=== PATIENT | male | born 1970 | race Caucasian/White ===

== ENCOUNTER 2025-07-03 07:46 | Outpatient (NON) | payer OTHER, SELFPAY ==
--- OUTSIDE RECORDS SUMMARY | 2025-06-20 19:29 | XMS_ITS | Encounter Summary ---
Author Organization [facility] Address [address] [place] [address] Care Team Providers Care Cell Coverer Name Role Phone Unavailable Primary Care Provider Unavailabl e Reason for Referral * Evaluate & Treat (Urgent) - Open Specialty Diagnoses / Procedures Referred By Yoel huitron Referred To Contact Psychiatry Diagnoses Weakness Anxiety Suicidal behavior with attempted self-injury (HCC) Alcohol use disorder Other depression Idiopathic gout, unspecified chronicity, unspecified site Hypomagnesemia Hypokalemia Hypophosphatemia Primary hypertension Vitamin D deficiency Philip Delacruz MD [address] [place] [address] Phone: tel: fax: [facility] - Psychiatry [address] [place] [address] Phone: tel: fax: Referral ID Status Reason Start Date Expiration Date V isits Requested Visits Authorized [id number] Open Specialty Services Required 07/01/2025 07/01/2026 1 1 ICIAN ASSISTANT * Consultation (Routine) - Canceled Specialty Diagnoses / Procedures Referred By Yoel huitron Referred To Contact Transitional Care Unit / Transitional Care Diagnoses Weakness Anxiety Suicidal behavior with attempted self-injury (HCC) Alcohol use disorder Other depression Idiopathic gout, unspecified chronicity, unspecified site Hypomagnesemia Hypokalemia Hypophosphatemia Primary hypertension Vitamin D deficiency Philip Delacruz MD [address] [place] [address] Phone: tel: fax: Transitional Care at [address] [address] Phone: tel: fax: Referral ID Status Reason Start Date Expiration Date Visits Requested Visits Authorized [id number] Canceled Specialty Services Required 07/01/2025 07/01/2026 1 1 ICIAN ASSISTANT Reason for Visit * Auth/Cert (Routine) Specialty Diagnoses / Procedures Referred By Contac t Referred To Contact Diagnoses Weakness Referral ID Status Reason Start Date Expiration Date Visits Re quested Visits Authorized [id number] 1 1 Encounter Details Date Type Department Care Team (Latest Contact Info) Description 06/20/2025 8:29 PM CDT - 07/01/2025 8:00 PM PHYSICIAN ASSISTANT Hospital Encounter [facility] [address] [place] [address] Kofi Ivey DO [address] [facility] [place] [address] Fransico Rhodes MD [address] [address] Gricelda Blancas MD [address] [place] [address] Internal Medicine Discharge Disposition: Nursing Facility:Medicaid Social History Tobacco Use Types Packs/Day Years Used Date Smoking Tobacco: Unknown Tobacco Cessation:Counseling Given: Not Answered Alcohol Use Standard Drinks/Week Comments Yes 12 (1 standard drink = 0.6 oz pu re alcohol) AUDIT-C Answer Date Recorded Q1: How often do you have a drink containing alcohol? 4 or more times a week 06/26/2025 Q2: How many drinks containi ng alcohol do you have on a typical day when you are drinking? 3 or 4 Q3: How often do you have si x or more drinks on one occasion? Less than monthly 06/26/2025 Overall Financial Resource Strain (CARDIA) Answe r Date Recorded How hard is it for you to pa y for the very basics like food, housing, medical care, and heating? Patient unable to answer 06/26/2025 [facility] Occupat ional [facility] - Occupational Stress Questionnaire Answer Date Recorded Do you feel stress - tense, restless, nervous, or anxious, or unable to sleep at night because your mind is troubled all the time - these days? Patient unable to answer 06/26/2025 Hunger Vital Sign Answer Date Recorded Within the past 12 months, y ou worried that your food would run out before you got the money to buy more. Patient unable to answer 06/26/2025 Within the past 12 months, t he food you bought just didn't last and you didn't have money to get more. Patient unable to answer 06/26/2025 PRAPARE - Transportation Answer Date Re corded In the past 12 months, has l ack of transportation kept you from medical appointments or from getting medications? Patient unable to answer 06/26/2025 In the past 12 months, has l ack of transportation kept you from meetings, work, or from getting things needed for daily living? Patient unable to answer 06/26/2025 Housing Stability Vital Sign Answer Diego e Recorded In the last 12 months, was t here a time when you were not able to pay the mortgage or rent on time? Patient unable to answer 06/26/2025 In the past 12 months, how m any times have you moved where you were living? 0 06/26/2025 At any time in the past 12 m [facility], were you homeless or living in a penitentiary (including now)? Patient unable to answer 06/26/2025 Sex and Gender Information Value Date Recorded Sex Assigned at Not on file Legal Sex Male 11:09 AM CDT Gender Identity Not on file Sexual Orientation Not on file documented as of this encounter Last Filed Vital Signs Vital Sign Reading Time Taken Comments Blood Pressure 129/93 07/01/2025 7:49 PM PHYSICIAN ASSISTANT Pulse 119 07/01/2025 7:49 PM PHYSICIAN ASSISTANT Temperature 36.8 C (98.2 F) 07/01/2025 7:49 PM PHYSICIAN ASSISTANT Respiratory Rate 16 07/01/2025 7:49 PM PHYSICIAN ASSISTANT Oxygen Saturation 100% 06/30/2025 8:09 PM PHYSICIAN ASSISTANT Inhaled Oxygen Concentration - - Weight 76.9 kg (169 lb 8 oz) 06/20/2025 9:03 PM CDT Height 180.3 cm (5' 11) 06/20/2025 9:03 PM CDT Body Mass Index 23.64 06/20/2025 9:03 PM CDT documented in this encounter Functional Status * Functional and Cognitive Status Question Answer Date of Assessment Author Is person deaf or have blanca us hearing difficulty? No 06/22/2025 10:18 AM Ivon Vera RN Is person blind or have seri ous difficulty seeing? No 06/22/2025 10:18 AM Ivon Vera RN Does person have serious dif ficulty walking/climbing stairs? No 06/22/2025 10:18 AM Richardson Vera RN Does person have difficulty dressing/bathing? No 06/22/2025 10:18 AM Ivon Vera RN Does person have difficulty doing errands alone? No 06/22/2025 10:18 AM Ivon Vera RN Does person have difficulty concentrating/remembering/making decisions? Yes 06/22/2025 10:18 AM Ivon Vera RN * Question Answer Date of Assessment Author Q1: How often do you have a drink containing alcohol? 4 or more times a week 06/26/2025 8:37 AM Teresa Crump RN Q2: How many drinks containing alcohol do you have on a typical day when you are drinking? 3 or 4 06/26/2025 8:37 AM Teresa Crump R N Q3: How often do you have six or more drinks on one occasion? Less than monthly 06/26/2025 8:37 AM Teresa Crump R N * AUDIT-C Score Answer Date of Assessment Author 6 06/26/2025 8:37 AM Blue RN * Is person deaf or have serious hearing difficulty? Answer Date of Assessment Author No 06/22/2025 10:18 AM Ivon Vera RN * Is person blind or have serious difficulty seeing? Answer Date of Assessment Author No 06/22/2025 10:18 AM Ivon Vera RN * Does person have serious difficulty walking/climbing stairs? Answer Date of Assessment Author No 06/22/2025 10:18 AM Ivon Vera RN * Does person have difficulty dressing/bathing? Answer Date of Assessment Author No 06/22/2025 10:18 AM Ivon Vera RN * Does person have difficulty doing errands alone? Answer Date of Assessment Author No 06/22/2025 10:18 AM Ivon Vera RN documented as of this encounter Mental Status * Does person have difficulty concentrating/remembering/making decisions? Answer Entry Date Author Yes 06/22/2025 10:18 AM Ivon Vera RN documented in this encounter Discharge Summaries * Philip Delacruz MD - 07/01/2025 8:29 PM CST Images from the original note were not included. [facility] Internal Medicine Discharge Summary Name: Chilo Boateng Room/Bed: 6613/1 : 1970 55 year old PCP: No primary care provider on file. Admit Date/Time: 06/20/2025 8:29 PM LOS: 11 Date of discharge: Code status at time of discharge: Full Code Patient condition at time of discharge: Stable Discharge Diagnosis Weakness (POA: Yes) Primary hypertension (POA: Yes) Alcohol use disorder (POA: Yes) Anxiety (POA: Yes) Depression (POA: Yes) Suicidal behavior with attempted self-injury (HCC) (POA: Yes) Hypokalemia (POA: Yes) Hypophosphatemia (POA: Yes) Hypomagnesemia (POA: Yes) Vitamin D deficiency (POA: Yes) Swelling of joint of right knee (POA: Unknown) Gout (POA: Unknown) Elevated LFTs (POA: Unknown) Hospital Course Chilo Boateng is a 55-year-old male with a history of hypertension, alcohol use disorder, depression with multiple suicide attempts, and bilateral peripheral neuropathy who was admitted for evaluation of generalized weakness following a period of alcohol detox and suicidal ideation. His hospitalization was notable for progressive cognitive changes, agitation, and functional decline, with the principal diagnosis of alcohol-induced major neurocognitive disorder, amnestic-confabulatory type, persistent, in the context of suspected Wernicke encephalopathy and multifactorial delirium. The diagnostic workup included laboratory evaluation for nutritional deficiencies (B1, B12, folate,MMA, vitamin D), metabolic derangements, and imaging to rule out acute injury after an unwitnessed fall (CT head, c-spine, right hip x-ray, all negative). Neurology and psychiatry were consulted for a ssessment of cognitive and behavioral changes, with psychiatry following throughout the admission for ongoing risk assessment and management of agitation, mood symptoms, and safety precautions. Speech-language pathology and physical/occupational therapy evaluated and recommended intensive multidisci plinary rehabilitation due to significant deficits in functional mobility, cognition, and self-care. Therapeutic interventions included high-dose IV thiamine (500 mg TID), folic acid, multivitamins, and vitamin D repletion for nutritional support, as well as electrolyte repletion for hypokalemia, hypomagnesemia, and hypophosphatemia. CIWA protocol and lorazepam PRN were discontinued as withdrawal symptoms resolved. For agitation and sleep disturbance, trazodone was titrated to 100 mg QHS and haloperidol was initiated at 3 mg QHS, with PRN haloperidol available for moderate/severe agitation. Physical and occupational therapy focused on bed mobility, transfers, and ambulation, with gradual improvement in functional status but persistent need for assistance and safety monitoring. During the admission, he developed right knee swelling with effusion, for which orthopedic surgery was consulted. Imaging showed a large joint effusion without acute fracture, and arthrocentesis yielded unremarkable results; colchicine and allopurinol were started for gout management. His hypertension was managed with amlodipine after holding metoprolol and losartan due to prior KOBI, which resolve d before transfer. He also had elevated LFTs, with abdominal ultrasound showing hepatic steatosis. Psychiatric evaluation throughout the stay documented persistent cognitive impairment, intermittentagitation, and mood symptoms, but no ongoing suicidal ideation or self-harm behaviors in the days prior to discharge. Sitter was discontinued as behaviors improved, and discharge planning focused on placement in a nursing home facility due to ongoing safety and functional needs. At discharge, he was alert and cooperative, with persistent cognitive deficits and functional limitations requiring continued rehabilitation and assistance with ADLs. Discharge medications included acetaminophen, amlodipine, colchicine, folic acid, haloperidol, multivitamins, trazodone, vitamin D, and allopurinol. He was transferred to [facility] for post-acute care and long- term placement. Problem List/Plan of Care at Time of Discharge Alcohol use disorder Present on Admission: Yes Weakness Present on Admission: Yes - 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 vs nutritional deficiency vs wernicke encephalopathy vs muscular dystrophy vs infection - acute exacerbation likely due to increase in alcohol consumption - IV thiamine 500 mg TID given at OSH - workup includes UA, TSH, B1, B12, folate, MMA, vit D, CK blood - started on IV thiamine here with Neurology consult in AM PLAN: - Folic acid 1 mg daily - Thiamine daily - s/p [facility] protocol - F/u on Labs - PT/OT rec acute rehab Primary hypertension Present on Admission: Yes - elevated on admission 170s SBP - on metoprolol 25 and losartan 50 which was held due to kobi Plan: - continue amlodipine 5 mg as he is very well controlled for the time being Suicidal behavior with attempted self-injury (HCC) Present on Admission: Yes Depression Present on Admission: Yes Anxiety Present on Admission: Yes - admitted to [facility] behavioral health unit due to suicide attempt - does not endorse SI here - continuous sitter for agitation (not needed for SI anymore) - psych consulted, recs: - no psychiatric contraindication to discharge, Recommend discharge to the rehab facility like SNF,recommend giving trazodone 100 mg QHS at discharge and follow up outpatient, Increase Trazodone to 100 mg tablet PO, consider initiating Naltrexone at follow up psychiatric examinations, - haldol 3mg PO qhs - PRNs for agitation: Haldol 5mg PO or 2.5mg IM q6h PRN - Precautions: Elopement, Fall Hypophosphatemia Present on Admission: Yes Hypokalemia Present on Admission: Yes Hypomagnesemia Present on Admission: Yes Today potassium 3.4 06/30/25 Plan: Replete electrolytes as needed Today repleted 40 mEq of KCl Vitamin D deficiency Present on Admission: Yes Plan: Vitamin D (ergocalciferol) 1.25 MG capsule containing 50,000 units Swelling of joint of right knee Present on Admission: Not yet determined Gout Present on Admission: Not yet determined Right knee is joint swelling improved. No localized tenderness, induration, erythema, pain, and skin changes noted. Xray shows effusion of the right knee. Orthopedic surgery consulted and arthrocentesis obtained, results unremarkable thus far. Plan: continue to follow arthrocentesis results Orthopedic surgery recommendations: No acute orthopedic surgical intervention indicated Weight bearing Status: [facility] Orthopedic surgery has signed off. Elevated LFTs Present on Admission: Not yet determined - Abd US 06/29 showing hepatic steatosis Follow-up Summary Future Appointments As directed Outpatient Referral: Ref to Psychiatry - Nancy Silver As directed Outpatient Referral: REF TO [facility] Alonzo Medication Updates: See medications below Post discharge follow up tasks/Incidental Findings: Follow up with the Psychiatry, and PCP, [facility] referral Discharge Destination: Facility. Diet: Current Diet Order Start 06/29/25 1045 DIET REGULAR Question Answer Comment Tray Type: SELF SELECT Paper Service Tray required (Indicate reason) Safety Tray Activity Orders/Mobility Devices at time of discharge: PT Discharge Recommendations: Patient would benefit from multidisciplinary therapy This recommendation is made due to ongoing PT functional needs: address care for self in the home;address functional deficits Recommended Transportation Method: Wheelchair Van Patient is being recommended for post acute care, therefore DME recommendations will be made at thenext level of care. SUBJECTIVE: Subjective: Pt agreeable to therapy session. What matters most to this patient? Did not state Pain Assessment: Pain Assessment Pain Scale/Observation: No/denies pain PRECAUTIONS: Weight Bearing Status: (No WB restrictions noted) Activity Level: Activity as Tolerated OBJECTIVE: At start of therapy session, patient found in bed and with no alarm General Appearance: adult male in NAD Vitals/Observations: Pt denied dizziness, chest pain, SOB, and nausea during activity or position changes. In NAD throughout session. Mental Status/Cognition: Orientation Level: Disoriented to Situation (Knew year, but required coices for month (correctly chose Nov).) Cognition: Confused;Impulsive Attention Span: Attends with cues to redirect Memory: Decreased recall of recent events Following Commands: Follows one step commands consistently Safety Judgement: Decreased awareness of need for safety Awareness of Errors: Decreased awareness of deficits Mobility: A gait belt and non-slip socks were used for all out of bed activity this date. Bed Mobility: Supine to Sit: Stand By Assist with HOB in semi-fowlers position Sit to Supine: Stand By Assist Transfers: Sit to Stand: Stand By Assist Stand to Sit: Stand By Assist Type of Transfer: Other (Comment) (from ambulation w/o AD and SBA-Min A for safety and intermittentsteadying) Transfer Device: Gait belt Gait: Weight Bearing Status: (No WB restrictions noted) Distance Ambulated (ft): 250 FEET Ambulation: Assistive Device: Gait Belt Ambulation: Level of Assistance: Moderate Assistance;Requires Verbal Cues for Safety;Requires Verbal Cues for Technique;Requires Physical Cues for Technique (Min-Mod A for maintaining COG over TICO; 2instances of LOB requiring physical assist to correct) Ambulation: Gait Deviations: Trunk sway;Push Off - Decreased;Heel Strike - Decreased Balance: Sitting - Static: Good - Sitting - Dynamic: Good - Standing - Static: Fair;Without Upper Extremity Support Standing - Dynamic: Fair -;Without Upper Extremity Support ACTIVITY TOLERANCE: Activity Tolerance: Requires standing rest breaks;Requires rest breaks TREATMENT/INTERVENTIONS: transfer training and gait training [facility] 6 Clicks Mobility Raw Score:: 20 EDUCATION: While performing PT, Patient was instructed in:functional mobility training, safety awareness/fall precautions , use of adaptive equipment, discharge planning, use of call light Presented to patient who demonstrates Fair understanding of instructions given. ASSESSMENT: Patient would benefit from additional Physical Therapy sessions to achieve the following functionalgoals to enhance independence. Short Term Goals: Goal Formation With patient Patient will perform bed mobility with complete independence Patient will transfer sit to/from stand with modified independence Patient will transfer bed to/from chair with modified independence Patient will ambulate 100 feet with standby assistive with least restrictive device Emergency Contacts: Extended Emergency Contact Information Primary Emergency Contact: Kasia Boateng Mobile Relation: Mother Discharge Medications Allergies[1] Medication List START taking these medications acetaminophen 500 MG tablet Commonly known as: Tylenol Take 1 (one) tablet by mouth every 6 hours as needed Maximum allowable Acetaminophen amount = 4 Grams (4000 mg) / 24 hours. allopurinol 100 MG tablet Commonly known as: Zyloprim Take 1 (one) tablet by mouth once daily after breakfast Start taking on: July 02, 2025 amLODIPine 5 MG tablet Commonly known as: Norvasc Take 1 (one) tablet by mouth once daily Start taking on: July 02, 2025 colchicine 0.6 MG tablet Take 1 (one) tablet by mouth once daily Start taking on: July 02, 2025 folic acid 1 MG tablet Commonly known as: Folvite Take 1 (one) tablet by mouth once daily Start taking on: July 02, 2025 haloperidol 1 MG tablet Commonly known as: Haldol Take 3 (three) tablets by mouth at bedtime multiple vitamins with minerals tablet Take 1 (one) tablet by mouth once daily Start taking on: July 02, 2025 traZODone 100 MG tablet Commonly known as: Desyrel Take 1 (one) tablet by mouth once daily vitamin D (ergocalciferol) 1.25 MG (17912 UT) capsule Commonly known as: Drisdol Take 1 (one) capsule by mouth every 7 days (once a week) Start taking on: July 06, 2025 Where to Get Your Medications You can get these medications from any pharmacy Bring a paper prescription for each of these medications acetaminophen 500 MG tablet allopurinol 100 MG tablet amLODIPine 5 MG tablet colchicine 0.6 MG tablet folic acid 1 MG tablet haloperidol 1 MG tablet multiple vitamins with minerals tablet traZODone 100 MG tablet vitamin D (ergocalciferol) 1.25 MG (05897 UT) capsule Physical Exam Recent Vitals: Temp: [98.2 ??F (36.8 ??C)] 98.2 ??F (36.8 ??C) Pulse: [84-119] 119 Resp: [16-18] 16 BP: (128-142)/(84-93) 129/93 Weight change: No intake or output data in the 24 hours ending 07/01/252028 Physical Exam: Gen: Alert, cooperative, in no acute distress HEENT: NC/AT, EOMI, no nasal drainage Neck: Supple CV: Regular rate and rhythm. No murmurs appreciated Lungs: Clear to auscultation bilaterally Abdomen: BS+, soft, non-tender, non-distended Extremities: Nontender, No edema noted Skin: Warm, dry Neuro: Alert and oriented to person, place, time and situation Psych: Mood appropriate Radiology XR Elbow Right 2Vw Result Date: 06/21/2025 PROCEDURE: XR ELBOW RIGHT 2VW, DATE/TIME OF EXAM: 06/21/2025 4:33 PM, LOCATION [facility] INDICATION: R53.1: Weakness ADDITIONAL CLINICAL INFORMATION: Ordering Provider Reason For Exam: purulent fluid accumulation? dislocation of elbow joint? Localized cellulitis? Technologist Note: Additional: COMPARISON: None. Impression: Alignment is normal. Joint spaces are normal. No acute fracture. No joint effusion. > Interpreting Provider: Gray Bo MD on 06/21/2025 8:19 PM XR Chest 1Vw Portable Result Date: 06/21/2025 PROCEDURE: XR CHEST 1VW PORTABLE, DATE/TIME OF EXAM: 06/21/2025 1:46 AM, LOCATION [facility] INDICATION: T17.908D: Aspiration into airway, subsequent encounter ADDITIONAL CLINICAL INFORMATION: Ordering Provider Reason For Exam: aspiration Technologist Note: Additional: COMPARISON: None. Impression: There is subsegmental atelectasis in the lower lungs.There is no pleural effusion.Thereis no pneumothorax. The cardiomediastinal silhouette is normal. > Interpreting Provider: Gray Bo MD on 06/21/2025 12:47 PM Notable Labs Laboratory Data Recent Labs Component Name 06/28/25194206/24/2548 06/21/25402 WBC 7.7 7.8 7.5 HGB 12.4* 12.5* 11.5* HCT 37.9* 35.3* 32.4* PLTCOUNT 418 473* 353 MCV 99.2* 91.7 91.3 No results for input(s): PT, INR, PTT in the last 45268 hours. Recent Labs Component Name 06/30/25193006/30/254406/28/251942 NA 140 139 138 POTASSIUM 4.3 3.4* 3.9 CL 109* 107 106 CO2 19* 24 19* BUN 15 14 17 CREATININE 0.89 0.93 0.81 Recent Labs Component Name 06/30/25193006/30/255 06/28/251942 CALCIUM 8.9 9.1 9.1 PHOS 3.7 4.0 3.6 Recent Labs Component Name 06/30/25193006/30/254406/28/251942 PROT 7.1 7.0 7.0 ALB 3.4 3.3* 3.2* ALKPHOS 64 73 54 AST 64* 73* 83* ALT 78* 81* 77* TBILI 0.3 0.3 0.3 Recent Labs Component Name 06/21/25 0403 CKTOTAL 103 No results for input(s): CAITLYN ANDINO in the last 62687 hours. Microbiology Results (Displays last 21 days for this encounter ONLY) Procedure Component Value - Date/Time CULTURE FLUID+GRAM STAIN [[id number]] (Normal) Collected: 06/24/25 1308 Lab Status: Final result Specimen: Synovial Fluid Updated: 06/30/25 1515 Culture No growth Gram Stain Light Polymorphonuclear cells No organisms seen Narrative: Body fluid received in blood culture bottles will be evaluated for aerobic and anaerobic growth. Separate anaerobic culture order has been cancelled as a duplicate order. CULTURE AFB+SMEAR [[id number]] (Normal) Collected: 06/24/25 1300 Lab Status: Preliminary result Specimen: Microbiology from Synovial Fluid Updated: 06/29/25 0804 Culture No acid-fast bacillus isolated AFB Smear No acid-fast bacilli seen CULTURE FUNGUS OTHER+FUNGUS SMEAR [[id number]] (Normal) Collected: 06/24/25 1300 Lab Status: Preliminary result Specimen: Microbiology from Synovial Fluid Updated: 06/29/25 1148 Culture No fungus isolated Fungus Stain No yeast or hyphae seen Patient Discharge Instructions Discharge Instructions Chilo Tasneem If you need to call [facility] for any reason, you may reach us at [phone] and dial [phone] for the staple processing machine operator. DISCHARGE MEDICATIONS: Below were changes made to your home medications: Current Discharge Medication List START taking these medications Instructions Authorizing Provider acetaminophen 500 MG tablet Commonly known as: Tylenol Quantity Dispensed: 60 tablet Take 1 (one) tablet by mouth every 6 hours as needed Maximum allowable Acetaminophen amount = 4 Grams (4000 mg) / 24 hours. Philip Delacruz MD allopurinol 100 MG tablet Commonly known as: Zyloprim Quantity Dispensed: 60 tablet Start taking on: July 02, 2025 Take 1 (one) tablet by mouth once daily after breakfast Philip Delacruz MD amLODIPine 5 MG tablet Commonly known as: Norvasc Quantity Dispensed: 90 tablet Start taking on: July 02, 2025 Take 1 (one) tablet by mouth once daily Philip Delacruz MD colchicine 0.6 MG tablet Quantity Dispensed: 60 tablet Start taking on: July 02, 2025 Take 1 (one) tablet by mouth once daily Philip Delacruz MD folic acid 1 MG tablet Commonly known as: Folvite Quantity Dispensed: 90 tablet Start taking on: July 02, 2025 Take 1 (one) tablet by mouth once daily Philip Delacruz MD haloperidol 1 MG tablet Commonly known as: Haldol Quantity Dispensed: 90 tablet Take 3 (three) tablets by mouth at bedtime Philip Delacruz MD multiple vitamins with minerals tablet Quantity Dispensed: 60 Each Start taking on: July 02, 2025 Take 1 (one) tablet by mouth once daily Philip Delacruz MD traZODone 100 MG tablet Commonly known as: Desyrel Quantity Dispensed: 30 tablet Take 1 (one) tablet by mouth once daily Philip Delacruz MD vitamin D (ergocalciferol) 1.25 MG (99755 UT) capsule Commonly known as: Drisdol Quantity Dispensed: 8 capsule Start taking on: July 06, 2025 Take 1 (one) capsule by mouth every 7 days (once a week) Philip Delacruz MD If you have any questions about your medications, please be sure to ask the pharmacy when you continuous pickling line pickler helper your prescription. You may also call your primary provider if you are uncertain if you should be taking your medication. INSTRUCTIONS: Follow your new meds as described in the table above CONCERNING SYMPTOMS: When to call your healthcare provider: Call your healthcare provider immediately if you have any of the following: - Fever of 101??F or higher - Shaking chills - Intractable nausea and vomiting - Severe headache - Confusion/altered mental status - Seizures (convulsions) - Weakness in arms/legs - Dizziness If you are unable to reach your primary provider, please go to the nearest emergency room or call EMS ([phone]). It is essential that you keep all of your follow-up appointments and go to your doctors appointments as scheduled. If a follow-up with your primary care provider has not been scheduled, you need to schedule an appointment tofollow-up on your hospitalization within 1-2 weeks. If there is a conflict,please call the clinic ahead of time and reschedule the appointment. Thank you, Internal Medicine Department [address] [address] I spent 60 minutes in addition to direct patient care summarizing this patient's hospital stay, reviewing and updating the inpatient problem list, reviewing discharge medications, instructions, discussing discharge care planand discharge follow up labs/studies/doctor visits with the patient and or POA/family. Philip Delacruz MD [facility] 07/01/2025 8:29 PM [1] No Known Allergies ICIAN ASSISTANT documented in this encounter Discharge Instructions * Discharge Instructions* Philip Delacruz MD - 07/01/2025 4:08 PM PHYSICIAN ASSISTANT Chilo Boateng If you need to call [facility] for any reason, you may reach us at [phone] and dial [phone] for the staple processing machine operator. DISCHARGE MEDICATIONS: Below were changes made to your home medications: Current Discharge Medication List START taking these medications Instructions Authorizing Provider acetaminophen 500 MG tablet Commonly known as: Tylenol Quantity Dispensed: 60 tablet Take 1 (one) tablet by mouth every 6 hours as needed Maximum allowable Acetaminophen amount = 4 Grams (4000 mg) / 24 hours. Philip Delacruz MD allopurinol 100 MG tablet Commonly known as: Zyloprim Quantity Dispensed: 60 tablet Start taking on: July 02, 2025 Take 1 (one) tablet by mouth once daily after breakfast Philip Delacruz MD amLODIPine 5 MG tablet Commonly known as: Norvasc Quantity Dispensed: 90 tablet Start taking on: July 02, 2025 Take 1 (one) tablet by mouth once daily Philip Delacruz MD colchicine 0.6 MG tablet Quantity Dispensed: 60 tablet Start taking on: July 02, 2025 Take 1 (one) tablet by mouth once daily Philip Delacruz MD folic acid 1 MG tablet Commonly known as: Folvite Quantity Dispensed: 90 tablet Start taking on: July 02, 2025 Take 1 (one) tablet by mouth once daily Philip Delacruz MD haloperidol 1 MG tablet Commonly known as: Haldol Quantity Dispensed: 90 tablet Take 3 (three) tablets by mouth at bedtime Philip Delacruz MD multiple vitamins with minerals tablet Quantity Dispensed: 60 Each Start taking on: July 02, 2025 Take 1 (one) tablet by mouth once daily Philip Delacruz MD traZODone 100 MG tablet Commonly known as: Desyrel Quantity Dispensed: 30 tablet Take 1 (one) tablet by mouth once daily Philip Delacruz MD vitamin D (ergocalciferol) 1.25 MG (28876 UT) capsule Commonly known as: Drisdol Quantity Dispensed: 8 capsule Start taking on: July 06, 2025 Take 1 (one) capsule by mouth every 7 days (once a week) Philip Delacruz MD If you have any questions about your medications, please be sure to ask the pharmacy when you continuous pickling line pickler helper your prescription. You may also call your primary provider if you are uncertain if you should be taking your medication. INSTRUCTIONS: Follow your new meds as described in the table above CONCERNING SYMPTOMS: When to call your healthcare provider: Call your healthcare provider immediately if you have any of the following: - Fever of 101??F or higher - Shaking chills - Intractable nausea and vomiting - Severe headache - Confusion/altered mental status - Seizures (convulsions) - Weakness in arms/legs - Dizziness If you are unable to reach your primary provider, please go to the nearest emergency room or call EMS ([phone]). It is essential that you keep all of your follow-up appointments and go to your doctors appointments as scheduled. If a follow-up with your primary care provider has not been scheduled, you need to schedule an appointment tofollow-up on your hospitalization within 1-2 weeks. If there is a conflict,please call the clinic ahead of time and reschedule the appointment. Thank you, Internal Medicine Department [address] [address] ICIAN ASSISTANT documented in this encounter Medications at Time of Discharge acetaminophen (Tylenol) 500 MG tablet Take 1 (one) tablet by mouth every 6 hours as needed Maximum allowable Acetaminophen amount = 4 Grams (4000 mg) / 24 hours. 60 tablet 07/01/2025 allopurinol (Zyloprim) 100 MG tablet Take 1 (one) tablet by mouth once daily after breakfast 60 tablet 07/02/2025 amLODIPine (Norvasc) 5 MG tablet Take 1 (one) tablet by mouth once daily 90 tablet 07/02/2025 colchicine 0.6 MG tablet Take 1 (one) tablet by mouth once daily 60 tablet 07/02/2025 folic acid (Folvite) 1 MG tablet Take 1 (one) tablet by mouth once daily 90 tablet 07/02/2025 haloperidol (Haldol) 1 MG tablet Take 3 (three) tablets by mouth at bedtime 90 tablet 07/01/2025 multiple vitamins with minerals tablet Take 1 (one) tablet by mouth once daily 60 Each 07/02/2025 traZODone (Desyrel) 100 MG tablet Take 1 (one) tablet by mouth once daily 30 tablet 1 07/01/2025 vitamin D, ergocalciferol, (Drisdol) 1.25 MG (47640 UT) capsule Take 1 (one) capsule by mouth every 7 days (once a week) 8 capsule 07/06/2025 documented as of this encounter Progress Notes * Ute Hong RN - 07/01/2025 4:25 PM CST Facility Transfer Note Actual Level of Care/Dispostion Details Actual Level of Care at Discharge: Correction - Medicaid Patient / Family provided post-acute services choices?: Yes Payor Source: Medicaid Facility Name: (include name of person confirming admission): [facility] Made Aware of Special Needs (if applicable): No RN Call Report to: [phone] RN Fax D/C Orders to: [phone] Transportation: YAN Certificate of Medical Necessity rationale: Fall risk, balance Date/time of transfer: 07/01 at Accepting MD: Unknown Completed and Signed [id number] (if applicable): N/A Physician signed: No Family/Other Notified of Transfer (name/phone): Extended Emergency Contact Information Primary Emergency Contact: Kasia Boateng Mobile Relation: Mother Authorization Skilled Care: Authorization for Transportation: Verified Qualifying Stay(Skilled Only, 3 consecutive days): NO Present hospitalization: No Past 30 days: No Patient discharged to SNF under Medicare SNF 3-day waiver? No Comments: SW faxed D/C orders, MAR, and AVS to facility. ICIAN ASSISTANT * Demario Rosado MSW - 07/01/2025 4:13 PM CST Facility Transfer Note Actual Level of Care/Dispostion Details Actual Level of Care at Discharge: Correction - Medicaid Patient / Family provided post-acute services choices?: Yes Payor Source: Medicaid Facility Name: (include name of person confirming admission): [facility] Made Aware of Special Needs (if applicable): No RN Call Report to: [phone] RN Fax D/C Orders to: [phone] Transportation: [facility]AN Certificate of Medical Necessity rationale: Fall risk, balance Date/time of transfer: 07/01 at Accepting MD: Unknown Completed and Signed [id number] (if applicable): N/A Physician signed: No Family/Other Notified of Transfer (name/phone): Extended Emergency Contact Information Primary Emergency Contact: Kasia Boateng Mobile Relation: Mother Authorization Skilled Care: Authorization for Transportation: Verified Qualifying Stay(Skilled Only, 3 consecutive days): NO Present hospitalization: No Past 30 days: No Patient discharged to SNF under Medicare SNF 3-day waiver? No Comments: SW faxed D/C orders, MAR, and AVS to facility. AILEEN Matson ICIAN ASSISTANT * Caity Geller OT - 07/01/2025 11:13 AM CST [facility] Physical Medicine and Rehabilitation Occupational Therapy Progress Note Patient: Chilo Boateng Med Record Number: [id number] Date of : 1970 Age: [age] year old PPE worn by staff: gloves;mask - procedural Recommendations: OT Discharge Recommendations: Patient would benefit from multidisciplinary therapy This recommendation is made due to ongoing OT functional needs: address functional deficits;addresscare for self in the home Activity Level: as tolerated SUBJECTIVE: Subjective: I can try to move. PATIENT GOALS / WHAT MATTERS MOST TO THE PATIENT: Patient's Primary Concern: Walk better Pain Assessment: Pain Assessment Pain Scale/Observation: No/denies pain OBJECTIVE: At start of therapy session, patient found in bed and with bed alarm on General Appearance: supine in NAD Mental Status/Cognition: Orientation Level: Disoriented to Time;Disoriented to Situation (cues for date, states Jul 17) Memory: Decreased short term memory Following Commands: Follows one step commands with repetition/cues Safety Judgement: Decreased awareness of need for safety Awareness of Errors: Decreased awareness of deficits Problem Solving: Assistance required to generate solutions Mobility: a gait belt and non-slip socks were used for all out of bed activity this date. Bed Mobility: Supine to Sit: Stand By Assist with HOB in semi-fowlers position Sit to Supine: Stand By Assist Transfers: Sit to Stand: Stand By Assist Stand to Sit: Stand By Assist Transfer Device: Gait belt Functional Ambulation: Patient ambulated functional household distance with moderate assist using no device and progressing to minimal assist with use of w/w. Balance: Sitting - Static: Good Sitting - Dynamic: Good - Standing - Static: Fair;Without Upper Extremity Support Standing - Dynamic: Poor +;Without Upper Extremity Support Activities of Daily Living: Oral Facial Hygiene: Stand By Assist (facial and hand hygiene standing at the sink) Lower Body Dressing: Minimal Assistance ACTIVITY TOLERANCE: Activity Tolerance: Requires standing rest breaks AM-PAC 6 Clicks Daily Activity Raw Score:: 19 TREATMENT/INTERVENTIONS: ADL training Cognitive retraining Functional transfer training Endurance training Safety awareness EDUCATION: While performing OT, Patient was instructed in:functional mobility training, self-care training, cognitive retraining, safety awareness/fall precautions , discharge planning, use of call light Presented to patient who demonstrates Fair understanding of instructions given. INFORMED CONSENT TO TREATMENT: Plan of care including recommended therapy, goals and frequency, discussed with patient who understands and agrees to proceed. ASSESSMENT: Patient continues to benefit from skilled Occupational Therapy to achieve the following functional goals. Short Term Goals: Goal Formation With patient Patient will perform grooming in chair and independently Patient will perform lower extremity dressing in chair and with minimal assist Patient will transfer to bedside commode with minimal assist and with least restrictive assistive device Patient will tolerate treatment 25 minutes and with fair+ endurance Picker Packer Goal(s): Patient to discharge to appropriate next level of inpatient care Plan: Patient continues to benefit from skilled therapy services., Continue with goals as established. If patient is discharged from the facility, this note serves as a discharge summary if further occupational therapy visits did not occur. Refer to filed flowsheet for further details. Following therapy session, patient left in bed, with bed alarm on , with call light within reach. ICIAN ASSISTANT * Philip Delacruz MD - 06/30/2025 7:35 PM CST Images from the original note were not included. [facility] Internal Medicine Progress Note Name: Chilo Boateng Room/Bed: 6613/1 : 1970 55 year old PCP: No primary care provider on file. Admit Date/Time: 06/20/2025 8:29 PM LOS: 10 Subjective Interval Update: Seen in his room, today he feels sad/worried about his mother being hospitalized We encouraged him to keep working on recovery patient is agreeable, he is not suicidal does not want to hurt anyone or himself Hypokalemia mild 3.4, we will replete Continued to work with physical therapy and occupational therapy today Hospital course: Chilo Boateng is a 54 year old male with a past medical history significant for HTN, alcohol use disorder, depression with multiple suicide attempts and bilateral peripheral neuropathy for 2 years who presents to the hospital with generalized weakness. Admitted to behavioral health unit initially for alcohol detox and SI on 06/10. Developed profound weakness, started to experience severe tremors, was slow to respond, had minimal intake, worsening pain/tingling in his feet, was unable to ambulate so he was ultimately sent to medicine floor. They had concern for Wernicke encephalopathy due to intention tremors and worsening neuropathy so was started on IV thiamine 500 mg tid. KOBI which resolved before transfer. On metoprolol and losartan which was held due to KOBI. Had an unwitnessed fall and CT head, c-spine and R hip xray which was negative but now has worsening R side pain and weakness. Was Aox4 at OSH but very slow to respond. On a 1:1 sitter since he was endorsing SI at OSH. The morning of transfer, had episode of aspiration so was started on Unasyn. CXR clear here and afebrile. On admission, afebrile, HDS. Not endorsing SI tonight. Aox2-3 unsure of why he was transferred and not sure which hospital he was at. Does endorse ongoing neuropathy for the past 2 years that has significantly worsened in the past week. Reports last suicide attempt as using alcohol. Does not remember some of the events of the past 2 weeks. Denies sob, recent illnesses, chest pain or diarrhea. Sitter discontinued 06/27 as patient behaviors improved. Objective Temp: [98.1 ??F (36.7 ??C)] 98.1 ??F (36.7 ??C) Pulse: [82-103] 82 Resp: [18] 18 BP: (133-139)/(83-89) 133/89 Weight change: No intake or output data in the 24 hours ending 06/30/251934 Physical Exam: Gen: Alert, cooperative, in no acute distress HEENT: NC/AT, EOMI, no nasal drainage Neck: Supple CV: Regular rate and rhythm. No murmurs appreciated Lungs: Clear to auscultation bilaterally Abdomen: BS+, soft, non-tender, non-distended Extremities: Nontender, No edema noted Skin: Warm, dry Neuro: Alert and oriented to person, place, time and situation Psych: Mood appropriate Assessment and Plan Alcohol use disorder Present on Admission: Yes Weakness Present on Admission: Yes - 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 vs nutritional deficiency vs wernicke encephalopathy vs muscular dystrophy vs infection - acute exacerbation likely due to increase in alcohol consumption - IV thiamine 500 mg TID given at OSH - workup includes UA, TSH, B1, B12, folate, MMA, vit D, CK blood - started on IV thiamine here with Neurology consult in AM PLAN: - Folic acid 1 mg daily - Thiamine daily - s/p CINJ protocol - F/u on Labs - PT/OT rec acute rehab Primary hypertension Present on Admission: Yes - elevated on admission 170s SBP - on metoprolol 25 and losartan 50 which was held due to kobi Plan: - continue amlodipine 5 mg as he is very well controlled for the time being Suicidal behavior with attempted self-injury (HCC) Present on Admission: Yes Depression Present on Admission: Yes Anxiety Present on Admission: Yes - admitted to OSH behavioral health unit due to suicide attempt - does not endorse SI here - continuous sitter for agitation (not needed for SI anymore) - psych consulted, recs: - no psychiatric contraindication to discharge, Recommend discharge to the rehab facility like SNF,recommend giving trazodone 100 mg QHS at discharge and follow up outpatient, Increase Trazodone to 100 mg tablet PO, consider initiating Naltrexone at follow up psychiatric examinations, - haldol 3mg PO qhs - PRNs for agitation: Haldol 5mg PO or 2.5mg IM q6h PRN - Precautions: Elopement, Fall Hypophosphatemia Present on Admission: Yes Hypokalemia Present on Admission: Yes Hypomagnesemia Present on Admission: Yes Today potassium 3.4 06/30/25 Plan: Replete electrolytes as needed Today repleted 40 mEq of KCl Vitamin D deficiency Present on Admission: Yes Plan: Vitamin D (ergocalciferol) 1.25 MG capsule containing 50,000 units Swelling of joint of right knee Present on Admission: Not yet determined Gout Present on Admission: Not yet determined Right knee is joint swelling improved. No localized tenderness, induration, erythema, pain, and skin changes noted. Xray shows effusion of the right knee. Orthopedic surgery consulted and arthrocentesis obtained, results unremarkable thus far. Plan: continue to follow arthrocentesis results Orthopedic surgery recommendations: No acute orthopedic surgical intervention indicated Weight bearing Status: RUE WBAT Orthopedic surgery has signed off. Elevated LFTs Present on Admission: Not yet determined - Abd US 06/29 showing hepatic steatosis Hospital Acquired Infection Risk Review: This patient does not have active central lines at this time. Incidental findings requiring follow up: N/A Diet: DIET REGULAR DVT Prophylaxis: Lovenox (DVT Prophylaxis Dose) Code Status: Full Code Electronically Signed By: Philip Delacruz MD 06/30/2025 7:35 PM ICIAN ASSISTANT * Demario Rosado MSW - 06/30/2025 4:43 PM CST Social Work Progress Note Discharge Plan Disposition: LTC Transportation: Transportation at discharge: Ambulance Anticipated Discharge Date: 07/02/2025 Contacts: Extended Emergency Contact Information Primary Emergency Contact: Kasia Boateng Mobile Relation: Mother Comments: Per discussion, pt is ready for the next level of care, referrals have been sent out for LTC facilities. No accepting at this time. SW sent additional referrals SW will continue to follow for transfer to facility. Name/Phone number: AILEEN Matson [phone] ICIAN ASSISTANT * Ute Hong RN - 06/30/2025 2:18 PM CST Care Coordination Progress Note Expected Discharge Date: 07/02/2025 Discharge Plan: CM attended MDR this day. Discussed D/C plan, barriers, and DME needs. Per discussion, pt will be going to log term came, referrals sent, awaiting acceptance however pt has a significant mental health history and may be difficult to place. Meanwhile the pts medical insurance is [employer] but it is not clear if it I active or needs a review or a new application. CM sent an email to [employer] to assist with a new application or review. Awaiting response. Family Support (Name and Phone): Extended Emergency Contact Information Primary Emergency Contact: Kasia Boateng Mobile Relation: Mother Transportation at Discharge: Family: READMISSION RISK SCORE is 8.3 at 2:18 PM 06/30/2025.: Name: Ute Hong RN ICIAN ASSISTANT * Liz Pulido, PT - 06/30/2025 1:11 PM CST [facility] Physical Medicine and Rehabilitation Physical Therapy Progress Note Patient: Chilo Boateng Med Record Number: [id number] Date of : 1970 Age: [age] year old PPE worn by staff: gloves;mask - procedural PPE worn by patient: (Pt wearing green scrub top, own shorts, and shoes) Tech: None Recommendations: Discharge PT Discharge Recommendations: Patient would benefit from multidisciplinary therapy This recommendation is made due to ongoing PT functional needs: address care for self in the home;address functional deficits Recommended Transportation Method: Wheelchair Van Patient is being recommended for post acute care, therefore DME recommendations will be made at thenext level of care. SUBJECTIVE: Subjective: Pt agreeable to therapy session. What matters most to this patient? Did not state Pain Assessment: Pain Assessment Pain Scale/Observation: No/denies pain PRECAUTIONS: Weight Bearing Status: (No WB restrictions noted) Activity Level: Activity as Tolerated OBJECTIVE: At start of therapy session, patient found in bed and with no alarm General Appearance: adult male in NAD Vitals/Observations: Pt denied dizziness, chest pain, SOB, and nausea during activity or position changes. In NAD throughout session. Mental Status/Cognition: Orientation Level: Disoriented to Situation (Knew year, but required coices for month (correctly chose Nov).) Cognition: Confused;Impulsive Attention Span: Attends with cues to redirect Memory: Decreased recall of recent events Following Commands: Follows one step commands consistently Safety Judgement: Decreased awareness of need for safety Awareness of Errors: Decreased awareness of deficits Mobility: A gait belt and non-slip socks were used for all out of bed activity this date. Bed Mobility: Supine to Sit: Stand By Assist with HOB in semi-fowlers position Sit to Supine: Stand By Assist Transfers: Sit to Stand: Stand By Assist Stand to Sit: Stand By Assist Type of Transfer: Other (Comment) (from ambulation w/o AD and SBA-Min A for safety and intermittentsteadying) Transfer Device: Gait belt Gait: Weight Bearing Status: (No WB restrictions noted) Distance Ambulated (ft): 250 FEET Ambulation: Assistive Device: Gait Belt Ambulation: Level of Assistance: Moderate Assistance;Requires Verbal Cues for Safety;Requires Verbal Cues for Technique;Requires Physical Cues for Technique (Min-Mod A for maintaining COG over TICO; 2instances of LOB requiring physical assist to correct) Ambulation: Gait Deviations: Trunk sway;Push Off - Decreased;Heel Strike - Decreased Balance: Sitting - Static: Good - Sitting - Dynamic: Good - Standing - Static: Fair;Without Upper Extremity Support Standing - Dynamic: Fair -;Without Upper Extremity Support ACTIVITY TOLERANCE: Activity Tolerance: Requires standing rest breaks;Requires rest breaks TREATMENT/INTERVENTIONS: transfer training and gait training AM-[facility] 6 Clicks Mobility Raw Score:: 20 EDUCATION: While performing PT, Patient was instructed in:functional mobility training, safety awareness/fall precautions , use of adaptive equipment, discharge planning, use of call light Presented to patient who demonstrates Fair understanding of instructions given. ASSESSMENT: Patient would benefit from additional Physical Therapy sessions to achieve the following functionalgoals to enhance independence. Short Term Goals: Goal Formation With patient Patient will perform bed mobility with complete independence Patient will transfer sit to/from stand with modified independence Patient will transfer bed to/from chair with modified independence Patient will ambulate 100 feet with standby assistive with least restrictive device Assisted Goal(s): Patient to discharge to appropriate next level of inpatient care. INFORMED CONSENT TO TREATMENT: Plan of care including recommended therapy, goals and frequency, discussed with patient who understands and agrees to proceed. Equipment Issued: gait belt Plan: Patient continues to benefit from skilled therapy services., Continue with goals as established. If patient is discharged from the facility, this note serves as a discharge summary if further physical therapy visits did not occur. Refer to filed flowsheet for further details. Following therapy session, patient left in bed, with bed alarm on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 06/24. Brief Mental Status Examination: Appearance: white male, appears older than stated age, groomed, average build, no acute distress and disheveled hair , still demonstrates inappropriate laughter, has bilateral hand tremors, mostly inthe left hand. Psychomotor: no agitation and no retardation Attitude: calm, comfortable, shows inappropriate laughter throughout the interview Mood: not feeling too bad, decent Affect: incongruent at times due to the inappropriate laughter Thought Content: denies suicidal ideation, denies homicidal ideation and denies active delusions however thought content is notable for some persecutory beliefs (abductions, attempts on life) Thought Process: tangential, no disorganized speech Speech: however he is better for his responsive speech (improved delay of speech) Perception: denies auditory hallucinations, denies visual hallucinations, was not reacting to internal stimuli Insight: limited Judgment: poor Cognition: repeats months backwards from July even with difficulty according to first impaired concentration (unable to recite months backward). Able to spell World backwards, even with difficulty except the letter of 'L'. Assessment: Lethality: Short term risk of suicide- moderate Risk factors: being male and history of mental illness (depression, anxiety, and co-morbid alcohol abuse), reported previous suicide attempts Protective factors: help seeking, relationship with a daughter Short term risk of harm to others- low Risk factors: substance use issues Protective factors: denies homicidal ideation, intent, or plan or target and no history of impulsive/ self harming behaviors Overall RISK: low Clinical reasoning: Chilo Boateng is a white, unemployed 54 year old male with PMHx of HTN and a past psychiatric history of depression with suicidal attempt, alcohol use disorder who was admitted from OSH on 06/20/2025 for generalized weakness. The Psychiatry service was consulted for suicidal ideation. On evaluation, patient reports worsening depression, anhedonia, low energy, and intermittent SI without a current plan or intent. He is alert and oriented to person, place, and month but not date; attention is fluctuating, with delayed responses and confusion regarding hospitalization. Still demonstrates inappropriate laughter; however he has improved in his responsive speech (delay of speech is better), and spells 'world' backwards, as well as repeating some of the months backwards, which is anotable improvement from his initial impaired concentration (he was unable to recite months backward). Displays bilateral hand tremors (L>R) and physical discomfort from a recent fall. Reports improving appetite, adequate sleep, and no alcohol craving (last use in May,, as per him). Thiamine dose was increased to 500 mg TID IV from 100 mg TID IV on 06/22/2025, CIWA Protocol Discontinued on 06/22 @19:26, and Multivitamins (B12, K, magnesium bolus) were given. He did not sleep throughout the night on 06/24. According the sitter, in the morning on 06/24 he started to talk to the doors and barrientos by himself and about came and tried to kill him. These self- talks continued until he fell asleep. However, in the morning on 06/25, he slept 3 hours without having hallucinations afterstarting Trazodone 50 mg at bedtime and in the morning on 06/26, he slept 5 hours with the [id number] mg at bed time. Denies active delusions however thought content is notable for some persecutorybeliefs (abductions, attempts on life). No disorganized speech or disorganized/catatonic behavior. Affect is incongruent at times due to the inappropriate laughter. Psychiatric Diagnoses: Alcohol-induced major neurocognitive disorder, amnestic-confabulatory type, persistent Alcohol Use Disorder Unspecified Depression Plan: Disposition: There is no psychiatric contraindication to discharge. Legal status is voluntary. # Recommend discharge to the rehab facility like SNF as per the 06/22 note of physical therapy. We recommend giving trazodone 100 mg QHS at discharge and follow up outpatient. We agree with PT's recommendation with going to SNF. Psychiatric Medications: Scheduled Psych Meds: Continue Trazodone to 100 mg tablet PO at bedtime, Follow up outpatient, Consider initiating Naltrexone at follow up psychiatric examinations. Psych PRNs we recommend while at [facility]: Start Haloperidol 5 mg tablet PO or 2.5 mg IM Q6H PRN for moderate/severe agitation Precautions: 1:1 Sitter, Elopement, Fall (sitter for redirection) Psychosocial needs: We greatly appreciate social work's support with discharge planning. The consultation-liaison psychiatry service will continue to follow. I have discussed this case with my attending physician, Dr. Groves, who agrees with the assessment and plan. Signed: Brian Murphy MD 06/26/2025 7:53 AM Cosigned by Gonsalo Groves MD at 06/26/2025 2:58 PM PHYSICIAN ASSISTANT ICIAN ASSISTANT ICIAN ASSISTANT ICIAN ASSISTANT Associated attestation - Gonsalo Groves MD - 06/26/2025 2:58 PM PHYSICIAN ASSISTANT We considered recommending geriatric psychiatry, but the underlying condition appears to be slowly progressive and not fluctuating, consistent with major neurocognitive disorder (dementia), and given that after a thorough assessment and discussion our team is not recommending medication changes today, we do not think inpatient psychiatry is indicated at this time because there are not sufficient modifiable risk factors to warrant admission. We think this patient is best served by SNF placement at this time, and will continue to follow andmake adjustments to the treatment plan as indicated. I have discussed the following case with the resident and agree with their documented assessment and plan. Date of Service: 06/26/2025 Gonsalo Groves MD Psychiatry * Kenzie Schrader - 06/25/2025 4:20 PM CST [facility] Department of Physical Medicine & Rehabilitation Progress Note Patient: Chilo Boateng Med Record Number: [id number] Date of : 1970 Age: [age] year old 06/25/25 1445 Missed Visit Missed Visit Other (Comment) (Per PT report pt is not appropropriate for therapy secondary to agitation. Will continue to follow.) Cosigned by Yani Ruth, OT at 06/25/2025 4:22 PM PHYSICIAN ASSISTANT ICIAN ASSISTANT ICIAN ASSISTANT * Temitope Nicholson, RN - 06/25/2025 3:49 PM CST Called for report however Nurse working to another pt waiting for call back, ICIAN ASSISTANT * Damari Malin, PT - 06/25/2025 2:30 PM CST [facility] Department of Physical Medicine & Rehabilitation Progress Note Patient: Chilo Boateng Med Record Number: [id number] Date of : 1970 Age: [age] year old 06/25/25 1430 Missed Visit Missed Visit Other (Comment) (Pt agitated at this time and not redirectable. Multiple staff in room to change catheter. Will continue to follow) ICIAN ASSISTANT * Oziel Dwyer LCSW - 06/25/2025 11:55 AM CST During MDR's discussion of patient no longer going to IP psych and needing an alternative dc plan. SW outreached Elvia with [facility] rehab for consideration of placement. SW discussed assisting with LTC placement for patient in [place] as a potential IPR post acute discharge plan to assist with consideration for acceptance. SW attempted to meet with patient at bedside to complete SW psycho social assessment however patient was increasingly agitated during engagement. Patient currently with a 1:1 sitter who reported thatpatients agitation has been becoming increasingly agitated. Patient multiple times did not engage SW in discussions of care and dc planning reporting multiple times that he wanted his catheter changed and reporting SW should get someone who could assist. SW next steps including psychsocial assessment, confirming patients home address or area of preference for referrals, [facility] rehab review, and potential hospital to housing referrals if patients agreeable. Update: SW spoke with Elvia with [facility] rehab who reports that even with LTC placement, MD at [facility] has declined referral. SW to continue to outreach other rehabs and follow up with bedside visit for patient. Social Work Armaan Reymundo, MPH, POLITICAL SCIENCE RESEARCH ASSISTANT P: [phone] ICIAN ASSISTANT * Elvia Sandy LMSW - 06/25/2025 10:46 AM CST [facility] Rehab following. Will continue to follow for medical stability as well as ability to tolerate/participate in therapies for possible admission acute rehab upon DC. Placement pending: rehab MD review, accepting LTC placement and auth Thank you for the referral! Elvia Sandy LMSW Clinical Liaison [facility] ICIAN ASSISTANT * Liliya Tse MD - 06/25/2025 10:34 AM CST Images from the original note were not included. [facility] Internal Medicine Progress Note Name: Chilo Boateng Room/Bed: [facility] : 1970 55 year old PCP: No primary care provider on file. Admit Date/Time: 06/20/2025 8:29 PM LOS: 5 Subjective Interval Update: 06/25/2025: Pt HD stable. R knee shows no tenderness, induration, erythema, pain, and skin changes.Overnight, pt reportedly was agitated and only got 2-3 hours of sleep. Psych recommended to increase nighttime trazodone dose, keep sitter for agitation. Arthrocentesis results unremarkable. Professional bedside sitter has been monitoring the patient. Pt ok to d/c to SNF from psych's perspective. Pending placement to SNF. Hospital course: Chilo Boateng is a 54 year old male with a past medical history significant for HTN, alcohol use disorder, depression with multiple suicide attempts and bilateral peripheral neuropathy for 2 years who presents to the hospital with generalized weakness. Admitted to behavioral health unit initially for alcohol detox and SI on 06/10. Developed profound weakness, started to experience severe tremors, was slow to respond, had minimal intake, worsening pain/tingling in his feet, was unable to ambulate so he was ultimately sent to medicine floor. They had concern for Wernicke encephalopathy due to intention tremors and worsening neuropathy so was started on IV thiamine 500 mg tid. KOBI which resolved before transfer. On metoprolol and losartan which was held due to KOBI. Had an unwitnessed fall and CT head, c-spine and R hip xray which was negative but now has worsening R side pain and weakness. Was Aox4 at OSH but very slow to respond. On a 1:1 sitter since he was endorsing SI at OSH. The morning of transfer, had episode of aspiration so was started on Unasyn. CXR clear here and afebrile. On admission, afebrile, HDS. Not endorsing SI tonight. Aox2-3 unsure of why he was transferred and not sure which hospital he was at. Does endorse ongoing neuropathy for the past 2 years that has significantly worsened in the past week. Reports last suicide attempt as using alcohol. Does not remember some of the events of the past 2 weeks. Denies sob, recent illnesses, chest pain or diarrhea. Objective Temp: [97.5 ??F (36.4 ??C)-98.1 ??F (36.7 ??C)] 97.8 ??F (36.6 ??C) Pulse: [87-96] 87 Resp: [18] 18 BP: (122-145)/(83-96) 131/93 Weight change: Intake/Output Summary (Last 24 hours) at 06/25/2025 1100 Last data filed at 2025 1741 Gross per 24 hour Intake 360 ml Output 600 ml Net -240 ml Physical Exam: Gen: Alert, cooperative, in no acute distress HEENT: NC/AT, EOMI, no nasal drainage Neck: Supple CV: Regular rate and rhythm. No murmurs appreciated Lungs: Clear to auscultation bilaterally Abdomen: BS+, soft, non-tender, non-distended Extremities: Nontender, No edema noted, unable to assess gait due to weakness. Right knee is joint swollen. No localized tenderness, induration, erythema, pain, and skin changes noted. Skin: Warm, dry Neuro: Aox2, CN intact, decreased sensation bilateral feet, intact proprioception Assessment and Plan Alcohol use disorder Present on Admission: Yes Weakness Present on Admission: Yes - 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 vs nutritional deficiency vs wernicke encephalopathy vs muscular dystrophy vs infection - acute exacerbation likely due to increase in alcohol consumption - IV thiamine 500 mg TID given at OSH - workup includes UA, TSH, B1, B12, folate, MMA, vit D, CK blood - started on IV thiamine here with Neurology consult in AM PLAN: - Folic acid 1 mg daily - Thiamine daily - CIWA protocol discontinued, Lorazepam 2 mg PRN discontinued - F/u on Labs Primary hypertension Present on Admission: Yes - elevated on admission 170s SBP - on metoprolol 25 and losartan 50 which was held due to kobi Plan: - continue amlodipine 5 mg Suicidal behavior with attempted self-injury (HCC) Present on Admission: Yes Depression Present on Admission: Yes Anxiety Present on Admission: Yes - admitted to OSH behavioral health unit due to suicide attempt - does not endorse SI here - continuous sitter for agitation (not needed for SI anymore) - psych consulted, recs: - no psychiatric contraindication to discharge, Recommend discharge to the rehab facility like SNF,recommend giving trazodone 100 mg QHS at discharge and follow up outpatient, Increase Trazodone to 100 mg tablet PO, consider initiating Naltrexone at follow up psychiatric examinations,Precautions: 1:1 Sitter, Elopement, Fall Hypophosphatemia Present on Admission: Yes Hypokalemia Present on Admission: Yes Hypomagnesemia Present on Admission: Yes Plan: Replete electrolytes as needed Vitamin D deficiency Present on Admission: Yes Plan: Vitamin D (ergocalciferol) 1.25 MG capsule containing 50,000 units Swelling of joint of right knee Present on Admission: Not yet determined Right knee is joint swelling improved. No localized tenderness, induration, erythema, pain, and skin changes noted. Xray shows effusion of the right knee. Orthopedic surgery consulted and arthrocentesis obtained, results unremarkable thus far. Plan: continue to follow arthrocentesis results Orthopedic surgery recommendations: No acute orthopedic surgical intervention indicated Weight bearing Status: RUE WBAT Diet: OK from ortho perspective Antibiotics: none indicated Pain Control Recommend PT/OT when able to work towards improved range of motion specifically terminal end pointsof flexion Patient was counseled to the nature of their diagnosis and demonstrated understanding. Questions solicited and answered. Orthopedic surgery has signed off. Gout Present on Admission: Not yet determined Plan: - Colchicine 0.6 BID for 4-5 days, followed by Colchicine 0.6 QDAY for 1 month - start allopurinol 100 mg Diet: DIET REGULAR DVT Prophylaxis: SCDs only Code Status: Full Code [facility] Candidate?: Yes [facility] Transfer Checklist: Reasons for Transfer to [facility]: Pending Placement to Facility. Anticipating D/C on SNF placement Brief Hospital Course: Pt admitted to behavioral health unit initially for alcohol detox and SI on 06/10. Transferred to medicine for weakness, tremors, neuropathy. Pt started on IV thiamine. He had an unwitnessed fall andCT head, c-spine, and R hip x-ray which was negative but now has worsening right side pain and weakness. Xray of the elbow has been unremarkable however the xray of right knee joint shows effusion. Arthrocentesis of the right knee joint was performed and prelim results have shown no growth. Pt is no longer endorsing SI but remains with sitter d/t agitation. Per psychiatry, patient is ready to getdischarged to SNF. wheel worker consulted to locate SNF. Recommend giving trazodone 100 mg QHS at discharge and follow up outpatient. Wound care instructions (if applicable) N/A Home Meds Being Held/Why (if any): Holding metoprolol and losartan d/t recent KOBI Follow-up Tasks (to be completed prior to/for discharge, e.g. labs, imaging, follow-ups): F/u on final arthrocentesis results Your team's Preferred Contact Information for any potential follow up questions: Liliya Tse, available thru [facility] chat Consultants that need to be Informed Prior to Discharge (especially for follow up appointment scheduling, please include any contact info): none Checklist Items: [x] Patient and/or family notified of potential transfer to [facility] [x] Patient added to [facility] Transfer List [x] Routine labs updated to 0 [x] Any specialty specific discharge instructions (wound care, weight bearing status, follow up, etc...) have been typed into the After Visit Summary (AVS) Section of the discharge tab Electronically Signed By: Liliya Tse MD 06/25/2025 11:00 AM The above assessment and plan will be discussed with attending physician. This note is not final until attested by the attending physician. Cosigned by Fransico Rhodes MD at 06/25/2025 7:26 PM PHYSICIAN ASSISTANT ICIAN ASSISTANT ICIAN ASSISTANT ICIAN ASSISTANT Associated attestation - Fransico Rhodes MD - 06/25/2025 7:26 PM PHYSICIAN ASSISTANT I have seen and examined the patient with the resident, and I agree with the findings and plan of care as documented by the resident. Care plan was discussed with RN, clinical pharmacist and the multidisciplinary team. Date of Service: 06/25/2025 Fransico Cortes. MD Meagan * Awa Longo - 06/25/2025 10:06 AM CST [facility] STUDENT Consult-Liaison Psychiatry Progress Note FOR EDUCATIONAL PURPOSES ONLY. NOT FOR CLINICAL PURPOSES. Name: Chilo Boateng Age: [age] year old Date of : 1970 Date of Note: 06/25/2025 Hospital day: Hospital Day: 6 Reason for Admission: Generalized weakness Reason for Consult: suicidal ideation ID: Chilo Boateng is a white, unemployed 54M with PMHx of HTN and a PPHx of depression with suicidal attempt, alcohol use disorder who was admitted from OSH on 06/20/2025 for generalized weakness. The Psychiatry service was consulted for suicidal ideation. EKG not collected. Subjective Patient has increased latency in responses and was hesitant to share name. Tad incorrect name, but after a few minutes eventually oriented to self, year, location, but not situation. Denies AVH, SI/HI. Per sitter: Patient was confused throughout previous shift. Kept trying to get out of bed, requiring repeated redirection. Did not sleep last night despite receiving trazodone 50 mg; went to bed at around 5 am, but slept for ~2-3 hours. Psych PRNs last 24h: None Objective: Vitals: Vitals: 06/24/25 1342 06/24/25 1646 06/24/25 2154 06/25/25 0355 BP: 122/86 132/83 145/96 131/93 Pulse: 96 95 94 87 Resp: 18 18 18 18 Temp: 98.1 ??F (36.7 ??C) 97.5 ??F (36.4 ??C) 97.8 ??F (36.6 ??C) SpO2: 95% 96% 96% Weight: Height: Additional Diagnostic Imaging: No pertinent ESOL INSTRUCTOR imaging was obtained. Labs: I have reviewed the patient's lab results from the last 24h. Most recent QTc: 452 ms on 06/23/2025 Brief Mental Status Examination: Appearance: white male, appears older than stated age, groomed, average build, no acute distress , disheveled hair , lying in bed, and fungal infection on right temporal region Speech: latency (worsened), delayed rate, normal volume Psychomotor: no agitation and no retardation Attitude: guarded and suspicious Mood: fine Affect: Constricted and Mood-incongruent Thought Process: linear and logical Thought Content: denies suicidal ideation, denies homicidal ideation and no apparent delusions Perception: denies auditory hallucinations, endorses visual hallucinations, was not reacting to internal stimuli Insight: limited Judgment: poor Cognition: impaired; unable to spell world backwards. Unable to repeat MOTY backwards. Alert and oriented to person, place, year. MSK: no hand tremors observed Assessment: Lethality: Short term risk of suicide- moderate/high Risk factors: being male, being , and history of mental illness (depression, anxiety, and co-morbid alcohol abuse), reported previous suicide attempts Protective factors: help seeking and relationship with daughter Short term risk of harm to others- low Risk factors: substance use issues Protective factors: denies homicidal ideation, intent, or plan or target and no history of impulsive/ self harming behaviors Overall RISK: low Clinical reasoning: Chilo Boateng is a white, unemployed 54 year old male whom is with PMHx of HTN and a past psychiatric history of depression with suicidal attempt, alcohol use disorder who was admitted from OSH on 06/20/2025 for generalized weakness. The Psychiatry service was consulted for suicidal ideation. UDS,BAL, and EKG not collected upon transfer. Patient???s current presentation is concerning for Wernicke-Korsakoff syndrome. Confusion related to Wernicke encephalopathy may take several weeks to resolve. If fluctuating mentation persists beyond two weeks, a diagnosis of Korsakoff syndrome should be considered. Given ongoing altered mental status, the patient is not a reliable historian. He continues to demonstrate impairment in attention testing, speech is more latent, continues to have a guarded affect. Per sitter, still not sleeping despite initiating trazodone. Will increase trazodone dosage. Psychiatric Diagnoses: Alcohol-induced major neurocognitive disorder Alcohol Use Disorder Unspecified mood disorder Plan: Disposition: There is no psychiatric contraindication to discharge. Legal status is voluntary. Psychiatric Medications: Scheduled Psych Meds: For sleep: Increase Trazodone from 50 -->100 mg PO QHS Consider discharging with Naltrexone for AUD Psych PRNs we recommend while at [facility]: None Precautions: Delirium, 1:1 Sitter, Fall - Discharge suicide precautions, keep sitter for redirection Psychosocial needs: We greatly appreciate social work's support with discharge planning. The consultation-liaison psychiatry service will continue to follow. This note is for educational purposes only and should not be used for clinical care purposes. Please see resident, EL, or staff note for clinical purposes. Signed: Awa Longo 06/25/2025 10:06 AM Cosigned by Gonsalo Groves MD at 06/26/2025 1:30 PM PHYSICIAN ASSISTANT ICIAN ASSISTANT ICIAN ASSISTANT Associated attestation - Gonsalo Groves MD - 06/26/2025 1:30 PM PHYSICIAN ASSISTANT I am cosigning my student's note. This note is for educational purposes only. Please see midlevel provider, resident, or staff note for clinical purposes. Gonsalo Groves MD Psychiatry * [facility] MD - 06/25/2025 8:38 AM CST [facility] Healthcare Consult-Liaison [employer] Progress Note Name: Chilo Boateng Age: [age] year old Date of : 1970 Date of Note: 06/25/2025 Hospital day: Hospital Day: 6 Reason for Admission: generalized weakness Reason for Consult: suicidal ideation ID: Chilo Boateng is a white, unemployed 54 year old male with PMHx of HTN and a past psychiatrichistory of depression with suicidal attempt, alcohol use disorder who was admitted from [facility] on 06/20/2025 for generalized weakness. The Psychiatry service was consulted on 06/21 for suicidal ideation. Subjective Today, he just woke up after probably 2-3 hours of sleep. He states that he feels confused; he doesnot know how he got here. According to the sitter, he could not sleep all night. He was trying to climb up the bed. He probably slept 2-3 hours. He still demonstrates inappropriate laughter and has bilateral hand tremors, mostly in the left hand. He is alert, awake, and oriented to person, place, and date. Able to spell World backwards, even if it is a little difficult. Denies SI&HI. Denies AH&VH. Denies craving. # Acute Events Overnight (AEO) He could not sleep all night. He was trying to climb up the bed. He was redirectable. He probably slept 2-3 hours even though he took his Trazodone 50 mg at 22:00. He was awake until 5:00 AM and he just slept 3 hours and woke up at 8:00 am. # on 06/23/2025 Orthopedic consult: No acute orthopedic surgical intervention indicated. Arthrocentesis of right knee is pending. # on 06/22/2025 - Thiamine dose was increased to 500 mg TID IV from 100 mg TID IV. - CIWA Protocol Discontinued on 06/22 @19:26 - Multivitamins (B12, K, magnesium bolus) Psych PRNs last 24h: None As per previous visit notes: Even though he replies late when I ask he would like to take treatment due to his fluctuating attention or low motivation, he wants to take treatment for alcohol use. He lives by himself. He has beenin rehab before, and he states that he did not get any benefit from it. He has bilateral hand tremors, mostly in left hand. He had an unwitnessed ground level fall [address] head, c-spine, and R hip x-ray which wasnegative but now has worsening right side pain and weakness. Since that, he has had right elbow pain diffusely about the elbow joint. He has physical discomfort, especially elbow pain due to his recent fall. As per collateral(from mother) information note on 06/24 by Awa Longo, Attempted to contact patient's mother to update about overall care plan and to gather collateral. Patient lives in [place], mother lives in [place], [place]. Patient is domiciled alone in home he owns. Mother has been taking care of his cat during his admission. [facility] house is unlivable; trash everywhere, cat feces, has mice infestation. House is extremely dirty. States patient has neuropathy and does not have feeling in his feet. Often falls. Lost custody of daughter in 2011 due to his drinking, and patient's mother adopted her. He has restarted drinking 4 months ago. Restarted heavily drinking 4 months ago up until admission to [facility], for which he went to detox on his own accord. She suspects motivation was to get better for his daughter. She reports he has PPHx of MDD and suicide attempts. Denies he has PPHx of psychotic disorders. States patient is unable to discharge to her home because there is no room. Objective: Vitals: Patient Vitals for the past 24 hrs: Temp Pulse Resp BP 06/25/25 0355 -- 87 18 131/93 06/24/25 2154 97.8 ??F (36.6 ??C) 94 18 145/96 06/24/25 1646 97.5 ??F (36.4 ??C) 95 18 132/83 06/24/25 1342 98.1 ??F (36.7 ??C) 96 18 122/86 Additional Diagnostic Imaging: No pertinent ESOL INSTRUCTOR imaging was obtained. Labs: I have reviewed the patient's lab results from the last 24h. Most recent QTc: 452 ms on 06/24. Brief Mental Status Examination: Appearance: white male, appears older than stated age, groomed, average build, no acute distress and disheveled hair , still demonstrates inappropriate laughter, has bilateral hand tremors, mostly inthe left hand. Psychomotor: no agitation and no retardation Attitude: calm, comfortable, shows inappropriate laughter throughout the interview Mood: confused, I do not know how I got here Affect: has inappropriate laughter, incongruent Thought Content: denies suicidal ideation, denies homicidal ideation and no apparent delusions Thought Process: tangential Speech: however he is better for his responsive speech (improved delay of speech) Perception: denies auditory hallucinations, denies visual hallucinations, was not reacting to internal stimuli Insight: limited Judgment: poor Cognition: repeats some of the months backwards according to first impaired concentration (unable to recite months backward). Able to spell World backwards, even if it is a little difficult. Assessment: Lethality: Short term risk of suicide- moderate Risk factors: being male and history of mental illness (depression, anxiety, and co-morbid alcohol abuse), reported previous suicide attempts Protective factors: help seeking, relationship with a daughter Short term risk of harm to others- low Risk factors: substance use issues Protective factors: denies homicidal ideation, intent, or plan or target and no history of impulsive/ self harming behaviors Overall RISK: low Clinical reasoning: Chilo Boateng is a white, unemployed 54 year old male with PMHx of HTN and a past psychiatric history of depression with suicidal attempt, alcohol use disorder who was admitted from [facility] on 06/20/2025 for generalized weakness. The Psychiatry service was consulted for suicidal ideation. On evaluation, patient reports worsening depression, anhedonia, low energy, and intermittent SI without a current plan or intent. He is alert and oriented to person, place, and month but not date; attention is fluctuating, with delayed responses and confusion regarding hospitalization. Still demonstrates inappropriate laughter, however he is better for his responsive speech (improved delay of speech), and repeats some of the months backwards according to first impaired concentration (unable to recite months backward). Displays bilateral hand tremors (L>R) and physical discomfort from a recent fall. Reports improving appetite, adequate sleep, and less alcohol craving (last use 19 days ago). Thiamine dose was increased to 500 mg TID IV from 100 mg TID IV on 06/22/2025, CIWA Protocol Discontinued on 06/22 @19:26, and Multivitamins (B12, K, magnesium bolus) were given. He did not sleep throughout the night on 06/24. According the sitter, in the morning on 06/24 he started to talk to the doors and barrientos by himself and about came and tried to kill him. These self-talks continued until he fell asleep. However, in the morning on 06/25, he slept 3 hours without having hallucinationsafter starting Trazodone 50 mg at bedtime. Psychiatric Diagnoses: Alcohol-induced major neurocognitive disorder, amnestic-confabulatory type, persistent Alcohol Use Disorder Unspecified Depression Plan: Disposition: There is no psychiatric contraindication to discharge. Legal status is voluntary. # Recommend discharge to the rehab facility like SNF as per the 06/22 note of physical therapy. We recommend giving trazodone 100 mg QHS at discharge and follow up outpatient. We agree with PT's recommendation with going to SNF. Psychiatric Medications: Scheduled Psych Meds: Increase Trazodone to 100 mg tablet PO from 50 mg tablet PO at bedtime, follow up outpatient, and consider initiating Naltrexone at follow up psychiatric examinations. Psych PRNs we recommend while at [facility]: None. Precautions: 1:1 Sitter, Elopement, Fall Psychosocial needs: We greatly appreciate social work's support with discharge planning. The consultation-liaison psychiatry service will continue to follow. I have discussed this case with my attending physician, Dr. Groves, who agrees with the assessment and plan. Signed: Brian Murphy MD 06/25/2025 8:38 AM Cosigned by Gonsalo Groves MD at 06/25/2025 11:53 AM PHYSICIAN ASSISTANT ICIAN ASSISTANT ICIAN ASSISTANT Associated attestation - Gonsalo Groves MD - 06/25/2025 11:53 AM PHYSICIAN ASSISTANT I have discussed the following case with the resident and agree with their documented assessment and plan. Date of Service: 06/25/2025 Gonsalo Groves MD Psychiatry * Temitope Nicholson, AGUILAR - 06/25/2025 5:30 AM CST Pt transfered to [facility]. ICIAN ASSISTANT * Nat Dixon RN - 2025 11:09 PM CST 06/24/252216 Patient Belongings at Bedside Belongings at Bedside Clothing;Electronic devices;Medical equipment;Other valuables Clothing Pants;Shirt;Footwear;Socks;Underpants Patient Electronics Cell phone Medical Equipment Other (Comment) (heel boots) Other Valuables Wallet;Other (Comment);Money (Comment) (paperwork - 3 sheets of paper. $8, ID, cards) Patient Belongings Sent Home Belongings Sent Home None Patient Medications Medications brought by patient? No Belongings placed in white bags x2, placed in plastic bin, zip tied closed. Plastic bin placed outside pt's room. ICIAN ASSISTANT * Nat Dixon RN - 2025 10:14 PM CST Pt placed in paper scrubs ICIAN ASSISTANT * Nat Dixon RN - 2025 8:05 PM CST Disposable scrubs ordered for pt, awaiting delivery ICIAN ASSISTANT * Kenzie Schrader - 2025 4:33 PM CST [facility] Department of Physical Medicine & Rehabilitation Progress Note Patient: Chilo Boateng Med Record Number: [id number] Date of : 1970 Age: [age] year old 06/24/25 0952 Missed Visit Missed Visit RN Cancel (Per RN and restorative care technician report the pt had a restless night and recommended to hold off on therapy 2/2 pt sleeping. Will continue to follow.) Cosigned by Yani Ruth OT at 2025 4:35 PM PHYSICIAN ASSISTANT ICIAN ASSISTANT ICIAN ASSISTANT * Awa Longo - 2025 2:40 PM CST Telephone Notification Documentation Contact made: 2025 at 2:42 PM Person(s) contacted: mother Pedroza, Method of communication: Phone Duration of discussion: 24 minutes Summary of discussion Attempted to contact patient's mother to update about overall care plan and to gather collateral. Patient lives in [place], mother lives in [place], [place]. Patient is domiciled alone in home he owns. Mother has been taking care of his cat during his admission. States house is unlivable; trash everywhere, cat feces, has mice infestation. House is extremely dirty. States patient has neuropathy and does not have feeling in his feet. Often falls. Lost custody of daughter in 2011 due to his drinking, and patient's mother adopted her. He has restarted drinking 4 months ago. Restarted heavily drinking 4 months ago up until admission to [facility], for which he went to detox on his own accord. She suspects motivation was to get better for his daughter. She reports he has PPHx of MDD and suicide attempts. Denies he has PPHx of psychotic disorders. States patient is unable to discharge to her home because there is no room. Cosigned by Carlos Lux MD at 06/30/2025 9:03 AM PHYSICIAN ASSISTANT ICIAN ASSISTANT ICIAN ASSISTANT ICIAN ASSISTANT * Stefan Roland - 2025 1:57 PM CST [employer] Workflow Consultant introduced pastoral care to patient. Pt was with sitter. Sitter informed school counselor that pt was confused. Pt was worried because he thought people had come to his house while he was away. Pt did not want to disclose why he was in the hospital, because he says It's been a rough couple of weeks. Pt requested prayer, school counselor prayed for healing, comfort, and peace, and, at pt's request, that no further bad things will happen to pt. Ricoter informed school counselor that today is pt's birthday, so school counselor wished him well. [employer] Workflow Consultant assured patient that pastoral care is available 12/03. 511/01 Stefan Roland CPE Instant Print Operator Ascom # [id number] On-call Ascom # [id number] ICIAN ASSISTANT * Geraldine Iqbal RN - 2025 9:59 AM CST Problem: Skin/Tissue Integrity - Adult Goal: Skin integrity remains intact Description: INTERVENTIONS: Outcome: Progressing Goal: Incisions, wounds, or drain sites healing without S/S of infection Description: INFECTIONS: Outcome: Progressing Goal: Oral mucous membranes remain intact Description: INTERVENTIONS: Outcome: Progressing Problem: Suicide Risk Goal: Patient will be free of self-inflicted injury and suicide risk during hospitalization Outcome: Progressing Problem: ELOPEMENT/ABDUCTION Goal: Risk for elopement &/or abduction during hospitalization is minimized Outcome: Progressing Problem: Pain/Discomfort Goal: Patient exhibits reduced pain/discomfort as evidenced by pain scores Outcome: Progressing Goal: Patient uses pharmacological and non-pharmacological pain management strategies. Outcome: Progressing Goal: Patient verbalizes acceptable level of pain relief and ability to engage in desired activity. Outcome: Progressing Problem: Fall Risk Goal: Fall risk and fall related injury risk are minimized (interventions related to the fall risk can be found in the flowsheet documentation) Outcome: Progressing Problem: Neurosensory - Adult Goal: Achieves stable or improved neurological status Description: INTERVENTIONS Outcome: Progressing Goal: Remains free of injury related to seizures activity Description: INTERVENTIONS: Outcome: Progressing Goal: Achieves maximal functionality and self care Description: INTERVENTIONS: Outcome: Progressing Problem: Respiratory - Adult Goal: Achieves optimal ventilation and oxygenation Description: INTERVENTIONS: Outcome: Progressing Problem: Cardiovascular - Adult Goal: Maintains optimal cardiac output and hemodynamic stability Description: INTERVENTIONS: Outcome: Progressing Goal: Absence of cardiac dysrhythmias or at baseline Description: INTERVENTIONS: Outcome: Progressing Problem: Neurovascular Musculoskeletal - Adult Goal: Return mobility to safest level of function Description: INTERVENTIONS: Outcome: Progressing Goal: Maintain proper alignment of affected body part Description: INTERVENTIONS: Outcome: Progressing Goal: Return ADL status to a safe level of function Description: INTERVENTIONS: Outcome: Progressing Goal: Absence or reduction of edema Description: INTERVENTIONS Outcome: Progressing Goal: Maintains or improves tissue perfusion Description: INTERVENTIONS Outcome: Progressing Problem: Gastrointestinal - Adult Goal: Minimal or absence of nausea and vomiting Description: INTERVENTIONS: Outcome: Progressing Goal: Maintains or returns to baseline bowel function Description: INTERVENTIONS: Outcome: Progressing Goal: Maintains adequate nutritional intake Description: INTERVENTIONS: Outcome: Progressing Problem: Genitourinary - Adult Goal: Maintains or returns to baseline genitourinary function Description: INTERVENTIONS: Outcome: Progressing Goal: Urinary catheter remains patent Description: INTERVENTIONS: Outcome: Progressing Problem: Infection - Adult Goal: Infections are decreased or avoided Description: INTERVENTIONS: Outcome: Progressing Problem: Metabolic/Fluid and Electrolytes - Adult Goal: Electrolytes maintained within normal limits Description: INTERVENTIONS: Outcome: Progressing Goal: Hemodynamic stability and optimal renal function maintained Description: INTERVENTIONS: Outcome: Progressing Goal: Glucose maintained within prescribed range Description: INTERVENTIONS: Outcome: Progressing Problem: Hematologic - Adult Goal: Maintains hematologic stability Description: INTERVENTIONS: Outcome: Progressing Problem: Swallowing Goal: LTG - Patient will demonstrate safe swallowing Intervention/techniques Outcome: Progressing Goal: LTG - Patient will tolerate the least restrictive diet consistency to allow for safe consumption of daily meals Outcome: Progressing Problem: Balance Goal: LTG - Patient will demonstrate Intervention to enhance balance for safe completion of daily activities Outcome: Progressing Goal: LTG - Patient will maintain balance to allow for safe mobility Outcome: Progressing Problem: Anxiety Goal: Will report anxiety at manageable levels Description: INTERVENTIONS Outcome: Progressing Problem: Coping Goal: Patient/Healthcare Agent able to verbalize concerns and demonstrate effective coping strategies Description: INTERVENTIONS Outcome: Progressing Problem: Decision Making Goal: Patient/Healthcare Agent able to effectively weigh alternatives and participate in decision making related to treatment and care. Description: INTERVENTIONS Outcome: Progressing Problem: Behavior Goal: Pt/Family maintain appropriate behavior and adhere to behavioral management agreement, if implemented Description: INTERVENTIONS Outcome: Progressing Problem: Depression/Self Harm Goal: Effect of psychiatric condition will be minimized and patient will be protected from self harm Description: INTERVENTIONS Outcome: Progressing Problem: Substance Abuse/Detox Goal: Will have no detox symptoms and will verbalize plan for changing drug- related behavior Description: INTERVENTIONS Outcome: Progressing ICIAN ASSISTANT * Damari Malin, PT - 2025 9:50 AM CST [facility] Department of Physical Medicine & Rehabilitation Progress Note Patient: Chilo Boateng Med Record Number: [id number] Date of : 1970 Age: [age] year old 06/24/25 0950 Missed Visit Missed Visit Other (Comment) (Per d/w RN and CP, pt restless overnight and recently fell asleep, politely requests therapy to return at a later time. Will continue to follow) ICIAN ASSISTANT * Awa Longo - 2025 8:06 AM CST [facility] STUDENT Consult-Liaison Psychiatry Progress Note FOR EDUCATIONAL PURPOSES ONLY. NOT FOR CLINICAL PURPOSES. Name: Chilo Boateng Age: [age] year old Date of : 1970 Date of Note: 2025 Hospital day: Hospital Day: 5 Reason for Admission: Generalized weakness Reason for Consult: suicidal ideation ID: Chilo Boateng is a white, unemployed 54M with PMHx of HTN and a PPHx of depression with suicidal attempt, alcohol use disorder who was admitted from [facility] on 06/20/2025 for generalized weakness. The Psychiatry service was consulted for suicidal ideation. EKG not collected. Subjective Pt laying in bed watching TV when approached. Hesitant to share his name, but eventually gave name upon reassurance from his sitter. Alert and oriented to self, location, president; not oriented to date. Also unable to spell world backwards nor repeat the months of the year backward. States mood isnot bad, appetite is good, and able to sleep last night without issue. Endorses seeing shadow figure last night. Denies AH, SI/HI. States he has not had cravings in 4 days, though he has endorsed intermittent cravings 2 days ago. Per sitter: Patient did not sleep at all last night. He did not like his previous sitter and expressed fear that previous sitter was going to kill him. Has has been observed RTIS, looking at door andwall as if someone were standing there, and also has been conversing with himself. Sometimes talkedwith sitter; reports that he would randomly start conversing in a manner that appeared as if he were actively reliving previous experiences, seemingly during his times in his . Psych PRNs last 24h: None Objective: Vitals: Patient Vitals for the past 6 hrs: Temp Pulse Resp BP BP Method 06/24/25 0815 98.3 ??F (36.8 ??C) 85 16 138/99 Automatic Additional Diagnostic Imaging: No pertinent ESOL INSTRUCTOR imaging was obtained. Labs: I have reviewed the patient's lab results from the last 24h. Most recent QTc: 452 on 06/23/2025 Brief Mental Status Examination: Appearance: white male, appears older than stated age, groomed, average build, no acute distress , disheveled hair , lying in bed, and fungal infection on right temporal region Speech: latency (worsened), normal rate, normal volume Psychomotor: no agitation and no retardation Attitude: guarded and suspicious Mood: not bad Affect: Constricted and Mood-incongruent Thought Process: linear and logical Thought Content: denies suicidal ideation, denies homicidal ideation and no apparent delusions Perception: denies auditory hallucinations, endorses visual hallucinations, was not reacting to internal stimuli Insight: limited Judgment: poor Cognition: impaired; unable to spell world backwards. Unable to repeat MOTY backwards. Alert and oriented to self, location. MSK: mild L hand tremor (R hand tremor resolved) Assessment: Lethality: Short term risk of suicide- moderate/high Risk factors: being male, being , and history of mental illness (depression, anxiety, and co-morbid alcohol abuse), reported previous suicide attempts Protective factors: help seeking and relationship with daughter Short term risk of harm to others- low Risk factors: substance use issues Protective factors: denies homicidal ideation, intent, or plan or target and no history of impulsive/ self harming behaviors Overall RISK: low Clinical reasoning: Chilo Boateng is a white, unemployed 54 year old male whom is with PMHx of HTN and a past psychiatric history of depression with suicidal attempt, alcohol use disorder who was admitted from [facility] on 06/20/2025 for generalized weakness. The Psychiatry service was consulted for suicidal ideation. UDS,BAL, and EKG not collected upon transfer. Patient???s current presentation is concerning for Wernicke-Korsakoff syndrome. Compared to previous days, his mentation has declined: he is now unable to spell ???world backwards, his speech is more latent, and he displays a guarded affect, hesitating to state his full name to both this underwriter and the Neurology resident, despite ongoing follow-up. He reports having slept, which is inconsistent with the sitter???s account. According to the sitter, his mentation fluctuates, he has been observedresponding to internal stimuli, and he appears to be reliving past experiences during their conversations. Confusion related to Wernicke encephalopathy may take several weeks to resolve. If fluctuating mentation persists beyond two weeks, a diagnosis of Korsakoff syndrome should be considered. Given the worsening altered mental status, the patient is not a reliable historian for assessing any psychiatric symptoms. He continues to demonstrate significant functional limitations per the PT evaluation from 06/22/2025. Therefore, discharge to a rehabilitation facility is recommended at this time. Will continue to follow until discharge plans are established by primary team and SW. Psychiatric Diagnoses: Alcohol (major NCD) Amnestic-Confabulatory Type vs. Delirium Alcohol Use Disorder Unspecified mood disorder Plan: Disposition: There is no psychiatric contraindication to discharge. Legal status is voluntary. Psychiatric Medications: Scheduled Psych Meds: For sleep: Trazodone 50 mg PO QHS Will consider discharging with Naltrexone for AUD Psych PRNs we recommend while at [facility]: None Precautions: Delirium, Suicide, 1:1 Sitter, Fall Psychosocial needs: We greatly appreciate social work's support with discharge planning. The consultation-liaison psychiatry service will continue to follow. This note is for educational purposes only and should not be used for clinical care purposes. Please see resident, EL, or staff note for clinical purposes. Signed: Awa Longo 2025 8:06 AM Cosigned by Carlos Lux MD at 06/30/2025 9:03 AM PHYSICIAN ASSISTANT ICIAN ASSISTANT ICIAN ASSISTANT * Kieran Feldman MD - 2025 7:55 AM CST Images from the original note were not included. [facility] Internal Medicine Progress Note Name: Chilo Boateng Room/Bed: 511/01 : 1970 55 year old PCP: No primary care provider on file. Admit Date/Time: 06/20/2025 8:29 PM LOS: 4 Subjective Interval Update: 2025: Patient appears well at the time of my encounter today. He has been hemodynamically stable and reports no acute over night complaint. Xray of the elbow has been unremarkable however the xray of right knee joint shows effusion. No localized tenderness, induration, erythema, pain, and skin changes noted. Arthrocentesis of the right knee joint was performed and 60 ml fluid collected was sent for laboratory examination. Professional bedside sitter has been monitoring the patient and fall as well as suicide precautions have been in place. Per Orthopedic surgery, no acute interventions needed this time. Per psychiatry, patient is ready to get discharged to SNF. wheel worker consultedto locate SNF. Hospital course: Chilo Boateng is a 54 year old male with a past medical history significant for HTN, alcohol use disorder, depression with multiple suicide attempts and bilateral peripheral neuropathy for 2 years who presents to the hospital with generalized weakness. Admitted to behavioral health unit initially for alcohol detox and SI on 06/10. Developed profound weakness, started to experience severe tremors, was slow to respond, had minimal intake, worsening pain/tingling in his feet, was unable to ambulate so he was ultimately sent to medicine floor. They had concern for Wernicke encephalopathy due to intention tremors and worsening neuropathy so was started on IV thiamine 500 mg tid. KOBI which resolved before transfer. On metoprolol and losartan which was held due to KOBI. Had an unwitnessed fall and CT head, c-spine and R hip xray which was negative but now has worsening R side pain and weakness. Was Aox4 at OSH but very slow to respond. On a 1:1 sitter since he was endorsing SI at OSH. The morning of transfer, had episode of aspiration so was started on Unasyn. CXR clear here and afebrile. On admission, afebrile, HDS. Not endorsing SI tonight. Aox2-3 unsure of why he was transferred and not sure which hospital he was at. Does endorse ongoing neuropathy for the past 2 years that has significantly worsened in the past week. Reports last suicide attempt as using alcohol. Does not remember some of the events of the past 2 weeks. Denies sob, recent illnesses, chest pain or diarrhea. Consult Neurology and Psychiatry in the AM. Objective Temp: [98.3 ??F (36.8 ??C)-99 ??F (37.2 ??C)] 98.3 ??F (36.8 ??C) Pulse: [90-114] 96 Resp: [16-18] 16 BP: (118-151)/(75-99) 151/99 Weight change: Intake/Output Summary (Last 24 hours) at 2025 0755 Last data filed at 2025 0700 Gross per 24 hour Intake 489.57 ml Output 600 ml Net -110.43 ml Physical Exam: Gen: Alert, cooperative, in no acute distress HEENT: NC/AT, EOMI, no nasal drainage Neck: Supple CV: Regular rate and rhythm. No murmurs appreciated Lungs: Clear to auscultation bilaterally Abdomen: BS+, soft, non-tender, non-distended Extremities: Nontender, No edema noted, unable to assess gait due to weakness. Right knee is joint swollen. No localized tenderness, induration, erythema, pain, and skin changes noted. Skin: Warm, dry Neuro: Aox2, CN intact, decreased sensation bilateral feet, intact proprioception Assessment and Plan Alcohol use disorder Present on Admission: Yes Weakness Present on Admission: Yes - 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 vs nutritional deficiency vs wernicke encephalopathy vs muscular dystrophy vs infection - acute exacerbation likely due to increase in alcohol consumption - IV thiamine 500 mg TID given at OSH - workup includes UA, TSH, B1, B12, folate, MMA, vit D, CK blood - started on IV thiamine here with Neurology consult in AM PLAN: - Lorazepam 2 mg PRN discontinued - Folic acid 1 mg - Thiamine - WA protocol discontinued - F/u on Labs Primary hypertension Present on Admission: Yes - elevated on admission 170s SBP - on metoprolol 25 and losartan 50 which was held due to kobi Plan: - started on amlodipine 5 mg Suicidal behavior with attempted self-injury (HCC) Present on Admission: Yes Depression Present on Admission: Yes Anxiety Present on Admission: Yes - admitted to OSH behavioral health unit due to suicide attempt - does not endorse SI here - continuous sitter - psych consult Psychiatry recommendations (06/23/2025): Disposition: At the time of assessment, the patient is not medically stable. Psychiatry will reassess disposition when the patient is medically stable. Legal status is voluntary. Should the patient choose to leave the hospital, please page psychiatry for consideration of an involuntary hold. # We plan to discuss primary team recommendations according to disposition plan. Psychiatric Medications: Scheduled Psych Meds: None. Psych PRNs we recommend while at [facility]: None. Precautions: Delirium, Suicide, 1:1 Sitter, Elopement, Fall, Withdrawal Psychosocial needs: We greatly appreciate social work's support with discharge planning. - Delirium, Suicide, 1:1 Sitter, Elopement, Fall, Withdrawal 2025: Per psychiatry, schedule trazodone 50 mg QHS at discharge and follow up outpatient. Psychiatry team agrees with PT's recommendation of patient being discharged to SNF. Hypophosphatemia Present on Admission: Yes Hypokalemia Present on Admission: Yes Hypomagnesemia Present on Admission: Yes Plan: Replete electrolytes as needed Vitamin D deficiency Present on Admission: Yes Plan: Vitamin D (ergocalciferol) 1.25 MG capsule containing 50,000 units Swelling of joint of right knee Present on Admission: Not yet determined Right knee is joint swollen. No localized tenderness, induration, erythema, pain, and skin changes noted. Xray shows effusion of the right knee. Plan: Orthopedic surgery consulted. CTM Orthopedic surgery recommendations: No acute orthopedic surgical intervention indicated Weight bearing Status: RUE WBAT Diet: OK from ortho perspective Antibiotics: none indicated Pain Control Recommend PT/OT when able to work towards improved range of motion specifically terminal end pointsof flexion Patient was counseled to the nature of their diagnosis and demonstrated understanding. Questions solicited and answered. 2025: Arthrocentesis of the right knee joint was performed and 60 ml fluid collected was sentfor laboratory examination. Per Orthopedic surgery, no acute interventions needed this time. Orthopedic surgery has signed off. Gout Present on Admission: Not yet determined Plan: Colchicine started. Diet: DIET REGULAR DVT Prophylaxis: SCDs only Code Status: Full Code Bordley Candidate?: No Electronically Signed By: Kieran Feldman MD 2025 7:55 AM The above assessment and plan will be discussed with attending physician. This note is not final until attested by the attending physician. Cosigned by Fransico Rhodes MD at 2025 6:02 PM PHYSICIAN ASSISTANT ICIAN ASSISTANT ICIAN ASSISTANT Associated attestation - Fransico Rhodes MD - 2025 6:02 PM PHYSICIAN ASSISTANT I have seen and examined the patient with the resident, and I agree with the findings and plan of care as documented by the resident. Care plan was discussed with RN and the multidisciplinary team Date of Service: 2025 Fransico Cortes. MD Meagan * Brian Murphy MD - 2025 7:13 AM CST [facility] Consult-Liaison Octave [employer] Racker Progress Note Name: Chilo Boateng Age: [age] year old Date of : 1970 Date of Note: 2025 Hospital day: Hospital Day: 5 Reason for Admission: generalized weakness Reason for Consult: suicidal ideation ID: Chilo Boateng is a white, unemployed 54 year old male with PMHx of HTN and a past psychiatrichistory of depression with suicidal attempt, alcohol use disorder who was admitted from OSH on 06/20/2025 for generalized weakness. The Psychiatry service was consulted for suicidal ideation. Subjective Today, he is sleeping after a sleepless night. Per sitter, he did not sleep all night. He just could not sleep. He tried to get out of the bed. But he is easily directable. He did not get angry. Thismorning he started to talk to the doors and barrientos by himself and about came and tried to kill him. These self talks continued until he fell asleep. Before sleeping, he ate his breakfast 100% and drank milk. As per collateral(from mother) information note on 06/24 by Awa Longo, Attempted to contact patient's mother to update about overall care plan and to gather collateral. Patient lives in [place], mother lives in [place], [place]. Patient is domiciled alone in home he owns. Mother has been taking care of his cat during his admission. [facility] house is unlivable; trash everywhere, cat feces, has mice infestation. House is extremely dirty. [facility] patient has neuropathy and does not have feeling in his feet. Often falls. Lost custody of daughter in 2011 due to his drinking, and patient's mother adopted her. He has restarted drinking 4 months ago. Restarted heavily drinking 4 months ago up until admission to [facility], for which he went to detox on his own accord. She suspects motivation was to get better for his daughter. She reports he has PPHx of MDD and suicide attempts. Denies he has PPHx of psychotic disorders. States patient is unable to discharge to her home because there is no room. As per previous visit notes: Even though he replies late when I ask he would like to take treatment due to his fluctuating attention or low motivation, he wants to take treatment for alcohol use. He lives by himself. He has beenin rehab before, and he states that he did not get any benefit from it. He has bilateral hand tremors, mostly in left hand. He had an unwitnessed ground level fall [address] head, c-spine, and R hip x-ray which wasnegative but now has worsening right side pain and weakness. Since that, he has had right elbow pain diffusely about the elbow joint. He has physical discomfort, especially elbow pain due to his recent fall. # Acute Events Overnight (AEO) He could not sleep all night. This morning he started to talk to the doors and barrientos by himself andWowsai came and tried to kill him # on 06/23/2025 Orthopedic consult: No acute orthopedic surgical intervention indicated. Arthrocentesis of right knee is pending. # on 06/22/2025 - Thiamine dose was increased to 500 mg TID IV from 100 mg TID IV. - CIWA Protocol Discontinued on 06/22 @19:26 - Multivitamins (B12, K, magnesium bolus) Psych PRNs last 24h: None Objective: Vitals: Patient Vitals for the past 24 hrs: Temp Pulse Resp BP 06/24/25 0815 98.3 ??F (36.8 ??C) 85 16 138/99 06/24/25 0016 98.3 ??F (36.8 ??C) 96 -- 151/99 06/23/25 2142 99 ??F (37.2 ??C) (!) 114 16 131/98 06/23/25 1605 98.5 ??F (36.9 ??C) 90 18 138/75 06/23/25 1138 98.3 ??F (36.8 ??C) 94 18 122/82 Additional Diagnostic Imaging: No pertinent ESOL INSTRUCTOR imaging was obtained. Labs: I have reviewed the patient's lab results from the last 24h. Most recent QTc: 452 ms on 06/24. Brief Mental Status Examination: Appearance: white male, appears older than stated age, groomed, average build, no acute distress and disheveled hair , is sleeping after a sleepless night Psychomotor: no agitation and no retardation Attitude: sleeping Mood: ALMA due to sleeping Affect: ALMA due to sleeping Thought Content: ALMA due to sleeping Speech: ALMA due to sleeping Perception: ALMA due to sleeping Insight: ALMA due to sleeping Judgment: ALMA due to sleeping As previous mental status examination notes on 11/28: Appearance: still demonstrates inappropriate laughter, has bilateral hand tremors, mostly in left hand. Mood: up and down, same, depressed Affect: has inappropriate laughter, incongruent Thought Content: endorses suicidal ideation without plan, denies homicidal ideation and no apparentdelusions Thought Process: tangential Speech: however he is better for his responsive speech (improved delay of speech) Perception: denies auditory hallucinations, denies visual hallucinations, was not reacting to internal stimuli Insight: limited Judgment: poor Cognition: repeats some of the months backwards according to first impaired concentration (unable to recite months backward). Assessment: Lethality: Short term risk of suicide- moderate/high Risk factors: being male and history of mental illness (depression, anxiety, and co-morbid alcohol abuse), reported previous suicide attempts Protective factors: help seeking, relationship with a daughter Short term risk of harm to others- low Risk factors: substance use issues Protective factors: denies homicidal ideation, intent, or plan or target and no history of impulsive/ self harming behaviors Overall RISK: low Clinical reasoning: Chilo Boateng is a white, unemployed 54 year old male with PMHx of HTN and a past psychiatric history of depression with suicidal attempt, alcohol use disorder who was admitted from OSH on 06/20/2025 for generalized weakness. The Psychiatry service was consulted for suicidal ideation. On evaluation, patient reports worsening depression, anhedonia, low energy, and intermittent SI without a current plan or intent. He is alert and oriented to person, place, and month but not date; attention is fluctuating, with delayed responses and confusion regarding hospitalization. Still demonstrates inappropriate laughter, however he is better for his responsive speech (improved delay of speech), and repeats some of the months backwards according to first impaired concentration (unable to recite months backward). Displays bilateral hand tremors (L>R) and physical discomfort from a recent fall. Reports improving appetite, adequate sleep, and less alcohol craving (last use 19 days ago). Thiamine dose was increased to 500 mg TID IV from 100 mg TID IV on 06/22/2025, CIWA Protocol Discontinued on 06/22 @19:26, and Multivitamins (B12, K, magnesium bolus) were given. He did not sleep throughout the night on 06/24. As per sitter, this morning on 06/24 he started to talk to the doors and barrientos by himself and about came and tried to kill him. These self talks continued until he fell asleep. Psychiatric Diagnoses: Delirium vs Wernicke encephalopathy Alcohol Use Disorder Unspecified Depression Plan: Disposition: There is no psychiatric contraindication to discharge. Legal status is voluntary. # Recommend discharge to the rehab facility like SNF as per the 06/22 note of physical therapy. We recommend giving trazodone 50 mg QHS at discharge and follow up outpatient. We agree with PT's recommendation with going to SNF. Psychiatric Medications: Scheduled Psych Meds: Start Trazodone 50 mg tablet PO at bedtime, follow up outpatient, and consider initiating Naltrexone at follow up psychiatric examinations. Psych PRNs we recommend while at [facility]: None. Precautions: Suicide, 1:1 Sitter, Elopement, Fall Psychosocial needs: We greatly appreciate social work's support with discharge planning. The consultation-liaison psychiatry service will continue to follow. I have discussed this case with my attending physician, Dr. Lux, who agrees with the assessment and plan. Signed: Brian Murphy MD 2025 7:13 AM Cosigned by Carlos Lux MD at 06/30/2025 9:03 AM PHYSICIAN ASSISTANT ICIAN ASSISTANT ICIAN ASSISTANT * Jael Riggs RN - 2025 3:06 AM CST Problem: Suicide Risk Goal: Patient will be free of self-inflicted injury and suicide risk during hospitalization Outcome: Progressing Problem: Suicide Risk Goal: Patient will be free of self-inflicted injury and suicide risk during hospitalization Outcome: Progressing Problem: ELOPEMENT/ABDUCTION Goal: Risk for elopement &/or abduction during hospitalization is minimized Outcome: Progressing Problem: Pain/Discomfort Goal: Patient exhibits reduced pain/discomfort as evidenced by pain scores Outcome: Progressing Goal: Patient uses pharmacological and non-pharmacological pain management strategies. Outcome: Progressing Goal: Patient verbalizes acceptable level of pain relief and ability to engage in desired activity. Outcome: Progressing Problem: Fall Risk Goal: Fall risk and fall related injury risk are minimized (interventions related to the fall risk can be found in the flowsheet documentation) Outcome: Progressing Problem: Skin/Tissue Integrity - Adult Goal: Skin integrity remains intact Description: INTERVENTIONS: Outcome: Progressing Goal: Incisions, wounds, or drain sites healing without S/S of infection Description: INFECTIONS: Outcome: Progressing Goal: Oral mucous membranes remain intact Description: INTERVENTIONS: Outcome: Progressing Problem: Neurosensory - Adult Goal: Achieves stable or improved neurological status Description: INTERVENTIONS Outcome: Progressing Goal: Remains free of injury related to seizures activity Description: INTERVENTIONS: Outcome: Progressing Goal: Achieves maximal functionality and self care Description: INTERVENTIONS: Outcome: Progressing Problem: Respiratory - Adult Goal: Achieves optimal ventilation and oxygenation Description: INTERVENTIONS: Outcome: Progressing Problem: Cardiovascular - Adult Goal: Maintains optimal cardiac output and hemodynamic stability Description: INTERVENTIONS: Outcome: Progressing Goal: Absence of cardiac dysrhythmias or at baseline Description: INTERVENTIONS: Outcome: Progressing Problem: Neurovascular Musculoskeletal - Adult Goal: Return mobility to safest level of function Description: INTERVENTIONS: Outcome: Progressing Goal: Maintain proper alignment of affected body part Description: INTERVENTIONS: Outcome: Progressing Goal: Return ADL status to a safe level of function Description: INTERVENTIONS: Outcome: Progressing Goal: Absence or reduction of edema Description: INTERVENTIONS Outcome: Progressing Goal: Maintains or improves tissue perfusion Description: INTERVENTIONS Outcome: Progressing Problem: Gastrointestinal - Adult Goal: Minimal or absence of nausea and vomiting Description: INTERVENTIONS: Outcome: Progressing Goal: Maintains or returns to baseline bowel function Description: INTERVENTIONS: Outcome: Progressing Goal: Maintains adequate nutritional intake Description: INTERVENTIONS: Outcome: Progressing Problem: Genitourinary - Adult Goal: Maintains or returns to baseline genitourinary function Description: INTERVENTIONS: Outcome: Progressing Goal: Urinary catheter remains patent Description: INTERVENTIONS: Outcome: Progressing Problem: Infection - Adult Goal: Infections are decreased or avoided Description: INTERVENTIONS: Outcome: Progressing Problem: Metabolic/Fluid and Electrolytes - Adult Goal: Electrolytes maintained within normal limits Description: INTERVENTIONS: Outcome: Progressing Goal: Hemodynamic stability and optimal renal function maintained Description: INTERVENTIONS: Outcome: Progressing Goal: Glucose maintained within prescribed range Description: INTERVENTIONS: Outcome: Progressing Problem: Hematologic - Adult Goal: Maintains hematologic stability Description: INTERVENTIONS: Outcome: Progressing Problem: Swallowing Goal: LTG - Patient will demonstrate safe swallowing Intervention/techniques Outcome: Progressing Goal: LTG - Patient will tolerate the least restrictive diet consistency to allow for safe consumption of daily meals Outcome: Progressing Problem: Balance Goal: LTG - Patient will demonstrate Intervention to enhance balance for safe completion of daily activities Outcome: Progressing Goal: LTG - Patient will maintain balance to allow for safe mobility Outcome: Progressing ICIAN ASSISTANT * Kieran Feldman MD - 06/23/2025 1:52 PM CST Images from the original note were not included. [facility] Internal Medicine Progress Note Name: Chilo Boateng Room/Bed: [facility]/ : 1970 54 year old PCP: No primary care provider on file. Admit Date/Time: 06/20/2025 8:29 PM LOS: 3 Subjective Interval Update: 06/23/2025: Patient appears well at the time of my encounter today. He has been hemodynamically stable and reports no acute over night complaint. CIWA protocol has been discontinued. Xray of the elbow has been unremarkable however the xray of right knee joint shows effusion. No localized tenderness, induration, erythema, pain, and skin changes noted. Colchicine started for Gout. Professional bedside sitter has been monitoring the patient and fall as well as suicide precautions have been in place. Hospital course: Chilo Boateng is a 54 year old male with a past medical history significant for HTN, alcohol use disorder, depression with multiple suicide attempts and bilateral peripheral neuropathy for 2 years who presents to the hospital with generalized weakness. Admitted to behavioral health unit initially for alcohol detox and SI on 06/10. Developed profound weakness, started to experience severe tremors, was slow to respond, had minimal intake, worsening pain/tingling in his feet, was unable to ambulate so he was ultimately sent to medicine floor. They had concern for Wernicke encephalopathy due to intention tremors and worsening neuropathy so was started on IV thiamine 500 mg tid. KOBI which resolved before transfer. On metoprolol and losartan which was held due to KOBI. Had an unwitnessed fall and CT head, c-spine and R hip xray which was negative but now has worsening R side pain and weakness. Was Aox4 at OSH but very slow to respond. On a 1:1 sitter since he was endorsing SI at OSH. The morning of transfer, had episode of aspiration so was started on Unasyn. CXR clear here and afebrile. On admission, afebrile, HDS. Not endorsing SI tonight. Aox2-3 unsure of why he was transferred and not sure which hospital he was at. Does endorse ongoing neuropathy for the past 2 years that has significantly worsened in the past week. Reports last suicide attempt as using alcohol. Does not remember some of the events of the past 2 weeks. Denies sob, recent illnesses, chest pain or diarrhea. Consult Neurology and Psychiatry in the AM. Objective Temp: [98.2 ??F (36.8 ??C)-98.7 ??F (37.1 ??C)] 98.3 ??F (36.8 ??C) Pulse: [91-101] 94 Resp: [18] 18 BP: (107-141)/(72-89) 122/82 Weight change: Intake/Output Summary (Last 24 hours) at 06/23/2025 1352 Last data filed at 06/23/2025 1035 Gross per 24 hour Intake 345.67 ml Output 850 ml Net -504.33 ml Physical Exam: Gen: Alert, cooperative, in no acute distress HEENT: NC/AT, EOMI, no nasal drainage Neck: Supple CV: Regular rate and rhythm. No murmurs appreciated Lungs: Clear to auscultation bilaterally Abdomen: BS+, soft, non-tender, non-distended Extremities: Nontender, No edema noted, unable to assess gait due to weakness. Right knee is joint swollen. No localized tenderness, induration, erythema, pain, and skin changes noted. Skin: Warm, dry Neuro: Aox2, CN intact, decreased sensation bilateral feet, intact proprioception Assessment and Plan Alcohol use disorder Present on Admission: Yes Weakness Present on Admission: Yes - 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 vs nutritional deficiency vs wernicke encephalopathy vs muscular dystrophy vs infection - acute exacerbation likely due to increase in alcohol consumption - IV thiamine 500 mg TID given at OSH - workup includes UA, TSH, B1, B12, folate, MMA, vit D, CK blood - started on IV thiamine here with Neurology consult in AM PLAN: - Lorazepam 2 mg PRN discontinued - Folic acid 1 mg - Thiamine - CIWA protocol discontinued - F/u on Labs Primary hypertension Present on Admission: Yes - elevated on admission 170s SBP - on metoprolol 25 and losartan 50 which was held due to kobi Plan: - started on amlodipine 5 mg Suicidal behavior with attempted self-injury (HCC) Present on Admission: Yes Depression Present on Admission: Yes Anxiety Present on Admission: Yes - admitted to [facility] behavioral health unit due to suicide attempt - does not endorse SI here - continuous sitter - psych consult Psychiatry recommendations (06/23/2025): Disposition: At the time of assessment, the patient is not medically stable. Psychiatry will reassess disposition when the patient is medically stable. Legal status is voluntary. Should the patient choose to leave the hospital, please page psychiatry for consideration of an involuntary hold. # We plan to discuss primary team recommendations according to disposition plan. # Waiting ECG results Psychiatric Medications: Scheduled Psych Meds: None. Psych PRNs we recommend while at [facility]: None. Precautions: Delirium, Suicide, 1:1 Sitter, Elopement, Fall, Withdrawal Psychosocial needs: We greatly appreciate social work's support with discharge planning. - Delirium, Suicide, 1:1 Sitter, Elopement, Fall, Withdrawal Hypophosphatemia Present on Admission: Yes Hypokalemia Present on Admission: Yes Hypomagnesemia Present on Admission: Yes Plan: Replete electrolytes as needed Vitamin D deficiency Present on Admission: Yes Plan: Vitamin D (ergocalciferol) 1.25 MG capsule containing 50,000 units Swelling of joint of right knee Present on Admission: Not yet determined Right knee is joint swollen. No localized tenderness, induration, erythema, pain, and skin changes noted. Xray shows effusion of the right knee. Plan: Orthopedic surgery consulted. CTM Gout Present on Admission: Not yet determined Plan: Colchicine started. Diet: DIET REGULAR DVT Prophylaxis: SCDs only Code Status: Full Code Bordley Candidate?: No Electronically Signed By: Kieran Feldman MD 06/23/2025 1:52 PM The above assessment and plan will be discussed with attending physician. This note is not final until attested by the attending physician. Cosigned by Fransico Rhodes MD at 06/23/2025 7:09 PM PHYSICIAN ASSISTANT ICIAN ASSISTANT ICIAN ASSISTANT ICIAN ASSISTANT Associated attestation - Fransico Rhodes MD - 06/23/2025 7:09 PM PHYSICIAN ASSISTANT I have seen and examined the patient with the resident, and I agree with the findings and plan of care as documented by the resident. Care plan discussed with RN, clinical pharmacist and the multidisciplinary team. Weakness (POA: Yes) Primary hypertension (POA: Yes) Alcohol use disorder (POA: Yes) Anxiety (POA: Yes) Depression (POA: Yes) Suicidal behavior with attempted self-injury (HCC) (POA: Yes) Hypokalemia (POA: Yes) Hypophosphatemia (POA: Yes) Hypomagnesemia (POA: Yes) Vitamin D deficiency (POA: Yes) Date of Service: 06/23/2025 Fransico Rhodes MD * Awa Longo - 06/23/2025 9:44 AM CST [facility] STUDENT Consult-Liaison Psychiatry Progress Note FOR EDUCATIONAL PURPOSES ONLY. NOT FOR CLINICAL PURPOSES. Name: Chilo Boateng Age: [age] year old Date of : 1970 Date of Note: 06/23/2025 Hospital day: Hospital Day: 4 Reason for Admission: Generalized weakness Reason for Consult: suicidal ideation ID: Chilo Boateng is a white, unemployed 54 year old male whom is with PMHx of HTN and a past psychiatric history of depression with suicidal attempt, alcohol use disorder who was admitted from [facility] 06/20/2025 for generalized weakness. The Psychiatry service was consulted for suicidal ideation. EKG not collected. Subjective Patient laying in bed, finishing breakfast when approached for interview. Alert and oriented to self, location, and reason for admission. Not oriented to time even after being informed of today's date. Reports no change to overall mood; continues to feel up and down, stating it has been a erika road. Appetite is okay. Sleep pretty good last night, reports 8 hours of sleep that was restful. Energy level is fine. Continues to have alcohol cravings though states they are intermittent and has improved since yesterday. Right knee and right arm remains painful but is improving. Reports visual hallucination consisting of a shadow that was present for a split second last night. Endorses discomfort with remaining in room because of the shadow and wants to be transferred to another unit. Denies auditory hallucinations. Continues to endorse on and off passive SI and states he would NOT inform nursing staff if he were to act upon SI. Of note, patient states he is domiciled alone. He reports he is unable to ambulate unassisted and needs help with ADLs given physical limitations. Psych PRNs last 24h: None Objective: Vitals: Patient Vitals for the past 6 hrs: Temp Pulse Resp BP BP Method 06/23/25 0433 98.2 ??F (36.8 ??C) 91 18 107/72 Automatic Additional Diagnostic Imaging: Pertinent imaging includes the following: PROCEDURE: XR KNEE RIGHT 3VW DATE/TIME OF EXAM: 06/22/2025 2:16 PM ORDERING PROVIDER REASON FOR EXAM: Right knee effusion IMPRESSION: 1.No acute fracture or dislocation. 2.Large knee joint effusion with soft tissue swelling around the knee. Labs: I have reviewed the patient's lab results from the last 24h. Most recent QTc: n/a Brief Mental Status Examination: Appearance: white male, appears older than stated age, groomed, average build, no acute distress , disheveled hair , lying in bed, and fungal infection on right temporal region Speech: latency (improving), normal rate, normal volume Psychomotor: no agitation and no retardation Attitude: cooperative and calm Mood: up and down Affect: Constricted (improving) and Mood-congruent Thought Process: linear and logical Thought Content: endorses suicidal ideation, denies homicidal ideation and no apparent delusions Perception: denies auditory hallucinations, endorses visual hallucinations, was not reacting to internal stimuli Insight: limited Judgment: poor MSK: bilateral hand tremors L>R (improving) Assessment: Lethality: Short term risk of suicide- moderate/high Risk factors: being male, being , and history of mental illness (depression, anxiety, and co-morbid alcohol abuse), reported previous suicide attempts Protective factors: help seeking and relationship with daughter Short term risk of harm to others- low Risk factors: substance use issues Protective factors: denies homicidal ideation, intent, or plan or target and no history of impulsive/ self harming behaviors Overall RISK: low Clinical reasoning: Chilo Boateng is a white, unemployed 54 year old male whom is with PMHx of HTN and a past psychiatric history of depression with suicidal attempt, alcohol use disorder who was admitted from [facility] on 06/20/2025 for generalized weakness. The Psychiatry service was consulted for suicidal ideation. UDS,BAL, and EKG not collected upon transfer. Patient demonstrates improving delirium, with persistent disorientation to time but otherwise intact orientation and improved sleep and appetite. Mood remains labile but is gradually stabilizing, anddepressive symptoms are improving, though the patient continues to endorse intermittent passive suicidal ideation without intent to disclose plans to staff, raising ongoing safety concerns. Alcohol cravings persist but have lessened since yesterday, consistent with gradual improvement in alcohol use disorder symptoms. The patient reported a brief visual hallucination last night, contributing to discomfort with his current room and a request for transfer, but denies ongoing psychotic symptoms. Physical limitations continue to impact his ability to ambulate and perform ADLs independently. Givenongoing safety concerns, functional impairments, inpatient hospitalization remains under consideration pending disposition recs from and pending disposition recs from primary team. Psychiatric Diagnoses: Delirium Alcohol Use Disorder Unspecified depression Plan: Disposition: At the time of my assessment, the patient is not medically stable. We will reassess disposition when the patient is medically stable. Legal status is voluntary. Should the patient chooseto leave the hospital, please page psychiatry for consideration of an involuntary hold. Psychiatric Medications: Scheduled Psych Meds: Recommend naltrexone for AUD upon discharge Psych PRNs we recommend while at [facility]: None Precautions: Delirium, Suicide, 1:1 Sitter, Fall Psychosocial needs: We greatly appreciate social work's support with discharge planning. The consultation-liaison psychiatry service will continue to follow. This note is for educational purposes only and should not be used for clinical care purposes. Please see resident, EL, or staff note for clinical purposes. Signed: Awa Longo 06/23/2025 10:00 AM Cosigned by Gonsalo Groves MD at 06/23/2025 4:25 PM PHYSICIAN ASSISTANT ICIAN ASSISTANT ICIAN ASSISTANT Associated attestation - Gonsalo Groves MD - 06/23/2025 4:25 PM PHYSICIAN ASSISTANT I am cosigning my student's note. This note is for educational purposes only. Please see midlevel provider, resident, or staff note for clinical purposes. Gonsalo Groves MD Psychiatry * Brian Murphy MD - 06/23/2025 7:26 AM CST [facility] Consult-Liaison Octave Board Racker Progress Note Name: Chilo Boateng Age: [age] year old Date of : 1970 Date of Note: 06/23/2025 Hospital day: Hospital Day: 4 Reason for Admission: generalized weakness Reason for Consult: suicidal ideation ID: Chilo Boateng is a white, unemployed 54 year old male with PMHx of HTN and a past psychiatrichistory of depression with suicidal attempt, alcohol use disorder who was admitted from [facility] on 06/20/2025 for generalized weakness. The Psychiatry service was consulted for suicidal ideation. Subjective Today, he is comfortably lying in his bed. He states that he feels depressed, his mood is up and down, same. His appetite and sleep are pretty good. He slept 8 hours last night. He feels rested. He spoke with his mom and daughter yesterday. He is still feeling suicidal without plan. During the interview, he still demonstrates inappropriate laughter; however, he is better in his responsive speech (improved delay of speech), and repeats some of the months backwards according to first impaired concentration (unable to recite months backward previously). He defines he has gotten less craving today and probably less than yesterday. As per previous visit notes: Even though he replies late when I ask he would like to take treatment due to his fluctuating attention or low motivation, he wants to take treatment for alcohol use. He lives by himself. He has beenin rehab before, and he states that he did not get any benefit from it. He has bilateral hand tremors, mostly in left hand. He had an unwitnessed fall and CT head, c-spine, and R hip x-ray which was negative but now has worsening right side pain and weakness. He has physical discomfort, especially elbow pain due to his recent fall. # No Acute Events Overnight (NAEO) # on 06/22/2025 - Thiamine dose was increased to 500 mg TID IV from 100 mg TID IV. - CIWA Protocol Discontinued on 06/22 @19:26 - Multivitamins (B12, K, magnesium bolus) Psych PRNs last 24h: None Objective: Vitals: Patient Vitals for the past 6 hrs: Temp Pulse Resp BP BP Method 06/23/25 0433 98.2 ??F (36.8 ??C) 91 18 107/72 Automatic Additional Diagnostic Imaging: No pertinent ESOL INSTRUCTOR imaging was obtained. Labs: I have reviewed the patient's lab results from the last 24h. Most recent QTc: pending (requested on 06/22) Brief Mental Status Examination: Appearance: white male, appears older than stated age, groomed, average build, no acute distress , disheveled hair , and lying in bed, still demonstrates inappropriate laughter, has bilateral hand tremors, mostly in left hand. Psychomotor: no agitation and no retardation Attitude: calm Mood: up and down, same, depressed Affect: Constricted and Mood-congruent Thought Content: endorses suicidal ideation without plan, denies homicidal ideation and no apparentdelusions Thought Process: tangential Speech: however he is better for his responsive speech (improved delay of speech) Perception: denies auditory hallucinations, denies visual hallucinations, was not reacting to internal stimuli Insight: limited Judgment: poor Cognition: repeats some of the months backwards according to first impaired concentration (unable to recite months backward). Assessment: Lethality: Short term risk of suicide- moderate/high Risk factors: being male and history of mental illness (depression, anxiety, and co-morbid alcohol abuse), reported previous suicide attempts Protective factors: help seeking, relationship with a daughter Short term risk of harm to others- low Risk factors: substance use issues Protective factors: denies homicidal ideation, intent, or plan or target and no history of impulsive/ self harming behaviors Overall RISK: low Clinical reasoning: Chilo Boateng is a white, unemployed 54 year old male with PMHx of HTN and a past psychiatric history of depression with suicidal attempt, alcohol use disorder who was admitted from [facility] on 06/20/2025 for generalized weakness. The Psychiatry service was consulted for suicidal ideation. On evaluation, patient reports worsening depression, anhedonia, low energy, and intermittent SI without a current plan or intent. He is alert and oriented to person, place, and month but not date; attention is fluctuating, with delayed responses and confusion regarding hospitalization. Still demonstrates inappropriate laughter, however he is better for his responsive speech (improved delay of speech), and repeats some of the months backwards according to first impaired concentration (unable to recite months backward). Displays bilateral hand tremors (L>R) and physical discomfort from a recent fall. Reports improving appetite, adequate sleep, and less alcohol craving (last use 19 days ago). Thiamine dose was increased to 500 mg TID IV from 100 mg TID IV on 06/22/2025, CIWA Protocol Discontinued on 06/22 @19:26, and Multivitamins (B12, K, magnesium bolus) were given. Psychiatric Diagnoses: Delirium Alcohol Use Disorder Unspecified Depression Plan: Disposition: At the time of my assessment, the patient is not medically stable. We will reassess disposition when the patient is medically stable. Legal status is voluntary. Should the patient chooseto leave the hospital, please page psychiatry for consideration of an involuntary hold. # We plan to discuss primary team recommendations according to disposition plan. # Waiting ECG results Psychiatric Medications: Scheduled Psych Meds: None. Psych PRNs we recommend while at [facility]: None. Precautions: Delirium, Suicide, 1:1 Sitter, Elopement, Fall, Withdrawal Psychosocial needs: We greatly appreciate social work's support with discharge planning. The consultation-liaison psychiatry service will continue to follow. I have discussed this case with my attending physician, Dr. Groves, who agrees with the assessment and plan. Signed: Brian Murphy MD 06/23/2025 7:26 AM Cosigned by Gonsalo Groves MD at 06/23/2025 12:48 PM PHYSICIAN ASSISTANT ICIAN ASSISTANT ICIAN ASSISTANT Associated attestation - Gonsalo Groves MD - 06/23/2025 12:48 PM PHYSICIAN ASSISTANT I have discussed the following case with the resident and agree with their documented assessment and plan. Date of Service: 06/23/2025 Gonsalo Groves MD Psychiatry * Kieran Feldman MD - 06/22/2025 6:23 PM CST Images from the original note were not included. [facility] Internal Medicine Progress Note Name: Chilo Boateng Room/Bed: [facility]/ : 1970 54 year old PCP: No primary care provider on file. Admit Date/Time: 06/20/2025 8:29 PM LOS: 2 Subjective Interval Update: 06/22/2025: Patient appears well at the time of my encounter today. He has been hemodynamically stable and reports no acute over night complaint. CIWA protocol has been discontinued. Xray of the elbow has been unremarkable. Electrolytes repleted. Professional bedside sitter has been monitoring the patient and fall as well as suicide precautions have been in place. Hospital course: Chilo Boateng is a 54 year old male with a past medical history significant for HTN, alcohol use disorder, depression with multiple suicide attempts and bilateral peripheral neuropathy for 2 years who presents to the hospital with generalized weakness. Admitted to behavioral health unit initially for alcohol detox and SI on 06/10. Developed profound weakness, started to experience severe tremors, was slow to respond, had minimal intake, worsening pain/tingling in his feet, was unable to ambulate so he was ultimately sent to medicine floor. They had concern for Wernicke encephalopathy due to intention tremors and worsening neuropathy so was started on IV thiamine 500 mg tid. KOBI which resolved before transfer. On metoprolol and losartan which was held due to KOBI. Had an unwitnessed fall and CT head, c-spine and R hip xray which was negative but now has worsening R side pain and weakness. Was Aox4 at OSH but very slow to respond. On a 1:1 sitter since he was endorsing SI at OSH. The morning of transfer, had episode of aspiration so was started on Unasyn. CXR clear here and afebrile. On admission, afebrile, HDS. Not endorsing SI tonight. Aox2-3 unsure of why he was transferred and not sure which hospital he was at. Does endorse ongoing neuropathy for the past 2 years that has significantly worsened in the past week. Reports last suicide attempt as using alcohol. Does not remember some of the events of the past 2 weeks. Denies sob, recent illnesses, chest pain or diarrhea. Consult Neurology and Psychiatry in the AM. Objective Temp: [98.7 ??F (37.1 ??C)-99.4 ??F (37.4 ??C)] 99.4 ??F (37.4 ??C) Pulse: [76-108] 101 Resp: [19-22] 22 BP: (119-160)/(81-104) 119/81 Weight change: Intake/Output Summary (Last 24 hours) at 06/22/2025 1823 Last data filed at 06/22/2025 0622 Gross per 24 hour Intake 120 ml Output 400 ml Net -280 ml Physical Exam: Gen: Alert, cooperative, in no acute distress HEENT: NC/AT, EOMI, no nasal drainage Neck: Supple CV: Regular rate and rhythm. No murmurs appreciated Lungs: Clear to auscultation bilaterally Abdomen: BS+, soft, non-tender, non-distended Extremities: Nontender, No edema noted, unable to assess gait due to weakness Skin: Warm, dry Neuro: Aox2, CN intact, decreased sensation bilateral feet, intact proprioception Assessment and Plan Alcohol use disorder Present on Admission: Yes Weakness Present on Admission: Not yet determined - 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 vs nutritional deficiency vs wernicke encephalopathy vs muscular dystrophy vs infection - acute exacerbation likely due to increase in alcohol consumption - IV thiamine 500 mg TID given at OSH - workup includes UA, TSH, B1, B12, folate, MMA, vit D, CK blood - started on IV thiamine here with Neurology consult in AM PLAN: - Lorazepam 2 mg PRN discontinued - Folic acid 1 mg - Thiamine - CIWA protocol discontinued - F/u on Labs Primary hypertension Present on Admission: Yes - elevated on admission 170s SBP - on metoprolol 25 and losartan 50 which was held due to kobi Plan: - started on amlodipine 5 mg Suicidal behavior with attempted self-injury (HCC) Present on Admission: Not yet determined Depression Present on Admission: Yes Anxiety Present on Admission: Yes - admitted to [facility] behavioral health unit due to suicide attempt - does not endorse SI here - continuous sitter - psych consult - Delirium, Suicide, 1:1 Sitter, Elopement, Fall, Withdrawal Diet: DIET REGULAR DVT Prophylaxis: SCDs only Code Status: Full Code Bordley Candidate?: No Electronically Signed By: Kieran Feldman MD 06/22/2025 6:23 PM The above assessment and plan will be discussed with attending physician. This note is not final until attested by the attending physician. Cosigned by Fransico Rhodes MD at 06/22/2025 7:26 PM PHYSICIAN ASSISTANT ICIAN ASSISTANT ICIAN ASSISTANT Associated attestation - Fransico Rhodes MD - 06/22/2025 7:26 PM PHYSICIAN ASSISTANT I have seen and examined the patient with the resident, and I agree with the findings and plan of care as documented by the resident. Care plan discussed with RN, clinical pharmacist and the multidisciplinary team. Weakness (POA: Yes) Primary hypertension (POA: Yes) Alcohol use disorder (POA: Yes) Anxiety (POA: Yes) Depression (POA: Yes) Suicidal behavior with attempted self-injury (HCC) (POA: Yes) Hypokalemia (POA: Yes) Hypophosphatemia (POA: Yes) Hypomagnesemia (POA: Yes) Vitamin D deficiency (POA: Yes) Replace potassium, magnesium, phosphate and vitamin D. Date of Service: 06/22/2025 Fransico Rhodes MD * Ivon Cruz RN - 06/22/2025 10:19 AM CST Care Coordination Initial Assessment Expected Discharge Date: Expected Discharge Disposition: Home or Self Care Transportation at Discharge: Family Prior Level of Care: Home Prior to Admit Provider: Comments: 54 year old male whom is with PMHx of HTN and a past psychiatric history of depression with suicidal attempt, alcohol use disorder who was admitted from OSH on 06/20/2025 for generalized weakness. The Psychiatry service was consulted for suicidal ideation. CM met with patient at bedside to complete initial assessment. He states he lives alone, does not work but can drive. He is independent with his ADLs. No DME, HHC, provider services or dialysis. States he has a PCP in [place], [place] but cannot recall the name. Lives with: Alone Physical Limitations: None Requires Assistance With: None Preferred Pharmacy: No Pharmacies Listed READMISSION RISK SCORE is 7.4 at 10:19 AM 06/22/2025. Met with patient Family Support (name and phone): Extended Emergency Contact Information Primary Emergency Contact: Kasia Boateng Mobile Relation: Mother Patient or safety representative requests care coordination reach out to family or caregiver listed above regarding discharge planning and at time of discharge? Yes Durable Medical Equipment Planning List DME pt. requires but does not have.: None Metalizing Supervisor Referral: Yes Will continue to follow. For any questions or needs please contact: Box Car Checker/Social Work Name/Phone number: Ivon Cruz RN ICIAN ASSISTANT * Kenzie Schrader - 06/22/2025 9:25 AM CST [facility] Physical Medicine and Rehabilitation Occupational Therapy Initial Evaluation Note Patient: Chilo Boateng Med Record Number: [id number] Date of : 1970 Age: [age] year old PPE worn by staff: gloves PPE worn by patient: gown - patient, clean Co- evaluation with PT Recommendations: Discharge OT Discharge Recommendations: Patient would benefit from intensive 3-hour multidisciplinary therapy This recommendation is made due to ongoing intensive OT functional needs: ability to actively participate in intensive therapy 3 hours/day, 5 days a week;patient has the need for more than one skilled therapy service In addition to the 1:1 evaluation of the patient, additional eval time was spent completing the chart review prior to the assessment, completing the multidisciplinary plan of care and education plan post evaluation and communicating results of the eval to other treatment team members. Nurse and Physical Therapist contacted regarding patient status and/or discharge plan. Physician Orders: Evaluation and Treat Activity Level: as tolerated PRECAUTIONS: Medical/Surgical Precaution: (fall risk) DIAGNOSIS: Problem List[1] Past Medical History[2] SUBJECTIVE: Subjective: pt agreeable PATIENT GOALS / WHAT MATTERS MOST TO THE PATIENT: Patient's Primary Concern: none stated Home Situation: Type of Residence: Private Residence Living arrangement: Alone Steps to Enter: 2 Ramp: No Home Structure: One Story Primary Bedroom: First Floor Primary Bathroom: First Floor Bathroom : Walk in Shower Equipment at Home: None Additional Information (OT): per pt report he as been in the hospital + the behavioral unit for a total of 16 days, but was independent prior Prior Level of Functioning: Mobility: Ambulate-In Community;Ambulate-In Home ;Driving;Independent Fallen Within 6 Mos: No Have Help at Home?: No help at home now Oxygen at Home: No Activity at Home: Active;Driving Vision: Other (Comment) (readers) Hearing Exceptions: Hearing concerns;Significant impairment on the right Who manages medications?: (self) Pain Assessment: Pain Assessment Pain Scale/Observation: 0-10 Pain Rating Score #1: 9 Sedation Level: 1-Awake and alert Pain Location : Right;Elbow OBJECTIVE: At start of therapy session, patient found in bed and with no alarm General Appearance: Pt in bed in NAD with sitter at bedside agreeable to therapy LDA: Floor: IVs: Peripheral line and Catheter: Indwelling Edema: Minimal edema noted in right upper extremity Vitals: (*Assess the 3 levels of oxygen saturations both for room air and 02 unless rest on room air is 88% or less). Rest BP: 144/106 (118) HR: 117 Sp02 Sp02 97% Room Air Post Activity BP: 141/101 (116) HR: 104 Sp02 Sp02 95% Room Air Observations: no noted signs of SOB or dizziness. Mental Status/Cognition: Orientation Level: (ao x 4) Cognition: Poor attention or concentration Attention Span: Attends with cues to redirect Memory: Appears intact Following Commands: Follows one step commands with increased time Safety Judgement: Decreased awareness of need for safety Awareness of Errors: Decreased awareness of deficits;Assistance required to identify errors made;Assistance required to correct errors made Problem Solving: Assistance required to identify errors made;Assistance required to implement solutions UE ROM: RUE: AAROM proximally, AROM WFL distallly LUE: AROM WFL Strength: RUE: 3-/5 proximally, resistive testing deferred 2/2 pain at elbow and 4+/5 at wrist LUE: WFL UE Sensation RUE: intact, no complaints of numbness or tingling LUE: intact, no complaints of numbness or tingling Perception: Inattention/Neglect: Appears intact Visual Motor Tracking: (WNL) Mobility: A gait belt and non-slip socks were used for all out of bed activity this date. Bed Mobility: Supine to Sit: Moderate Assistance with HOB in high fowlers position Sit to Supine: Minimal Assistance Transfers: Sit to Stand: Moderate Assistance;X 2 (pt cleared buttocks but could not fully bear weight 2/2 painin right knee) Stand to Sit: Moderate Assistance;X 2 Balance: Balance Scales/Tests Used: Sitting: Static/Dynamic;Standing: Static/Dynamic Sitting - Static: Fair Sitting - Dynamic: Fair - Standing - Static: Poor + Standing - Dynamic: Not tested Activities of Daily Living Oral Facial Hygiene: (completes face washing at bed level with MIN vcs to incorporate RUE) Upper Body Dressing: (requires MIN physical assist and MOD vcs to maintain sitting balance. Anticpating MOD assist with ADLs from unsuppported sitting secondary to decreased balance and decreased AROM of BUE) Lower Body Dressing: Maximal Assistance (donned socks seated EOB) ACTIVITY TOLERANCE: Activity Tolerance: Requires rest breaks;Tolerates less than 1 minute in standing AM-PAC 6 Clicks Daily Activity Raw Score:: 14 TREATMENT / EDUCATION / INTERVENTIONS: While performing OT, Patient was instructed in:functional mobility training, self-care training, safety awareness/fall precautions , discharge planning, use of call light Presented to patient who demonstrates Good understanding of instructions given. INFORMED CONSENT TO TREATMENT: Plan of care including recommended therapy, goals and frequency, discussed with patient who understands and agrees to proceed. ASSESSMENT: Functional performance limited due to: limited activities of daily living, pain, decreased functional mobility, decreased functional balance, decreased safety awareness, upper extremity functional impairments, and decreased endurance and activity tolerance. Patient continues to benefit from skilledOccupational Therapy to achieve the following functional goals. Short Term Goals: Goal Formation With patient Patient will perform grooming in chair and independently Patient will perform lower extremity dressing in chair and with minimal assist Patient will transfer to bedside commode with minimal assist and with least restrictive assistive device Patient will tolerate treatment 25 minutes and with fair+ endurance Assisted Goal(s): Patient to discharge to appropriate next level of inpatient care. Plan: Patient continues to benefit from skilled therapy services. If patient is discharged from the facility, this note serves as a discharge summary if further occupational therapy visits did not occur. Refer to filed flowsheet for further details. Following therapy session, patient left in bed, with call light within reach, with sitter in room. [1] Patient Active Problem List: Weakness Primary hypertension Alcohol use disorder Anxiety Depression Suicidal behavior with attempted self-injury (HCC) [2] No past medical history on file. Cosigned by Yani Ruth OT at 06/22/2025 11:48 AM PHYSICIAN ASSISTANT ICIAN ASSISTANT ICIAN ASSISTANT * Damari Malin, PT - 06/22/2025 8:49 AM CST [facility] Physical Medicine and Rehabilitation Physical Therapy Initial Evaluation Note Patient: Chilo Boateng Med Record Number: [id number] Date of : 1970 Age: [age] year old PPE worn by staff: gloves PPE worn by patient: gown - patient, clean Co-eval w/OT 2/2 medical acuity and level of skilled assist required for functional mobility Recommendations: Discharge PT Discharge Recommendations: Patient would benefit from intensive 3-hour multidisciplinary therapy This recommendation is made due to ongoing intensive PT functional needs: patient has the need for more than one skilled therapy service;functional mobility is significantly below baseline Recommended Transportation Method: Stretcher/Ambulance In addition to the 1:1 evaluation of the patient, additional eval time was spent completing the chart review prior to the assessment, completing the multidisciplinary plan of care and education plan post evaluation and communicating results of the eval to other treatment team members. Patient is being recommended for post acute care, therefore DME recommendations will be made at thenext level of care. Nurse and Occupational Therapist contacted regarding patient status and/or discharge plan. Physician Orders: Evaluation and Treat PRECAUTIONS: Weight Bearing Status: (no restrictions) Activity Level: Activity as Tolerated DIAGNOSIS: Problem List[1] Past Medical History[2] SUBJECTIVE: Subjective: Can you smell this? It smells sweet PATIENT GOALS / WHAT MATTERS MOST TO THE PATIENT: Patient's Primary Concern: get better Home Situation: Type of Residence: Private Residence Living arrangement: Alone Steps to Enter: 2 Ramp: No Home Structure: One Story Primary Bedroom: First Floor Primary Bathroom: First Floor Bathroom : Walk in Shower Equipment at Home: None Additional Information (PT): pt indep prior to recent hospitalization Prior Level of Functioning: Prior Level of Function Mobility: Ambulate-In Community;Ambulate-In Home ;Driving;Independent Fallen Within 6 Mos: No Have Help at Home?: No help at home now Oxygen at Home: No Activity at Home: Active;Driving Vision: Other (Comment) (readers) Hearing Exceptions: Hearing concerns;Significant impairment on the right Who manages medications?: (self) Pain Assessment: Pain Assessment Pain Scale/Observation: 0-10 Pain Rating Score #1: 9 Sedation Level: 1-Awake and alert Pain Location : Right;Elbow OBJECTIVE: At start of therapy session, patient found in bed. General Appearance: 54 y.o. male in NAD, sitter at bedside LDAs: Floor: IVs: Peripheral line and Catheter: External Edema: minimal edema noted in right lower extremity Vitals: (*Assess the 3 levels of oxygen saturations both for room air and 02 unless rest on room air is 88% or less). Rest BP: 144/106 (118) HR: 117 Sp02 Sp02 97% Room Air Post Activity BP: 141/101 (116) HR: 104 Sp02 Sp02 95% Room Air Observations: No s/s of distress noted throughout session. Pt with R lateral lean in sitting, able to self-correct with verbal cues. In standing, pt with L knee hyperextension and unable to fully extend R knee 2/2 to pain. Tolerates standing ~30 seconds before requesting to sit. Primary team informed of R knee pain post session. Mental Status/Cognition: Orientation Level: (ao x 4) Cognition: Poor attention or concentration (pt with intermittent confusion during session) Attention Span: Attends with cues to redirect Memory: Appears intact Following Commands: Follows one step commands with increased time Safety Judgement: Decreased awareness of need for safety Awareness of Errors: Decreased awareness of deficits Problem Solving: Assistance required to generate solutions ROM: RLE: PROM WFL LLE: AROM WFL Strength: RLE:quadriceps 0/5 (possibly d/t pain in R knee, pt with questionable effort), ankle DF/PF grossly 3+/5 LLE: WFL Tone: RLE: no abnormal tone noted LLE: no abnormal tone noted Sensation: RLE: pt reports numbness in R foot LLE: intact Mobility: A gait belt and non-slip socks were used for all out of bed activity this date. Bed Mobility: Supine to Sit: Moderate Assistance with HOB in semi-fowlers position Sit to Supine: Minimal Assistance Transfers: Sit to Stand: Moderate Assistance;X 2 (pt cleared buttocks but could not fully bear weight 2/2 painin right knee) Stand to Sit: Moderate Assistance;X 2 Bed to Chair: Activity Does Not Occur (deferred 2/2 level of assist to stand) Transfer Device: Gait belt (close physical assist, L knee block) Gait: Weight Bearing Status: (no restrictions) Distance Ambulated (ft): 0 FEET Balance: Balance Scales/Tests Used: Sitting: Static/Dynamic;Standing: Static/Dynamic Sitting - Static: Fair Sitting - Dynamic: Fair - Standing - Static: Poor +;With Both Upper Extremity's Support Standing - Dynamic: Not tested ACTIVITY TOLERANCE: Activity Tolerance: Requires rest breaks TREATMENT/INTERVENTIONS: evaluation, ROM BLE, strengthening exercises, coordination exercises, bed mobility training, transfer training, balance activities, and monitoring of vitals AM-PAC 6 Clicks Mobility Raw Score:: 8 EDUCATION: While performing PT, Patient was instructed in:functional mobility training, energy conservation, safety awareness/fall precautions , use of adaptive equipment, discharge planning, use of call light Presented to patient who demonstrates Fair understanding of instructions given. INFORMED CONSENT TO TREATMENT: Plan of care including recommended therapy, goals and frequency, discussed with patient who understands and agrees to proceed. ASSESSMENT: Patient would benefit from additional Physical Therapy sessions to achieve the following functionalgoals to enhance independence. Short Term Goals: Goal Formation With patient Patient will perform bed mobility with minimal assist Patient will transfer sit to/from stand with minimal assist and X 2 Patient will transfer bed to/from chair with moderate assist and X 2 Picker Packer Goal(s): Patient to discharge to appropriate next level of inpatient care. Equipment Issued: gait belt Plan: Transfer training Assistive device training Endurance training Bed mobility training Balance training Energy conservation techniques Safety awareness If patient is discharged from the facility, this note serves as a discharge summary if further physical therapy visits did not occur. Refer to filed flowsheet for further details. Following therapy session, patient left in bed, with bed alarm on , with call light within reach, with CP in room, with therapy cues visible on white board, with fall mats in place, all lines/tubes intact. [1] Patient Active Problem List: Weakness Primary hypertension Alcohol use disorder Anxiety Depression Suicidal behavior with attempted self-injury (HCC) [2] No past medical history on file. ICIAN ASSISTANT * Awa Longo M - 06/22/2025 8:25 AM CST [facility] STUDENT Consult-Liaison Psychiatry Progress Note FOR EDUCATIONAL PURPOSES ONLY. NOT FOR CLINICAL PURPOSES. Name: Chilo Boateng Age: [age] year old Date of : 1970 Date of Note: 06/22/2025 Hospital day: Hospital Day: 3 Reason for Admission: Generalized weakness Reason for Consult: suicidal ideation ID: Chilo Boateng is a white, unemployed 54 year old male whom is with PMHx of HTN and a past psychiatric history of depression with suicidal attempt, alcohol use disorder who was admitted from [facility] 06/20/2025 for generalized weakness. The Psychiatry service was consulted for suicidal ideation. EKG not collected. Subjective Patient laying in bed, clicking on buttons on side of the bed, when approached. Initially did not respond, but eventually said he is bored with nothing to do. Mood-[place], he feels bad due to pain. He reports his elbow is sore and he is in pain. He did not sleep much last night. His energy is not much better. States he doesn't like people because they keep asking him the same questions.. States he is in hospital for suicidal thoughts and for worsening weakness. He states he was at [facility] before arrive to [facility]. When asked about SI, he states he is kind of suicidal becausehe does not see things getting better. Cites his confusion that he was in a hospital as why he thinks things are not going to get better. However, cites his drinking as something that can be improvedand says his last drink was 18 days ago. He also reports alcohol cravings. When asked about reasonsfor living, talks about finishing 3-day trip with daughter; elabor[place] got [place] on [place] due to a snowstorm. Reports he has a 16 y/o daughter named Lenora who lives with his mother Kasia. He states him and his daughter is close, but hasn't been able to see her since his admission to the [facility] due to the rules. He is okay with his mother being contacted and provided updates regarding his care. Psych PRNs last 24h: Ativan 1 mg PO at 1811 for CIWA score of 9 -CIWA of 1 both at 0814 and 0007 Telephone Notification Documentation Contact made: 06/22/2025 at 11:57 am Person(s) contacted: mother Pedroza, Method of communication: Phone Duration of discussion: N/A; went to voicemail. Summary of discussion Attempted to contact patient's mother to update about overall care plan and to gather collateral. Call went to voicemail. --- Contact made: 06/22/2025 at 12:11 pm Person(s) contacted: [facility] Acute Unit Staff Member, [phone] Method of communication: Phone Duration of discussion: 5 minutes Summary of discussion Contacted [facility] for collateral. Transferred from patient intake line ([phone]) to acute unit. Staff member who picked up denies knowledge of patient and unable to find patient's chart. She states the other behavioral health unit is a geriatric unit, but patient is not oldenough to be placed on that unit. Objective: Vitals: Patient Vitals for the past 6 hrs: Temp Pulse BP BP Method 06/22/25 0407 99.4 ??F (37.4 ??C) 102 150/97 Automatic Additional Diagnostic Imaging: No pertinent ESOL INSTRUCTOR imaging was obtained. Labs: I have reviewed the patient's lab results from the last 24h. Most recent QTc: n/a Brief Mental Status Examination: Appearance: white male, appears older than stated age, groomed, average build, no acute distress , disheveled hair , and lying in bed Speech: delayed, slow rate, quiet volume Psychomotor: no agitation and no retardation, Attitude: guarded and calm Mood: bad Affect: Subdued, constricted and Mood-congruent Thought Process: tangential Thought Content: endorses suicidal ideation, denies homicidal ideation and no apparent delusions Perception: denies auditory hallucinations, denies visual hallucinations, was not reacting to internal stimuli Insight: limited Judgment: poor MSK: bilateral hand tremors L>R Assessment: Lethality: Short term risk of suicide- moderate/high Risk factors: being male, being , and history of mental illness (depression, anxiety, and co-morbid alcohol abuse), reported previous suicide attempts Protective factors: help seeking and relationship with daughter Short term risk of harm to others- low Risk factors: substance use issues Protective factors: denies homicidal ideation, intent, or plan or target and no history of impulsive/ self harming behaviors Overall RISK: low Clinical reasoning: Chilo Boateng is a white, unemployed 54 year old male whom is with PMHx of HTN and a past psychiatric history of depression with suicidal attempt, alcohol use disorder who was admitted from [facility] on 06/20/2025 for generalized weakness. The Psychiatry service was consulted for suicidal ideation. UDS,BAL, and EKG not collected upon transfer. The patient presents with evidence of delirium, as demonstrated by fluctuating attention, confusionabout his hospital admission, and difficulty engaging with his environment (e.g., clicking buttons,delayed response to questions). In addition, attempted to perform attention testing by asking patient to repeat the months of the year backwards, and he was unable to say the first month. He has a constricted and subdued affect, and he reports ongoing low mood, poor sleep, low energy, and anhedonia, suggestive of a depressive episode. He endorses ongoing passive suicidal ideation, expressing hopelessness about his situation, though he is able to identify protective factors, such as his relationship with his daughter. The patient also has a history of alcohol use disorder, with reported abstinence for the past 18 days, which may be contributing to his current mood and cognitive symptoms as he endorses alcohol cravings. His physical discomfort, particularly elbow pain in the setting of his recent fall, may be exacerbating his mood and sleep disturbances. Socially, he is isolated from his support systems, his daughter and mother, due to hospitalization. Overall, his presentation is multifactorial, with delirium, depression, and recent alcohol cessation all contributing to his current mental status. Psychiatric Diagnoses: Delirium Alcohol Use Disorder Unspecified depression Plan: Disposition: At the time of my assessment, the patient is not medically stable. We will reassess disposition when the patient is medically stable. Legal status is voluntary. Should the patient chooseto leave the hospital, please page psychiatry for consideration of an involuntary hold. Order EKG study Psychiatric Medications: Scheduled Psych Meds: Continue CIWA protocol Psych PRNs we recommend while at [facility]: None Precautions: Delirium, Suicide, 1:1 Sitter, Elopement, Fall, Withdrawal Psychosocial needs: We greatly appreciate social work's support with discharge planning. The consultation-liaison psychiatry service will continue to follow. This note is for educational purposes only and should not be used for clinical care purposes. Please see resident, EL, or staff note for clinical purposes. Signed: Awa Longo 06/22/2025 8:25 AM Cosigned by Gonsalo Groves MD at 06/26/2025 1:30 PM PHYSICIAN ASSISTANT ICIAN ASSISTANT ICIAN ASSISTANT Associated attestation - Gonsalo Groves MD - 06/26/2025 1:30 PM PHYSICIAN ASSISTANT I am cosigning my student's note. This note is for educational purposes only. Please see midlevel provider, resident, or staff note for clinical purposes. Gonsalo Groves MD Psychiatry * Peggy Calhoun RN - 06/21/2025 6:40 PM CST Problem: Skin/Tissue Integrity - Adult Goal: Skin integrity remains intact Description: INTERVENTIONS: Outcome: Progressing Goal: Incisions, wounds, or drain sites healing without S/S of infection Description: INFECTIONS: Outcome: Progressing Goal: Oral mucous membranes remain intact Description: INTERVENTIONS: Outcome: Progressing Problem: Suicide Risk Goal: Patient will be free of self-inflicted injury and suicide risk during hospitalization Outcome: Progressing Problem: ELOPEMENT/ABDUCTION Goal: Risk for elopement &/or abduction during hospitalization is minimized Outcome: Progressing Problem: Pain/Discomfort Goal: Patient exhibits reduced pain/discomfort as evidenced by pain scores Outcome: Progressing Goal: Patient uses pharmacological and non-pharmacological pain management strategies. Outcome: Progressing Goal: Patient verbalizes acceptable level of pain relief and ability to engage in desired activity. Outcome: Progressing Problem: Fall Risk Goal: Fall risk and fall related injury risk are minimized (interventions related to the fall risk can be found in the flowsheet documentation) Outcome: Progressing Problem: Neurosensory - Adult Goal: Achieves stable or improved neurological status Description: INTERVENTIONS Outcome: Progressing Goal: Remains free of injury related to seizures activity Description: INTERVENTIONS: Outcome: Progressing Goal: Achieves maximal functionality and self care Description: INTERVENTIONS: Outcome: Progressing Problem: Respiratory - Adult Goal: Achieves optimal ventilation and oxygenation Description: INTERVENTIONS: Outcome: Progressing Problem: Cardiovascular - Adult Goal: Maintains optimal cardiac output and hemodynamic stability Description: INTERVENTIONS: Outcome: Progressing Goal: Absence of cardiac dysrhythmias or at baseline Description: INTERVENTIONS: Outcome: Progressing Problem: Neurovascular Musculoskeletal - Adult Goal: Return mobility to safest level of function Description: INTERVENTIONS: Outcome: Progressing Goal: Maintain proper alignment of affected body part Description: INTERVENTIONS: Outcome: Progressing Goal: Return ADL status to a safe level of function Description: INTERVENTIONS: Outcome: Progressing Goal: Absence or reduction of edema Description: INTERVENTIONS Outcome: Progressing Goal: Maintains or improves tissue perfusion Description: INTERVENTIONS Outcome: Progressing Problem: Gastrointestinal - Adult Goal: Minimal or absence of nausea and vomiting Description: INTERVENTIONS: Outcome: Progressing Goal: Maintains or returns to baseline bowel function Description: INTERVENTIONS: Outcome: Progressing Goal: Maintains adequate nutritional intake Description: INTERVENTIONS: Outcome: Progressing Problem: Genitourinary - Adult Goal: Maintains or returns to baseline genitourinary function Description: INTERVENTIONS: Outcome: Progressing Goal: Urinary catheter remains patent Description: INTERVENTIONS: Outcome: Progressing Problem: Infection - Adult Goal: Infections are decreased or avoided Description: INTERVENTIONS: Outcome: Progressing Problem: Metabolic/Fluid and Electrolytes - Adult Goal: Electrolytes maintained within normal limits Description: INTERVENTIONS: Outcome: Progressing Goal: Hemodynamic stability and optimal renal function maintained Description: INTERVENTIONS: Outcome: Progressing Goal: Glucose maintained within prescribed range Description: INTERVENTIONS: Outcome: Progressing Problem: Hematologic - Adult Goal: Maintains hematologic stability Description: INTERVENTIONS: Outcome: Progressing Problem: Swallowing Goal: LTG - Patient will demonstrate safe swallowing Intervention/techniques Outcome: Progressing Goal: LTG - Patient will tolerate the least restrictive diet consistency to allow for safe consumption of daily meals Outcome: Progressing 184: VSS. Pt A&O x 1. Sitter is present in room with pt. Bed in low position. Fall mat in place. Call light available via sitter. ICIAN ASSISTANT * Justo Barroso MD - 06/21/2025 1:49 PM CST Psychiatry marketing and communications officer paged for evaluation of suicidal ideation. Visited patient at bedside @1330. Patient lying in raised bed sleeping. He is extremely somnolent when woken up. Despite multiple attempts to talk to the patient, he is not able to stay awake to engage in conversation, even unable to provide his name. Interview is currently prohibited by patient's mental status. We will re-evaluate the patient later in the day or pass on to C/L team on Sunday. Justo Barroso MD PGY-1 Department of Psychiatry and Behavioral Neuroscience [facility] 06/21/2025 1:53 PM ICIAN ASSISTANT * Joselin Her SLP - 06/21/2025 11:06 AM CST [facility] Physical Medicine and Rehabilitation Bedside Swallow Assessment Patient: Chilo Boateng Med Record Number: [id number] Date of : 1970 Age: [age] year old Problem List[1] Past Medical History[2] In addition to the 1:1 evaluation of the patient, additional eval time was spent completing the chart review prior to the assessment, completing the multidisciplinary plan of care and education plan post evaluation and communicating results of the eval to other treatment team members. PPE: PPE worn by staff: gloves PPE worn by patient: gown - patient, clean Impressions: Pt seen at bedside for swallowing evaluation. Pt presents with functional swallow in presence of general weakness. Administered trials of thin liquids, puree, and general solids. Pt demonstrated 0 overt s/sx aspiration. Recommend patient initiate a general diet and thin liquids. Recommendations: Diet Liquids Recommendation: Thin/ Thin (0) Diet Solids Recommendation: Regular/Regular (7) Recommended Form of Meds: As Tolerated Compensatory Swallowing Strategies: 90 Degrees elevation for all oral intake;Small bites/sips;Eat/Feed slowly Recommended Tests/Consults: N/A Discharge Recommendations: Ongoing SUBJECTIVE: Patient Goals:this is griddy Pain Assessment: 0/10 OBJECTIVE: Level of Consciousness: alert Orientation Level: oriented to person, oriented to place, oriented to situation Positioning: Upright in bed Respiratory Status: room air Oral/Motor: Dentition: Normal Oral Hygiene : Within Functional Limits Labial/Facial: Within Functional Limits Tongue: Within Functional Limits Vocal Quality: Within Functional Limits Velopharyngeal Status: Within Functional Limits Oral Motor Coordination: Within Functional Limits Swallow Trials: Thin Liquid: Presentation: Straw-Assisted Oral: Within Functional Limits Pharyngeal: Within Functional LImits Puree: Presentation: Spoon-Assisted Oral: Within Functional Limits Pharyngeal: Within Functional LImits Solid: Presentation: Assisted Oral: Within Normal Limits Pharyngeal: Within Functional Limits Assessment: Risk For Aspiration: None Primary Diagnostic Impression - Oral: No dysphagia Primary Diagnostic Impression - Pharyngeal: No dysphagia suspected Education/Interventions: While performing JUKEBOX OPERATOR, Patient was instructed in: goals of treatment and diet/liquid recommendations. Patient demonstrated Fair understanding of instructions given. Physician contacted regarding results of swallow evaluation and recommendations. INFORMED CONSENT TO TREATMENT: Plan of care including recommended therapy, goals and frequency, discussed with patient who understands and agrees to proceed. Short Term Goals Patient will tolerate recommended food and liquid consistencies without clinical signs of aspiration. Assisted Goal (s): Patient to be independent/baseline with functional mobility and self care and be able to safely discharge to prior level of care. Plan: JUKEBOX OPERATOR to follow for diet tolerance [1] Patient Active Problem List: Weakness Primary hypertension Alcohol use disorder Anxiety Depression Suicidal behavior with attempted self-injury (HCC) [2] No past medical history on file. ICIAN ASSISTANT * Bijal Mchugh OT - 06/21/2025 9:01 AM CST [facility] Physical Medicine and Rehabilitation Occupational Therapy Progress Note Patient: Chilo Boateng [facility] Record Number: [id number] Date of : 1970 Age: [age] year old 06/21/25 0901 Missed Visit Missed Visit No Activity Order; Patient Off Floor Patient currently does not have an activity order needed to participate in therapy (e.g., Activity as Tolerated, Up Ad Bibiana, Up as Tolerated). ICIAN ASSISTANT * Liz Pulido, PT - 06/21/2025 8:26 AM CST [facility] Department of Physical Medicine & Rehabilitation Progress Note Patient: Chilo Boateng Med Record Number: [id number] Date of : 1970 Age: [age] year old 06/21/25 0826 Missed Visit Missed Visit No Activity Order Please add appropriate activity order (e.g. Activity As Tolerated, Up As Tolerated, Up Ad Bibiana) to initiate physical therapy eval and treat. ICIAN ASSISTANT * Kieran Feldman MD - 06/21/2025 8:20 AM CST Images from the original note were not included. [facility] Internal Medicine Progress Note Name: Chilo Boateng Room/Bed: [facility] : 1970 54 year old PCP: No primary care provider on file. Admit Date/Time: 06/20/2025 8:29 PM LOS: 1 Subjective Interval Update: 06/21/2025: Patient appears well at the time of my encounter today. He has been hemodynamically stable and reports no acute over night complaint. CIWA protocol has been continued and psychiatry has been consulted for the evaluation of suicidal ideations the patient had previously. Xray of the elbowhas been ordered for the evaluation edema, tenderness and indurated swelling on the right elbow. Professional bedside sitter has been monitoring the patient and fall as well as suicide precautions have been in place. Hospital course: Chilo Boateng is a 54 year old male with a past medical history significant for HTN, alcohol use disorder, depression with multiple suicide attempts and bilateral peripheral neuropathy for 2 years who presents to the hospital with generalized weakness. Admitted to behavioral health unit initially for alcohol detox and SI on 06/10. Developed profound weakness, started to experience severe tremors, was slow to respond, had minimal intake, worsening pain/tingling in his feet, was unable to ambulate so he was ultimately sent to medicine floor. They had concern for Wernicke encephalopathy due to intention tremors and worsening neuropathy so was started on IV thiamine 500 mg tid. KOBI which resolved before transfer. On metoprolol and losartan which was held due to KOBI. Had an unwitnessed fall and CT head, c-spine and R hip xray which was negative but now has worsening R side pain and weakness. Was Aox4 at OSH but very slow to respond. On a 1:1 sitter since he was endorsing SI at OSH. The morning of transfer, had episode of aspiration so was started on Unasyn. CXR clear here and afebrile. On admission, afebrile, HDS. Not endorsing SI tonight. Aox2-3 unsure of why he was transferred and not sure which hospital he was at. Does endorse ongoing neuropathy for the past 2 years that has significantly worsened in the past week. Reports last suicide attempt as using alcohol. Does not remember some of the events of the past 2 weeks. Denies sob, recent illnesses, chest pain or diarrhea. Consult Neurology and Psychiatry in the AM. Objective Temp: [98.9 ??F (37.2 ??C)-99.5 ??F (37.5 ??C)] 99.5 ??F (37.5 ??C) Pulse: [77-97] 91 Resp: [18-20] 18 BP: (156-189)/(95-106) 156/95 Weight change: Intake/Output Summary (Last 24 hours) at 06/21/2025 0820 Last data filed at 06/20/2025 2324 Gross per 24 hour Intake -- Output 500 ml Net -500 ml Physical Exam: Gen: Alert, cooperative, in no acute distress HEENT: NC/AT, EOMI, no nasal drainage Neck: Supple CV: Regular rate and rhythm. No murmurs appreciated Lungs: Clear to auscultation bilaterally Abdomen: BS+, soft, non-tender, non-distended Extremities: Nontender, No edema noted, unable to assess gait due to weakness Skin: Warm, dry Neuro: Aox2, CN intact, decreased sensation bilateral feet, intact proprioception Assessment and Plan Alcohol use disorder Present on Admission: Yes Weakness Present on Admission: Not yet determined - 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 vs nutritional deficiency vs wernicke encephalopathy vs muscular dystrophy vs infection - acute exacerbation likely due to increase in alcohol consumption - IV thiamine 500 mg TID given at OSH - workup includes UA, TSH, B1, B12, folate, MMA, vit D, CK blood - started on IV thiamine here with Neurology consult in AM PLAN: - Lorazepam 2 mg PRN - Folic acid 1 mg - Thiamine 100 mg - CINJ protocol - F/u on Labs Primary hypertension Present on Admission: Yes - elevated on admission 170s SBP - on metoprolol 25 and losartan 50 which was held due to kobi Plan: - started on amlodipine 5 mg here Suicidal behavior with attempted self-injury (HCC) Present on Admission: Not yet determined Depression Present on Admission: Yes Anxiety Present on Admission: Yes - admitted to [facility] behavioral health unit due to suicide attempt - does not endorse SI here - continuous sitter - psych consult in AM Diet: DIET NPO Except: SIPS WITH MEDS, ICE CHIPS DVT Prophylaxis: SCDs only Code Status: Full Code Bordley Candidate?: No Electronically Signed By: Kieran Feldman MD 06/21/2025 8:20 AM The above assessment and plan will be discussed with attending physician. This note is not final until attested by the attending physician. Cosigned by Cornell Khan MD at 06/21/2025 2:40 PM PHYSICIAN ASSISTANT ICIAN ASSISTANT ICIAN ASSISTANT Associated attestation - Cornell Khan MD - 06/21/2025 2:40 PM PHYSICIAN ASSISTANT I have personally seen and examined the patient today, 06.21.2025. I have reviewed imaging studies and laboratory tests and have discussed the patient in detail with the resident(s). I concur with their documented assessment and plan except I would clarify the following diagnoses and/or plan elements: Alcohol Withdrawal syndrome Generalized weakness Peripheral Neuropathy Suicidal ideation at OSH Conor Khan MD * Jael Riggs RN - 06/21/2025 1:11 AM CDT Problem: Suicide Risk Goal: Patient will be free of self-inflicted injury and suicide risk during hospitalization Outcome: Progressing Problem: Suicide Risk Goal: Patient will be free of self-inflicted injury and suicide risk during hospitalization Outcome: Progressing Problem: ELOPEMENT/ABDUCTION Goal: Risk for elopement &/or abduction during hospitalization is minimized Outcome: Progressing Problem: Pain/Discomfort Goal: Patient exhibits reduced pain/discomfort as evidenced by pain scores Outcome: Progressing Goal: Patient uses pharmacological and non-pharmacological pain management strategies. Outcome: Progressing Goal: Patient verbalizes acceptable level of pain relief and ability to engage in desired activity. Outcome: Progressing Problem: Fall Risk Goal: Fall risk and fall related injury risk are minimized (interventions related to the fall risk can be found in the flowsheet documentation) Outcome: Progressing Problem: Skin/Tissue Integrity - Adult Goal: Skin integrity remains intact Description: INTERVENTIONS: Outcome: Progressing Goal: Incisions, wounds, or drain sites healing without S/S of infection Description: INFECTIONS: Outcome: Progressing Goal: Oral mucous membranes remain intact Description: INTERVENTIONS: Outcome: Progressing Problem: Neurosensory - Adult Goal: Achieves stable or improved neurological status Description: INTERVENTIONS Outcome: Progressing Goal: Remains free of injury related to seizures activity Description: INTERVENTIONS: Outcome: Progressing Goal: Achieves maximal functionality and self care Description: INTERVENTIONS: Outcome: Progressing Problem: Neurosensory - Adult Goal: Achieves stable or improved neurological status Description: INTERVENTIONS Outcome: Progressing Goal: Remains free of injury related to seizures activity Description: INTERVENTIONS: Outcome: Progressing Goal: Achieves maximal functionality and self care Description: INTERVENTIONS: Outcome: Progressing Problem: Respiratory - Adult Goal: Achieves optimal ventilation and oxygenation Description: INTERVENTIONS: Outcome: Progressing Problem: Cardiovascular - Adult Goal: Maintains optimal cardiac output and hemodynamic stability Description: INTERVENTIONS: Outcome: Progressing Goal: Absence of cardiac dysrhythmias or at baseline Description: INTERVENTIONS: Outcome: Progressing Problem: Cardiovascular - Adult Goal: Maintains optimal cardiac output and hemodynamic stability Description: INTERVENTIONS: Outcome: Progressing Goal: Absence of cardiac dysrhythmias or at baseline Description: INTERVENTIONS: Outcome: Progressing Problem: Neurovascular Musculoskeletal - Adult Goal: Return mobility to safest level of function Description: INTERVENTIONS: Outcome: Progressing Goal: Maintain proper alignment of affected body part Description: INTERVENTIONS: Outcome: Progressing Goal: Return ADL status to a safe level of function Description: INTERVENTIONS: Outcome: Progressing Goal: Absence or reduction of edema Description: INTERVENTIONS Outcome: Progressing Goal: Maintains or improves tissue perfusion Description: INTERVENTIONS Outcome: Progressing Problem: Gastrointestinal - Adult Goal: Minimal or absence of nausea and vomiting Description: INTERVENTIONS: Outcome: Progressing Goal: Maintains or returns to baseline bowel function Description: INTERVENTIONS: Outcome: Progressing Goal: Maintains adequate nutritional intake Description: INTERVENTIONS: Outcome: Progressing Problem: Genitourinary - Adult Goal: Maintains or returns to baseline genitourinary function Description: INTERVENTIONS: Outcome: Progressing Goal: Urinary catheter remains patent Description: INTERVENTIONS: Outcome: Progressing Problem: Infection - Adult Goal: Infections are decreased or avoided Description: INTERVENTIONS: Outcome: Progressing Problem: Infection - Adult Goal: Infections are decreased or avoided Description: INTERVENTIONS: Outcome: Progressing Problem: Metabolic/Fluid and Electrolytes - Adult Goal: Electrolytes maintained within normal limits Description: INTERVENTIONS: Outcome: Progressing Goal: Hemodynamic stability and optimal renal function maintained Description: INTERVENTIONS: Outcome: Progressing Goal: Glucose maintained within prescribed range Description: INTERVENTIONS: Outcome: Progressing Problem: Hematologic - Adult Goal: Maintains hematologic stability Description: INTERVENTIONS: Outcome: Progressing Problem: Hematologic - Adult Goal: Maintains hematologic stability Description: INTERVENTIONS: Outcome: Progressing documented in this encounter H&P Notes * Radha Johnson MD - 06/20/2025 10:45 PM CDT Images from the original note were not included. [facility] Internal Medicine History and Physical Name: Chilo Boateng Room/Bed: : 1970 54 year old PCP: No primary care provider on file. Chief Complaint Chief Complaint: weakness History of Present Illness Chilo Boateng is a 54 year old male with a past medical history significant for HTN, alcohol use disorder, depression with multiple suicide attempts and bilateral peripheral neuropathy for 2 years who presents to the hospital with generalized weakness. Admitted to behavioral health unit initially for alcohol detox and SI on 06/10. Developed profound weakness, started to experience severe tremors, was slow to respond, had minimal intake, worsening pain/tingling in his feet, was unable to ambulate so he was ultimately sent to medicine floor. They had concern for Wernicke encephalopathy due to intention tremors and worsening neuropathy so was started on IV thiamine 500 mg tid. KOBI which resolved before transfer. On metoprolol and losartan which was held due to KOBI. Had an unwitnessed fall and CT head, c-spine and R hip xray which was negative but now has worsening R side pain and weakness. Was Aox4 at OSH but very slow to respond. On a 1:1 sitter since he was endorsing SI at OSH. The morning of transfer, had episode of aspiration so was started on Unasyn. CXR clear here and afebrile. On admission, afebrile, HDS. Not endorsing SI tonight. Aox2-3 unsure of why he was transferred and not sure which hospital he was at. Does endorse ongoing neuropathy for the past 2 years that has significantly worsened in the past week. Reports last suicide attempt as using alcohol. Does not remember some of the events of the past 2 weeks. Denies sob, recent illnesses, chest pain or diarrhea. Consult Neurology and Psychiatry in the AM. Review of Symptoms ROS Negative unless otherwise specified. Medical and Surgical History Allergies[1] Past Medical History[2] Past Surgical History[3] No current outpatient medications Social and Family History Social History Socioeconomic History Marital status: Not on file Spouse name: Not on file Number of children: Not on file Years of education: Not on file Highest education level: Not on file Occupational History Not on file Tobacco Use Smoking status: Not on file Smokeless tobacco: Not on file Substance and Sexual Activity Alcohol use: Not on file Drug use: Not on file Sexual activity: Not on file Other Topics Concern Not on file Social History Narrative Not on file Social Drivers of Health Financial Resource Strain: Not on file Food Insecurity: Not on file Transportation Needs: Not on file Stress: Not on file Housing Stability: Not on file Family History[4] Objective Recent Vitals: Temp: [99.5 ??F (37.5 ??C)] 99.5 ??F (37.5 ??C) Pulse: [88-91] 91 Resp: [18] 18 BP: (173-176)/(100-101) 176/100 Weight change: No intake or output data in the 24 hours ending 06/20/25 2448 Physical Exam: Gen: Alert, cooperative, in no acute distress HEENT: NC/AT, EOMI, no nasal drainage Neck: Supple CV: Regular rate and rhythm. No murmurs appreciated Lungs: Clear to auscultation bilaterally Abdomen: BS+, soft, non-tender, non-distended Extremities: Nontender, No edema noted, unable to assess gait due to weakness Skin: Warm, dry Neuro: Aox2, CN intact, decreased sensation bilateral feet, intact proprioception Assessment and Plan Alcohol use disorder Present on Admission: Yes Weakness Present on Admission: Not yet determined - 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 vs nutritional deficiency vs wernicke encephalopathy vs muscular dystrophy vs infection - acute exacerbation likely due to increase in alcohol consumption - IV thiamine 500 mg TID at OSH - workup includes UA, TSH, B1, B12, folate, MMA, vit D, CK blood - started on IV thiamine here with Neurology consult in AM PLAN: - fu labs - neurology consult in AM Primary hypertension Present on Admission: Yes - elevated on admission 170s SBP - on metoprolol 25 and losartan 50 which was held due to kobi - started on amlodipine 5 here Suicidal behavior with attempted self-injury (HCC) Present on Admission: Not yet determined Depression Present on Admission: Yes Anxiety Present on Admission: Yes - admitted to [facility] behavioral health unit due to suicide attempt - does not endorse SI here - continuous sitter - psych consult in AM Diet: DIET REGULAR DVT Prophylaxis: SCDs only Goals of Care: Advance Care Planning Goals of Care Current active code status Full Code Electronically Signed By: Radha Johnson MD Date of Service: 06/20/2025 The above assessment and plan will be discussed with attending physician. This note is not final until attested by the attending physician. [1] No Known Allergies [2] No past medical history on file. [3] No past surgical history on file. [4] No family history on file. Cosigned by Royer Barboza MD at 06/21/2025 6:15 AM PHYSICIAN ASSISTANT ICIAN ASSISTANT ICIAN ASSISTANT ICIAN ASSISTANT ICIAN ASSISTANT Associated attestation - Royer Barboza MD - 06/21/2025 6:15 AM PHYSICIAN ASSISTANT I have seen and examined the patient with the resident and I agree with the findings and plan of care as documented by the resident. Date of Service: Royer Barboza MD Patient is a chronic alcohol abuser who was transferred to our hospital because of weakness. Check TSH, B12, and folate. Continue vitamin B1 supplement. Consult neurology. Possible need for MRI this admission. documented in this encounter Procedure Notes * David Hargrove MD - 2025 12:54 PM CST Images from the original note were not included. [facility] Internal Medicine Paracentesis Procedure Note Name: Chilo Boateng Room/Bed: [facility] : 1970 55 year old Attending Physician: Fransico Rhodes MD Admit Date/Time: 06/20/2025 8:29 PM LOS: 4 Indication: R knee effusion Informed Consent: Obtained after discussing risks, benefits and alternatives to the procedure, filed in the chart Ultrasound Guidance: Yes. Used to gonsalo the procedure site at the right lateral suprapatellar regionand to confirm the absence of underlying subcutaneous blood vessels Procedure Operators: David Hargrove MD, time-out documented by: Corey Mello DO, supervised by: Corey Mello DO Time-Out: Surgeon/Proceduralist calls for time out: Yes (06/24/25 123) Procedure to be Performed: Arhrocentesis (06/24/25 1235). Chilo Boateng 1970 [id number] verified. Location of the procedure marked and verified Procedure: Surgical mask and sterile gloves were used throughout the procedure. Using sterile technique, procedure site was prepped with chlorhexidine included in the paracentesis kit. A fenestrated drape was placed over the site. A total of 4mL of 1% lidocaine was used to anesthetize the skin, subcutaneous tissue and knee joint. An 18 Ga, 6.35 cm catheter-needle syringe was inserted at the marked site and advanced slowly while applying negative pressure until knee fluid was aspirated. The catheter was then advanced into the suprapatellar region and the needle was withdrawn. A 50 ml syringe was used to withdraw fluid. After completion, catheter was removed and bandage was applied. Patient tolerated the procedure well. Findings: Fluid color and appearance: Cloudy Volume of fluid removed: 60 mL Number of attempts: 1 Studies ordered: As ordered by the primary service. Immediate Complications: No Estimated Blood Loss: None David Hargrove MD Medicine POCUS Service ICIAN ASSISTANT documented in this encounter Consult Notes * Demario Rosado MSW - 06/30/2025 11:06 AM CSTAssociated Order(s): IP CONSULT TO CASE MANAGEMENT SW acknowledges consult. Pt is not appropriate for assessment. AILEEN Matson 06/30/2025 11:10 AM ICIAN ASSISTANT * David Hargrove MD - 2025 12:54 PM CSTAssociated Order(s): IP CONSULT TO INTERNAL MEDICINE Brief Note Chilo Boateng has been evaluated, and the requested procedure has been completed. Please see separate procedure note for full details. David Hargrove MD Medicine POCUS Service ICIAN ASSISTANT * Clayton Jaramillo MD - 06/23/2025 3:46 PM CSTAssociated Order(s): IP CONSULT TO ORTHOPEDIC SURGERY U Orthopedic Trauma Surgery Consultation Note Chilo Boateng, 54 year old, male : 1970 CSN: [id number] Primary Care Physician: No primary care provider on file. Chief Complaint No chief complaint on file. Admission Date/Time: 06/20/2025 8:29 PM Today's Date/Time: 06/23/2025 3:46 PM Time at Bedside: 6:20 HPI Consulting Service: Internal medicine HPI: Chilo Boateng is a 54 year old male who presented to [facility] on 06/20/25 for diffuse weakness. Patient has history significant for HTN, alcohol use disorder, depression with multiple suicide attempts. During admission, patient has been complaining of right elbow pain. Orthopaedic Surgery consulted for evaluation/management of right elbow pain. Patient reports that he had a ground level fall about 2 weeks ago and since that time he has had right elbow pain diffusely about the elbow joint. He is right hand dominant and has been able to use the right upper extremity for activities of daily living and weight bearing. He reports that his pain is a 1/10 at rest but increases to a 4-5/10 with mo vement, specifically at the terminal end point of flexion. Denies numbness/paresthesias in affectedextremity. Internal medicine ordered right elbow x-rays prior to consult which did not demonstrate any fracture or effusion. ROS otherwise negative. . - Other injuries include: none - PMH: see above Vitals Blood pressure 122/82, pulse 94, temperature 98.3 ??F (36.8 ??C), temperature source Oral, resp. rate 18, height 1.803 m (5' 11), weight 76.9 kg (169 lb 8 oz), SpO2 95%. PMHx Past Medical History[1] PSHx Past Surgical History[2] Social Hx Social History Tobacco Use Smoking status: Not on file Smokeless tobacco: Not on file Substance Use Topics Alcohol use: Not on file Family Hx family history is not on file. Allergies Allergies[3] Medications Medications[4] Review of Systems A 12 point review of systems was performed and was negative except for: what was mentioned in the HPI Vitals Blood pressure 122/82, pulse 94, temperature 98.3 ??F (36.8 ??C), temperature source Oral, resp. rate 18, height 1.803 m (5' 11), weight 76.9 kg (169 lb 8 oz), SpO2 95%. Physical Exam General: Awake, cooperative, in no acute distress. Right upper extremity: -Appearance: skin intact, compartments soft/compressible. No ecchymosis or edema or calor appreciated to right elbow -Tenderness: nontender to palpation of shoulder, arm, and hand and elbow. -ROM: nontender to passive range of motion of shoulder, wrist, and fingers. Mild tenderness to passive range of motion at terminal end point of flexion of elbow. Full flexion and extension appreciated about the elbow joint with active and passive range of motion. No crepitation. Right elbow stable and equivalent to contralateral side with varus and valgus force without ligamentous laxity -Motor: Able to ABduct index and small fingers, able to Flex thumb at IP joint, able to hold thumb extended, able to flex/extend the elbow, able to ABduct shoulder -Sensation: intact to light touch Axillary/Median/Ulnar/Radial distributions -Vascular: WWP, Good capillary refill. Palpable radial pulse with fingers warm and well perfused Labs Recent Labs Component Name 06/21/25 0403 WBC 7.5 HGB 11.5* HCT 32.4* MCV 91.3 PLTCOUNT 353 Recent Labs Component Name 06/23/25 0440 06/22/25 0600 NA 136 135* POTASSIUM 4.1 3.4* CL 104 103 CO2 22 22 BUN 16 12 CREATININE 0.87 0.80 GLUCOSE 92 98 No results for input(s): INR, PT in the last 84523 hours. Imaging - XRs of right elbow reviewed. Demonstrates normal alignment, no acute fracture and no joint effusion Assessment/Plan: 54 year old male with right elbow pain following a ground level fall about 2 weeks ago. No acute fracture or ligamentous instability appreciated on exam. No acute orthopedic surgical intervention indicated Weight bearing Status: RUE WBAT Diet: OK from ortho perspective Antibiotics: none indicated Pain Control Recommend PT/OT when able to work towards improved range of motion specifically terminal end pointsof flexion Patient was counseled to the nature of their diagnosis and demonstrated understanding. Questions solicited and answered. Dispo: per primary team. Will update plan with any new changes. Please page Ortho Trauma with any questions or concerns. Please do not use [employer] Secure Chat for communications regarding direct patient care. Follow up Contact Information: Orthopaedic Surgery [facility], Level I-Orthopaedic Surgery [address], [place] [id number] Clayton Jaramillo MD 06/23/25 3:46 PM [1] No past medical history on file. [2] No past surgical history on file. [3] No Known Allergies [4] Current Facility-Administered Medications Medication 0.9% NaCl injection 3 mL And 0.9% NaCl injection 1-10 mL acetaminophen (Tylenol) tablet 500 mg amLODIPine (Norvasc) tablet 5 mg colchicine tablet 0.6 mg folic acid (Folvite) tablet 1 mg multiple vitamins with minerals tablet 1 tablet thiamine (Vitamin B-1) 500 mg in NaCl IV 0.9 % 50 mL IVPB vitamin D (ergocalciferol) (Drisdol) 1.25 MG (36580 UT) capsule 50,000 Units Cosigned by Tony Brewer MD at 06/27/2025 1:46 PM PHYSICIAN ASSISTANT ICIAN ASSISTANT ICIAN ASSISTANT * Yumiko Byrne MSW - 06/23/2025 3:32 PM CSTAssociated Order(s): IP CONSULT TO ANALYST PROGRAMMER Substance Abuse-Brief Interview We acknowledge the referral. Patient not appropriate for assessment. AILEEN Bardales Phone: [phone] 06/23/2025 ICIAN ASSISTANT * Brian Murphy MD - 06/22/2025 7:34 AM CST [facility] Consult-Liaison Octave Board Racker Progress Note Name: Chilo Boateng Age: [age] year old Date of : 1970 Date of Note: 06/22/2025 Hospital day: Hospital Day: 3 Reason for Admission: generalized weakness Reason for Consult: suicidal ideation ID: Chilo Boateng is a white, unemployed 54 year old male with PMHx of HTN and a past psychiatrichistory of depression with suicidal attempt, alcohol use disorder who was admitted from OSH on 06/20/2025 for generalized weakness. The Psychiatry service was consulted for suicidal ideation. Subjective Today, he states that he feels worse than yesterday. He feels depressed, does not get enjoyment from his daily life, has no energy, and legs weaker. He has occasionally had suicidal ideation but no plans. He states that he sleeps pretty good and his appetite is not so good. He is alert, awake, oriented to person, place, and month as June but not day and which day of the month today. He demonstrates fluctuating attention, confusion about his hospital admission, and difficulty engaging with his environment as evidenced by his late reply to the questions. He was unable to say the first months when tried to answer attention questions, such as repeating the months of the year backwards. During the interview, he had inappropriate laughter. He has physical discomfort, especially elbow pain due to his recent fall. He is currently taking Thiamine 100 mg TID IV. Endorses craving. He states that he had a dream last night that he was drinking alcohol. He drank alcohol last time 18 days ago. Even though he replies late when I ask he would like to take treatmentdue to his fluctuating attention or low motivation, he wants to take treatment for alcohol use. He lives by himself. He has been in rehab before, and he states that he did not get any benefit from it. He has bilateral hand tremors, mostly in left hand. Psych PRNs last 24h: Lorazepam 1 mg every 2 hours PRN PO @18:12 pm Objective: Vitals: Patient Vitals for the past 6 hrs: Temp Pulse BP BP Method 06/22/25 0407 99.4 ??F (37.4 ??C) 102 150/97 Automatic Additional Diagnostic Imaging: No pertinent ESOL INSTRUCTOR imaging was obtained. Labs: I have reviewed the patient's lab results from the last 24h. Most recent QTc: N/A Brief Mental Status Examination: Appearance: white male, appears older than stated age, groomed, average build, no acute distress , disheveled hair , and lying in bed Psychomotor: no agitation and no retardation Attitude: calm Mood: worse than yesterday Affect: Constricted and Mood-congruent Thought Content: endorses suicidal ideation without plan, denies homicidal ideation and no apparentdelusions Thought Process: tangential Perception: denies auditory hallucinations, denies visual hallucinations, was not reacting to internal stimuli Insight: limited Judgment: poor Assessment: Lethality: Short term risk of suicide- moderate/high Risk factors: being male and history of mental illness (depression, anxiety, and co-morbid alcohol abuse), reported previous suicide attempts Protective factors: help seeking, relationship with a daughter Short term risk of harm to others- low Risk factors: substance use issues Protective factors: denies homicidal ideation, intent, or plan or target and no history of impulsive/ self harming behaviors Overall RISK: low Clinical reasoning: Chilo Boateng is a white, unemployed 54 year old male with PMHx of HTN and a past psychiatric history of depression with suicidal attempt, alcohol use disorder who was admitted from [facility] on 06/20/2025 for generalized weakness. The Psychiatry service was consulted for suicidal ideation. On evaluation, patient reports worsening depression, anhedonia, low energy, and intermittent SI without a current plan or intent. He is alert and oriented to person, place, and month but not date; attention is fluctuating, with delayed responses and confusion regarding hospitalization. Demonstratesinappropriate laughter and impaired concentration (unable to recite months backward). Displays bilateral hand tremors (L>R) and physical discomfort from a recent fall. Reports poor appetite, adequate sleep, and alcohol craving (last use 18 days ago). Currently on Thiamine 100 mg IV TID; CIWA protocol in place. Psychiatric Diagnoses: Delirium Alcohol Use Disorder Unspecified Depression Plan: Disposition: At the time of my assessment, the patient is not medically stable. We will reassess disposition when the patient is medically stable. Legal status is voluntary. Should the patient chooseto leave the hospital, please page psychiatry for consideration of an involuntary hold. # Order ECG study Psychiatric Medications: Scheduled Psych Meds: Continue CIWA protocol Psych PRNs we recommend while at [facility]: Discontinue Haldol PRNs Precautions: Delirium, Suicide, 1:1 Sitter, Elopement, Fall, Withdrawal Psychosocial needs: We greatly appreciate social work's support with discharge planning. The consultation-liaison psychiatry service will continue to follow. I have seen and discussed this case with my attending physician, Dr. Groves, who agrees with the assessment and plan. Signed: Brian Murphy MD 06/22/2025 7:35 AM Cosigned by Gonsalo Groves MD at 06/23/2025 12:48 PM PHYSICIAN ASSISTANT ICIAN ASSISTANT ICIAN ASSISTANT ICIAN ASSISTANT Associated attestation - Gonsalo Groves MD - 06/23/2025 12:48 PM PHYSICIAN ASSISTANT I personally examined patient, and discussed case in detail with resident physician. I agree with findings, assessment, and plan as documented by Dr. Murphy below. Date of service: 06/23/2025 Gonsalo Groves MD Grader Patrolrepairer welding equipment * Justo Barroso MD - 06/21/2025 8:12 PM CSTAssociated Order(s): IP CONSULT TO PSYCHIATRY [facility] Consult-Liaison Octave Board Racker Initial Consultation Name: Chilo Boateng Age: [age] year old Date of : 1970 Requesting physician: No current attending provider for patient encounter. Subjective Reason for Admission: Generalized weakness Reason for Consult: Suicidal Ideation History of Present Illness: Chilo Boateng is a white, unemployed 54 year old male whom is with PMHx of HTN and a past psychiatric history of depression with suicidal attempt, alcohol use disorder who was admitted from OSH on 06/20/2025 for generalized weakness. The Psychiatry service was consulted for suicidal ideation. Per H&P by Radha Johnson MD (06/20/2025 22:45), Admitted to behavioral health unit initially for alcohol detox and SI on 06/10. Developed profound weakness, started to experience severe tremors, was slow to respond, had minimal intake, worsening pain/tingling in his feet, was unable to ambulate so he was ultimately sent to medicine floor. They had concern for Wernicke encephalopathy due to intention tremors and worsening neuropathy so was started on IV thiamine 500 mg tid. KOBI which resolved before transfer. On metoprolol and losartan which was held due to KOBI. Had an unwitnessed fall and CT head, c-spine and R hip xray which was negative but now has worsening R side pain and weakness. Was Aox4 at OSH but very slow to respond. On a 1:1 sitter since he was endorsing SI at OSH. Themorning of transfer, had episode of aspiration so was started on Unasyn. CXR clear here and afebrile. On admission, afebrile, HDS. Not endorsing SI tonight. Aox2-3 unsure of why he was transferred and not sure which hospital he was at. Does endorse ongoing neuropathy for the past 2 years that has significantly worsened in the past week. Reports last suicide attempt as using alcohol. Per primary team, the patient's weakness has improved significantly. Upon our first visit, patient was too somnolent to carry conversation. He opens his eyes to verbal cues, but can only mumble indistinct words, being unable to report his name. Six hours after the first visit, patient is seen awake lying in an elevated bed. He is alert and oriented to person and place, while he states that today's date is Apr 17, 2025. His speech is delayed, slow, soft, mumbled, and often tangential, which limits the interview largely. He reports that he feels tired but he still needs to eat that cheeseburger. He reports that his sleeps are very good, and that he almost slept non-stop. He reports that he came to this hospital because he was weak, he can't walk, arms were weak. He also reports that he initially went to OSH because he was trying to kill himself and drinking. He reports that he has done it 6 times, and al hollis reports 6 previous hospitalizations. When asked about his diagnoses during those encounters, he states alcoholism. When asked what has been keeping him going, he states that he doesn't know, andthat there are good days, but most days are creepy. I feel like waste. I can't pull myself. He endorses not feeling afraid of . When asked if he feels suicidal currently, he goes tangential and does not answer directly. When asked if he has heard voices that others don't, he reports hearing baby's voice once when he was going through detox, while he is not able to specify time. When asked to elaborate on the voices, he goes tangential describing how he sneaks through a security to pass a door. When asked if he has medical problems, he states that I know my problems. I don't like people. 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 When recalling the nameof medications, he turns to the sitter and asks do you know? then starts laughing with all of us. He reports that his first drink was at 5 years old, and he drank more and more. When he was 8, whenhe moved from [place], and he kept on increase in drinking. He reports that for the past 3 months, he has been drinking half bottle of 1.5L unspecified alcohol with some beer everyday. He denies using tobacco products or using other illicit drugs. When asked where he lives now and whether he is living with someone else, he goes tangential and reports staying at many locations. He reports that he is currently not working. When asked if there are any friends, family, or acquaintances that know him well, he states that there is not really anyone we can contact. Psychiatric Review of Systems: All psychiatric ROS negative unless noted above. Past Psychiatric History: Prior Diagnoses: Alcohol Use Disorder Psych Inpatient Hospitalizations: Reports 6 due to SA and alcohol use Prior suicide attempts: Reports 6, alcohol related Outpatient Psychiatrist/ Therapist: denies Prior Medication Trials: Reports Ativan, Diazepam Current home psychiatric mediation regimen:Unknown Substance Use History: EtOH: Reports drinking since 5 years old, recently drinks 0.75L of unspecified alcohol plus some beer Marijuana: Denies Non-prescription/illicit drugs: Denies Nicotine: Denies Tx programs: Reports going to several detox but does not specify time and location Past Medical History: Past Medical History[1] Allergies: Allergies[2] Hospital Medications: Scheduled: 0.9% NaCl injection 3 mL, Intracatheter, q8h amLODIPine (Norvasc) tablet 5 mg, Oral, QDAY folic acid (Folvite) tablet 1 mg, Oral, QDAY multiple vitamins with minerals tablet 1 tablet, Oral, QDAY thiamine (Vitamin B-1) injection 100 mg, Intravenous, TID [COMPLETED] labetalol (Normodyne; Trandate) injection 10 mg, Intravenous, Once Continuous: PRN: Or 0.9% NaCl injection 1-10 mL, Intracatheter, PRN LORazepam (Ativan) tablet 1 mg, Oral, q2h PRN LORazepam (Ativan) tablet 2 mg, Oral, q1h PRN - CIWA ONLY Family Psychiatric History: ALMA, interview limited by patient's tangentiality and time Social History: Patient is not employed at this moment. Otherwise ALMA, interview limited by patient's tangentialityand time Presence of firearm: ALMA, interview limited by patient's tangentiality and time Legal History: ALMA, interview limited by patient's tangentiality and time Objective: Vitals: Patient Vitals for the past 6 hrs: Temp Pulse Resp BP BP Method 06/21/25 1947 98.7 ??F (37.1 ??C) 76 19 (!) 168/101 Automatic 06/21/25 1524 98.4 ??F (36.9 ??C) 100 -- 155/99 Automatic Diagnostic Imaging: CT head and c-spine X-ray at previous hospital showed negative results. EKG: No results found for this or any previous visit. Diagnostic Labs: No results for input(s): AMPHETUR, LABAMPH, LABBARB, BARBITURATUR, LABBENZ, BENZODIAZUR, THCUR, COCAINEUR, COCAINESCRN, METHADONEUR, OPIATESUR, PCPUR in the last 22421 hours. No results for input(s): ETHANOL, ETHANOLCALC in the last 69332 hours. Labs for the past 24 hours have been reviewed and they are notable for: Hb 11.5 g/dL Na 135 mmol/L Mg 1.5 mg/dL Phos 2.7 mg/dL Alb 2.8 g/dL Vitamin D 10.3 Ng/mL Mental Status Examination Appearance: white male, appears stated age, unkempt, disheveled, disheveled hair , graying hair , and lying in bed Psychomotor: psychomotor retardation Attitude toward examiner: cooperative and calm Mood: I feel like waste Affect: Constricted and Mood-congruent; reactive Speech: Quality is Mumbled. Rate is Slow. Volume is Quiet; increased latency Thought Process: tangential, circumstantial, logical Thought Content: endorses suicidal ideation, denies homicidal ideation and no apparent delusions Perception: denies current auditory hallucinations, denies visual hallucinations, was not reacting to internal stimuli Cognition: Oriented to person, place, and situation. Attention is impaired.. Insight: limited Judgment: poor Gait: unable to assess, patient lying in bed MSK: Other: Marked tremor in hands, moving slowly Assessment: Lethality: Short term risk of suicide- moderate Risk factors: being male, being , recent suicide attempt, prior suicide attempts, unemployment, decline in physical health/acute change in health, acute delirium, and substance use issues Protective factors: help seeking and connection to mental health resources Short term risk of harm to others- low Risk factors: substance use issues and acute delirium Protective factors: denies homicidal ideation, intent, or plan or target and no access to firearms Overall RISK: moderate Clinical reasoning: Cihlo Boateng is a white, unemployed 54 year old male whom is with PMHx of HTN and a past psychiatric history of depression with suicidal attempt, alcohol use disorder who was admitted on 06/20/2025for generalized weakness. The Psychiatry service was consulted for suicidal ideation. Patient is likely to be delirious due to the rapid change in alertness and consciousness between evaluation by primary team, RN, and our team (was AO*2 at 10-11am, was conversational around 12p, was somnolent at 1:30p, was A&O*1 at 3p, was AO*3 at 7p). However, from the information obtained during our limited interview, patient endorses poor energy, guilt, increased sleep, psychomotor slowing, passive wish, and suicidal ideation. From patient's presentation, it is also likely that thepatient has lost interests and pleasure in things. Although patient denies anxiety, increased irritability, or restlessness at this moment, his presentation does meet the criteria for a major depressive episode. However, patient's presentation is also confounded by his use of alcohol. Although criteria of drinking more than intended, failed efforts, craving and tolerance are difficult to clarify due to limited interview, he does have history of withdrawal (likely seizure and hallucination), occupational function impairment, and putting himself in danger (suicidal drinking) when intoxicated. It is likely that the patient meets the criteria of Alcohol Use Disorder, with severity to be determined, and the most suitable diagnosis for his mood symptoms is Unspecified Depressive Disorder. Detailed plans are as followed. Psychiatric Diagnoses: Delirium Unspecified Depressive Disorder Alcohol Use Disorder Plan: Disposition/legal: At the time of my assessment, the patient is not medically stable. We will reassess disposition when the patient is medically stable. Legal status is voluntary. Should the patient choose to leave the hospital, please page psychiatry for consideration of an involuntary hold. Psychiatric Medications: Scheduled Psych Meds: Hold psychotropic medications until medically stable. Psych PRNs we recommend while admitted at [facility]: Haloperidol 5 mg PO Q6HPRN for agitation Haloperidol 5 mg IM Q6HPRN for severe agitation or oral inappropriate Please obtain EKG before administrating Haloperidol. Labs: none Precautions: Delirium, Suicide, 1:1 Sitter, Fall, Seizure, Withdrawal Delirium Precautions: -- Provide private room; decrease noise and distraction -- Frequent visits from family members are helpful. -- Consider providing sitter to maintain orientation -- Provide orienting stimuli (via daytime caregiver, clock, calendar, minimal staff changes, light in day,dark at night, etc.) -- Minimize use of opioids; avoid benzodiazapines and medications with anticholinergic activity -- Address any sensory deficits (vision, hearing) -- Ensure adequate pain control -- Ensure adequate nutrition -- Ensure no bladder or bowel retention, address bowel regimen -- Minimize tubes and lines -- Minimize use of physical restraints -- Minimize use of chemical restraints -- Maintain regular sleep-wake cycle 5. Psychosocial needs: We greatly appreciate social work's support with discharge planning and alcohol use resources. The consultation-liaison psychiatry service will continue to follow. I have contacted the primary team and provided them with the above recommendations. I have discussed this case with my attending physician, Dr. Lux, who agrees with the assessment and plan. Signed: Justo Barroso MD 06/21/2025 8:12 PM [1] No past medical history on file. [2] No Known Allergies Cosigned by Carlos Lux MD at 06/22/2025 8:15 AM PHYSICIAN ASSISTANT ICIAN ASSISTANT ICIAN ASSISTANT ICIAN ASSISTANT * Kim Candelaria LCSW - 06/21/2025 10:23 AM CSTAssociated Order(s): IP CONSULT TO ANALYST PROGRAMMER; IP CONSULT TO CASE MANAGEMENT Substance Abuse-Brief Interview We acknowledge the referral for Chemical Dependency/ ETOH /Substance Abuse. Social Work spoke with Bed-RN. Patient is A&O x 2. Patient not appropriate for assessment. Please re-consult Social Work when Patient is appropriate for assessment. Kim Candelaria LCSW Phone: ext [phone] 06/21/2025 ICIAN ASSISTANT documented in this encounter Plan of Treatment Pending Results Name Type Priority Associated Diagnoses Date /Time CULTURE AFB+SMEAR Microbiology Routine 06/24 1:00 PM PHYSICIAN ASSISTANT CULTURE FUNGUS OTHER+FUNGUS SMEAR Microbiology Routine 2025 1: 00 PM PHYSICIAN ASSISTANT Scheduled Orders Name Type Priority Associated Diagnoses Orde r Schedule EKG 12-Lead ECG Routine Suicidal behavior with attempted self-injury (HCC) ONCE for 1 Occurrences starting 06/22/2025 until 06/22/2025 GLUCOSE FLUID Lab Routine ONCE for 1 Occurrences starting 2025 until 2025 PROTEIN FLUID Lab Routine ONCE for 1 Occurrences starting 2025 until 2025 Scheduled Referrals Name Type Priority Associated Diagnoses Order Schedule REF TO [facility] Outpatient Referral Routine Weakness Anxiety Suicidal behavior with attempted self-injury (HCC) Alcohol use disorder Other depression Idiopathic gout, unspecified chronicity, unspecified site Hypomagnesemia Hypokalemia Hypophosphatemia Primary hypertension Vitamin D deficiency 1 Occurrences starting 07/01/2025 until 07/01/2026 Ref to [facility] Outpatient Referral Routine Weakness Anxiety Suicidal behavior with attempted self-injury (HCC) Alcohol use disorder Other depression Idiopathic gout, unspecified chronicity, unspecified site Hypomagnesemia Hypokalemia Hypophosphatemia Primary hypertension Vitamin D deficiency 1 Occurrences starting 07/01/2025 until 07/01/2026 documented as of this encounter Procedures Procedure Name Priority Date/Time Associated Diagnosis Comments GLUCOSE - POINT OF CARE Routine 07/01/20 6:20 PM PHYSICIAN ASSISTANT COMPREHENSIVE METABOLIC PANEL Routine 06/30/2025 7:31 PM PHYSICIAN ASSISTANT PHOSPHORUS BLOOD Routine 06/30/2025 7:31 PM PHYSICIAN ASSISTANT MAGNESIUM BLOOD Routine 06/30/2025 7:31 PM PHYSICIAN ASSISTANT GLUCOSE - POINT OF CARE Routine 06/30/20 25 7:53 AM PHYSICIAN ASSISTANT COMPREHENSIVE METABOLIC PANEL Routine 06/30/2025 12:45 AM PHYSICIAN ASSISTANT PHOSPHORUS BLOOD Routine 06/30/2025 12:4 5 AM PHYSICIAN ASSISTANT MAGNESIUM BLOOD Routine 06/30/2025 12:45 AM PHYSICIAN ASSISTANT GLUCOSE - POINT OF CARE Routine 06/29/20 8:27 PM PHYSICIAN ASSISTANT US ABDOMEN LIMITED Routine 06/29/2025 8: 41 AM PHYSICIAN ASSISTANT Elevated LFTs GLUCOSE - POINT OF CARE Routine 06/29/20 1:09 AM PHYSICIAN ASSISTANT CBC W/O DIFFERENTIAL Routine 06/28/2025 7:43 PM PHYSICIAN ASSISTANT COMPREHENSIVE METABOLIC PANEL Routine 06/28/2025 7:43 PM PHYSICIAN ASSISTANT PHOSPHORUS BLOOD Routine 06/28/2025 7:43 PM PHYSICIAN ASSISTANT MAGNESIUM BLOOD Routine 06/28/2025 7:43 PM PHYSICIAN ASSISTANT GLUCOSE - POINT OF CARE Routine 06/28/20 4:43 PM PHYSICIAN ASSISTANT GLUCOSE - POINT OF CARE Routine 06/28/20 11:53 AM PHYSICIAN ASSISTANT GLUCOSE - POINT OF CARE Routine 06/28/20 7:00 AM PHYSICIAN ASSISTANT GLUCOSE - POINT OF CARE Routine 06/27/20 8:55 PM PHYSICIAN ASSISTANT COMPREHENSIVE METABOLIC PANEL Routine 06/27/2025 8:03 PM PHYSICIAN ASSISTANT PHOSPHORUS BLOOD Routine 06/27/2025 8:03 PM PHYSICIAN ASSISTANT MAGNESIUM BLOOD Routine 06/27/2025 8:03 PM PHYSICIAN ASSISTANT GLUCOSE - POINT OF CARE Routine 06/27/20 5:43 PM PHYSICIAN ASSISTANT GLUCOSE - POINT OF CARE Routine 06/27/20 10:37 AM PHYSICIAN ASSISTANT COMPREHENSIVE METABOLIC PANEL Routine 06/27/2025 12:14 AM PHYSICIAN ASSISTANT PHOSPHORUS BLOOD Routine 06/27/2025 12:1 4 AM PHYSICIAN ASSISTANT MAGNESIUM BLOOD Routine 06/27/2025 12:14 AM PHYSICIAN ASSISTANT GLUCOSE - POINT OF CARE Routine 06/26/20 6:03 PM PHYSICIAN ASSISTANT GLUCOSE - POINT OF CARE Routine 06/26/20 11:42 AM PHYSICIAN ASSISTANT GLUCOSE - POINT OF CARE Routine 06/26/20 7:37 AM PHYSICIAN ASSISTANT GLUCOSE - POINT OF CARE Routine 06/25/20 8:45 PM PHYSICIAN ASSISTANT URIC ACID BLOOD Routine 06/25/2025 3:08 AM PHYSICIAN ASSISTANT COMPREHENSIVE METABOLIC PANEL Routine 06/25/2025 3:08 AM PHYSICIAN ASSISTANT PHOSPHORUS BLOOD Routine 06/25/2025 3:08 AM PHYSICIAN ASSISTANT MAGNESIUM BLOOD Routine 06/25/2025 3:08 AM PHYSICIAN ASSISTANT GLUCOSE - POINT OF CARE Routine 06/24/20 9:26 PM PHYSICIAN ASSISTANT GLUCOSE - POINT OF CARE Routine 06/24/20 4:33 PM PHYSICIAN ASSISTANT CRYSTAL INDENTIFICATION SYNOVIAL FLUID Routine 2025 1:08 PM PHYSICIAN ASSISTANT Swelling of joint of right knee PATHOLOGY SMEAR BODY FLUID Routine 2025 1:08 PM PHYSICIAN ASSISTANT Swelling of joint of right knee DIFFERENTIAL MANUAL FLUID Routine 2025 1:08 PM PHYSICIAN ASSISTANT CULTURE FLUID+GRAM STAIN Routine 2025 1:08 PM PHYSICIAN ASSISTANT CELL COUNT W DIFFERENTIAL FLUID Routine 2025 1:08 PM PHYSICIAN ASSISTANT CYTOLOGY NON-PATENT LAW SPECIALIST PANEL (STL) Routine 2025 1:05 PM PHYSICIAN ASSISTANT Swelling of joint of right knee CULTURE FUNGUS OTHER+FUNGUS SMEAR Routine 2025 1:00 PM PHYSICIAN ASSISTANT CULTURE AFB+SMEAR Routine 2025 1:0 0 PM PHYSICIAN ASSISTANT GLUCOSE - POINT OF CARE Routine 06/24/20 11:14 AM PHYSICIAN ASSISTANT GLUCOSE - POINT OF CARE Routine 06/24/20 7:46 AM PHYSICIAN ASSISTANT CBC W/O DIFFERENTIAL STAT 2025 5:48 AM PHYSICIAN ASSISTANT COMPREHENSIVE METABOLIC PANEL Routine 2025 5:48 AM PHYSICIAN ASSISTANT PHOSPHORUS BLOOD Routine 2025 5:48 AM PHYSICIAN ASSISTANT MAGNESIUM BLOOD Routine 2025 5:48 AM PHYSICIAN ASSISTANT GLUCOSE - POINT OF CARE Routine 06/23/20 9:37 PM PHYSICIAN ASSISTANT C-REACTIVE PROTEIN ANNEMARIE 06/23/2025 5: 18 PM PHYSICIAN ASSISTANT ERYTHROCYTE SEDIMENTATION RATE STAT 06/23/2025 5:18 PM PHYSICIAN ASSISTANT GLUCOSE - POINT OF CARE Routine 06/23/20 4:33 PM PHYSICIAN ASSISTANT GLUCOSE - POINT OF CARE Routine 06/23/20 11:34 AM PHYSICIAN ASSISTANT GLUCOSE - POINT OF CARE Routine 06/23/20 7:36 AM PHYSICIAN ASSISTANT COMPREHENSIVE METABOLIC PANEL Routine 06/23/2025 4:40 AM PHYSICIAN ASSISTANT PHOSPHORUS BLOOD Routine 06/23/2025 4:40 AM PHYSICIAN ASSISTANT MAGNESIUM BLOOD Routine 06/23/2025 4:40 AM PHYSICIAN ASSISTANT GLUCOSE - POINT OF CARE Routine 06/22/20 9:34 PM PHYSICIAN ASSISTANT GLUCOSE - POINT OF CARE Routine 06/22/20 4:28 PM PHYSICIAN ASSISTANT XR KNEE RIGHT 3VW Routine 06/22/2025 2:1 5 PM PHYSICIAN ASSISTANT Anxiety Suicidal behavior with attempted self-injury (HCC) Alcohol use disorder GLUCOSE - POINT OF CARE Routine 06/22/20 12:00 PM PHYSICIAN ASSISTANT COMPREHENSIVE METABOLIC PANEL Routine 06/22/2025 6:00 AM PHYSICIAN ASSISTANT PHOSPHORUS BLOOD Routine 06/22/2025 6:00 AM PHYSICIAN ASSISTANT GLUCOSE - POINT OF CARE Routine 06/21/20 8:41 PM PHYSICIAN ASSISTANT GLUCOSE - POINT OF CARE Routine 06/21/20 4:56 PM PHYSICIAN ASSISTANT XR ELBOW RIGHT 2VW Routine 06/21/2025 4: 33 PM PHYSICIAN ASSISTANT Weakness GLUCOSE - POINT OF CARE Routine 06/21/20 11:40 AM PHYSICIAN ASSISTANT GLUCOSE - POINT OF CARE Routine 06/21/20 7:55 AM PHYSICIAN ASSISTANT TSH REFLEX FREE T4 STAT 06/21/2025 4: 03 AM PHYSICIAN ASSISTANT METHYLMALONIC ACID BLOOD STAT 06/21/2025 4:03 AM PHYSICIAN ASSISTANT VITAMIN B1 STAT 06/21/2025 4:03 AM PHYSICIAN ASSISTANT VITAMIN D 25-HYDROXY ANNEMARIE 06/21/2025 4:03 AM PHYSICIAN ASSISTANT CBC W AUTO DIFFERENTIAL STAT 06/21/20 4:03 AM PHYSICIAN ASSISTANT COMPREHENSIVE METABOLIC PANEL STAT 06/21/2025 4:03 AM PHYSICIAN ASSISTANT PHOSPHORUS BLOOD STAT 06/21/2025 4:03 AM PHYSICIAN ASSISTANT MAGNESIUM BLOOD STAT 06/21/2025 4:03 AM PHYSICIAN ASSISTANT FOLATE ANNEMARIE 06/21/2025 4:03 AM PHYSICIAN ASSISTANT CK BLOOD STAT 06/21/2025 4:03 AM PHYSICIAN ASSISTANT VITAMIN B12 ANNEMARIE 06/21/2025 4:03 AM PHYSICIAN ASSISTANT XR CHEST 1VW PORTABLE STAT 06/21/2025 1:46 AM CDT Aspiration into airway, subsequent encounter GLUCOSE - POINT OF CARE Routine 06/20/20 11:18 PM CDT URINALYSIS REFLEX TO MICROSCOPIC NO CULTURE STAT 06/20/2025 11:06 PM CDT documented in this encounter Results * (ABNORMAL) GLUCOSE - POINT OF CARE (07/01/2025 6:20 PM PHYSICIAN ASSISTANT) Glucose WB/POC 104(H) 70 - 99 mg/dL 07/01/2025 6:21 PM PHYSICIAN ASSISTANT [facility] Specimen Type Arterial/C apillary 07/01/2025 6:21 PM PHYSICIAN ASSISTANT [facility] Blood BLOOD SPECIMEN / Unknown 07/01/2025 6:20 PM PHYSICIAN ASSISTANT 07/01/2025 6:21 PM PHYSICIAN ASSISTANT Gricelda Blancas MD LAB - POINT OF CARE ORDERABLES F inal Result [address] [address], [facility] [phone] * MAGNESIUM BLOOD (06/30/2025 7:31 PM PHYSICIAN ASSISTANT) Magnesium 1.6 1.6 - 2.6 mg/dL 06/30/2025 8:37 PM PHYSICIAN ASSISTANT [facility] Blood BLOOD SPECIMEN / Unknown Lab Venipuncture / Unknown 06/30/2025 7:31 PM PHYSICIAN ASSISTANT 06/30/2025 8:10 PM PHYSICIAN ASSISTANT us Fransico Rhodes MD LAB - CHEMISTRY ORDERABLES F inal Result Performing Organization Address City/[facility]/ZIP Co de Phone Number [address] [address], [facility] [phone] * PHOSPHORUS BLOOD (06/30/2025 7:31 PM PHYSICIAN ASSISTANT) Phosphorus 3.7 2.8 - 5.1 mg/dL 06/30/2025 8:37 PM [facility] Blood BLOOD SPECIMEN / Unknown Lab Venipuncture / Unknown 06/30/2025 7:31 PM PHYSICIAN ASSISTANT 06/30/2025 8:10 PM PHYSICIAN ASSISTANT us Fransico Rhodes MD LAB - CHEMISTRY ORDERABLES F inal Result Performing Organization Address [facility] Co de Phone Number [address] [address], [facility] [phone] * (ABNORMAL) COMPREHENSIVE METABOLIC PANEL (06/30/2025 7:31 PM PHYSICIAN ASSISTANT) Pathologist [facility] BUN 15 7 - 26 mg/dL 06/30/2025 8:37 PM [facility] Creatinine 0.89 0.71 - 1.16 mg/dL 06/30/2025 8:37 PM [facility] Sodium 140 136 - 145 mmol/L 06/30/2025 8:37 PM [facility] Potassium 4.3 3.5 - 4.5 mmol/L 06/30/2025 8:37 PM [facility] Chloride 109(H) 98 - 107 mmol/L 06/30/2025 8:37 PM [facility] CO2 19(L) 22 - 29 mmol/L 06/30/2025 8:37 PM [facility] Glucose 83 70 - 99 mg/dL 06/30/2025 8:37 PM [facility] Calcium 8.9 8.4 - 10.2 mg/dL 06/30/2025 8:37 PM [facility] Protein Total 7.1 6.0 - 8.3 g/dL 06/30/2025 8:37 PM [facility] Albumin 3.4 3.4 - 5.0 g/dL 06/30/2025 8:37 PM [facility] Bilirubin Total 0.3 0.2 - 1.2 mg/dL 06/30/2025 8:37 PM [facility] Alkaline Phosphatase 64 40 - 150 U/L 06/30/2025 8:37 PM [facility] ALT 78(H) 5 - 55 U/L 06/30/2025 8:37 PM [facility] AST 64(H) 5 - 34 U/L 06/30/2025 8:37 PM [facility] Anion Gap 12 6 - 16 06/30/2025 8:37 PM [facility] BUN/Creatinine Ratio 17 7 - 23 06/30/2025 8:37 PM [facility] Osmolality Calculated 290 275 - 295 mOsm/kg 06/30/2025 8:37 PM [facility] Albumin/Globulin Ratio 0.9(L) 1.1 - 2.3 06/30/2025 8:37 PM [facility] eGFR by CKD-EPI >90 >=90 mL/min/1.7 3 m2 06/30/2025 8:37 PM [facility] Comment:Estimated Glomerular Filtration Rate (eGFR) calculated using the CKD-EPI Creatinine Equation (2020), per the National Kidney Foundation and [employer] recommendations. Blood BLOOD SPECIMEN / Unknown Lab Venipuncture / Unknown 06/30/2025 7:31 PM PHYSICIAN ASSISTANT 06/30/2025 8:10 PM [facility] us Fransico Rhodes MD LAB - CHEMISTRY ORDERABLES F inal Result [facility] [address] [place] [address], [facility] [phone] * (ABNORMAL) GLUCOSE - POINT OF CARE (06/30/2025 7:53 AM PHYSICIAN ASSISTANT) Glucose WB/POC 109(H) 70 - 99 mg/dL 06/30/2025 8:00 AM PHYSICIAN ASSISTANT [facility] Specimen Type Arterial/C apillary 06/30/2025 8:00 AM [facility] Blood BLOOD SPECIMEN / Unknown 06/30/2025 7:53 AM PHYSICIAN ASSISTANT 06/30/2025 8:00 AM PHYSICIAN ASSISTANT Gricelda Blancas MD LAB - POINT OF CARE ORDERABLES F inal Result [address] [address], [place] [phone] * MAGNESIUM BLOOD (06/30/2025 12:45 AM PHYSICIAN ASSISTANT) Magnesium 1.6 1.6 - 2.6 mg/dL 06/30/2025 3:02 AM [facility] Blood BLOOD SPECIMEN / Unknown Lab Venipuncture / Unknown 06/30/2025 12:45 AM PHYSICIAN ASSISTANT 06/30/2025 2:22 AM PHYSICIAN ASSISTANT us Fransico Rhodes MD LAB - CHEMISTRY ORDERABLES F inal Result [address] [address], [place] [phone] * PHOSPHORUS BLOOD (06/30/2025 12:45 AM PHYSICIAN ASSISTANT) Phosphorus 4.0 2.8 - 5.1 mg/dL 06/30/2025 3:02 AM [facility] Blood BLOOD SPECIMEN / Unknown Lab Venipuncture / Unknown 06/30/2025 12:45 AM PHYSICIAN ASSISTANT 06/30/2025 2:22 AM PHYSICIAN ASSISTANT us Fransico Rhodes MD LAB - CHEMISTRY ORDERABLES F inal Result [address] [address], [place] [phone] * (ABNORMAL) COMPREHENSIVE METABOLIC PANEL (06/30/2025 12:45 AM PHYSICIAN ASSISTANT) BUN 14 7 - 26 mg/dL 06/30/2025 3:02 AM [facility] Creatinine 0.93 0.71 - 1.16 mg/dL 06/30/2025 3:02 AM [facility] Sodium 139 136 - 145 mmol/L 06/30/2025 3:02 AM [facility] Potassium 3.4(L) 3.5 - 4.5 mmol/L 06/30/2025 3:02 AM [facility] Chloride 107 98 - 107 mmol/L 06/30/2025 3:02 AM [facility] CO2 24 22 - 29 mmol/L 06/30/2025 3:02 AM [facility] Glucose 96 70 - 99 mg/dL 06/30/2025 3:02 AM [facility] Calcium 9.1 8.4 - 10.2 mg/dL 06/30/2025 3:02 AM [facility] Protein Total 7.0 6.0 - 8.3 g/dL 06/30/2025 3:02 AM [facility] Albumin 3.3(L) 3.4 - 5.0 g/dL 06/30/2025 3:02 AM [facility] Bilirubin Total 0.3 0.2 - 1.2 mg/dL 06/30/2025 3:02 AM [facility] Alkaline Phosphatase 73 40 - 150 U/L 06/30/2025 3:02 AM [facility] ALT 81(H) 5 - 55 U/L 06/30/2025 3:02 AM [facility] AST 73(H) 5 - 34 U/L 06/30/2025 3:02 AM [facility] Anion Gap 8 6 - 16 06/30/2025 3:02 AM [facility] BUN/Creatinine Ratio 15 7 - 23 06/30/2025 3:02 AM [facility] Osmolality Calculated 288 275 - 295 mOsm/kg 06/30/2025 3:02 AM [facility] Albumin/Globulin Ratio 0.9(L) 1.1 - 2.3 06/30/2025 3:02 AM [facility] eGFR by CKD-EPI >90 >=90 mL/min/1.7 3 m2 06/30/2025 3:02 AM PHYSICIAN ASSISTANT [facility] Comment:Estimated Glomerular Filtration Rate (eGFR) calculated using the CKD-EPI Creatinine Equation (2020), per the National Kidney Foundation and [place]ph[employer] recommendations. Blood BLOOD SPECIMEN / Unknown Lab Venipuncture / Unknown 06/30/2025 12:45 AM PHYSICIAN ASSISTANT 06/30/2025 2:22 AM PHYSICIAN ASSISTANT Fransico Rhodes MD LAB - CHEMISTRY ORDERABLES F inal Result Performing Organization Address City/[facility]/ZIP Co de Phone Number [address] [address], [place] [phone] * (ABNORMAL) GLUCOSE - POINT OF CARE (06/29/2025 8:27 PM PHYSICIAN ASSISTANT) [facility] Glucose WB/POC 104(H) 70 - 99 mg/dL 06/29/2025 8:31 PM PHYSICIAN ASSISTANT [facility] Specimen Type Arterial/C apillary 06/29/2025 8:31 PM PHYSICIAN ASSISTANT [facility] Blood BLOOD SPECIMEN / Unknown 06/29/2025 8:27 PM PHYSICIAN ASSISTANT 06/29/2025 8:31 PM PHYSICIAN ASSISTANT Gricelda Blancas MD LAB - POINT OF CARE ORDERABLES F inal Result Performing Organization Address [facility] Co de Phone Number [address] [address], [place] [phone] * US Abdomen Limited (06/29/2025 8:41 AM PHYSICIAN ASSISTANT) Anatomical Region Laterality Modality Abdomen Ultrasound 06/29/2025 8:42 AM PHYSICIAN ASSISTANT Impressions 06/29/2025 9:31 AM PHYSICIAN ASSISTANT IMPRESSION: 1.Mild hepatic steatosis. No cirrhosis. No discrete hepatic lesion or intrahepatic biliary ductal dilatation. 2.No evidence of cholelithiasis or acute cholecystitis. The report is dictated by Shreyas Glynn MD, (vice president financial) 06/29/2025 8:51 AM. > Dictated by Photo Finisher I, Magdaleno Singh MD have personally reviewed and interpreted this examination/study. > Interpreting Provider: Magdaleno Singh MD on 06/29/2025 9:31 AM Narrative 06/29/2025 9:31 AM PHYSICIAN ASSISTANT PROCEDURE: US ABDOMEN LIMITED, DATE/TIME OF EXAM: 06/29/2025 8:41 AM, LOCATION [facility] INDICATION: R79.89: Elevated LFTs ADDITIONAL CLINICAL INFORMATION: Ordering Provider Reason For Exam: Elevated LFT eval COMPARISON: None. FINDINGS: The liver is increased in echogenicity, consistent with mild hepatic steatosis. There is smooth liver surface contour. No discrete hepatic mass or intrahepatic biliary dilatation is seen. Color Doppler evaluation demonstrates patency of the hepatic and portal veins. No gallstones or pericholecystic fluid is seen. The gallbladder wall is normal in thickness, measuring 3 mm. Sonographic Hansen's sign is negative. The common bile duct is nondilated, measuring 2.8 mm. The right kidney measures 10.4 x 6 x 6 cm. Limited views of the right kidney reveal no evidence of nephrolithiasis or hydronephrosis. The spleen measures 11.6 cm in length. The visible pancreas is normal in echogenicity. No ascites is present. Procedure Note Magdaleno Singh MD - 06/29/2025 PROCEDURE: US ABDOMEN LIMITED, DATE/TIME OF EXAM: 06/29/2025 8:41 AM, LOCATION [facility] INDICATION: R79.89: Elevated LFTs ADDITIONAL CLINICAL INFORMATION: Ordering Provider Reason For Exam: Elevated LFT eval COMPARISON: None. FINDINGS: The liver is increased in echogenicity, consistent with mild hepatic steatosis. There is smooth liver surface contour. No discrete hepaticmass or intrahepatic biliary dilatation is seen. Color Doppler evaluation demonstrates patency of the hepatic and portal veins. No gallstones or pericholecystic fluid is seen. The gallbladder wall is normal in thickness, measuring 3 mm. Sonographic Hansen's sign isnegative. The common bile duct is nondilated, measuring 2.8 mm. The right kidney measures 10.4 x 6 x 6 cm. Limited views of the right kidney reveal no evidence of nephrolithiasis or hydronephrosis. Thespleen measures 11.6 cm in length. The visible pancreas is normal inechogenicity. No ascites is present. IMPRESSION: 1.Mild hepatic steatosis. No cirrhosis. No discrete hepatic lesion or intrahepatic biliary ductal dilatation. 2.No evidence of cholelithiasis or acute cholecystitis. The report is dictated by Shreyas Glynn MD, (vice president financial)06/29/2025 8:51 AM. > Dictated by Photo Finisher I, Magdaleno Singh MD have personally reviewed and interpreted this examination/study. > Interpreting Provider: Magdaleno Singh MD on 06/29/2025 9:31 AM Gricelda Blancas MD US ORDERABLES Final Result * GLUCOSE - POINT OF CARE (06/29/2025 1:09 AM PHYSICIAN ASSISTANT) Pathologist [facility] Glucose WB/POC 93 70 - 99 mg/dL 06/29/2025 2:56 AM PHYSICIAN ASSISTANT [facility] Specimen Type Arterial/C apillary 06/29/2025 2:56 AM [facility] Blood BLOOD SPECIMEN / Unknown 06/29/2025 1:09 AM PHYSICIAN ASSISTANT 06/29/2025 2:56 AM PHYSICIAN ASSISTANT Gricelda Blancas MD LAB - POINT OF CARE ORDERABLES F inal Result [address] [address] [phone] * (ABNORMAL) CBC W/O DIFFERENTIAL (06/28/2025 7:43 PM PHYSICIAN ASSISTANT) [facility] WBC 7.7 4.0 - 10.7 x10E9/L 06/28/2025 8:50 PM [facility] RBC Count 3.82(L) 4.30 - 5.80 x10E12/L 06/28/2025 8:50 PM [facility] Hemoglobin 12.4(L) 13.3 - 17.5 g/dL 06/28/2025 8:50 PM [facility] Hematocrit 37.9(L) 38.7 - 51.1 % 06/28/2025 8:50 PM [facility] MCV 99.2(H) 80.0 - 98.0 fL 06/28/2025 8:50 PM [facility] MCH 32.5 26.7 - 33.6 pg 06/28/2025 8:50 PM [facility] MCHC 32.7 31.7 - 36.3 g/dL 06/28/2025 8:50 PM [facility] RDW-CV 11.4 11.3 - 14.8 % 06/28/2025 8:50 PM [facility] Platelet Count 418 150 - 420 x10E9/L 06/28/2025 8:50 PM [facility] MPV 9.8 7.8 - 11.4 fL 06/28/2025 8:50 PM [facility] Blood BLOOD SPECIMEN / Unknown Lab Venipuncture / Unknown 06/28/2025 7:43 PM PHYSICIAN ASSISTANT 06/28/2025 8:32 PM PHYSICIAN ASSISTANT Gricelda Blancas MD LAB - HEMATOLOGY ORDERABLES Bella l Result [address] [address], [facility] [phone] * MAGNESIUM BLOOD (06/28/2025 7:43 PM PHYSICIAN ASSISTANT) Magnesium 1.6 1.6 - 2.6 mg/dL 06/28/2025 11:10 PM [facility] Blood BLOOD SPECIMEN / Unknown Lab Venipuncture / Unknown 06/28/2025 7:43 PM PHYSICIAN ASSISTANT 06/28/2025 10:12 PM PHYSICIAN ASSISTANT Fransico Rhodes MD LAB - CHEMISTRY ORDERABLES F inal Result [address] [address], [facility] [phone] * PHOSPHORUS BLOOD (06/28/2025 7:43 PM PHYSICIAN ASSISTANT) Phosphorus 3.6 2.8 - 5.1 mg/dL 06/28/2025 11:10 PM [facility] Blood BLOOD SPECIMEN / Unknown Lab Venipuncture / Unknown 06/28/2025 7:43 PM PHYSICIAN ASSISTANT 06/28/2025 10:12 PM PHYSICIAN ASSISTANT us Fransico Rhodes MD LAB - CHEMISTRY ORDERABLES F inal Result [facility] [address] [place] [address], [facility] [phone] * (ABNORMAL) COMPREHENSIVE METABOLIC PANEL (06/28/2025 7:43 PM PHYSICIAN ASSISTANT) BUN 17 7 - 26 mg/dL 06/28/2025 11:10 PM [facility] Creatinine 0.81 0.71 - 1.16 mg/dL 06/28/2025 11:10 PM [facility] Sodium 138 136 - 145 mmol/L 06/28/2025 11:10 PM [facility] Potassium 3.9 3.5 - 4.5 mmol/L 06/28/2025 11:10 PM [facility] Chloride 106 98 - 107 mmol/L 06/28/2025 11:10 PM [facility] CO2 19(L) 22 - 29 mmol/L 06/28/2025 11:10 PM [facility] Glucose 81 70 - 99 mg/dL 06/28/2025 11:10 PM [facility] Calcium 9.1 8.4 - 10.2 mg/dL 06/28/2025 11:10 PM [facility] Protein Total 7.0 6.0 - 8.3 g/dL 06/28/2025 11:10 PM [facility] Albumin 3.2(L) 3.4 - 5.0 g/dL 06/28/2025 11:10 PM [facility] Bilirubin Total 0.3 0.2 - 1.2 mg/dL 06/28/2025 11:10 PM [facility] Alkaline Phosphatase 54 40 - 150 U/L 06/28/2025 11:10 PM [facility] ALT 77(H) 5 - 55 U/L 06/28/2025 11:10 PM [facility] AST 83(H) 5 - 34 U/L 06/28/2025 11:10 PM [facility] Anion Gap 13 6 - 16 06/28/2025 11:10 PM [facility] BUN/Creatinine Ratio 21 7 - 23 06/28/2025 11:10 PM [facility] Osmolality Calculated 287 275 - 295 mOsm/kg 06/28/2025 11:10 PM [facility] Albumin/Globulin Ratio 0.8(L) 1.1 - 2.3 06/28/2025 11:10 PM [facility] eGFR by CKD-EPI >90 >=90 mL/min/1.7 3 m2 06/28/2025 11:10 PM [facility] Comment:Estimated Glomerular Filtration Rate (eGFR) calculated using the CKD-EPI Creatinine Equation (2020), per the National Kidney Foundation and [place] [employer] recommendations. Blood BLOOD SPECIMEN / Unknown Lab Venipuncture / Unknown 06/28/2025 7:43 PM PHYSICIAN ASSISTANT 06/28/2025 10:12 PM PHYSICIAN ASSISTANT Fransico Rhodes MD LAB - CHEMISTRY ORDERABLES F inal Result Performing Organization Address City/[facility]/ZIP Co de Phone Number [address] [address], [place] [phone] * GLUCOSE - POINT OF CARE (06/28/2025 4:43 PM PHYSICIAN ASSISTANT) Glucose WB/POC 86 70 - 99 mg/dL 06/28/2025 4:45 PM [facility] Specimen Type Arterial/C apillary 06/28/2025 4:45 PM [facility] Blood BLOOD SPECIMEN / Unknown 06/28/2025 4:43 PM PHYSICIAN ASSISTANT 06/28/2025 4:45 PM PHYSICIAN ASSISTANT Gricelda Blancas MD LAB - POINT OF CARE ORDERABLES F inal Result [address] [address], [place] [phone] * (ABNORMAL) GLUCOSE - POINT OF CARE (06/28/2025 11:53 AM PHYSICIAN ASSISTANT) Glucose WB/POC 117(H) 70 - 99 mg/dL 06/28/2025 11:58 AM PHYSICIAN ASSISTANT [facility] Specimen Type Arterial/C apillary 06/28/2025 11:58 AM PHYSICIAN ASSISTANT [facility] Blood BLOOD SPECIMEN / Unknown 06/28/2025 11:53 AM PHYSICIAN ASSISTANT 06/28/2025 11:58 AM PHYSICIAN ASSISTANT us Gricelda Blancas MD LAB - POINT OF CARE ORDERABLES F inal Result [address] [address], [place] [phone] * GLUCOSE - POINT OF CARE (06/28/2025 7:00 AM PHYSICIAN ASSISTANT) Glucose WB/POC 97 70 - 99 mg/dL 06/28/2025 7:02 AM [facility] Specimen Type Arterial/C apillary 06/28/2025 7:02 AM PHYSICIAN ASSISTANT [facility] Blood BLOOD SPECIMEN / Unknown 06/28/2025 7:00 AM PHYSICIAN ASSISTANT 06/28/2025 7:02 AM PHYSICIAN ASSISTANT us Gricelda Blancas MD LAB - POINT OF CARE ORDERABLES F inal Result Performing Organization Address City/[facility]/ZIP Co de Phone Number [address] [address], [place] [phone] * GLUCOSE - POINT OF CARE (06/27/2025 8:55 PM PHYSICIAN ASSISTANT) Glucose WB/POC 98 70 - 99 mg/dL 06/27/2025 8:57 PM PHYSICIAN ASSISTANT [facility] Specimen Type Arterial/C apillary 06/27/2025 8:57 PM PHYSICIAN ASSISTANT [facility] Blood BLOOD SPECIMEN / Unknown 06/27/2025 8:55 PM PHYSICIAN ASSISTANT 06/27/2025 8:57 PM PHYSICIAN ASSISTANT us Gricelda Blancas MD LAB - POINT OF CARE ORDERABLES F inal Result [address] [address], [place] [phone] * MAGNESIUM BLOOD (06/27/2025 8:03 PM PHYSICIAN ASSISTANT) Pathologist [facility] Magnesium 1.7 1.6 - 2.6 mg/dL 06/27/2025 9:50 PM [facility] Blood BLOOD SPECIMEN / Unknown Lab Venipuncture / Unknown 06/27/2025 8:03 PM PHYSICIAN ASSISTANT 06/27/2025 8:53 PM PHYSICIAN ASSISTANT us Fransico Rhodes MD LAB - CHEMISTRY ORDERABLES F inal Result [address] [address], [facility] [phone] * PHOSPHORUS BLOOD (06/27/2025 8:03 PM PHYSICIAN ASSISTANT) Pathologist [facility] Phosphorus 3.9 2.8 - 5.1 mg/dL 06/27/2025 9:50 PM [facility] Blood BLOOD SPECIMEN / Unknown Lab Venipuncture / Unknown 06/27/2025 8:03 PM PHYSICIAN ASSISTANT 06/27/2025 8:53 PM PHYSICIAN ASSISTANT us Fransico Rhodes MD LAB - CHEMISTRY ORDERABLES F inal Result [address] [address], [facility] [phone] * (ABNORMAL) COMPREHENSIVE METABOLIC PANEL (06/27/2025 8:03 PM PHYSICIAN ASSISTANT) Pathologist [facility] BUN 20 7 - 26 mg/dL 06/27/2025 9:50 PM [facility] Creatinine 0.92 0.71 - 1.16 mg/dL 06/27/2025 9:50 PM [facility] Sodium 138 136 - 145 mmol/L 06/27/2025 9:50 PM [facility] Potassium 3.6 3.5 - 4.5 mmol/L 06/27/2025 9:50 PM [facility] Chloride 108(H) 98 - 107 mmol/L 06/27/2025 9:50 PM [facility] CO2 20(L) 22 - 29 mmol/L 06/27/2025 9:50 PM [facility] Glucose 89 70 - 99 mg/dL 06/27/2025 9:50 PM [facility] Calcium 8.9 8.4 - 10.2 mg/dL 06/27/2025 9:50 PM [facility] Protein Total 6.9 6.0 - 8.3 g/dL 06/27/2025 9:50 PM [facility] Albumin 3.2(L) 3.4 - 5.0 g/dL 06/27/2025 9:50 PM [facility] Bilirubin Total 0.3 0.2 - 1.2 mg/dL 06/27/2025 9:50 PM [facility] Alkaline Phosphatase 57 40 - 150 U/L 06/27/2025 9:50 PM [facility] ALT 79(H) 5 - 55 U/L 06/27/2025 9:50 PM [facility] AST 86(H) 5 - 34 U/L 06/27/2025 9:50 PM [facility] Anion Gap 10 6 - 16 06/27/2025 9:50 PM [facility] BUN/Creatinine Ratio 22 7 - 23 06/27/2025 9:50 PM [facility] Osmolality Calculated 288 275 - 295 mOsm/kg 06/27/2025 9:50 PM [facility] Albumin/Globulin Ratio 0.9(L) 1.1 - 2.3 06/27/2025 9:50 PM [facility] eGFR by CKD-EPI >90 >=90 mL/min/1.7 3 m2 06/27/2025 9:50 PM [facility] Comment:Estimated Glomerular Filtration Rate (eGFR) calculated using the CKD-EPI Creatinine Equation (2020), per the National Kidney Foundation and [place] [employer]ph[employer] recommendations. Blood BLOOD SPECIMEN / Unknown Lab Venipuncture / Unknown 06/27/2025 8:03 PM PHYSICIAN ASSISTANT 06/27/2025 8:53 PM PHYSICIAN ASSISTANT us Fransico Rhodes MD LAB - CHEMISTRY ORDERABLES F inal Result [address] [address], [place] [phone] * GLUCOSE - POINT OF CARE (06/27/2025 5:43 PM PHYSICIAN ASSISTANT) Glucose WB/POC 90 70 - 99 mg/dL 06/27/2025 5:48 PM PHYSICIAN ASSISTANT [facility] Specimen Type Arterial/C apillary 06/27/2025 5:48 PM PHYSICIAN ASSISTANT [facility] Blood BLOOD SPECIMEN / Unknown 06/27/2025 5:43 PM PHYSICIAN ASSISTANT 06/27/2025 5:48 PM PHYSICIAN ASSISTANT Gricelda Blancas MD LAB - POINT OF CARE ORDERABLES F inal Result Performing Organization Address [facility]/ZIP Co de Phone Number [address] [address], [place] [phone] * GLUCOSE - POINT OF CARE (06/27/2025 10:37 AM PHYSICIAN ASSISTANT) Glucose WB/POC 93 70 - 99 mg/dL 06/27/2025 10:39 AM PHYSICIAN ASSISTANT [facility] Specimen Type Arterial/C apillary 06/27/2025 10:39 AM PHYSICIAN ASSISTANT [facility] Blood BLOOD SPECIMEN / Unknown 06/27/2025 10:37 AM PHYSICIAN ASSISTANT 06/27/2025 10:39 AM PHYSICIAN ASSISTANT Gricelda Blancas MD LAB - POINT OF CARE ORDERABLES F inal Result [address] [address], [place] [phone] * MAGNESIUM BLOOD (06/27/2025 12:14 AM PHYSICIAN ASSISTANT) Magnesium 1.6 1.6 - 2.6 mg/dL 06/27/2025 2:28 AM [facility] Blood BLOOD SPECIMEN / Unknown Lab Venipuncture / Unknown 06/27/2025 12:14 AM PHYSICIAN ASSISTANT 06/27/2025 1:59 AM PHYSICIAN ASSISTANT us Fransico Rhodes MD LAB - CHEMISTRY ORDERABLES F inal Result [address] [address], [facility] [phone] * PHOSPHORUS BLOOD (06/27/2025 12:14 AM PHYSICIAN ASSISTANT) Phosphorus 3.5 2.8 - 5.1 mg/dL 06/27/2025 2:28 AM [facility] Blood BLOOD SPECIMEN / Unknown Lab Venipuncture / Unknown 06/27/2025 12:14 AM PHYSICIAN ASSISTANT 06/27/2025 1:59 AM PHYSICIAN ASSISTANT us Fransico Rhodes MD LAB - CHEMISTRY ORDERABLES F inal Result Performing Organization Address [facility] Co de Phone Number [address] [address], [facility] [phone] * (ABNORMAL) COMPREHENSIVE METABOLIC PANEL (06/27/2025 12:14 AM PHYSICIAN ASSISTANT) BUN 22 7 - 26 mg/dL 06/27/2025 2:28 AM [facility] Creatinine 0.93 0.71 - 1.16 mg/dL 06/27/2025 2:28 AM [facility] Sodium 138 136 - 145 mmol/L 06/27/2025 2:28 AM [facility] Potassium 3.5 3.5 - 4.5 mmol/L 06/27/2025 2:28 AM [facility] Chloride 106 98 - 107 mmol/L 06/27/2025 2:28 AM [facility] CO2 22 22 - 29 mmol/L 06/27/2025 2:28 AM [facility] Glucose 81 70 - 99 mg/dL 06/27/2025 2:28 AM [facility] Calcium 9.1 8.4 - 10.2 mg/dL 06/27/2025 2:28 AM [facility] Protein Total 6.8 6.0 - 8.3 g/dL 06/27/2025 2:28 AM [facility] Albumin 3.1(L) 3.4 - 5.0 g/dL 06/27/2025 2:28 AM [facility] Bilirubin Total 0.4 0.2 - 1.2 mg/dL 06/27/2025 2:28 AM [facility] Alkaline Phosphatase 55 40 - 150 U/L 06/27/2025 2:28 AM [facility] ALT 72(H) 5 - 55 U/L 06/27/2025 2:28 AM [facility] AST 77(H) 5 - 34 U/L 06/27/2025 2:28 AM [facility] Anion Gap 10 6 - 16 06/27/2025 2:28 AM [facility] BUN/Creatinine Ratio 24(H) 7 - 23 06/27/2025 2:28 AM [facility] Osmolality Calculated 288 275 - 295 mOsm/kg 06/27/2025 2:28 AM [facility] Albumin/Globulin Ratio 0.8(L) 1.1 - 2.3 06/27/2025 2:28 AM [facility] eGFR by CKD-EPI >90 >=90 mL/min/1.7 3 m2 06/27/2025 2:28 AM [facility] Comment:Estimated Glomerular Filtration Rate (eGFR) calculated using the CKD-EPI Creatinine Equation (2020), per the National Kidney Foundation and [place] [employer]ph[employer] recommendations. Blood BLOOD SPECIMEN / Unknown Lab Venipuncture / Unknown 06/27/2025 12:14 AM PHYSICIAN ASSISTANT 06/27/2025 1:59 AM [facility] us Fransico Rhodes MD LAB - CHEMISTRY ORDERABLES F inal Result [facility] [address] [place] [address], [facility] [phone] * GLUCOSE - POINT OF CARE (06/26/2025 6:03 PM [facility]) Glucose WB/POC 96 70 - 99 mg/dL 06/26/2025 6:10 PM [facility] Specimen Type Arterial/C apillary 06/26/2025 6:10 PM [facility] Blood BLOOD SPECIMEN / Unknown 06/26/2025 6:03 PM PHYSICIAN ASSISTANT 06/26/2025 6:10 PM PHYSICIAN ASSISTANT us Gricelda Blancas MD LAB - POINT OF CARE ORDERABLES F inal Result Performing Organization Address City/[facility]/ZIP Co de Phone Number [address] [address], [place] [phone] * GLUCOSE - POINT OF CARE (06/26/2025 11:42 AM PHYSICIAN ASSISTANT) Glucose WB/POC 98 70 - 99 mg/dL 06/26/2025 11:56 AM PHYSICIAN ASSISTANT [facility] Specimen Type Arterial/C apillary 06/26/2025 11:56 AM PHYSICIAN ASSISTANT [facility] Blood BLOOD SPECIMEN / Unknown 06/26/2025 11:42 AM PHYSICIAN ASSISTANT 06/26/2025 11:56 AM PHYSICIAN ASSISTANT Gricelda Blancas MD LAB - POINT OF CARE ORDERABLES F inal Result Performing Organization Address [facility]/ZIP Co de Phone Number [address] [address], [place] [phone] * GLUCOSE - POINT OF CARE (06/26/2025 7:37 AM PHYSICIAN ASSISTANT) Glucose WB/POC 97 70 - 99 mg/dL 06/26/2025 7:42 AM PHYSICIAN ASSISTANT [facility] Specimen Type Arterial/C apillary 06/26/2025 7:42 AM PHYSICIAN ASSISTANT [facility] Blood BLOOD SPECIMEN / Unknown 06/26/2025 7:37 AM PHYSICIAN ASSISTANT 06/26/2025 7:42 AM PHYSICIAN ASSISTANT us Fransico Rhodes MD LAB - POINT OF CARE ORDERABL ES Final Result Performing Organization Address City/[facility]/ZIP Co de Phone Number [address] [address], [place] [phone] * GLUCOSE - POINT OF CARE (06/25/2025 8:45 PM PHYSICIAN ASSISTANT) Glucose WB/POC 92 70 - 99 mg/dL 06/25/2025 8:50 PM PHYSICIAN ASSISTANT [facility] Specimen Type Arterial/C apillary 06/25/2025 8:50 PM PHYSICIAN ASSISTANT [facility] Blood BLOOD SPECIMEN / Unknown 06/25/2025 8:45 PM PHYSICIAN ASSISTANT 06/25/2025 8:50 PM PHYSICIAN ASSISTANT us Fransico Rhodes MD LAB - POINT OF CARE ORDERABL ES Final Result [address] [address], [place] [phone] * MAGNESIUM BLOOD (06/25/2025 3:08 AM PHYSICIAN ASSISTANT) Magnesium 1.8 1.6 - 2.6 mg/dL 06/25/2025 6:26 AM PHYSICIAN ASSISTANT [facility] Blood BLOOD SPECIMEN / Unknown Lab Venipuncture / Unknown 06/25/2025 3:08 AM PHYSICIAN ASSISTANT 06/25/2025 5:38 AM PHYSICIAN ASSISTANT us Fransico Rhodes MD LAB - CHEMISTRY ORDERABLES F inal Result [address] [address], [place] [phone] * PHOSPHORUS BLOOD (06/25/2025 3:08 AM PHYSICIAN ASSISTANT) Phosphorus 4.0 2.8 - 5.1 mg/dL 06/25/2025 6:26 AM PHYSICIAN ASSISTANT [facility] Blood BLOOD SPECIMEN / Unknown Lab Venipuncture / Unknown 06/25/2025 3:08 AM PHYSICIAN ASSISTANT 06/25/2025 5:38 AM PHYSICIAN ASSISTANT Kofi Ivey DO LAB - CHEMISTRY ORDE RABLES Final Result [address] [address], [place] [phone] * (ABNORMAL) COMPREHENSIVE METABOLIC PANEL (06/25/2025 3:08 AM [facility]) BUN 19 7 - 26 mg/dL 06/25/2025 6:26 AM [facility] Creatinine 0.76 0.71 - 1.16 mg/dL 06/25/2025 6:26 AM [facility] Sodium 140 136 - 145 mmol/L 06/25/2025 6:26 AM [facility] Potassium 3.8 3.5 - 4.5 mmol/L 06/25/2025 6:26 AM [facility] Chloride 107 98 - 107 mmol/L 06/25/2025 6:26 AM [facility] CO2 20(L) 22 - 29 mmol/L 06/25/2025 6:26 AM [facility] Glucose 86 70 - 99 mg/dL 06/25/2025 6:26 AM [facility] Calcium 9.2 8.4 - 10.2 mg/dL 06/25/2025 6:26 AM [facility] Protein Total 7.1 6.0 - 8.3 g/dL 06/25/2025 6:26 AM [facility] Albumin 3.1(L) 3.4 - 5.0 g/dL 06/25/2025 6:26 AM [facility] Bilirubin Total 0.4 0.2 - 1.2 mg/dL 06/25/2025 6:26 AM [facility] Alkaline Phosphatase 60 40 - 150 U/L 06/25/2025 6:26 AM [facility] ALT 66(H) 5 - 55 U/L 06/25/2025 6:26 AM [facility] AST 87(H) 5 - 34 U/L 06/25/2025 6:26 AM [facility] Anion Gap 13 6 - 16 06/25/2025 6:26 AM [facility] BUN/Creatinine Ratio 25(H) 7 - 23 06/25/2025 6:26 AM [facility] Osmolality Calculated 292 275 - 295 mOsm/kg 06/25/2025 6:26 AM [facility] Albumin/Globulin Ratio 0.8(L) 1.1 - 2.3 06/25/2025 6:26 AM [facility] eGFR by CKD-EPI >90 >=90 mL/min/1.7 3 m2 06/25/2025 6:26 AM [facility] Comment:Estimated Glomerular Filtration Rate (eGFR) calculated using the CKD-EPI Creatinine Equation (2020), per the National Kidney Foundation and [place] [employer]ph[employer] recommendations. Blood BLOOD SPECIMEN / Unknown Lab Venipuncture / Unknown 06/25/2025 3:08 AM PHYSICIAN ASSISTANT 06/25/2025 5:38 AM PHYSICIAN ASSISTANT us Kofi Ivey DO LAB - CHEMISTRY ORDE XIN Final Result [address] [address], [place] [phone] * URIC ACID BLOOD (06/25/2025 3:08 AM PHYSICIAN ASSISTANT) Uric Acid 7.1 3.5 - 7.2 mg/dL 06/25/2025 6:26 AM [facility] Blood BLOOD SPECIMEN / Unknown Lab Venipuncture / Unknown 06/25/2025 3:08 AM PHYSICIAN ASSISTANT 06/25/2025 5:38 AM PHYSICIAN ASSISTANT us Fransico Rhodes MD LAB - CHEMISTRY ORDERABLES F inal Result [address] [address], [place] [phone] * (ABNORMAL) GLUCOSE - POINT OF CARE (2025 9:26 PM PHYSICIAN ASSISTANT) Glucose WB/POC 106(H) 70 - 99 mg/dL 2025 9:27 PM [facility] Specimen Type Arterial/C apillary 2025 9:27 PM [facility] Blood BLOOD SPECIMEN / Unknown 2025 9:26 PM PHYSICIAN ASSISTANT 2025 9:27 PM PHYSICIAN ASSISTANT us Fransico Rhodes MD LAB - POINT OF CARE ORDERABL ES Final Result [address] [address], [place] [phone] * GLUCOSE - POINT OF CARE (2025 4:33 PM PHYSICIAN ASSISTANT) Glucose WB/POC 92 70 - 99 mg/dL 2025 4:38 PM [facility] Specimen Type Arterial/C apillary 2025 4:38 PM [facility] Blood BLOOD SPECIMEN / Unknown 2025 4:33 PM PHYSICIAN ASSISTANT 2025 4:38 PM PHYSICIAN ASSISTANT us Fransico Rhodes MD LAB - POINT OF CARE ORDERABL ES Final Result Performing Organization Address City/[facility]/ZIP Co de Phone Number [address] [address], [place] [phone] * DIFFERENTIAL MANUAL FLUID (2025 1:08 PM PHYSICIAN ASSISTANT) Fluid Source Synovial 2025 4:23 PM [facility] Body Fluid Total Cell Count 100 x10E6/L 2025 4:23 PM [facility] Neutrophils Fluid Percent 89 % 2025 4:23 PM [facility] Lymphocytes Fluid Percent 3 % 2025 4:23 PM [facility] Macrophages Fluid Percent 8 % 2025 4:23 PM [facility] Fluid SYNOVIAL FLUID / Unknown Collection / Unknown 2025 1:08 PM PHYSICIAN ASSISTANT 2025 3:04 PM PHYSICIAN ASSISTANT Narrative [facility] - 2025 4:23 PM PHYSICIAN ASSISTANT No reference ranges established for body fluid differential cell counts. The test results must be integrated into the clinical context for interpretation. us Fransico Rhodes MD LAB - BODY FLUID ORDERABLES Final Result [address] [address], [place] [phone] * PATHOLOGY SMEAR BODY FLUID (2025 1:08 PM PHYSICIAN ASSISTANT) Path Review Fluid Confirmed 06/25/2025 2:47 PM PHYSICIAN ASSISTANT [facility] Fluid SYNOVIAL FLUID / Unknown Collection / Unknown 2025 1:08 PM PHYSICIAN ASSISTANT 2025 3:04 PM PHYSICIAN ASSISTANT Narrative [facility] - 06/25/2025 2:47 PM PHYSICIAN ASSISTANT Synovial fluid, smear: - Negative for malignant cells - Marked acute inflammation present - Few scattered crystals present, morphologically consistent with monosodium urate crystals us Fransico Rhodes MD LAB - PATHOLOGY/CYTOLOGY ORD ERABLES Final Result Performing Organization Address City/[facility]/ZIP Co de Phone Number [address] [address], [place] [phone] * CRYSTAL IDENTIFICATION SYNOVIAL FLUID (2025 1:08 PM PHYSICIAN ASSISTANT) Crystal Exam Fluid To be performed by Pathology. See Path Review. 2025 3:12 PM PHYSICIAN ASSISTANT [facility] Fluid SYNOVIAL FLUID / Unknown Collection / Unknown 2025 1:08 PM PHYSICIAN ASSISTANT 2025 3:04 PM PHYSICIAN ASSISTANT us Fransico Rhodes MD LAB - BODY FLUID ORDERABLES Final Result [address] [address], [place] [phone] * (ABNORMAL) CELL COUNT W DIFFERENTIAL FLUID (2025 1:08 PM PHYSICIAN ASSISTANT) Fluid Source Synovial 2025 4:23 PM [facility] Fluid Appearance CLOUDY 2025 4:23 PM [facility] Fluid Color YELLOW 2025 4:23 PM [facility] Total Nucleated Cells Fluid 8,956(H) <=200 x10E6/L 2025 4:23 PM [facility] RBC Count Fluid <2,000 Reference Range Not Established x10E6/L 2025 4:23 PM [facility] Fluid SYNOVIAL FLUID / Unknown Collection / Unknown 2025 1:08 PM PHYSICIAN ASSISTANT 2025 3:04 PM PHYSICIAN ASSISTANT Narrative [facility] - 2025 4:23 PM PHYSICIAN ASSISTANT No reference ranges established for body fluid cell counts. Any reference ranges provided are derived from published literature. The test results must be integrated into the clinical context for interpretation. Fransico Rhodes MD LAB - BODY FLUID ORDERABLES Final Result Performing Organization Address [facility]/ZIP Co de Phone Number [facility] [address] [place] [address], [place] [phone] * CULTURE FLUID+GRAM STAIN (2025 1:08 PM PHYSICIAN ASSISTANT) Pathologist [facility] Culture No growth IRMA 06/30/2025 3:15 PM PHYSICIAN ASSISTANT [facility] Gram Stain Light Polymorphonuclear cells 06/30/2025 3:15 PM PHYSICIAN ASSISTANT [facility] Gram Stain No organisms seen 025 3:15 PM [facility] Fluid SYNOVIAL FLUID / Unknown Collection / Unknown 2025 1:08 PM PHYSICIAN ASSISTANT 2025 2:58 PM PHYSICIAN ASSISTANT Narrative [facility] - 06/30/2025 3:15 PM PHYSICIAN ASSISTANT Body fluid received in blood culture bottles will be evaluated for aerobic and anaerobic growth. Separate anaerobic culture order has been cancelled as a duplicate order. Fransico Rhodes MD LAB - MICROBIOLOGY ORDERABLE S Final Result [facility] [address] [place] [address], [facility] [phone] * CYTOLOGY NON-PATENT LAW SPECIALIST PANEL (STL) (2025 1:05 PM PHYSICIAN ASSISTANT) Case Report Medical Cytology Report Case: [id number] Authorizing Provider: Fransico Rhodes MD Collected: 2025 01:05 PM Ordering Location: [facility] 5N ACUTE Received: 2025 01:45 PM Pathologist: Dagmar Pina MD Specimen: Synovial Fluid 06/26/2025 2:52 PM [facility] Specimen Adequacy Adequate cellularity for evaluation. 06/26/2025 2:52 PM [facility] Final Diagnosis Synovial fluid, right knee, cytology: - Negative for malignant cells - Acute inflammation present 06/26/2025 2:52 PM [facility]Y LAB at 1452 PHYSICIAN ASSISTANT Clinical History Right knee swelling 06/26/2025 2:52 PM [facility] Gross Description 1 Pap stained Thin Prep slide from c cloudy yellow fluid 06/26/2025 2:52 PM [facility] Pathologist Location at [facility] [address] 06/26/2025 2:52 PM [facility] Disclaimer The performance characteristics of all immunohistochemical and indirect immunofluorescence stains (if any) cited in this report were determined by the Histopathology Laboratory of [facility]. Some of these tests rely on the use of analyte-specific reagents and are subject to specific labeling requirements by the US Food and Drug Administration. Such tests were developed by the Histology Laboratory of [facility] and have not been cleared or approved by the FDA. The FDA has determined that such clearance and approval is not necessary. These tests are used for clinical purposes and should not be regarded as investigational or for research. This laboratory is certified under the Clinical Laboratory Improvement Amendments (CLIA) as qualified to perform high complexity clinical laboratory testing. This case has been personally reviewed and interpreted by the attending (teaching) pathologist. 06/26/2025 2:52 PM [facility] Embedded Images 06/26/2025 2:52 PM [facility] Pathology/Cytolo gy SYNOVIAL FLUID / Unknown Collection / Unknown 2025 1:05 PM PHYSICIAN ASSISTANT 2025 1:45 PM PHYSICIAN ASSISTANT us Fransico Rhodes MD LAB - PATHOLOGY/CYTOLOGY ORD ERABLES Final Result [facility] [address] [place] [address], [facility] [phone] * GLUCOSE - POINT OF CARE (2025 11:14 AM PHYSICIAN ASSISTANT) Glucose WB/POC 95 70 - 99 mg/dL 2025 11:19 AM [facility] Specimen Type Arterial/C apillary 2025 11:19 AM [facility] Blood BLOOD SPECIMEN / Unknown 2025 11:14 AM PHYSICIAN ASSISTANT 2025 11:19 AM PHYSICIAN ASSISTANT us Fransico Rhodes MD LAB - POINT OF CARE ORDERABL ES Final Result [address] [address], [place] [phone] * GLUCOSE - POINT OF CARE (2025 7:46 AM PHYSICIAN ASSISTANT) Pathologist [facility] Glucose WB/POC 96 70 - 99 mg/dL 2025 7:51 AM [facility] Specimen Type Arterial/C apillary 2025 7:51 AM [facility] Blood BLOOD SPECIMEN / Unknown 2025 7:46 AM PHYSICIAN ASSISTANT 2025 7:51 AM PHYSICIAN ASSISTANT us Fransico Rhodes MD LAB - POINT OF CARE ORDERABL ES Final Result [address] [address], [place] [phone] * (ABNORMAL) CBC W/O DIFFERENTIAL (2025 5:48 AM PHYSICIAN ASSISTANT) WBC 7.8 4.0 - 10.7 x10E9/L 2025 6:36 AM [facility] RBC Count 3.85(L) 4.30 - 5.80 x10E12/L 2025 6:36 AM [facility] Hemoglobin 12.5(L) 13.3 - 17.5 g/dL 2025 6:36 AM [facility] Hematocrit 35.3(L) 38.7 - 51.1 % 2025 6:36 AM [facility] MCV 91.7 80.0 - 98.0 fL 2025 6:36 AM [facility] MCH 32.5 26.7 - 33.6 pg 2025 6:36 AM [facility] MCHC 35.4 31.7 - 36.3 g/dL 2025 6:36 AM [facility] RDW-CV 11.3 11.3 - 14.8 % 2025 6:36 AM [facility] Platelet Count 473(H) 150 - 420 x10E9/L 2025 6:36 AM [facility] MPV 9.7 7.8 - 11.4 fL 2025 6:36 AM [facility] Blood BLOOD SPECIMEN / Unknown Lab Venipuncture / Unknown 2025 5:48 AM PHYSICIAN ASSISTANT 2025 6:24 AM PHYSICIAN ASSISTANT Fransico Rhodes MD LAB - HEMATOLOGY ORDERABLES Final Result [address] [address], [facility] [phone] * MAGNESIUM BLOOD (2025 5:48 AM PHYSICIAN ASSISTANT) Magnesium 1.8 1.6 - 2.6 mg/dL 2025 6:51 AM [facility] Blood BLOOD SPECIMEN / Unknown Lab Venipuncture / Unknown 2025 5:48 AM PHYSICIAN ASSISTANT 2025 6:24 AM PHYSICIAN ASSISTANT us Fransico Rhodes MD LAB - CHEMISTRY ORDERABLES F inal Result [address] [address], [place] [phone] * PHOSPHORUS BLOOD (2025 5:48 AM PHYSICIAN ASSISTANT) Phosphorus 3.1 2.8 - 5.1 mg/dL 2025 6:51 AM [facility] Blood BLOOD SPECIMEN / Unknown Lab Venipuncture / Unknown 2025 5:48 AM PHYSICIAN ASSISTANT 2025 6:24 AM PHYSICIAN ASSISTANT Kofi Ivey DO LAB - CHEMISTRY ORDE RABLES Final Result [facility] [address] [place] [address], [facility] [phone] * (ABNORMAL) COMPREHENSIVE METABOLIC PANEL (2025 5:48 AM PHYSICIAN ASSISTANT) BUN 17 7 - 26 mg/dL 2025 6:51 AM [facility] Creatinine 0.83 0.71 - 1.16 mg/dL 2025 6:51 AM [facility] Sodium 135(L) 136 - 145 mmol/L 2025 6:51 AM [facility] Potassium 3.9 3.5 - 4.5 mmol/L 2025 6:51 AM [facility] Chloride 106 98 - 107 mmol/L 2025 6:51 AM [facility] CO2 21(L) 22 - 29 mmol/L 2025 6:51 AM [facility] Glucose 95 70 - 99 mg/dL 2025 6:51 AM [facility] Calcium 8.9 8.4 - 10.2 mg/dL 2025 6:51 AM [facility] Protein Total 7.2 6.0 - 8.3 g/dL 2025 6:51 AM [facility] Albumin 2.9(L) 3.4 - 5.0 g/dL 2025 6:51 AM [facility] Bilirubin Total 0.5 0.2 - 1.2 mg/dL 2025 6:51 AM [facility] Alkaline Phosphatase 53 40 - 150 U/L 2025 6:51 AM [facility] ALT 40 5 - 55 U/L 2025 6:51 AM [facility] AST 47(H) 5 - 34 U/L 2025 6:51 AM [facility] Anion Gap 8 6 - 16 2025 6:51 AM [facility] BUN/Creatinine Ratio 20 7 - 23 2025 6:51 AM [facility] Osmolality Calculated 281 275 - 295 mOsm/kg 2025 6:51 AM [facility] Albumin/Globulin Ratio 0.7(L) 1.1 - 2.3 2025 6:51 AM [facility] eGFR by CKD-EPI >90 >=90 mL/min/1.7 3 m2 2025 6:51 AM [facility] Comment:Estimated Glomerular Filtration Rate (eGFR) calculated using the CKD-EPI Creatinine Equation (2020), per the [employer] and [employer] recommendations. Blood BLOOD SPECIMEN / Unknown Lab Venipuncture / Unknown 2025 5:48 AM PHYSICIAN ASSISTANT 2025 6:24 AM PHYSICIAN ASSISTANT Kofi Ivey DO LAB - CHEMISTRY ORDE XIN Final Result [facility] [address] [place] [id number], [facility] [phone] * GLUCOSE - POINT OF CARE (06/23/2025 9:37 PM PHYSICIAN ASSISTANT) Glucose WB/POC 99 70 - 99 mg/dL 06/23/2025 9:42 PM [facility] Specimen Type Arterial/C apillary 06/23/2025 9:42 PM [facility] Blood BLOOD SPECIMEN / Unknown 06/23/2025 9:37 PM PHYSICIAN ASSISTANT 06/23/2025 9:42 PM PHYSICIAN ASSISTANT us Fransico Rhodes MD LAB - POINT OF CARE ORDERABL ES Final Result Performing Organization Address [facility]/ZIP Co de Phone Number [address] [address], [place] [phone] * (ABNORMAL) C-REACTIVE PROTEIN (06/23/2025 5:18 PM PHYSICIAN ASSISTANT) C-Reactive Protein 7.8(H) <=0.5 mg/dL 06/23/2025 5:49 PM PHYSICIAN ASSISTANT [facility] Blood BLOOD SPECIMEN / Unknown Lab Venipuncture / Unknown 06/23/2025 5:18 PM PHYSICIAN ASSISTANT 06/23/2025 5:23 PM PHYSICIAN ASSISTANT us Fransico Rhodes MD LAB - CHEMISTRY ORDERABLES F inal Result Performing Organization Address [facility] Co de Phone Number [address] [address], [place] [phone] * (ABNORMAL) ERYTHROCYTE SEDIMENTATION RATE (06/23/2025 5:18 PM PHYSICIAN ASSISTANT) Erythrocyte Sedimentation Rate Westergren 84(H) 0 - 20 MM/HR 06/23/2025 5:37 PM PHYSICIAN ASSISTANT [facility] Blood BLOOD SPECIMEN / Unknown Lab Venipuncture / Unknown 06/23/2025 5:18 PM PHYSICIAN ASSISTANT 06/23/2025 5:23 PM PHYSICIAN ASSISTANT us Fransico Rhodes MD LAB - HEMATOLOGY ORDERABLES Final Result Performing Organization Address [facility]/ZIP Co de Phone Number [address] [address], [place] [phone] * GLUCOSE - POINT OF CARE (06/23/2025 4:33 PM PHYSICIAN ASSISTANT) Glucose WB/POC 97 70 - 99 mg/dL 06/23/2025 4:38 PM PHYSICIAN ASSISTANT [facility] Specimen Type Arterial/C apillary 06/23/2025 4:38 PM PHYSICIAN ASSISTANT [facility] Blood BLOOD SPECIMEN / Unknown 06/23/2025 4:33 PM PHYSICIAN ASSISTANT 06/23/2025 4:38 PM PHYSICIAN ASSISTANT us Fransico Rhodes MD LAB - POINT OF CARE ORDERABL ES Final Result Performing Organization Address City/[facility]/ZIP Co de Phone Number [address] [address], [place] [phone] * GLUCOSE - POINT OF CARE (06/23/2025 11:34 AM PHYSICIAN ASSISTANT) Glucose WB/POC 96 70 - 99 mg/dL 06/23/2025 11:39 AM PHYSICIAN ASSISTANT [facility] Specimen Type Arterial/C apillary 06/23/2025 11:39 AM PHYSICIAN ASSISTANT [facility] Blood BLOOD SPECIMEN / Unknown 06/23/2025 11:34 AM PHYSICIAN ASSISTANT 06/23/2025 11:39 AM PHYSICIAN ASSISTANT us Fransico Rhodes MD LAB - POINT OF CARE ORDERABL ES Final Result Performing Organization Address [facility]/ZIP Co de Phone Number [address] [address], [place] [phone] * GLUCOSE - POINT OF CARE (06/23/2025 7:36 AM PHYSICIAN ASSISTANT) Glucose WB/POC 92 70 - 99 mg/dL 06/23/2025 7:52 AM PHYSICIAN ASSISTANT [facility] Specimen Type Arterial/C apillary 06/23/2025 7:52 AM PHYSICIAN ASSISTANT [facility] Blood BLOOD SPECIMEN / Unknown 06/23/2025 7:36 AM PHYSICIAN ASSISTANT 06/23/2025 7:52 AM PHYSICIAN ASSISTANT us Fransico Rhodes MD LAB - POINT OF CARE ORDERABL ES Final Result Performing Organization Address City/[facility]/ZIP Co de Phone Number [address] [address], [place] [phone] * MAGNESIUM BLOOD (06/23/2025 4:40 AM PHYSICIAN ASSISTANT) Magnesium 2.4 1.6 - 2.6 mg/dL 06/23/2025 5:41 AM [facility] Blood BLOOD SPECIMEN / Unknown Lab Venipuncture / Unknown 06/23/2025 4:40 AM PHYSICIAN ASSISTANT 06/23/2025 5:05 AM PHYSICIAN ASSISTANT Fransico Rhodes MD LAB - CHEMISTRY ORDERABLES F inal Result [address] [address], [facility] [phone] * PHOSPHORUS BLOOD (06/23/2025 4:40 AM PHYSICIAN ASSISTANT) Phosphorus 3.2 2.8 - 5.1 mg/dL 06/23/2025 5:35 AM [facility] Blood BLOOD SPECIMEN / Unknown Lab Venipuncture / Unknown 06/23/2025 4:40 AM PHYSICIAN ASSISTANT 06/23/2025 5:05 AM PHYSICIAN ASSISTANT Kofi Ivey DO LAB - CHEMISTRY ORDE RABLES Final Result Performing Organization Address City/[facility]/ZIP Co de Phone Number [address] [address], [facility] [phone] * (ABNORMAL) COMPREHENSIVE METABOLIC PANEL (06/23/2025 4:40 AM PHYSICIAN ASSISTANT) BUN 16 7 - 26 mg/dL 06/23/2025 5:35 AM [facility] Creatinine 0.87 0.71 - 1.16 mg/dL 06/23/2025 5:35 AM [facility] Sodium 136 136 - 145 mmol/L 06/23/2025 5:35 AM [facility] Potassium 4.1 3.5 - 4.5 mmol/L 06/23/2025 5:35 AM [facility] Chloride 104 98 - 107 mmol/L 06/23/2025 5:35 AM [facility] CO2 22 22 - 29 mmol/L 06/23/2025 5:35 AM [facility] Glucose 92 70 - 99 mg/dL 06/23/2025 5:35 AM [facility] Calcium 8.5 8.4 - 10.2 mg/dL 06/23/2025 5:35 AM [facility] Protein Total 6.9 6.0 - 8.3 g/dL 06/23/2025 5:35 AM [facility] Albumin 2.8(L) 3.4 - 5.0 g/dL 06/23/2025 5:35 AM [facility] Bilirubin Total 0.6 0.2 - 1.2 mg/dL 06/23/2025 5:35 AM [facility] Alkaline Phosphatase 49 40 - 150 U/L 06/23/2025 5:35 AM [facility] ALT 35 5 - 55 U/L 06/23/2025 5:35 AM [facility] AST 39(H) 5 - 34 U/L 06/23/2025 5:35 AM [facility] Anion Gap 10 6 - 16 06/23/2025 5:35 AM [facility] BUN/Creatinine Ratio 18 7 - 23 06/23/2025 5:35 AM [facility] Osmolality Calculated 283 275 - 295 mOsm/kg 06/23/2025 5:35 AM [facility] Albumin/Globulin Ratio 0.7(L) 1.1 - 2.3 06/23/2025 5:35 AM [facility] eGFR by CKD-EPI >90 >=90 mL/min/1.7 3 m2 06/23/2025 5:35 AM [facility] Comment:Estimated Glomerular Filtration Rate (eGFR) calculated using the CKD-EPI Creatinine Equation (2020), per the National Kidney Foundation and [place] [employer] Neph[employer] recommendations. Blood BLOOD SPECIMEN / Unknown Lab Venipuncture / Unknown 06/23/2025 4:40 AM PHYSICIAN ASSISTANT 06/23/2025 5:05 AM PHYSICIAN ASSISTANT us Kofi Ivey DO LAB - CHEMISTRY ORDE XIN Final Result [facility] [address] [place] [address], [facility] [phone] * GLUCOSE - POINT OF CARE (06/22/2025 9:34 PM PHYSICIAN ASSISTANT) Glucose WB/POC 92 70 - 99 mg/dL 06/22/2025 9:34 PM PHYSICIAN ASSISTANT [facility] Specimen Type Arterial/C apillary 06/22/2025 9:34 PM PHYSICIAN ASSISTANT [facility] Blood BLOOD SPECIMEN / Unknown 06/22/2025 9:34 PM PHYSICIAN ASSISTANT 06/22/2025 9:34 PM PHYSICIAN ASSISTANT us Fransico Rhodes MD LAB - POINT OF CARE ORDERABL ES Final Result Performing Organization Address City/[facility]/ZIP Co de Phone Number [address] [address], [place] [phone] * GLUCOSE - POINT OF CARE (06/22/2025 4:28 PM PHYSICIAN ASSISTANT) Glucose WB/POC 96 70 - 99 mg/dL 06/22/2025 8:22 PM PHYSICIAN ASSISTANT [facility] Specimen Type Arterial/C apillary 06/22/2025 8:22 PM PHYSICIAN ASSISTANT [facility] Blood BLOOD SPECIMEN / Unknown 06/22/2025 4:28 PM PHYSICIAN ASSISTANT 06/22/2025 8:22 PM PHYSICIAN ASSISTANT us Fransico Rhodes MD LAB - POINT OF CARE ORDERABL ES Final Result Performing Organization Address [facility]/ZIP Co de Phone Number [address] [address], [place] [phone] * XR Knee Right 3Vw (06/22/2025 2:15 PM PHYSICIAN ASSISTANT) Anatomical Region Laterality Modality Lower Extremity Digital Radiogra phy 06/22/2025 2:59 PM PHYSICIAN ASSISTANT Impressions 06/22/2025 3:22 PM PHYSICIAN ASSISTANT IMPRESSION: 1.No acute fracture or dislocation. 2.Large knee joint effusion with soft tissue swelling around the knee. Report dictated by Sindy Ocasio MD > Dictated by Photo Finisher I, Lina Madrid MD have personally reviewed and interpreted this examination/study. > Interpreting Provider: Lina Madrid MD on 06/22/2025 3:22 PM Narrative 06/22/2025 3:22 PM PHYSICIAN ASSISTANT PROCEDURE: XR KNEE RIGHT 3VW, DATE/TIME OF EXAM: 06/22/2025 2:16 PM, LOCATION [facility] INDICATION: F41.9: Anxiety T14.91XA: Suicidal behavior with attempted self-injury (HCC) F10.90: Alcohol use disorder ADDITIONAL CLINICAL INFORMATION: Ordering Provider Reason For Exam: Right knee effusion Technologist Note: Additional: COMPARISON: None. FINDINGS: No acute fracture or dislocation. Large knee joint effusion with soft tissue swelling around the knee. Procedure Note Lina Madrid MD - 06/22/2025 PROCEDURE: XR KNEE RIGHT 3VW, DATE/TIME OF EXAM: 06/22/2025 2:16 PM, LOCATION [facility] INDICATION: F41.9: Anxiety T14.91XA: Suicidal behavior with attempted self-injury (HCC) F10.90: Alcohol use disorder ADDITIONAL CLINICAL INFORMATION: Ordering Provider Reason For Exam: Right knee effusion Technologist Note: Additional: COMPARISON: None. FINDINGS: No acute fracture or dislocation. Large knee joint effusion with soft tissue swelling around the knee. IMPRESSION: 1.No acute fracture or dislocation. 2.Large knee joint effusion with soft tissue swelling around the knee. Report dictated by Sindy Ocasio MD > Dictated by Photo Finisher I, Lina Madrid MD have personally reviewed and interpreted this examination/study. > Interpreting Provider: Lina Madrid MD on 06/22/2025 3:22 PM us Fransico Rhodes MD DIAGNOSTIC IMAGING ORDERABLE S Final Result * (ABNORMAL) GLUCOSE - POINT OF CARE (06/22/2025 12:00 PM PHYSICIAN ASSISTANT) Glucose WB/POC 106(H) 70 - 99 mg/dL 06/22/2025 12:01 PM PHYSICIAN ASSISTANT [facility] Specimen Type Arterial/C apillary 06/22/2025 12:01 PM PHYSICIAN ASSISTANT [facility] Blood BLOOD SPECIMEN / Unknown 06/22/2025 12:00 PM PHYSICIAN ASSISTANT 06/22/2025 12:01 PM PHYSICIAN ASSISTANT us Fransico Rhodes MD LAB - POINT OF CARE ORDERABL ES Final Result [address] [address], [place] [phone] * PHOSPHORUS BLOOD (06/22/2025 6:00 AM PHYSICIAN ASSISTANT) Phosphorus 3.3 2.8 - 5.1 mg/dL 06/22/2025 6:53 AM [facility] Blood BLOOD SPECIMEN / Unknown Lab Venipuncture / Unknown 06/22/2025 6:00 AM PHYSICIAN ASSISTANT 06/22/2025 6:24 AM [facility] Kofi Ivey DO LAB - CHEMISTRY ORDE RABLES Final Result Performing Organization Address City/[facility]/ZIP Co de Phone Number [address] [address], [place] [phone] * (ABNORMAL) COMPREHENSIVE METABOLIC PANEL (06/22/2025 6:00 AM PHYSICIAN ASSISTANT) BUN 12 7 - 26 mg/dL 06/22/2025 6:53 AM [facility] Creatinine 0.80 0.71 - 1.16 mg/dL 06/22/2025 6:53 AM [facility] Sodium 135(L) 136 - 145 mmol/L 06/22/2025 6:53 AM [facility] Potassium 3.4(L) 3.5 - 4.5 mmol/L 06/22/2025 6:53 AM [facility] Chloride 103 98 - 107 mmol/L 06/22/2025 6:53 AM [facility] CO2 22 22 - 29 mmol/L 06/22/2025 6:53 AM [facility] Glucose 98 70 - 99 mg/dL 06/22/2025 6:53 AM [facility] Calcium 8.7 8.4 - 10.2 mg/dL 06/22/2025 6:53 AM [facility] Protein Total 6.6 6.0 - 8.3 g/dL 06/22/2025 6:53 AM [facility] Albumin 2.8(L) 3.4 - 5.0 g/dL 06/22/2025 6:53 AM [facility] Bilirubin Total 0.5 0.2 - 1.2 mg/dL 06/22/2025 6:53 AM [facility] Alkaline Phosphatase 50 40 - 150 U/L 06/22/2025 6:53 AM [facility] ALT 29 5 - 55 U/L 06/22/2025 6:53 AM [facility] AST 28 5 - 34 U/L 06/22/2025 6:53 AM [facility] Anion Gap 10 6 - 16 06/22/2025 6:53 AM [facility] BUN/Creatinine Ratio 15 7 - 23 06/22/2025 6:53 AM [facility] Osmolality Calculated 280 275 - 295 mOsm/kg 06/22/2025 6:53 AM [facility] Albumin/Globulin Ratio 0.7(L) 1.1 - 2.3 06/22/2025 6:53 AM [facility] eGFR by CKD-EPI >90 >=90 mL/min/1.7 3 m2 06/22/2025 6:53 AM [facility] Comment:Estimated Glomerular Filtration Rate (eGFR) calculated using the CKD-EPI Creatinine Equation (2020), per the National Kidney Foundation and [place] [employer] Neph[employer] recommendations. Blood BLOOD SPECIMEN / Unknown Lab Venipuncture / Unknown 06/22/2025 6:00 AM PHYSICIAN ASSISTANT 06/22/2025 6:24 AM [facility] Kofi Ivey DO LAB - CHEMISTRY ORDE XIN Final Result [facility] [address] [place] [address], [facility] [phone] * (ABNORMAL) GLUCOSE - POINT OF CARE (06/21/2025 8:41 PM PHYSICIAN ASSISTANT) Glucose WB/POC 147(H) 70 - 99 mg/dL 06/21/2025 8:45 PM [facility] Specimen Type Arterial/C apillary 06/21/2025 8:45 PM [facility] Blood BLOOD SPECIMEN / Unknown 06/21/2025 8:41 PM PHYSICIAN ASSISTANT 06/21/2025 8:45 PM PHYSICIAN ASSISTANT us Provider Unknown LAB - POINT OF CARE ORDERABLES Final Result Performing Organization Address [facility]/ZIP Co de Phone Number [address] [address], [place] [phone] * (ABNORMAL) GLUCOSE - POINT OF CARE (06/21/2025 4:56 PM PHYSICIAN ASSISTANT) Glucose WB/POC 114(H) 70 - 99 mg/dL 06/21/2025 5:13 PM PHYSICIAN ASSISTANT [facility] Specimen Type Arterial/C apillary 06/21/2025 5:13 PM PHYSICIAN ASSISTANT [facility] Blood BLOOD SPECIMEN / Unknown 06/21/2025 4:56 PM PHYSICIAN ASSISTANT 06/21/2025 5:13 PM PHYSICIAN ASSISTANT us Provider Unknown LAB - POINT OF CARE ORDERABLES Final Result Performing Organization Address [facility]/ZIP Co de Phone Number [address] [address], [place] [phone] * XR Elbow Right 2Vw (06/21/2025 4:33 PM PHYSICIAN ASSISTANT) Anatomical Region Laterality Modality Upper Extremity Digital Radiogra phy 06/21/2025 8:18 PM PHYSICIAN ASSISTANT Impressions 06/21/2025 8:19 PM PHYSICIAN ASSISTANT Impression: Alignment is normal. Joint spaces are normal. No acute fracture. No joint effusion. > Interpreting Provider: Gray Bo MD on 06/21/2025 8:19 PM Narrative 06/21/2025 8:19 PM PHYSICIAN ASSISTANT PROCEDURE: XR ELBOW RIGHT 2VW, DATE/TIME OF EXAM: 06/21/2025 4:33 PM, LOCATION [facility] INDICATION: R53.1: Weakness ADDITIONAL CLINICAL INFORMATION: Ordering Provider Reason For Exam: purulent fluid accumulation? dislocation of elbow joint? Localized cellulitis? Technologist Note: Additional: COMPARISON: None. Procedure Note Gray Bo MD - 06/21/2025 PROCEDURE: XR ELBOW RIGHT 2VW, DATE/TIME OF EXAM: 06/21/2025 4:33 PM, LOCATION [facility] INDICATION: R53.1: Weakness ADDITIONAL CLINICAL INFORMATION: Ordering Provider Reason For Exam: purulent fluid accumulation? dislocation of elbow joint? Localized cellulitis? Technologist Note: Additional: COMPARISON: None. Impression: Alignment is normal. Joint spaces are normal. No acute fracture. Nojoint effusion. > Interpreting Provider: Gray Bo MD on 06/21/2025 8:19 PM Kofi Ivey DO DIAGNOSTIC IMAGING O RDERABLES Final Result * (ABNORMAL) GLUCOSE - POINT OF CARE (06/21/2025 11:40 AM PHYSICIAN ASSISTANT) Glucose WB/POC 116(H) 70 - 99 mg/dL 06/21/2025 11:45 AM PHYSICIAN ASSISTANT [facility] Specimen Type Arterial/C apillary 06/21/2025 11:45 AM PHYSICIAN ASSISTANT [facility] Blood BLOOD SPECIMEN / Unknown 06/21/2025 11:40 AM PHYSICIAN ASSISTANT 06/21/2025 11:45 AM PHYSICIAN ASSISTANT Kofi Watkinsdada DO LAB - POINT OF CARE ORDERABLES Final Result Performing Organization Address City/[facility] Co de Phone Number [facility] [address] [place] [address], [facility] [phone] * GLUCOSE - POINT OF CARE (06/21/2025 7:55 AM PHYSICIAN ASSISTANT) Glucose WB/POC 85 70 - 99 mg/dL 06/21/2025 8:03 AM PHYSICIAN ASSISTANT [facility] Specimen Type Arterial/C apillary 06/21/2025 8:03 AM PHYSICIAN ASSISTANT [facility] Blood BLOOD SPECIMEN / Unknown 06/21/2025 7:55 AM PHYSICIAN ASSISTANT 06/21/2025 8:03 AM PHYSICIAN ASSISTANT [facility] Wil Peddada DO LAB - POINT OF CARE ORDERABLES Final Result [address] [address], [facility] [phone] * (ABNORMAL) VITAMIN B1 (06/21/2025 4:03 AM PHYSICIAN ASSISTANT) Pathologist [facility] Vitamin B1 Whole Blood 427(H) 70 - 180 nmol/L 06/25/2025 4:56 AM PHYSICIAN ASSISTANT [facility] Comment: INTERPRETIVE INFORMATION: Vitamin B1, Whole Blood This assay measures the concentration of thiamine diphosphate (TDP), the primary active form of vitamin B1. Approximately 90 percent of vitamin B1 present in whole blood is TDP. Thiamine and thiamine monophosphate, which comprise the remaining 10 percent, are not measured. This test was developed and its performance characteristics determined by [employer]. It has not been cleared or approved by the US Food and Drug Administration. This test was performed in a CLIA certified laboratory and is intended for clinical purposes. Performed By: [facility] [employer] [address] [place] [address] Driver License Reviewing Officer: Pool Mercedes MD, PhD CLIA Number: [id number] Blood BLOOD SPECIMEN / Unknown Lab Venipuncture / Unknown 06/21/2025 4:03 AM PHYSICIAN ASSISTANT 06/21/2025 5:06 AM PHYSICIAN ASSISTANT [facility] Ivey LAB - CHEMISTRY ORDE RABLES Final Result Performing Organization Address [facility] Co de Phone Number [facility]) [address] [place] [address] * FOLATE (06/21/2025 4:03 AM PHYSICIAN ASSISTANT) Pathologist [facility] Folate 14.5 7.0 - 31.4 ng/mL 06/21/2025 11:49 AM PHYSICIAN ASSISTANT [facility] Blood BLOOD SPECIMEN / Unknown Lab Venipuncture / Unknown 06/21/2025 4:03 AM PHYSICIAN ASSISTANT 06/21/2025 5:21 AM PHYSICIAN ASSISTANT [facility] I[facility] DO LAB - CHEMISTRY ORDE RABLES Final Result Performing Organization Address City/[facility]/ZIP Co de Phone Number [address] [place] [address], [facility] [phone] * METHYLMALONIC ACID BLOOD (06/21/2025 4:03 AM PHYSICIAN ASSISTANT) Pathologist [facility] Methylmalonic Acid <0.20 0.00 - 0.40 umol/L 06/25/2025 8:40 PM PHYSICIAN ASSISTANT [facility]) Comment: Less than optimal specimen volume received for MMA QNT-P or MMA METD. Specimen was diluted 1:2 for analysis. INTERPRETIVE INFORMATION: MMA Serum/Plasma, Vitamin B12 Status This test was developed and its performance characteristics determined by [employer]. It has not been cleared or approved by the US Food and Drug Administration. This test was performed in a CLIA certified laboratory and is intended for clinical purposes. Performed By: [facility] [address] [place] [address] Driver License Reviewing Officer: Pool Mercedes MD, PhD CLIA Number: [id number] Blood BLOOD SPECIMEN / Unknown Lab Venipuncture / Unknown 06/21/2025 4:03 AM PHYSICIAN ASSISTANT 06/21/2025 5:18 AM PHYSICIAN ASSISTANT [facility] DO LAB - CHEMISTRY ORDE RABLES Final Result Performing Organization Address City/[facility]/ZIP Co de Phone Number [facility]) [address] [place] [address] * VITAMIN B12 (06/21/2025 4:03 AM PHYSICIAN ASSISTANT) Pathologist [facility] Vitamin B12 447 213 - 816 pg/mL 06/21/2025 5:56 AM PHYSICIAN ASSISTANT [facility] Blood BLOOD SPECIMEN / Unknown Lab Venipuncture / Unknown 06/21/2025 4:03 AM PHYSICIAN ASSISTANT 06/21/2025 5:17 AM PHYSICIAN ASSISTANT [facility] LAB - CHEMISTRY ORDE RABLES Final Result [address] [address], [facility] [phone] * CK BLOOD (06/21/2025 4:03 AM PHYSICIAN ASSISTANT) CK Total 103 30 - 200 U/L 06/21/2025 5:52 AM PHYSICIAN ASSISTANT [facility] Blood BLOOD SPECIMEN / Unknown Lab Venipuncture / Unknown 06/21/2025 4:03 AM PHYSICIAN ASSISTANT 06/21/2025 5:21 AM PHYSICIAN ASSISTANT [facility] LAB - CHEMISTRY ORDE RABLES Final Result [address] [address], [place] [phone] * (ABNORMAL) VITAMIN D 25-HYDROXY (06/21/2025 4:03 AM PHYSICIAN ASSISTANT) [facility] Vitamin D, 25 Hydroxy 10.3(L) 30.0 - 80.0 ng/mL 06/21/2025 5:56 AM PHYSICIAN ASSISTANT [facility] Comment: The recommendations for 25-Hydroxy Vitamin D clinical decision points are as follows: Deficient: <20.0 ng/mL Insufficient: 20.0 - 29.9 ng/mL Sufficient: 30.0 - 100.0 ng/mL Potential Toxicity: >100 ng/mL Reference: The Endocrine Society Clinical Practice Guidelines. 2011 If the 25-Hydroxy Vitamin D results are inconsitent with clinical evidence, it is recommended that follow-up testing using a method such as LC/MS/MS be performed to confirm the result. Blood BLOOD SPECIMEN / Unknown Lab Venipuncture / Unknown 06/21/2025 4:03 AM PHYSICIAN ASSISTANT 06/21/2025 5:17 AM PHYSICIAN ASSISTANT [facility] [employer] DO LAB - CHEMISTRY ORDE RABLES Final Result Performing Organization Address City/[facility]/ZIP Co de Phone Number [address] [address], [place] [phone] * TSH REFLEX FREE T4 (06/21/2025 4:03 AM PHYSICIAN ASSISTANT) [facility] TSH 3.057 0.350 - 4.940 uIU/mL 06/21/2025 5:54 AM PHYSICIAN ASSISTANT [facility] Blood BLOOD SPECIMEN / Unknown Lab Venipuncture / Unknown 06/21/2025 4:03 AM PHYSICIAN ASSISTANT 06/21/2025 5:21 AM PHYSICIAN ASSISTANT [facility] I[facility] DO LAB - CHEMISTRY ORDE RABLES Final Result [address] [address], [place] [phone] * (ABNORMAL) PHOSPHORUS BLOOD (06/21/2025 4:03 AM PHYSICIAN ASSISTANT) Phosphorus 2.7(L) 2.8 - 5.1 mg/dL 06/21/2025 5:52 AM PHYSICIAN ASSISTANT [facility] Blood BLOOD SPECIMEN / Unknown Lab Venipuncture / Unknown 06/21/2025 4:03 AM PHYSICIAN ASSISTANT 06/21/2025 5:21 AM PHYSICIAN ASSISTANT [facility] [employer] DO LAB - CHEMISTRY ORDE RABLES Final Result [address] [address], [place] [phone] * (ABNORMAL) MAGNESIUM BLOOD (06/21/2025 4:03 AM PHYSICIAN ASSISTANT) Magnesium 1.5(L) 1.6 - 2.6 mg/dL 06/21/2025 5:52 AM PHYSICIAN ASSISTANT [facility] Blood BLOOD SPECIMEN / Unknown Lab Venipuncture / Unknown 06/21/2025 4:03 AM PHYSICIAN ASSISTANT 06/21/2025 5:21 AM PHYSICIAN ASSISTANT [facility] DO LAB - CHEMISTRY ORDE RABLES Final Result [address] [address], [place] [phone] * (ABNORMAL) COMPREHENSIVE METABOLIC PANEL (06/21/2025 4:03 AM PHYSICIAN ASSISTANT) BUN 9 7 - 26 mg/dL 06/21/2025 5:52 AM [facility] Creatinine 0.82 0.71 - 1.16 mg/dL 06/21/2025 5:52 AM [facility] Sodium 135(L) 136 - 145 mmol/L 06/21/2025 5:52 AM [facility] Potassium 3.5 3.5 - 4.5 mmol/L 06/21/2025 5:52 AM [facility] Chloride 105 98 - 107 mmol/L 06/21/2025 5:52 AM [facility] CO2 20(L) 22 - 29 mmol/L 06/21/2025 5:52 AM [facility] Glucose 84 70 - 99 mg/dL 06/21/2025 5:52 AM [facility] Calcium 8.5 8.4 - 10.2 mg/dL 06/21/2025 5:52 AM [facility] Protein Total 6.8 6.0 - 8.3 g/dL 06/21/2025 5:52 AM [facility] Albumin 2.8(L) 3.4 - 5.0 g/dL 06/21/2025 5:52 AM [facility] Bilirubin Total 0.7 0.2 - 1.2 mg/dL 06/21/2025 5:52 AM [facility] Alkaline Phosphatase 45 40 - 150 U/L 06/21/2025 5:52 AM [facility] ALT 33 5 - 55 U/L 06/21/2025 5:52 AM [facility] AST 32 5 - 34 U/L 06/21/2025 5:52 AM [facility] Anion Gap 10 6 - 16 06/21/2025 5:52 AM [facility] BUN/Creatinine Ratio 11 7 - 23 06/21/2025 5:52 AM [facility] Osmolality Calculated 278 275 - 295 mOsm/kg 06/21/2025 5:52 AM [facility] Albumin/Globulin Ratio 0.7(L) 1.1 - 2.3 06/21/2025 5:52 AM [facility] eGFR by CKD-EPI >90 >=90 mL/min/1.7 3 m2 06/21/2025 5:52 AM [facility] Comment:Estimated Glomerular Filtration Rate (eGFR) calculated using the CKD-EPI Creatinine Equation (2020), per the [employer] and [employer] recommendations. Blood BLOOD SPECIMEN / Unknown Lab Venipuncture / Unknown 06/21/2025 4:03 AM PHYSICIAN ASSISTANT 06/21/2025 5:21 AM PHYSICIAN ASSISTANT us Kofi Ivey DO LAB - CHEMISTRY ORDE RABLES Final Result [facility] [address] [place] [address], [facility] [phone] * (ABNORMAL) CBC W AUTO DIFFERENTIAL (06/21/2025 4:03 AM [facility]) WBC 7.5 4.0 - 10.7 x10E9/L 06/21/2025 5:14 AM [facility] RBC Count 3.55(L) 4.30 - 5.80 x10E12/L 06/21/2025 5:14 AM [facility] Hemoglobin 11.5(L) 13.3 - 17.5 g/dL 06/21/2025 5:14 AM [facility] Hematocrit 32.4(L) 38.7 - 51.1 % 06/21/2025 5:14 AM [facility] MCV 91.3 80.0 - 98.0 fL 06/21/2025 5:14 AM [facility] MCH 32.4 26.7 - 33.6 pg 06/21/2025 5:14 AM [facility] MCHC 35.5 31.7 - 36.3 g/dL 06/21/2025 5:14 AM [facility] RDW-CV 11.1(L) 11.3 - 14.8 % 06/21/2025 5:14 AM [facility] Platelet Count 353 150 - 420 x10E9/L 06/21/2025 5:14 AM [facility] MPV 9.7 7.8 - 11.4 fL 06/21/2025 5:14 AM [facility] Neutrophil % 74.5(H) 41.0 - 74.0 % 06/21/2025 5:14 AM [facility] Lymphocyte % 12.4(L) 17.0 - 47.0 % 06/21/2025 5:14 AM [facility] Monocyte % 9.6 3.0 - 11.0 % 06/21/2025 5:14 AM [facility] Eosinophil % 1.5 0.0 - 7.0 % 06/21/2025 5:14 AM [facility] Basophil % 0.9 0.0 - 1.6 % 06/21/2025 5:14 AM [facility] Immature Granulocytes % 1.1(H) 0.0 - 1.0 % 06/21/2025 5:14 AM [facility] Neutrophil Absolute 5.60 1.60 - 7.50 x10E9/L 06/21/2025 5:14 AM [facility] Lymphocyte Absolute 0.93(L) 1.00 - 4.40 x10E9/L 06/21/2025 5:14 AM [facility] Monocyte Absolute 0.72 0.15 - 1.00 x10E9/L 06/21/2025 5:14 AM [facility] Eosinophil Absolute 0.11 0.00 - 0.60 x10E9/L 06/21/2025 5:14 AM [facility] Basophil Absolute 0.07 0.00 - 0.13 x10E9/L 06/21/2025 5:14 AM [facility] Blood BLOOD SPECIMEN / Unknown Lab Venipuncture / Unknown 06/21/2025 4:03 AM PHYSICIAN ASSISTANT 06/21/2025 5:06 AM [facility] us Kofi Ivey DO LAB - HEMATOLOGY ORD ERABLES Final Result [facility] [address] [place] [address], [facility] [phone] * XR Chest 1Vw Portable (06/21/2025 1:46 AM CDT) Anatomical Region Laterality Modality Chest Digital Radiogra phy 06/21/2025 12:4 7 PM PHYSICIAN ASSISTANT Impressions 06/21/2025 12:47 PM PHYSICIAN ASSISTANT Impression: There is subsegmental atelectasis in the lower lungs.There is no pleural effusion.There is no pneumothorax. The cardiomediastinal silhouette is normal. > Interpreting Provider: Gray Bo MD on 06/21/2025 12:47 PM Narrative 06/21/2025 12:47 PM PHYSICIAN ASSISTANT PROCEDURE: XR CHEST 1VW PORTABLE, DATE/TIME OF EXAM: 06/21/2025 1:46 AM, LOCATION [facility] INDICATION: T17.908D: Aspiration into airway, subsequent encounter ADDITIONAL CLINICAL INFORMATION: Ordering Provider Reason For Exam: aspiration Technologist Note: Additional: COMPARISON: None. Procedure Note Gray Bo MD - 06/21/2025 PROCEDURE: XR CHEST 1VW PORTABLE, DATE/TIME OF EXAM: 06/21/2025 1:46AM, LOCATION [facility] INDICATION: T17.908D: Aspiration into airway, subsequent encounter ADDITIONAL CLINICAL INFORMATION: Ordering Provider Reason For Exam: aspiration Technologist Note: Additional: COMPARISON: None. Impression: There is subsegmental atelectasis in the lower lungs.There is no pleural effusion.There is no pneumothorax. The cardiomediastinal silhouette is normal. > Interpreting Provider: Gray Bo MD on 06/21/2025 12:47 PM [facility] DO DIAGNOSTIC IMAGING O RDERABLES Final Result * GLUCOSE - POINT OF CARE (06/20/2025 11:18 PM CDT) Glucose WB/POC 99 70 - 99 mg/dL 06/20/2025 11:23 PM CDT [facility] Specimen Type Arterial/C apillary 06/20/2025 11:23 PM CDT [facility] Blood BLOOD SPECIMEN / Unknown 06/20/2025 11:18 PM CDT 06/20/2025 11:23 PM CDT [facility] DO LAB - POINT OF CARE ORDERABLES Final Result [facility] [address] [place] [address], [facility] [phone] * (ABNORMAL) URINALYSIS REFLEX TO MICROSCOPIC NO CULTURE (06/20/2025 11:06 PM [facility]) Color UA Yellow Yellow, Straw 06/20/2025 11:31 PM [facility] Clarity UA Clear Clear 06/20/2025 11:31 PM [facility] Glucose UA Normal Normal 06/20/2025 11:31 PM [facility] Bilirubin UA Negative Negative 06/20/2025 11:31 PM [facility] Ketone UA 1+(A) Negative 06/20/2025 11:31 PM [facility] Specific [place] UA 1.017 1.005 - 1.030 06/20/2025 11:31 PM [facility] Blood UA 2+(A) Negative 06/20/2025 11:31 PM [facility] pH UA 7.0 5.0 - 8.0 06/20/2025 11:31 PM [facility] Protein UA Negative Negative 06/20/2025 11:31 PM [facility] Urobilinogen UA Normal Normal mg/dL 025 11:31 PM [facility] Nitrite UA Negative Negative 06/20/2025 11:31 PM [facility] Leukocyte Esterase UA Negative Negative 06/20/2025 11:31 PM [facility] RBC UA 51-100(A) 0 - 5 # /hpf 06/20/2025 11:31 PM [facility] WBC UA 0-5 0 - 5 # /hpf 06/20/2025 11:31 PM [facility] Bacteria UA None Seen None Seen 06/20/2025 11:31 PM [facility] Squamous Epithelial Cells 0-2 0 - 5 /hpf 06/20/2025 11:31 PM [facility] Mucus UA 1+ /LPF 06/20/2025 11:31 PM [facility] Urine URINE SPECIMEN OBTAINED BY CLEAN CATCH PROCEDURE / Unknown Collection / Unknown 06/20/2025 11:06 PM CDT 06/20/2025 11:24 PM CDT Kofi Ivey DO LAB - URINALYSIS ORD ERABLES Final Result [facility] [address] [place] [id number], [facility] [phone] documented in this encounter Visit Diagnoses Diagnosis Weakness- Primary Other malaise and fatigue Weakness Other malaise and fatigue Aspiration into airway, subsequent encounter Anxiety Anxiety state, unspecified Suicidal behavior with attempted self-injury (HCC) Alcohol use disorder Swelling of joint of right knee Effusion of lower leg joint Elevated LFTs Other abnormal blood chemistry Other depression Idiopathic gout, unspecified chronicity, unspecified site Hypomagnesemia Disorders of magnesium metabolism Hypokalemia Hypopotassemia Hypophosphatemia Disorders of phosphorus metabolism Primary hypertension Unspecified essential hypertension Vitamin D deficiency Primary hypertension Unspecified essential hypertension Alcohol use disorder Anxiety Anxiety state, unspecified Depression Depressive disorder, not elsewhere classified Suicidal behavior with attempted self-injury (HCC) Hypokalemia Hypopotassemia Hypophosphatemia Disorders of phosphorus metabolism Hypomagnesemia Disorders of magnesium metabolism Vitamin D deficiency Swelling of joint of right knee Effusion of lower leg joint Gout Elevated LFTs Other abnormal blood chemistry * Assessment & Plan Note - Philip Delacruz MD - 07/01/2025 8:33 PM CSTAssociated Problem(s): Alcohol use disorder - 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 vs nutritional deficiency vs wernicke encephalopathy vs muscular dystrophy vs infection - acute exacerbation likely due to increase in alcohol consumption - IV thiamine 500 mg TID given at OSH - workup includes UA, TSH, B1, B12, folate, MMA, vit D, CK blood - started on IV thiamine here with Neurology consult in AM PLAN: - Folic acid 1 mg daily - Thiamine daily - s/p CINJ protocol - F/u on Labs - PT/OT rec acute rehab ICIAN ASSISTANT * Assessment & Plan Note - Philip Delacruz MD - 07/01/2025 8:33 PM CSTAssociated Problem(s): Weakness - 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 vs nutritional deficiency vs wernicke encephalopathy vs muscular dystrophy vs infection - acute exacerbation likely due to increase in alcohol consumption - IV thiamine 500 mg TID given at OSH - workup includes UA, TSH, B1, B12, folate, MMA, vit D, CK blood - started on IV thiamine here with Neurology consult in AM PLAN: - Folic acid 1 mg daily - Thiamine daily - s/p [facility] protocol - F/u on Labs - PT/OT rec acute rehab ICIAN ASSISTANT * Assessment & Plan Note - Philip Delacruz MD - 07/01/2025 8:33 PM CSTAssociated Problem(s): Primary hypertension - elevated on admission 170s SBP - on metoprolol 25 and losartan 50 which was held due to kobi Plan: - continue amlodipine 5 mg as he is very well controlled for the time being ICIAN ASSISTANT * Assessment & Plan Note - Philip Delacruz MD - 07/01/2025 8:33 PM CSTAssociated Problem(s): Suicidal behavior with attempted self-injury (HCC) - [facility] due to suicide attempt - does not endorse SI here - continuous sitter for agitation (not needed for SI anymore) - psych consulted, recs: - no psychiatric contraindication to discharge, Recommend discharge to the rehab facility like SNF,recommend giving trazodone 100 mg QHS at discharge and follow up outpatient, Increase Trazodone to 100 mg tablet PO, consider initiating Naltrexone at follow up psychiatric examinations, - haldol 3mg PO qhs - PRNs for agitation: Haldol 5mg PO or 2.5mg IM q6h PRN - Precautions: Elopement, Fall ICIAN ASSISTANT * Assessment & Plan Note - Philip Delacruz MD - 07/01/2025 8:33 PM CSTAssociated Problem(s): Depression - admitted to [facility] behavioral health unit due to suicide attempt - does not endorse SI here - continuous sitter for agitation (not needed for SI anymore) - psych consulted, recs: - no psychiatric contraindication to discharge, Recommend discharge to the rehab facility like [facility],recommend giving trazodone 100 mg QHS at discharge and follow up outpatient, Increase Trazodone to 100 mg tablet PO, consider initiating Naltrexone at follow up psychiatric examinations, - haldol 3mg PO qhs - PRNs for agitation: Haldol 5mg PO or 2.5mg IM q6h PRN - Precautions: Elopement, Fall ICIAN ASSISTANT * Assessment & Plan Note - Philip Delacruz MD - 07/01/2025 8:33 PM CSTAssociated Problem(s): Anxiety - admitted to [facility] behavioral health unit due to suicide attempt - does not endorse SI here - continuous sitter for agitation (not needed for SI anymore) - psych consulted, recs: - no psychiatric contraindication to discharge, Recommend discharge to the rehab facility like [facility],recommend giving trazodone 100 mg QHS at discharge and follow up outpatient, Increase Trazodone to 100 mg tablet PO, consider initiating Naltrexone at follow up psychiatric examinations, - haldol 3mg PO qhs - PRNs for agitation: Haldol 5mg PO or 2.5mg IM q6h PRN - Precautions: Elopement, Fall ICIAN ASSISTANT * Assessment & Plan Note - Philip Delacruz MD - 07/01/2025 8:33 PM CSTAssociated Problem(s): Hypophosphatemia Today potassium 3.4 06/30/25 Plan: Replete electrolytes as needed Today repleted 40 mEq of KCl ICIAN ASSISTANT * Assessment & Plan Note - Philip Delacruz MD - 07/01/2025 8:33 PM CSTAssociated Problem(s): Hypokalemia Today potassium 3.4 06/30/25 Plan: Replete electrolytes as needed Today repleted 40 mEq of KCl ICIAN ASSISTANT * Assessment & Plan Note - Philip Delacruz MD - 07/01/2025 8:33 PM CSTAssociated Problem(s): Hypomagnesemia Today potassium 3.4 06/30/25 Plan: Replete electrolytes as needed Today repleted 40 mEq of KCl ICIAN ASSISTANT * Assessment & Plan Note - Philip Delacruz MD - 07/01/2025 8:33 PM CSTAssociated Problem(s): Vitamin D deficiency Plan: Vitamin D (ergocalciferol) 1.25 MG capsule containing 50,000 units ICIAN ASSISTANT * Assessment & Plan Note - Philip Delacruz MD - 07/01/2025 8:33 PM CSTAssociated Problem(s): Swelling of joint of right knee Right knee is joint swelling improved. No localized tenderness, induration, erythema, pain, and skin changes noted. Xray shows effusion of the right knee. Orthopedic surgery consulted and arthrocentesis obtained, results unremarkable thus far. Plan: continue to follow arthrocentesis results Orthopedic surgery recommendations: No acute orthopedic surgical intervention indicated Weight bearing Status: E WBAT Orthopedic surgery has signed off. ICIAN ASSISTANT * Assessment & Plan Note - Philip Delacruz MD - 07/01/2025 8:33 PM CSTAssociated Problem(s): Gout Right knee is joint swelling improved. No localized tenderness, induration, erythema, pain, and skin changes noted. Xray shows effusion of the right knee. Orthopedic surgery consulted and arthrocentesis obtained, results unremarkable thus far. Plan: continue to follow arthrocentesis results Orthopedic surgery recommendations: No acute orthopedic surgical intervention indicated Weight bearing Status: [facility] Orthopedic surgery has signed off. ICIAN ASSISTANT * Assessment & Plan Note - Philip Delacruz MD - 07/01/2025 8:33 PM CSTAssociated Problem(s): Elevated LFTs - Abd US 06/29 showing hepatic steatosis ICIAN ASSISTANT * Assessment & Plan Note - Philip Delacruz MD - 06/30/2025 7:37 PM CSTAssociated Problem(s): Alcohol use disorder - 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 vs nutritional deficiency vs wernicke encephalopathy vs muscular dystrophy vs infection - acute exacerbation likely due to increase in alcohol consumption - IV thiamine 500 mg TID given at OSH - workup includes UA, TSH, B1, B12, folate, MMA, vit D, CK blood - started on IV thiamine here with Neurology consult in AM PLAN: - Folic acid 1 mg daily - Thiamine daily - s/p CIWA protocol - F/u on Labs - PT/OT rec acute rehab ICIAN ASSISTANT * Assessment & Plan Note - Philip Delacruz MD - 06/30/2025 7:37 PM CSTAssociated Problem(s): Weakness - 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 vs nutritional deficiency vs wernicke encephalopathy vs muscular dystrophy vs infection - acute exacerbation likely due to increase in alcohol consumption - IV thiamine 500 mg TID given at OSH - workup includes UA, TSH, B1, B12, folate, MMA, vit D, CK blood - started on IV thiamine here with Neurology consult in AM PLAN: - Folic acid 1 mg daily - Thiamine daily - s/p CIWA protocol - F/u on Labs - PT/OT rec acute rehab ICIAN ASSISTANT * Assessment & Plan Note - Philip Delacruz MD - 06/30/2025 7:37 PM CSTAssociated Problem(s): Primary hypertension - elevated on admission 170s SBP - on metoprolol 25 and losartan 50 which was held due to kobi Plan: - continue amlodipine 5 mg as he is very well controlled for the time being ICIAN ASSISTANT * Assessment & Plan Note - Philip Delacruz MD - 06/30/2025 7:37 PM CSTAssociated Problem(s): Suicidal behavior with attempted self-injury (HCC) - admitted to [facility] behavioral health unit due to suicide attempt - does not endorse SI here - continuous sitter for agitation (not needed for SI anymore) - psych consulted, recs: - no psychiatric contraindication to discharge, Recommend discharge to the rehab facility like [facility],recommend giving trazodone 100 mg QHS at discharge and follow up outpatient, Increase Trazodone to 100 mg tablet PO, consider initiating Naltrexone at follow up psychiatric examinations, - haldol 3mg PO qhs - PRNs for agitation: Haldol 5mg PO or 2.5mg IM q6h PRN - Precautions: Elopement, Fall ICIAN ASSISTANT * Assessment & Plan Note - Philip Delacruz MD - 06/30/2025 7:37 PM CSTAssociated Problem(s): Depression - admitted to [facility] behavioral health unit due to suicide attempt - does not endorse SI here - continuous sitter for agitation (not needed for SI anymore) - psych consulted, recs: - no psychiatric contraindication to discharge, Recommend discharge to the rehab facility like SNF,recommend giving trazodone 100 mg QHS at discharge and follow up outpatient, Increase Trazodone to 100 mg tablet PO, consider initiating Naltrexone at follow up psychiatric examinations, - haldol 3mg PO qhs - PRNs for agitation: Haldol 5mg PO or 2.5mg IM q6h PRN - Precautions: Elopement, Fall ICIAN ASSISTANT * Assessment & Plan Note - Philip Delacruz MD - 06/30/2025 7:37 PM CSTAssociated Problem(s): Anxiety - admitted to [facility] behavioral health unit due to suicide attempt - does not endorse SI here - continuous sitter for agitation (not needed for SI anymore) - psych consulted, recs: - no psychiatric contraindication to discharge, Recommend discharge to the rehab facility like [facility],recommend giving trazodone 100 mg QHS at discharge and follow up outpatient, Increase Trazodone to 100 mg tablet PO, consider initiating Naltrexone at follow up psychiatric examinations, - haldol 3mg PO qhs - PRNs for agitation: Haldol 5mg PO or 2.5mg IM q6h PRN - Precautions: Elopement, Fall ICIAN ASSISTANT * Assessment & Plan Note - Philip Delacruz MD - 06/30/2025 7:37 PM CSTAssociated Problem(s): Hypophosphatemia Today potassium 3.4 06/30/25 Plan: Replete electrolytes as needed Today repleted 40 mEq of KCl ICIAN ASSISTANT * Assessment & Plan Note - Philip Delacruz MD - 06/30/2025 7:37 PM CSTAssociated Problem(s): Hypokalemia Today potassium 3.4 06/30/25 Plan: Replete electrolytes as needed Today repleted 40 mEq of KCl ICIAN ASSISTANT * Assessment & Plan Note - Philip Delacruz MD - 06/30/2025 7:37 PM CSTAssociated Problem(s): Hypomagnesemia Today potassium 3.4 06/30/25 Plan: Replete electrolytes as needed Today repleted 40 mEq of KCl ICIAN ASSISTANT * Assessment & Plan Note - Philip Delacruz MD - 06/30/2025 7:37 PM CSTAssociated Problem(s): Vitamin D deficiency Plan: Vitamin D (ergocalciferol) 1.25 MG capsule containing 50,000 units ICIAN ASSISTANT * Assessment & Plan Note - Philip Delacruz MD - 06/30/2025 7:37 PM CSTAssociated Problem(s): Swelling of joint of right knee Right knee is joint swelling improved. No localized tenderness, induration, erythema, pain, and skin changes noted. Xray shows effusion of the right knee. Orthopedic surgery consulted and arthrocentesis obtained, results unremarkable thus far. Plan: continue to follow arthrocentesis results Orthopedic surgery recommendations: No acute orthopedic surgical intervention indicated Weight bearing Status: RUE WBAT Orthopedic surgery has signed off. ICIAN ASSISTANT * Assessment & Plan Note - Philip Delacruz MD - 06/30/2025 7:37 PM CSTAssociated Problem(s): Gout Right knee is joint swelling improved. No localized tenderness, induration, erythema, pain, and skin changes noted. Xray shows effusion of the right knee. Orthopedic surgery consulted and arthrocentesis obtained, results unremarkable thus far. Plan: continue to follow arthrocentesis results Orthopedic surgery recommendations: No acute orthopedic surgical intervention indicated Weight bearing Status: RUE WBAT Orthopedic surgery has signed off. ICIAN ASSISTANT * Assessment & Plan Note - Philip Delacruz MD - 06/30/2025 7:37 PM CSTAssociated Problem(s): Elevated LFTs - Abd US 06/29 showing hepatic steatosis ICIAN ASSISTANT * Assessment & Plan Note - Gricelda Blancas MD - 06/29/2025 4:13 PM CSTAssociated Problem(s): Alcohol use disorder - 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 vs nutritional deficiency vs wernicke encephalopathy vs muscular dystrophy vs infection - acute exacerbation likely due to increase in alcohol consumption - IV thiamine 500 mg TID given at OSH - workup includes UA, TSH, B1, B12, folate, MMA, vit D, CK blood - started on IV thiamine here with Neurology consult in AM PLAN: - Folic acid 1 mg daily - Thiamine daily - s/p CIWA protocol - F/u on Labs - PT/OT rec acute rehab ICIAN ASSISTANT * Assessment & Plan Note - Gricelda Blancas MD - 06/29/2025 4:13 PM CSTAssociated Problem(s): Weakness - 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 vs nutritional deficiency vs wernicke encephalopathy vs muscular dystrophy vs infection - acute exacerbation likely due to increase in alcohol consumption - IV thiamine 500 mg TID given at OSH - workup includes UA, TSH, B1, B12, folate, MMA, vit D, CK blood - started on IV thiamine here with Neurology consult in AM PLAN: - Folic acid 1 mg daily - Thiamine daily - s/p CIWA protocol - F/u on Labs - PT/OT rec acute rehab ICIAN ASSISTANT * Assessment & Plan Note - Gricelda Blancas MD - 06/29/2025 4:13 PM CSTAssociated Problem(s): Primary hypertension - elevated on admission 170s SBP - on metoprolol 25 and losartan 50 which was held due to kobi Plan: - continue amlodipine 5 mg ICIAN ASSISTANT * Assessment & Plan Note - Gricelda Blancas MD - 06/29/2025 4:13 PM CSTAssociated Problem(s): Suicidal behavior with attempted self-injury (HCC) - admitted to [facility] behavioral health unit due to suicide attempt - does not endorse SI here - continuous sitter for agitation (not needed for SI anymore) - psych consulted, recs: - no psychiatric contraindication to discharge, Recommend discharge to the rehab facility like [facility],recommend giving trazodone 100 mg QHS at discharge and follow up outpatient, Increase Trazodone to 100 mg tablet PO, consider initiating Naltrexone at follow up psychiatric examinations, - Start haldol 3mg PO qhs - PRNs for agitation: Haldol 5mg PO or 2.5mg IM q6h PRN - Precautions: Elopement, Fall ICIAN ASSISTANT * Assessment & Plan Note - Gricelda Blancas MD - 06/29/2025 4:13 PM CSTAssociated Problem(s): Depression - admitted to [facility] behavioral health unit due to suicide attempt - does not endorse SI here - continuous sitter for agitation (not needed for SI anymore) - psych consulted, recs: - no psychiatric contraindication to discharge, Recommend discharge to the rehab facility like [facility],recommend giving trazodone 100 mg QHS at discharge and follow up outpatient, Increase Trazodone to 100 mg tablet PO, consider initiating Naltrexone at follow up psychiatric examinations, - Start haldol 3mg PO qhs - PRNs for agitation: Haldol 5mg PO or 2.5mg IM q6h PRN - Precautions: Elopement, Fall ICIAN ASSISTANT * Assessment & Plan Note - Gricelda Blancas MD - 06/29/2025 4:13 PM CSTAssociated Problem(s): Anxiety - admitted to [facility] behavioral health unit due to suicide attempt - does not endorse SI here - continuous sitter for agitation (not needed for SI anymore) - psych consulted, recs: - no psychiatric contraindication to discharge, Recommend discharge to the rehab facility like [facility],recommend giving trazodone 100 mg QHS at discharge and follow up outpatient, Increase Trazodone to 100 mg tablet PO, consider initiating Naltrexone at follow up psychiatric examinations, - Start haldol 3mg PO qhs - PRNs for agitation: Haldol 5mg PO or 2.5mg IM q6h PRN - Precautions: Elopement, Fall ICIAN ASSISTANT * Assessment & Plan Note - Gricelda Blancas MD - 06/29/2025 4:13 PM CSTAssociated Problem(s): Hypophosphatemia Plan: Replete electrolytes as needed ICIAN ASSISTANT * Assessment & Plan Note - Gricelda Blancas MD - 06/29/2025 4:13 PM CSTAssociated Problem(s): Hypokalemia Plan: Replete electrolytes as needed ICIAN ASSISTANT * Assessment & Plan Note - Gricelda Blancas MD - 06/29/2025 4:13 PM CSTAssociated Problem(s): Hypomagnesemia Plan: Replete electrolytes as needed ICIAN ASSISTANT * Assessment & Plan Note - Gricelda Blanacs MD - 06/29/2025 4:13 PM CSTAssociated Problem(s): Vitamin D deficiency Plan: Vitamin D (ergocalciferol) 1.25 MG capsule containing 50,000 units ICIAN ASSISTANT * Assessment & Plan Note - Gricelda Blancas MD - 06/29/2025 4:13 PM CSTAssociated Problem(s): Swelling of joint of right knee Right knee is joint swelling improved. No localized tenderness, induration, erythema, pain, and skin changes noted. Xray shows effusion of the right knee. Orthopedic surgery consulted and arthrocentesis obtained, results unremarkable thus far. Plan: continue to follow arthrocentesis results Orthopedic surgery recommendations: No acute orthopedic surgical intervention indicated Weight bearing Status: RUE WBAT Orthopedic surgery has signed off. ICIAN ASSISTANT * Assessment & Plan Note - Gricelda Blancas MD - 06/29/2025 4:13 PM CSTAssociated Problem(s): Gout Right knee is joint swelling improved. No localized tenderness, induration, erythema, pain, and skin changes noted. Xray shows effusion of the right knee. Orthopedic surgery consulted and arthrocentesis obtained, results unremarkable thus far. Plan: continue to follow arthrocentesis results Orthopedic surgery recommendations: No acute orthopedic surgical intervention indicated Weight bearing Status: RUE WBAT Orthopedic surgery has signed off. ICIAN ASSISTANT * Assessment & Plan Note - Gricelda Blancas MD - 06/29/2025 4:13 PM CSTAssociated Problem(s): Elevated LFTs - Abd US 06/29 showing hepatic steatosis ICIAN ASSISTANT * Assessment & Plan Note - Gricelda Blancas MD - 06/28/2025 12:30 PM CSTAssociated Problem(s): Alcohol use disorder - 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 vs nutritional deficiency vs wernicke encephalopathy vs muscular dystrophy vs infection - acute exacerbation likely due to increase in alcohol consumption - IV thiamine 500 mg TID given at OSH - workup includes UA, TSH, B1, B12, folate, MMA, vit D, CK blood - started on IV thiamine here with Neurology consult in AM PLAN: - Folic acid 1 mg daily - Thiamine daily - s/p CIWA protocol - F/u on Labs - PT/OT rec acute rehab ICIAN ASSISTANT * Assessment & Plan Note - Gricelda Blancas MD - 06/28/2025 12:30 PM CSTAssociated Problem(s): Weakness - 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 vs nutritional deficiency vs wernicke encephalopathy vs muscular dystrophy vs infection - acute exacerbation likely due to increase in alcohol consumption - IV thiamine 500 mg TID given at OSH - workup includes UA, TSH, B1, B12, folate, MMA, vit D, CK blood - started on IV thiamine here with Neurology consult in AM PLAN: - Folic acid 1 mg daily - Thiamine daily - s/p [facility] protocol - F/u on Labs - PT/OT rec acute rehab ICIAN ASSISTANT * Assessment & Plan Note - Gricelda Blancas MD - 06/28/2025 12:30 PM CSTAssociated Problem(s): Primary hypertension - elevated on admission 170s SBP - on metoprolol 25 and losartan 50 which was held due to kobi Plan: - continue amlodipine 5 mg ICIAN ASSISTANT * Assessment & Plan Note - Gricelda Blancas MD - 06/28/2025 12:30 PM CSTAssociated Problem(s): Suicidal behavior with attempted self-injury (HCC) - [facility] due to suicide attempt - does not endorse SI here - continuous sitter for agitation (not needed for SI anymore) - psych consulted, recs: - no psychiatric contraindication to discharge, Recommend discharge to the rehab facility like SNF,recommend giving trazodone 100 mg QHS at discharge and follow up outpatient, Increase Trazodone to 100 mg tablet PO, consider initiating Naltrexone at follow up psychiatric examinations, - Precautions: Elopement, Fall ICIAN ASSISTANT * Assessment & Plan Note - Gricelda Blancas MD - 06/28/2025 12:30 PM CSTAssociated Problem(s): Depression - admitted to [facility] due to suicide attempt - does not endorse SI here - continuous sitter for agitation (not needed for SI anymore) - psych consulted, recs: - no psychiatric contraindication to discharge, Recommend discharge to the rehab facility like [facility],recommend giving trazodone 100 mg QHS at discharge and follow up outpatient, Increase Trazodone to 100 mg tablet PO, consider initiating Naltrexone at follow up psychiatric examinations, - Precautions: Elopement, Fall ICIAN ASSISTANT * Assessment & Plan Note - Gricelda Blancas MD - 06/28/2025 12:30 PM CSTAssociated Problem(s): Anxiety - admitted to [facility] behavioral health unit due to suicide attempt - does not endorse SI here - continuous sitter for agitation (not needed for SI anymore) - psych consulted, recs: - no psychiatric contraindication to discharge, Recommend discharge to the rehab facility like [facility],recommend giving trazodone 100 mg QHS at discharge and follow up outpatient, Increase Trazodone to 100 mg tablet PO, consider initiating Naltrexone at follow up psychiatric examinations, - Precautions: Elopement, Fall ICIAN ASSISTANT * Assessment & Plan Note - Gricelda Blancas MD - 06/28/2025 12:30 PM CSTAssociated Problem(s): Hypophosphatemia Plan: Replete electrolytes as needed ICIAN ASSISTANT * Assessment & Plan Note - Gricelda Blancas MD - 06/28/2025 12:30 PM CSTAssociated Problem(s): Hypokalemia Plan: Replete electrolytes as needed ICIAN ASSISTANT * Assessment & Plan Note - Gricelda Blancas MD - 06/28/2025 12:30 PM CSTAssociated Problem(s): Hypomagnesemia Plan: Replete electrolytes as needed ICIAN ASSISTANT * Assessment & Plan Note - Gricelda Blancas MD - 06/28/2025 12:30 PM CSTAssociated Problem(s): Vitamin D deficiency Plan: Vitamin D (ergocalciferol) 1.25 MG capsule containing 50,000 units ICIAN ASSISTANT * Assessment & Plan Note - Gricelda Blancas MD - 06/28/2025 12:30 PM CSTAssociated Problem(s): Swelling of joint of right knee Right knee is joint swelling improved. No localized tenderness, induration, erythema, pain, and skin changes noted. Xray shows effusion of the right knee. Orthopedic surgery consulted and arthrocentesis obtained, results unremarkable thus far. Plan: continue to follow arthrocentesis results Orthopedic surgery recommendations: No acute orthopedic surgical intervention indicated Weight bearing Status: RUE WBAT Orthopedic surgery has signed off. ICIAN ASSISTANT * Assessment & Plan Note - Gricelda Blancas MD - 06/28/2025 12:30 PM CSTAssociated Problem(s): Gout Right knee is joint swelling improved. No localized tenderness, induration, erythema, pain, and skin changes noted. Xray shows effusion of the right knee. Orthopedic surgery consulted and arthrocentesis obtained, results unremarkable thus far. Plan: continue to follow arthrocentesis results Orthopedic surgery recommendations: No acute orthopedic surgical intervention indicated Weight bearing Status: RUE WBAT Orthopedic surgery has signed off. ICIAN ASSISTANT * Assessment & Plan Note - Gricelda Blancas MD - 06/28/2025 12:30 PM CSTAssociated Problem(s): Elevated LFTs - Abd US ordered ICIAN ASSISTANT * Assessment & Plan Note - Gricelda Blancas MD - 06/27/2025 10:57 AM CSTAssociated Problem(s): Weakness - 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 vs nutritional deficiency vs wernicke encephalopathy vs muscular dystrophy vs infection - acute exacerbation likely due to increase in alcohol consumption - IV thiamine 500 mg TID given at OSH - workup includes UA, TSH, B1, B12, folate, MMA, vit D, CK blood - started on IV thiamine here with Neurology consult in AM PLAN: - Folic acid 1 mg daily - Thiamine daily - s/p [facility] protocol - F/u on Labs - PT/OT rec acute rehab ICIAN ASSISTANT * Assessment & Plan Note - Gricelda Blancas MD - 06/27/2025 10:57 AM CSTAssociated Problem(s): Primary hypertension - elevated on admission 170s SBP - on metoprolol 25 and losartan 50 which was held due to kobi Plan: - continue amlodipine 5 mg ICIAN ASSISTANT * Assessment & Plan Note - Gricelda Blancas MD - 06/27/2025 10:57 AM CSTAssociated Problem(s): Suicidal behavior with attempted self-injury (HCC) - admitted to [facility] behavioral health unit due to suicide attempt - does not endorse SI here - continuous sitter for agitation (not needed for SI anymore) - psych consulted, recs: - no psychiatric contraindication to discharge, Recommend discharge to the rehab facility like SNF,recommend giving trazodone 100 mg QHS at discharge and follow up outpatient, Increase Trazodone to 100 mg tablet PO, consider initiating Naltrexone at follow up psychiatric examinations, - Precautions: Elopement, Fall ICIAN ASSISTANT * Assessment & Plan Note - Gricelda Blancas MD - 06/27/2025 10:57 AM CSTAssociated Problem(s): Depression - admitted to [facility] behavioral health unit due to suicide attempt - does not endorse SI here - continuous sitter for agitation (not needed for SI anymore) - psych consulted, recs: - no psychiatric contraindication to discharge, Recommend discharge to the rehab facility like [facility],recommend giving trazodone 100 mg QHS at discharge and follow up outpatient, Increase Trazodone to 100 mg tablet PO, consider initiating Naltrexone at follow up psychiatric examinations, - Precautions: Elopement, Fall ICIAN ASSISTANT * Assessment & Plan Note - Gricelda Blancas MD - 06/27/2025 10:57 AM CSTAssociated Problem(s): Anxiety - admitted to [facility] behavioral health unit due to suicide attempt - does not endorse SI here - continuous sitter for agitation (not needed for SI anymore) - psych consulted, recs: - no psychiatric contraindication to discharge, Recommend discharge to the rehab facility like [facility],recommend giving trazodone 100 mg QHS at discharge and follow up outpatient, Increase Trazodone to 100 mg tablet PO, consider initiating Naltrexone at follow up psychiatric examinations, - Precautions: Elopement, Fall ICIAN ASSISTANT * Assessment & Plan Note - Gricelda Blancas MD - 06/27/2025 10:57 AM CSTAssociated Problem(s): Hypophosphatemia Plan: Replete electrolytes as needed ICIAN ASSISTANT * Assessment & Plan Note - Gricelda Blancas MD - 06/27/2025 10:57 AM CSTAssociated Problem(s): Hypokalemia Plan: Replete electrolytes as needed ICIAN ASSISTANT * Assessment & Plan Note - Gricelda Blancas MD - 06/27/2025 10:57 AM CSTAssociated Problem(s): Hypomagnesemia Plan: Replete electrolytes as needed ICIAN ASSISTANT * Assessment & Plan Note - Gricelda Blancas MD - 06/27/2025 10:57 AM CSTAssociated Problem(s): Vitamin D deficiency Plan: Vitamin D (ergocalciferol) 1.25 MG capsule containing 50,000 units ICIAN ASSISTANT * Assessment & Plan Note - Gricelda Blancas MD - 06/27/2025 10:57 AM CSTAssociated Problem(s): Swelling of joint of right knee Right knee is joint swelling improved. No localized tenderness, induration, erythema, pain, and skin changes noted. Xray shows effusion of the right knee. Orthopedic surgery consulted and arthrocentesis obtained, results unremarkable thus far. Plan: continue to follow arthrocentesis results Orthopedic surgery recommendations: No acute orthopedic surgical intervention indicated Weight bearing Status: [facility] Orthopedic surgery has signed off. ICIAN ASSISTANT * Assessment & Plan Note - Gricelda Blancas MD - 06/27/2025 10:57 AM CSTAssociated Problem(s): Alcohol use disorder - 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 vs nutritional deficiency vs wernicke encephalopathy vs muscular dystrophy vs infection - acute exacerbation likely due to increase in alcohol consumption - IV thiamine 500 mg TID given at OSH - workup includes UA, TSH, B1, B12, folate, MMA, vit D, CK blood - started on IV thiamine here with Neurology consult in AM PLAN: - Folic acid 1 mg daily - Thiamine daily - s/p [facility] protocol - F/u on Labs - PT/OT rec acute rehab ICIAN ASSISTANT * Assessment & Plan Note - Gricelda Blancas MD - 06/26/2025 4:46 PM CSTAssociated Problem(s): Alcohol use disorder - 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 vs nutritional deficiency vs wernicke encephalopathy vs muscular dystrophy vs infection - acute exacerbation likely due to increase in alcohol consumption - IV thiamine 500 mg TID given at OSH - workup includes UA, TSH, B1, B12, folate, MMA, vit D, CK blood - started on IV thiamine here with Neurology consult in AM PLAN: - Folic acid 1 mg daily - Thiamine daily - CIWA protocol discontinued, Lorazepam 2 mg PRN discontinued - F/u on Labs ICIAN ASSISTANT * Assessment & Plan Note - Gricelda Blancas MD - 06/26/2025 4:46 PM CSTAssociated Problem(s): Weakness - 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 vs nutritional deficiency vs wernicke encephalopathy vs muscular dystrophy vs infection - acute exacerbation likely due to increase in alcohol consumption - IV thiamine 500 mg TID given at OSH - workup includes UA, TSH, B1, B12, folate, MMA, vit D, CK blood - started on IV thiamine here with Neurology consult in AM PLAN: - Folic acid 1 mg daily - Thiamine daily - CIWA protocol discontinued, Lorazepam 2 mg PRN discontinued - F/u on Labs ICIAN ASSISTANT * Assessment & Plan Note - Gricelda Blancas MD - 06/26/2025 4:46 PM CSTAssociated Problem(s): Primary hypertension - elevated on admission 170s SBP - on metoprolol 25 and losartan 50 which was held due to kobi Plan: - continue amlodipine 5 mg ICIAN ASSISTANT * Assessment & Plan Note - Gricelda Blancas MD - 06/26/2025 4:46 PM CSTAssociated Problem(s): Suicidal behavior with attempted self-injury (HCC) - [facility] due to [facility] attempt - does not endorse SI here - continuous sitter for agitation (not needed for SI anymore) - psych consulted, recs: - no psychiatric contraindication to discharge, Recommend discharge to the rehab facility like SNF,recommend giving trazodone 100 mg QHS at discharge and follow up outpatient, Increase Trazodone to 100 mg tablet PO, consider initiating Naltrexone at follow up psychiatric examinations,Precautions: 1:1 Sitter, Elopement, Fall ICIAN ASSISTANT * Assessment & Plan Note - Gricelda Blancas MD - 06/26/2025 4:46 PM CSTAssociated Problem(s): Depression - admitted to [facility] behavioral health unit due to suicide attempt - does not endorse SI here - continuous sitter for agitation (not needed for SI anymore) - psych consulted, recs: - no psychiatric contraindication to discharge, Recommend discharge to the rehab facility like [facility],recommend giving trazodone 100 mg QHS at discharge and follow up outpatient, Increase Trazodone to 100 mg tablet PO, consider initiating Naltrexone at follow up psychiatric examinations,Precautions: 1:1 Sitter, Elopement, Fall ICIAN ASSISTANT * Assessment & Plan Note - Gricelda Blancas MD - 06/26/2025 4:46 PM CSTAssociated Problem(s): Anxiety - admitted to [facility] behavioral health unit due to suicide attempt - does not endorse SI here - continuous sitter for agitation (not needed for SI anymore) - psych consulted, recs: - no psychiatric contraindication to discharge, Recommend discharge to the rehab facility like [facility],recommend giving trazodone 100 mg QHS at discharge and follow up outpatient, Increase Trazodone to 100 mg tablet PO, consider initiating Naltrexone at follow up psychiatric examinations,Precautions: 1:1 Sitter, Elopement, Fall ICIAN ASSISTANT * Assessment & Plan Note - Gricelda Blancas MD - 06/26/2025 4:46 PM CSTAssociated Problem(s): Hypophosphatemia Plan: Replete electrolytes as needed ICIAN ASSISTANT * Assessment & Plan Note - Gricelda Blancas MD - 06/26/2025 4:46 PM CSTAssociated Problem(s): Hypokalemia Plan: Replete electrolytes as needed ICIAN ASSISTANT * Assessment & Plan Note - Gricelda Blancas MD - 06/26/2025 4:46 PM CSTAssociated Problem(s): Hypomagnesemia Plan: Replete electrolytes as needed ICIAN ASSISTANT * Assessment & Plan Note - Gricelda Blancas MD - 06/26/2025 4:46 PM CSTAssociated Problem(s): Vitamin D deficiency Plan: Vitamin D (ergocalciferol) 1.25 MG capsule containing 50,000 units ICIAN ASSISTANT * Assessment & Plan Note - Gricelda Blancas MD - 06/26/2025 4:46 PM CSTAssociated Problem(s): Swelling of joint of right knee Right knee is joint swelling improved. No localized tenderness, induration, erythema, pain, and skin changes noted. Xray shows effusion of the right knee. Orthopedic surgery consulted and arthrocentesis obtained, results unremarkable thus far. Plan: continue to follow arthrocentesis results Orthopedic surgery recommendations: No acute orthopedic surgical intervention indicated Weight bearing Status: RUE WBAT Diet: OK from ortho perspective Antibiotics: none indicated Pain Control Recommend PT/OT when able to work towards improved range of motion specifically terminal end pointsof flexion Patient was counseled to the nature of their diagnosis and demonstrated understanding. Questions solicited and answered. Orthopedic surgery has signed off. ICIAN ASSISTANT * Assessment & Plan Note - Liliya Tse MD - 06/25/2025 11:00 AM CSTAssociated Problem(s): Alcohol use disorder - 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 vs nutritional deficiency vs wernicke encephalopathy vs muscular dystrophy vs infection - acute exacerbation likely due to increase in alcohol consumption - IV thiamine 500 mg TID given at OSH - workup includes UA, TSH, B1, B12, folate, MMA, vit D, CK blood - started on IV thiamine here with Neurology consult in AM PLAN: - Folic acid 1 mg daily - Thiamine daily - CIWA protocol discontinued, Lorazepam 2 mg PRN discontinued - F/u on Labs ICIAN ASSISTANT * Assessment & Plan Note - Liliya Tse MD - 06/25/2025 11:00 AM CSTAssociated Problem(s): Weakness - 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 vs nutritional deficiency vs wernicke encephalopathy vs muscular dystrophy vs infection - acute exacerbation likely due to increase in alcohol consumption - IV thiamine 500 mg TID given at OSH - workup includes UA, TSH, B1, B12, folate, MMA, vit D, CK blood - started on IV thiamine here with Neurology consult in AM PLAN: - Folic acid 1 mg daily - Thiamine daily - CIWA protocol discontinued, Lorazepam 2 mg PRN discontinued - F/u on Labs ICIAN ASSISTANT * Assessment & Plan Note - Liliya Tse MD - 06/25/2025 11:00 AM CSTAssociated Problem(s): Primary hypertension - elevated on admission 170s SBP - on metoprolol 25 and losartan 50 which was held due to kobi Plan: - continue amlodipine 5 mg ICIAN ASSISTANT * Assessment & Plan Note - Liliya Tse MD - 06/25/2025 11:00 AM CSTAssociated Problem(s): Suicidal behavior with attempted self-injury (HCC) - [facility] due to [facility] attempt - does not endorse SI here - continuous sitter for agitation (not needed for SI anymore) - psych consulted, recs: - no psychiatric contraindication to discharge, Recommend discharge to the rehab facility like [facility],recommend giving trazodone 100 mg QHS at discharge and follow up outpatient, Increase Trazodone to 100 mg tablet PO, consider initiating Naltrexone at follow up psychiatric examinations,Precautions: 1:1 Sitter, Elopement, Fall ICIAN ASSISTANT * Assessment & Plan Note - Liliya Tse MD - 06/25/2025 11:00 AM CSTAssociated Problem(s): Depression - admitted to [facility] behavioral health unit due to suicide attempt - does not endorse SI here - continuous sitter for agitation (not needed for SI anymore) - psych consulted, recs: - no psychiatric contraindication to discharge, Recommend discharge to the rehab facility like [facility],recommend giving trazodone 100 mg QHS at discharge and follow up outpatient, Increase Trazodone to 100 mg tablet PO, consider initiating Naltrexone at follow up psychiatric examinations,Precautions: 1:1 Sitter, Elopement, Fall ICIAN ASSISTANT * Assessment & Plan Note - Liliya Tse MD - 06/25/2025 11:00 AM CSTAssociated Problem(s): Anxiety - admitted to [facility] behavioral health unit due to suicide attempt - does not endorse SI here - continuous sitter for agitation (not needed for SI anymore) - psych consulted, recs: - no psychiatric contraindication to discharge, Recommend discharge to the rehab facility like [facility],recommend giving trazodone 100 mg QHS at discharge and follow up outpatient, Increase Trazodone to 100 mg tablet PO, consider initiating Naltrexone at follow up psychiatric examinations,Precautions: 1:1 Sitter, Elopement, Fall ICIAN ASSISTANT * Assessment & Plan Note - Liliya Tse MD - 06/25/2025 11:00 AM CSTAssociated Problem(s): Hypophosphatemia Plan: Replete electrolytes as needed ICIAN ASSISTANT * Assessment & Plan Note - Liliya Tse MD - 06/25/2025 11:00 AM CSTAssociated Problem(s): Hypokalemia Plan: Replete electrolytes as needed ICIAN ASSISTANT * Assessment & Plan Note - Liliya Tse MD - 06/25/2025 11:00 AM CSTAssociated Problem(s): Hypomagnesemia Plan: Replete electrolytes as needed ICIAN ASSISTANT * Assessment & Plan Note - Liliya Tse MD - 06/25/2025 11:00 AM CSTAssociated Problem(s): Vitamin D deficiency Plan: Vitamin D (ergocalciferol) 1.25 MG capsule containing 50,000 units ICIAN ASSISTANT * Assessment & Plan Note - Liliya Tse MD - 06/25/2025 11:00 AM CSTAssociated Problem(s): Swelling of joint of right knee Right knee is joint swelling improved. No localized tenderness, induration, erythema, pain, and skin changes noted. Xray shows effusion of the right knee. Orthopedic surgery consulted and arthrocentesis obtained, results unremarkable thus far. Plan: continue to follow arthrocentesis results Orthopedic surgery recommendations: No acute orthopedic surgical intervention indicated Weight bearing Status: RUE WBAT Diet: OK from ortho perspective Antibiotics: none indicated Pain Control Recommend PT/OT when able to work towards improved range of motion specifically terminal end pointsof flexion Patient was counseled to the nature of their diagnosis and demonstrated understanding. Questions solicited and answered. Orthopedic surgery has signed off. ICIAN ASSISTANT * Assessment & Plan Note - Kieran Feldman MD - 2025 2:03 PM PHYSICIAN ASSISTANT Associated Problem(s): Suicidal behavior with attempted self-injury (HCC) - admitted to [facility] behavioral health unit due to suicide attempt - does not endorse SI here - continuous sitter - psych consult Psychiatry recommendations (06/23/2025): Disposition: At the time of assessment, the patient is not medically stable. Psychiatry will reassess disposition when the patient is medically stable. Legal status is voluntary. Should the patient choose to leave the hospital, please page psychiatry for consideration of an involuntary hold. # We plan to discuss primary team recommendations according to disposition plan. Psychiatric Medications: Scheduled Psych Meds: None. Psych PRNs we recommend while at [facility]: None. Precautions: Delirium, Suicide, 1:1 Sitter, Elopement, Fall, Withdrawal Psychosocial needs: We greatly appreciate social work's support with discharge planning. - Delirium, Suicide, 1:1 Sitter, Elopement, Fall, Withdrawal 2025: Per psychiatry, schedule trazodone 50 mg QHS at discharge and follow up outpatient. Psychiatry team agrees with PT's recommendation of patient being discharged to SNF. ICIAN ASSISTANT ICIAN ASSISTANT * Assessment & Plan Note - Kieran Feldman MD - 2025 2:03 PM PHYSICIAN ASSISTANT Associated Problem(s): Depression - admitted to [facility] behavioral health unit due to suicide attempt - does not endorse SI here - continuous sitter - psych consult Psychiatry recommendations (06/23/2025): Disposition: At the time of assessment, the patient is not medically stable. Psychiatry will reassess disposition when the patient is medically stable. Legal status is voluntary. Should the patient choose to leave the hospital, please page psychiatry for consideration of an involuntary hold. # We plan to discuss primary team recommendations according to disposition plan. Psychiatric Medications: Scheduled Psych Meds: None. Psych PRNs we recommend while at [facility]: None. Precautions: Delirium, Suicide, 1:1 Sitter, Elopement, Fall, Withdrawal Psychosocial needs: We greatly appreciate social work's support with discharge planning. - Delirium, Suicide, 1:1 Sitter, Elopement, Fall, Withdrawal 2025: Per psychiatry, schedule trazodone 50 mg QHS at discharge and follow up outpatient. Psychiatry team agrees with PT's recommendation of patient being discharged to SNF. ICIAN ASSISTANT ICIAN ASSISTANT * Assessment & Plan Note - Kieran Feldman MD - 2025 2:03 PM PHYSICIAN ASSISTANT Associated Problem(s): Anxiety - admitted to [facility] behavioral health unit due to suicide attempt - does not endorse SI here - continuous sitter - psych consult Psychiatry recommendations (06/23/2025): Disposition: At the time of assessment, the patient is not medically stable. Psychiatry will reassess disposition when the patient is medically stable. Legal status is voluntary. Should the patient choose to leave the hospital, please page psychiatry for consideration of an involuntary hold. # We plan to discuss primary team recommendations according to disposition plan. Psychiatric Medications: Scheduled Psych Meds: None. Psych PRNs we recommend while at [facility]: None. Precautions: Delirium, Suicide, 1:1 Sitter, Elopement, Fall, Withdrawal Psychosocial needs: We greatly appreciate social work's support with discharge planning. - Delirium, Suicide, 1:1 Sitter, Elopement, Fall, Withdrawal 2025: Per psychiatry, schedule trazodone 50 mg QHS at discharge and follow up outpatient. Psychiatry team agrees with PT's recommendation of patient being discharged to SNF. ICIAN ASSISTANT ICIAN ASSISTANT * Assessment & Plan Note - Kieran Feldman MD - 2025 2:03 PM PHYSICIAN ASSISTANT Associated Problem(s): Swelling of joint of right knee Right knee is joint swollen. No localized tenderness, induration, erythema, pain, and skin changes noted. Xray shows effusion of the right knee. Plan: Orthopedic surgery consulted. CT Orthopedic surgery recommendations: No acute orthopedic surgical intervention indicated Weight bearing Status: RUE WBAT Diet: OK from ortho perspective Antibiotics: none indicated Pain Control Recommend PT/OT when able to work towards improved range of motion specifically terminal end pointsof flexion Patient was counseled to the nature of their diagnosis and demonstrated understanding. Questions solicited and answered. 2025: Arthrocentesis of the right knee joint was performed and 60 ml fluid collected was sentfor laboratory examination. Per Orthopedic surgery, no acute interventions needed this time. Orthopedic surgery has signed off. ICIAN ASSISTANT ICIAN ASSISTANT * Assessment & Plan Note - Kieran Feldman MD - 2025 7:57 AM PHYSICIAN ASSISTANT Associated Problem(s): Alcohol use disorder - 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 vs nutritional deficiency vs wernicke encephalopathy vs muscular dystrophy vs infection - acute exacerbation likely due to increase in alcohol consumption - IV thiamine 500 mg TID given at OSH - workup includes UA, TSH, B1, B12, folate, MMA, vit D, CK blood - started on IV thiamine here with Neurology consult in AM PLAN: - Lorazepam 2 mg PRN discontinued - Folic acid 1 mg - Thiamine - [facility] protocol discontinued - F/u on Labs ICIAN ASSISTANT * Assessment & Plan Note - Kieran Feldman MD - 2025 7:57 AM PHYSICIAN ASSISTANT Associated Problem(s): Weakness - 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 vs nutritional deficiency vs wernicke encephalopathy vs muscular dystrophy vs infection - acute exacerbation likely due to increase in alcohol consumption - IV thiamine 500 mg TID given at OSH - workup includes UA, TSH, B1, B12, folate, MMA, vit D, CK blood - started on IV thiamine here with Neurology consult in AM PLAN: - Lorazepam 2 mg PRN discontinued - Folic acid 1 mg - Thiamine - [facility] protocol discontinued - F/u on Labs ICIAN ASSISTANT * Assessment & Plan Note - Kieran Feldman MD - 2025 7:57 AM PHYSICIAN ASSISTANT Associated Problem(s): Primary hypertension - elevated on admission 170s SBP - on metoprolol 25 and losartan 50 which was held due to kobi Plan: - started on amlodipine 5 mg ICIAN ASSISTANT * Assessment & Plan Note - Kieran Feldman MD - 2025 7:57 AM PHYSICIAN ASSISTANT Associated Problem(s): Hypophosphatemia Plan: Replete electrolytes as needed ICIAN ASSISTANT * Assessment & Plan Note - Kieran Feldman MD - 2025 7:57 AM PHYSICIAN ASSISTANT Associated Problem(s): Hypokalemia Plan: Replete electrolytes as needed ICIAN ASSISTANT * Assessment & Plan Note - Kieran Feldman MD - 2025 7:57 AM PHYSICIAN ASSISTANT Associated Problem(s): Hypomagnesemia Plan: Replete electrolytes as needed ICIAN ASSISTANT * Assessment & Plan Note - Kieran Feldman MD - 2025 7:57 AM PHYSICIAN ASSISTANT Associated Problem(s): Vitamin D deficiency Plan: Vitamin D (ergocalciferol) 1.25 MG capsule containing 50,000 units ICIAN ASSISTANT * Assessment & Plan Note - Kieran Feldman MD - 06/23/2025 2:03 PM PHYSICIAN ASSISTANT Associated Problem(s): Swelling of joint of right knee Right knee is joint swollen. No localized tenderness, induration, erythema, pain, and skin changes noted. Xray shows effusion of the right knee. Plan: Orthopedic surgery consulted. CTM ICIAN ASSISTANT ICIAN ASSISTANT * Assessment & Plan Note - Kieran Feldman MD - 06/23/2025 2:02 PM PHYSICIAN ASSISTANT Associated Problem(s): Alcohol use disorder - 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 vs nutritional deficiency vs wernicke encephalopathy vs muscular dystrophy vs infection - acute exacerbation likely due to increase in alcohol consumption - IV thiamine 500 mg TID given at OSH - workup includes UA, TSH, B1, B12, folate, MMA, vit D, CK blood - started on IV thiamine here with Neurology consult in AM PLAN: - Lorazepam 2 mg PRN discontinued - Folic acid 1 mg - Thiamine - [facility] protocol discontinued - F/u on Labs ICIAN ASSISTANT * Assessment & Plan Note - Kieran Feldman MD - 06/23/2025 2:02 PM PHYSICIAN ASSISTANT Associated Problem(s): Weakness - 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 vs nutritional deficiency vs wernicke encephalopathy vs muscular dystrophy vs infection - acute exacerbation likely due to increase in alcohol consumption - IV thiamine 500 mg TID given at OSH - workup includes UA, TSH, B1, B12, folate, MMA, vit D, CK blood - started on IV thiamine here with Neurology consult in AM PLAN: - Lorazepam 2 mg PRN discontinued - Folic acid 1 mg - Thiamine - [facility] protocol discontinued - F/u on Labs ICIAN ASSISTANT * Assessment & Plan Note - Kieran eFldman MD - 06/23/2025 2:02 PM PHYSICIAN ASSISTANT Associated Problem(s): Primary hypertension - elevated on admission 170s SBP - on metoprolol 25 and losartan 50 which was held due to kobi Plan: - started on amlodipine 5 mg ICIAN ASSISTANT * Assessment & Plan Note - Kieran Feldman MD - 06/23/2025 2:02 PM PHYSICIAN ASSISTANT Associated Problem(s): Suicidal behavior with attempted self-injury (HCC) - admitted to [facility] behavioral health unit due to suicide attempt - does not endorse SI here - continuous sitter - psych consult Psychiatry recommendations (06/23/2025): Disposition: At the time of assessment, the patient is not medically stable. Psychiatry will reassess disposition when the patient is medically stable. Legal status is voluntary. Should the patient choose to leave the hospital, please page psychiatry for consideration of an involuntary hold. # We plan to discuss primary team recommendations according to disposition plan. # Waiting ECG results Psychiatric Medications: Scheduled Psych Meds: None. Psych PRNs we recommend while at [facility]: None. Precautions: Delirium, Suicide, 1:1 Sitter, Elopement, Fall, Withdrawal Psychosocial needs: We greatly appreciate social work's support with discharge planning. - Delirium, Suicide, 1:1 Sitter, Elopement, Fall, Withdrawal ICIAN ASSISTANT * Assessment & Plan Note - Kieran Feldman MD - 06/23/2025 2:02 PM PHYSICIAN ASSISTANT Associated Problem(s): Depression - admitted to [facility] behavioral health unit due to suicide attempt - does not endorse SI here - continuous sitter - psych consult Psychiatry recommendations (06/23/2025): Disposition: At the time of assessment, the patient is not medically stable. Psychiatry will reassess disposition when the patient is medically stable. Legal status is voluntary. Should the patient choose to leave the hospital, please page psychiatry for consideration of an involuntary hold. # We plan to discuss primary team recommendations according to disposition plan. # Waiting ECG results Psychiatric Medications: Scheduled Psych Meds: None. Psych PRNs we recommend while at [facility]: None. Precautions: Delirium, Suicide, 1:1 Sitter, Elopement, Fall, Withdrawal Psychosocial needs: We greatly appreciate social work's support with discharge planning. - Delirium, Suicide, 1:1 Sitter, Elopement, Fall, Withdrawal ICIAN ASSISTANT * Assessment & Plan Note - Kieran Feldman MD - 06/23/2025 2:02 PM PHYSICIAN ASSISTANT Associated Problem(s): Anxiety - admitted to [facility] behavioral health unit due to suicide attempt - does not endorse SI here - continuous sitter - psych consult Psychiatry recommendations (06/23/2025): Disposition: At the time of assessment, the patient is not medically stable. Psychiatry will reassess disposition when the patient is medically stable. Legal status is voluntary. Should the patient choose to leave the hospital, please page psychiatry for consideration of an involuntary hold. # We plan to discuss primary team recommendations according to disposition plan. # Waiting ECG results Psychiatric Medications: Scheduled Psych Meds: None. Psych PRNs we recommend while at [facility]: None. Precautions: Delirium, Suicide, 1:1 Sitter, Elopement, Fall, Withdrawal Psychosocial needs: We greatly appreciate social work's support with discharge planning. - Delirium, Suicide, 1:1 Sitter, Elopement, Fall, Withdrawal ICIAN ASSISTANT * Assessment & Plan Note - Kieran Feldman MD - 06/23/2025 2:02 PM PHYSICIAN ASSISTANT Associated Problem(s): Hypophosphatemia Plan: Replete electrolytes as needed ICIAN ASSISTANT * Assessment & Plan Note - Kieran Feldman MD - 06/23/2025 2:02 PM PHYSICIAN ASSISTANT Associated Problem(s): Hypokalemia Plan: Replete electrolytes as needed ICIAN ASSISTANT * Assessment & Plan Note - Kieran Feldman MD - 06/23/2025 2:02 PM PHYSICIAN ASSISTANT Associated Problem(s): Hypomagnesemia Plan: Replete electrolytes as needed ICIAN ASSISTANT * Assessment & Plan Note - Kieran Feldman MD - 06/23/2025 2:02 PM PHYSICIAN ASSISTANT Associated Problem(s): Vitamin D deficiency Plan: Vitamin D (ergocalciferol) 1.25 MG capsule containing 50,000 units ICIAN ASSISTANT * Assessment & Plan Note - Kieran Feldman MD - 06/22/2025 6:27 PM PHYSICIAN ASSISTANT Associated Problem(s): Primary hypertension - elevated on admission 170s SBP - on metoprolol 25 and losartan 50 which was held due to koib Plan: - started on amlodipine 5 mg ICIAN ASSISTANT * Assessment & Plan Note - Kieran Feldman MD - 06/22/2025 6:27 PM PHYSICIAN ASSISTANT Associated Problem(s): Suicidal behavior with attempted self-injury (HCC) - admitted to [facility] behavioral health unit due to suicide attempt - does not endorse SI here - continuous sitter - psych consult ICIAN ASSISTANT * Assessment & Plan Note - Kieran Feldman MD - 06/22/2025 6:27 PM PHYSICIAN ASSISTANT Associated Problem(s): Depression - admitted to [facility] behavioral health unit due to suicide attempt - does not endorse SI here - continuous sitter - psych consult ICIAN ASSISTANT * Assessment & Plan Note - Kieran Feldman MD - 06/22/2025 6:27 PM PHYSICIAN ASSISTANT Associated Problem(s): Anxiety - admitted to [facility] behavioral health unit due to suicide attempt - does not endorse SI here - continuous sitter - psych consult ICIAN ASSISTANT * Assessment & Plan Note - Kieran Feldman MD - 06/22/2025 6:27 PM PHYSICIAN ASSISTANT Associated Problem(s): Alcohol use disorder - 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 vs nutritional deficiency vs wernicke encephalopathy vs muscular dystrophy vs infection - acute exacerbation likely due to increase in alcohol consumption - IV thiamine 500 mg TID given at OSH - workup includes UA, TSH, B1, B12, folate, MMA, vit D, CK blood - started on IV thiamine here with Neurology consult in AM PLAN: - Lorazepam 2 mg PRN discontinued - Folic acid 1 mg - Thiamine - [facility] protocol discontinued - F/u on Labs ICIAN ASSISTANT * Assessment & Plan Note - Kieran Feldman MD - 06/22/2025 6:27 PM PHYSICIAN ASSISTANT Associated Problem(s): Weakness - 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 vs nutritional deficiency vs wernicke encephalopathy vs muscular dystrophy vs infection - acute exacerbation likely due to increase in alcohol consumption - IV thiamine 500 mg TID given at OSH - workup includes UA, TSH, B1, B12, folate, MMA, vit D, CK blood - started on IV thiamine here with Neurology consult in AM PLAN: - Lorazepam 2 mg PRN discontinued - Folic acid 1 mg - Thiamine - [facility] protocol discontinued - F/u on Labs ICIAN ASSISTANT * Assessment & Plan Note - Kieran Feldman MD - 06/21/2025 11:50 AM PHYSICIAN ASSISTANT Associated Problem(s): Alcohol use disorder - 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 vs nutritional deficiency vs wernicke encephalopathy vs muscular dystrophy vs infection - acute exacerbation likely due to increase in alcohol consumption - IV thiamine 500 mg TID given at OSH - workup includes UA, TSH, B1, B12, folate, MMA, vit D, CK blood - started on IV thiamine here with Neurology consult in AM PLAN: - Lorazepam 2 mg PRN - Folic acid 1 mg - Thiamine 100 mg - [facility] protocol - F/u on Labs ICIAN ASSISTANT ICIAN ASSISTANT * Assessment & Plan Note - Kieran Feldman MD - 06/21/2025 11:50 AM PHYSICIAN ASSISTANT Associated Problem(s): Weakness - 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 vs nutritional deficiency vs wernicke encephalopathy vs muscular dystrophy vs infection - acute exacerbation likely due to increase in alcohol consumption - IV thiamine 500 mg TID given at OSH - workup includes UA, TSH, B1, B12, folate, MMA, vit D, CK blood - started on IV thiamine here with Neurology consult in AM PLAN: - Lorazepam 2 mg PRN - Folic acid 1 mg - Thiamine 100 mg - [facility] protocol - F/u on Labs ICIAN ASSISTANT ICIAN ASSISTANT * Assessment & Plan Note - Kieran Feldman MD - 06/21/2025 11:50 AM PHYSICIAN ASSISTANT Associated Problem(s): Primary hypertension - elevated on admission 170s SBP - on metoprolol 25 and losartan 50 which was held due to kobi Plan: - started on amlodipine 5 mg here ICIAN ASSISTANT ICIAN ASSISTANT * Assessment & Plan Note - Kieran Feldman MD - 06/21/2025 11:50 AM PHYSICIAN ASSISTANT Associated Problem(s): Suicidal behavior with attempted self-injury (HCC) - admitted to [facility] behavioral health unit due to suicide attempt - does not endorse SI here - continuous sitter - psych consult in AM ICIAN ASSISTANT ICIAN ASSISTANT * Assessment & Plan Note - Kieran Feldman MD - 06/21/2025 11:50 AM PHYSICIAN ASSISTANT Associated Problem(s): Depression - admitted to [facility] behavioral health unit due to suicide attempt - does not endorse SI here - continuous sitter - psych consult in AM ICIAN ASSISTANT ICIAN ASSISTANT * Assessment & Plan Note - Kieran Feldman MD - 06/21/2025 11:50 AM PHYSICIAN ASSISTANT Associated Problem(s): Anxiety - admitted to [facility] behavioral health unit due to suicide attempt - does not endorse SI here - continuous sitter - psych consult in AM ICIAN ASSISTANT ICIAN ASSISTANT * Assessment & Plan Note - Radha Johnson MD - 06/21/2025 5:27 AM PHYSICIAN ASSISTANT Associated Problem(s): Primary hypertension - elevated on admission 170s SBP - on metoprolol 25 and losartan 50 which was held due to kobi - started on amlodipine 5 here ICIAN ASSISTANT * Assessment & Plan Note - Radha Johnson MD - 06/21/2025 1:56 AM CDT Associated Problem(s): Suicidal behavior with attempted self-injury (HCC) - admitted to [facility] behavioral health unit due to suicide attempt - does not endorse SI here - continuous sitter - psych consult in AM * Assessment & Plan Note - Radha Johnson MD - 06/21/2025 1:56 AM CDT Associated Problem(s): Depression - admitted to [facility] behavioral health unit due to suicide attempt - does not endorse SI here - continuous sitter - psych consult in AM * Assessment & Plan Note - Radha Johnson MD - 06/21/2025 1:56 AM CDT Associated Problem(s): Anxiety - admitted to [facility] behavioral health unit due to suicide attempt - does not endorse SI here - continuous sitter - psych consult in AM * Assessment & Plan Note - Radha Johnson MD - 06/21/2025 1:03 AM CDT Associated Problem(s): Alcohol use disorder - 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 vs nutritional deficiency vs wernicke encephalopathy vs muscular dystrophy vs infection - acute exacerbation likely due to increase in alcohol consumption - IV thiamine 500 mg TID at OSH - workup includes UA, TSH, B1, B12, folate, MMA, vit D, CK blood - started on IV thiamine here with Neurology consult in AM PLAN: - fu labs - neurology consult in AM * Assessment & Plan Note - Radha Johnson MD - 06/21/2025 1:03 AM CDT Associated Problem(s): Weakness - 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 vs nutritional deficiency vs wernicke encephalopathy vs muscular dystrophy vs infection - acute exacerbation likely due to increase in alcohol consumption - IV thiamine 500 mg TID at OSH - workup includes UA, TSH, B1, B12, folate, MMA, vit D, CK blood - started on IV thiamine here with Neurology consult in AM PLAN: - fu labs - neurology consult in AM documented in this encounter Administered Medications Inactive Administered Medications - up to 3 most recent administrations Medication Order MAR Action Action Date Dose Rate Site 0.9% NaCl injection 1-10 mL 1-10 mL, Intracatheter, PRN, other, peripheral line flush, Starting on 06/20/25 at 2233, Until Sun07/01/25 at 2252, Flush peripheral IV catheter with 1-10 mL of normal saline before and after medications and prn to clear blood from the line or to verify patency. 0.9% NaCl injection 3 mL 3 mL, Intracatheter, EVERY 8 HOURS, First dose on 06/20/25 at 2315, Until Discontinued, Flush peripheral IV catheter with 3 mL of normal saline every 8 hours. $ Given 07/01/2025 2:10 PM PHYSICIAN ASSISTANT 3 mL $ Given 07/01/2025 4:11 AM PHYSICIAN ASSISTANT 3 mL $ Given 06/30/2025 8:11 PM PHYSICIAN ASSISTANT 3 mL acetaminophen (Tylenol) tablet 500 mg 500 mg, Oral, EVERY 6 HOURS PRN, mild pain, moderate pain, Starting on 06/22/25 at 1054, Until Sun07/01/25 at 2252, Patient preference for lesser PRN pain meds may be honored when the patient requests a less strong medication, a lower dose, or a less intrusive route of administration when the lesser drug, dose and route have been ordered for the patient. This patient request must be documented in the MAR. If both oral and IV options are ordered for the same pain severity, give oral first unless patient cannot tolerate oral intake. $ Given 2025 9:59 PM PHYSICIAN ASSISTANT 500 mg $ Given 06/23/2025 10:14 AM PHYSICIAN ASSISTANT 500 mg $ Given 06/22/2025 11:17 AM PHYSICIAN ASSISTANT 500 mg allopurinol (Zyloprim) tablet 100 mg 100 mg, Oral, DAILY AFTER BREAKFAST, First dose on Sun06/25/25 at 1115, Until Discontinued $ Given 07/01/2025 7:58 AM PHYSICIAN ASSISTANT 100 mg $ Given 06/30/2025 8:29 AM PHYSICIAN ASSISTANT 100 mg $ Given 06/29/2025 10:31 AM PHYSICIAN ASSISTANT 100 mg amLODIPine (Norvasc) tablet 5 mg 5 mg, Oral, DAILY, First dose on Sun06/21/25 at 0530, Until Discontinued $ Given 07/01/2025 7:58 AM PHYSICIAN ASSISTANT 5 mg $ Given 06/30/2025 8:29 AM PHYSICIAN ASSISTANT 5 mg $ Given 06/29/2025 10:32 AM PHYSICIAN ASSISTANT 5 mg colchicine tablet 0.6 mg 0.6 mg, Oral, 2 TIMES DAILY, First dose on Sun06/23/25 at 1300, Until DiscontinuedIndications:Gout $ Given 06/25/2025 9:42 AM PHYSICIAN ASSISTANT 0.6 mg $ Given 2025 10:00 PM PHYSICIAN ASSISTANT 0.6 mg $ Given 2025 8:16 AM PHYSICIAN ASSISTANT 0.6 mg colchicine tablet 0.6 mg 0.6 mg, Oral, 2 TIMES DAILY, 9 doses, First dose (after last modification) on Sun06/25/25 at 2100, Last dose on Sun06/29/25 at 2100Indications:Gout $ Given 06/29/2025 8:19 PM PHYSICIAN ASSISTANT 0.6 mg $ Given 06/29/2025 10:31 AM PHYSICIAN ASSISTANT 0.6 mg $ Given 06/28/2025 8:36 PM PHYSICIAN ASSISTANT 0.6 mg colchicine tablet 0.6 mg 0.6 mg, Oral, DAILY, 30 doses, First dose on Sun06/30/25 at 0900, Last dose on Sun07/29/25 at 0900 $ Given 07/01/2025 7:59 AM PHYSICIAN ASSISTANT 0.6 mg $ Given 06/30/2025 8:29 AM PHYSICIAN ASSISTANT 0.6 mg colchicine tablet 1.2 mg 1.2 mg, Oral, ONCE, 1 dose, On Sun06/23/25 at 1200Indications:Gout $ Given 06/23/2025 1:44 PM PHYSICIAN ASSISTANT 1.2 mg enoxaparin (Lovenox) injection 40 mg 40 mg, Subcutaneous, DAILY, First dose on Sun06/26/25 at 1730, Until Discontinued, (for prefilled syringes) do not expel air bubble from the syringe prior to the injection Remind Patient to not rub injection site. Could cause hematoma. $ Given 07/01/2025 7:58 AM PHYSICIAN ASSISTANT 40 mg Abd Right Lower Quad rant $ Given 06/30/2025 8:29 AM PHYSICIAN ASSISTANT 40 mg Ab d Left Lower Quadrant $ Given 06/29/2025 10:31 AM PHYSICIAN ASSISTANT 40 mg A bd Left Lower Quadrant folic acid (Folvite) tablet 1 mg 1 mg, Oral, DAILY, First dose on Sun06/21/25 at 0900, Until Discontinued $ Given 07/01/2025 7:59 AM PHYSICIAN ASSISTANT 1 mg $ Given 06/30/2025 8:29 AM PHYSICIAN ASSISTANT 1 mg $ Given 06/29/2025 10:31 AM PHYSICIAN ASSISTANT 1 mg haloperidol (Haldol) tablet 3 mg 3 mg, Oral, AT BEDTIME, First dose (after last modification) on Sun06/29/25 at 2100, Until Discontinued $ Given 06/30/2025 8:10 PM PHYSICIAN ASSISTANT 3 mg $ Given 06/29/2025 8:19 PM PHYSICIAN ASSISTANT 3 mg haloperidol lactate (Haldol) injection 2 mg 2 mg, Intravenous, ONCE, 1 dose, On Sun06/25/25 at 1715 $ Given 06/25/2025 5:16 PM PHYSICIAN ASSISTANT 2 mg haloperidol lactate (Haldol) injection 2 mg 2 mg, Intramuscular, EVERY 6 HOURS PRN, agitation, Starting on Sun06/26/25 at 1644, Until Sun06/29/25 at 1327 $ Given 06/26/2025 7:23 PM PHYSICIAN ASSISTANT 2 mg Right Dorsogluteal haloperidol lactate (Haldol) injection ADS Med 1 dose, Starting on Sun06/25/25 at 1713, Until Sun06/25/25 at 1716, Created by franci hardin hydrOXYzine HCl (Atarax) tablet 25 mg 25 mg, Oral, Once, 1 dose, On Sun06/25/25 at 1615 $ Given 06/25/2025 4:13 PM PHYSICIAN ASSISTANT 25 mg labetalol (Normodyne; Trandate) injection 10 mg 10 mg, Intravenous, ONCE, 1 dose, On Sun06/21/25 at 0600, Max IV dose is 300mg/24 hours. $ Given 06/21/2025 5:46 AM PHYSICIAN ASSISTANT 10 mg LORazepam (Ativan) tablet 1 mg 1 mg, Oral, EVERY 2 HOURS PRN, Withdrawal Symptoms; CIWA-Ar 6-10, Starting on Sun06/20/25 at 2301, Until Sun06/22/25 at 1159 $ Given 06/21/2025 6:11 PM PHYSICIAN ASSISTANT 1 mg magnesium sulfate 4 g in 100 mL bolus 4 g, at 25 mL/hr, Administer over 240 Minutes, Intravenous, ONCE, 1 dose, On Sun06/22/25 at 1330, Infuse at 1 gm/hr $ New Bag/Syringe 06/22/2025 5:57 PM PHYSICIAN ASSISTANT 4 g 25 mL/hr multiple vitamins with minerals tablet 1 tablet 1 tablet, Oral, DAILY, First dose on Sun06/21/25 at 0900, Until Discontinued, . WASTE DISPOSAL INSTRUCTIONS: Black Bin Disposal required. $ Given 07/01/2025 7:59 AM PHYSICIAN ASSISTANT 1 tablet $ Given 06/30/2025 8:29 AM PHYSICIAN ASSISTANT 1 tablet $ Given 06/29/2025 10:31 AM PHYSICIAN ASSISTANT 1 tablet potassium chloride ER (Klor-Con M) tablet 40 mEq 40 mEq, Oral, 3 TIMES DAILY, 3 doses, First dose (after last modification) on Sun06/22/25 at 1400, Last dose on Sun06/23/25 at 0900, Do not crush or chew. $ Given 06/23/2025 10:13 AM PHYSICIAN ASSISTANT 40 m Eq $ Given 06/22/2025 8:20 PM PHYSICIAN ASSISTANT 40 mEq $ Given 06/22/2025 2:06 PM PHYSICIAN ASSISTANT 40 mEq potassium chloride ER (Klor-Con M) tablet 40 mEq 40 mEq, Oral, ONCE, 1 dose, On Sun06/30/25 at 0930, Do not crush or chew. $ Given 06/30/2025 9:42 AM PHYSICIAN ASSISTANT 40 mEq thiamine (Vitamin B-1) 500 mg in NaCl IV 0.9 % 50 mL IVPB 500 mg, at 100 mL/hr, Intravenous, 3 TIMES DAILY, 6 doses, First dose on Sun06/22/25 at 1400, Last dose on Sun06/24/25 at 0900, Protect from light $ New Bag/Syringe 2025 9:49 AM PHYSICIAN ASSISTANT 500 mg 100 mL/hr $ New Bag/Syringe 06/23/2025 9:55 PM PHYSICIAN ASSISTANT 500 mg 100 mL /hr $ New Bag/Syringe 06/23/2025 9:24 AM PHYSICIAN ASSISTANT 500 mg 100 mL /hr thiamine (Vitamin B-1) injection 100 mg 100 mg, Intravenous, 3 TIMES DAILY, First dose on 06/21/25 at 0900, Until Discontinued, Administer over 1 to 2 minutes for doses 200 mg or less. $ Given 06/22/2025 11:17 AM PHYSICIAN ASSISTANT 100 mg $ Given 06/21/2025 9:10 PM PHYSICIAN ASSISTANT 100 mg $ Given 06/21/2025 3:32 PM PHYSICIAN ASSISTANT 100 mg traZODone (Desyrel) tablet 100 mg 100 mg, Oral, AT BEDTIME, First dose (after last modification) on Melanie 06/25/25 at 2100, Until Discontinued $ Given 06/26/2025 7:28 PM PHYSICIAN ASSISTANT 100 mg $ Given 06/25/2025 8:40 PM PHYSICIAN ASSISTANT 100 mg traZODone (Desyrel) tablet 100 mg 100 mg, Oral, DAILY AT 1800, First dose (after last modification) on 06/27/25 at 1800, Until Discontinued $ Given 07/01/2025 5:12 PM PHYSICIAN ASSISTANT 100 mg $ Given 06/30/2025 4:32 PM PHYSICIAN ASSISTANT 100 mg $ Given 06/29/2025 5:00 PM PHYSICIAN ASSISTANT 100 mg traZODone (Desyrel) tablet 50 mg 50 mg, Oral, AT BEDTIME, First dose on Sun06/24/25 at 2100, Until Discontinued $ Given 2025 10:00 PM PHYSICIAN ASSISTANT 50 mg vitamin D (ergocalciferol) (Drisdol) 1.25 MG (66396 UT) capsule 50,000 Units 50,000 Units, Oral, EVERY 7 DAYS, 6 doses, First dose on Sun06/22/25 at 1930, Last dose on Sun07/27/25 at 0900, Do not crush or chew. $ Given 06/29/2025 10:32 AM PHYSICIAN ASSISTANT 50,000 Units $ Given 06/22/2025 8:20 PM PHYSICIAN ASSISTANT 50,000 Units documented in this encounter Active and Recently Administered Medications Times are shown in PHYSICIAN ASSISTANT. Scheduled Medication Order 06/29/2025 06/30/2025 07/01/2025 0.9% NaCl injection 3 mL(Linked Group 1) 3 mL, Intracatheter, EVERY 8 HOURS, First dose on 06/20/25 at 2315, Until Discontinued, Flush peripheral IV catheter with 3 mL of normal saline every 8 hours. 0429 ($ Given - Provider: Tika Roland RN)1351 ($ Given - Provider: Oralia Jason RN)2020 ($ Given - Provider: Marisol Chong RN) 050 ($ Given - Provider: Marisol Chong, RN)135 ($ Given - Provider: Oralia Jason RN)2010 ($ Given - Provider: Marisol Chong RN) 0411 ($ Given - Provider: Marisol Chong RN)1410 ($ Given - Provider: Oralia Jason RN) allopurinol (Zyloprim) tablet 100 mg 100 mg, Oral, DAILY AFTER BREAKFAST, First dose on Melanie 06/25/25 at 1115, Until Discontinued 1031 ($ Given - Provider: Oralia Jason RN) 0829 ($ Given - Provider: Oralia Jason RN) 0758 ($ Given - Provider: Oralia Jason RN) amLODIPine (Norvasc) tablet 5 mg 5 mg, Oral, DAILY, First dose on 06/21/25 at 0530, Until Discontinued 1032 ($ Given - Provider: Oralia Jason RN) 0829 ($ Given - Provider: Oralia Jason RN) 0758 ($ Given - Provider: Oralia Jason RN) colchicine tablet 0.6 mg (COMPLETED)(Linked Group 2) 0.6 mg, Oral, 2 TIMES DAILY, 9 doses, First dose (after last modification) on Melanie 06/25/25 at 2100, Last dose on 06/29/25 at 2100 1031 ($ Given - Provider: Oralia Jason RN)2019 ($ Given - Provider: Marisol Chong RN) colchicine tablet 0.6 mg(Linked Group 2) 0.6 mg, Oral, DAILY, 30 doses, First dose on Sun06/30/25 at 0900, Last dose on Sun07/29/25 at 0900 0829 ($ Given - Provider: Oralia Jason RN) 0759 ($ Given - Provider: Oralia Jason RN) enoxaparin (Lovenox) injection 40 mg 40 mg, Subcutaneous, DAILY, First dose on Sun06/26/25 at 1730, Until Discontinued, (for prefilled syringes) do not expel air bubble from the syringe prior to the injection Remind Patient to not rub injection site. Could cause hematoma. 1031 ($ Given - Provider: Oralia Jason RN) 0829 ($ Given - Provider: Oralia Jason RN) 0758 ($ Given - Provider: Oralia Jason RN) folic acid (Folvite) tablet 1 mg 1 mg, Oral, DAILY, First dose on Sun06/21/25 at 0900, Until Discontinued 1031 ($ Given - Provider: Oralia Jason RN) 0829 ($ Given - Provider: Oralia Jason RN) 0759 ($ Given - Provider: Oralia Jason RN) haloperidol (Haldol) tablet 3 mg 3 mg, Oral, AT BEDTIME, First dose (after last modification) on Sun06/29/25 at 2100, Until Discontinued 2019 ($ Given - Provider: Marisol Chong RN) 2009 ($ Given - Provider: Marisol Chong, AGUILAR) multiple vitamins with minerals tablet 1 tablet 1 tablet, Oral, DAILY, First dose on Sun06/21/25 at 0900, Until Discontinued, . WASTE DISPOSAL INSTRUCTIONS: Black Bin Disposal required. 1031 ($ Given - Provider: Oralia Jason RN) 0829 ($ Given - Provider: Oralia Jason RN) 0759 ($ Given - Provider: Oralia Jason RN) potassium chloride ER (Klor-Con M) tablet 40 mEq (COMPLETED) 40 mEq, Oral, ONCE, 1 dose, On Sun06/30/25 at 0930, Do not crush or chew. 0942 ($ Given - Provider: Oralia Jason RN) traZODone (Desyrel) tablet 100 mg 100 mg, Oral, DAILY AT 1800, First dose (after last modification) on Sun06/27/25 at 1800, Until Discontinued 1700 ($ Given - Provider: Oralia Jason RN) 1632 ($ Given - Provider: Oralia Jason RN) 1712 ($ Given - Provider: Oralia Jason, AGUILAR) vitamin D (ergocalciferol) (Drisdol) 1.25 MG (28624 UT) capsule 50,000 Units 50,000 Units, Oral, EVERY 7 DAYS, 6 doses, First dose on Sun06/22/25 at 1930, Last dose on Sun07/27/25 at 0900, Do not crush or chew. 1032 ($ Given - Provider: Oralia Jason RN) PRN Medication Order 06/29/2025 06/30/2025 07/01/2025 0.9% NaCl injection 1-10 mL(Linked Group 1) 1-10 mL, Intracatheter, PRN, other, peripheral line flush, Starting on 06/20/25 at 2233, Until Sun07/01/25 at 2252, Flush peripheral IV catheter with 1-10 mL of normal saline before and after medications and prn to clear blood from the line or to verify patency. acetaminophen (Tylenol) tablet 500 mg 500 mg, Oral, EVERY 6 HOURS PRN, mild pain, moderate pain, Starting on Sun06/22/25 at 1054, Until Sun07/01/25 at 2252, Patient preference for lesser PRN pain meds may be honored when the patient requests a less strong medication, a lower dose, or a less intrusive route of administration when the lesser drug, dose and route have been ordered for the patient. This patient request must be documented in the MAR. If both oral and IV options are ordered for the same pain severity, give oral first unless patient cannot tolerate oral intake. Linked Groups Order Group 1: SALINE LOCK, INSERT AND MAINTAIN (CANCELED) Routine, CONTINUOUS, Starting on 06/20/25 at 2245, Until Specified, New collection And 0.9% NaCl injection 3 mLJump to med 3 mL, Intracatheter, EVERY 8 HOURS, First dose on 06/20/25 at 2315, Until Discontinued, Flush peripheral IV catheter with 3 mL of normal saline every 8 hours. And 0.9% NaCl injection 1-10 mLJump to med 1-10 mL, Intracatheter, PRN, other, peripheral line flush, Starting on 06/20/25 at 2233, Until Sun07/01/25 at 2252, Flush peripheral IV catheter with 1-10 mL of normal saline before and after medications and prn to clear blood from the line or to verify patency. Group 2: colchicine tablet 0.6 mg (COMPLETED)Jump to med 0.6 mg, Oral, 2 TIMES DAILY, 9 doses, First dose (after last modification) on Melanie 06/25/25 at 2100, Last dose on Sun06/29/25 at 2100 Followed by colchicine tablet 0.6 mgJump to med 0.6 mg, Oral, DAILY, 30 doses, First dose on Sun06/30/25 at 0900, Last dose on Sun07/29/25 at 0900 documented in this encounter
--- OUTSIDE RECORDS SUMMARY | 2025-07-03 07:54 | XMS_ITS | Clinical Summary ---
Author Organization [facility] Address [address] [place] [address] Care Team Providers Care Fibreglass Laminator Name Role Phone Chai Almeida MD Unavailable [phone] Robyn Campa [facility] Primary Care Provider + Allergies Active Allergy Reactions Criticality Noted Date Comments Penicillins Unknown 05/31/2017 Medications indomethacin (INDOCIN) 25 MG capsule Take 1 capsule (25 mg total) by mouth as needed (gout flare up). Active Active Problems Problem Noted Date Diagnosed Date Polyarthritis 07/23/2019 Tinnitus of right ear 09/13/2018 Sensorineural hearing loss 08/06/2017 Overview (09/13/2018): Date Onset: 08/06/2017 Postural dizziness with presyncope 06/04/2017 Panic disorder 01/18/2017 Overview (09/13/2018): Date Onset: 01/18/2017 Alcoholism 04/04/2016 Overview (09/13/2018): Date Onset: 04/04/2016 Anxiety 11/03/2015 Overview (09/13/2018): Date Onset: 04/14/2015 Benign essential HTN 11/03/2015 Overview (09/13/2018): Date Onset: 06/15/2016 Depression 11/03/2015 Overview (09/13/2018): Date Onset: 04/14/2015 Polyarthralgia 06/07/2015 Overview (09/13/2018): Date Onset: 06/07/2015 Lateral epicondylitis 06/07/2015 Overview (10/08/2018): Date Onset: 06/07/2015 Thyroid lump 05/05/2015 Overview (09/13/2018): Date Onset: 05/05/2015 Gout 04/08/2015 Overview (09/13/2018): Date Onset: 04/08/2015 Pain of foot 04/08/2015 Overview (09/13/2018): Date Onset: 04/08/2015 Note: probable gout Date Onset: 05/12/2015 Alcohol abuse 04/24/2012 Asthma 04/24/2012 Encounters Date Type Department Care Team Description 06/17/2025 Telephone [facility] [address] [place] [address] Robyn Campa 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 Establish Care 06/09/2025 12:30 AM CDT - 06/10/2025 9:00 PM CDT Hospital Encounter [facility] Medical/Surgical [address] [address] Luisito Gallagher MD Stein, MD Carmencita Paris Seema, MD Sahi, Robinder S, MD Suicidal Ideation Discharge Disposition: Inpatient Rehab Facility 06/09/2025 Travel from Last 3 Months Family History Medical History Relation Comments Family history is negative for premature coronar y artery disease Other Relation Status Comments Other Social History Tobacco Use Types Packs/Day Years Used Date Smoking Tobacco: Former Smokeless Tobacco: Former Tobacco Cessation:Counseling Given: No Alcohol Use Standard Drinks/Week Comments Yes 16.7 (1 standard dri nk = 0.6 oz pure alcohol) Daily. History of alcohol abuse peaking at 1.7;5 L of whiskey a day (approximately 8 years ago) AUDIT-C Answer Date Recorded Frequency of Alcohol Consumption Never 04/23/2019 Average Number of Drinks Not on file 019 Frequency of Binge Drinking Not on file 11/2018 PHQ-2 Answer Date Recorded Patient Health Questionnaire-2 Score 6 06/09/2025 Humiliation, Afraid, Rape, and Kick questionnair e Answer Date Recorded Within the last year, have y ou been afraid of your partner or ex-partner? No 06/09/2025 Within the last year, have y ou been humiliated or emotionally abused in other ways by your partner or ex-partner? No Within the last year, have y ou been kicked, hit, slapped, or otherwise physically hurt by your partner or ex-partner? No 06/09/2025 Within the last year, have y ou been raped or forced to have any kind of sexual activity by your partner or ex-partner? No 06/09/2025 Social Connection and Isolation Panel Answer Date Recorded In a typical week, how many times do you talk on the phone with family, friends, or neighbors? Three times a week 06/09/2025 Frequency of Social Gatherin gs with Friends and Family Not on file 06/09/2025 How often do you attend chur or buddhist services? Never 06/09/2025 Do you belong to any clubs o r organizations such as yazdanism groups, unions, fraternal or athletic groups, or school groups? No 06/09/2025 How often do you attend meet ings of the clubs or organizations you belong to? Never 06/09/2025 Are you , , di vorced, , never , or living with a partner? Never 06/09/2025 AUDIT-C Answer Date Recorded Q1: How often do you have a drink containing alcohol? 4 or more times a week 06/09/2025 Q2: How many drinks containi ng alcohol do you have on a typical day when you are drinking? 10 or more Q3: How often do you have si x or more drinks on one occasion? Daily or almost daily 06/09/2025 Overall Financial Resource Strain (CARDIA) Answe r Date Recorded How hard is it for you to pa y for the very basics like food, housing, medical care, and heating? Not hard at all 06/09/2025 [place] of Occupat ional Health - Occupational Stress Questionnaire Answer Date Recorded Do you feel stress - tense, restless, nervous, or anxious, or unable to sleep at night because your mind is troubled all the time - these days? Very much 06/10/2025 Exercise Vital Sign Answer Date Recorde d On average, how many days pe r week do you engage in moderate to strenuous exercise (like a brisk walk)? 1 day 06/10/2025 On average, how many minutes do you engage in exercise at this level? 10 min 06/10/2025 Hunger Vital Sign Answer Date Recorded Within the past 12 months, y ou worried that your food would run out before you got the money to buy more. Never true 06/10/20 25 Within the past 12 months, t he food you bought just didn't last and you didn't have money to get more. Never true 06/10/2025 PRAPARE - Transportation Answer Date Re corded In the past 12 months, has l ack of transportation kept you from medical appointments or from getting medications? No 05/21 In the past 12 months, has l ack of transportation kept you from meetings, work, or from getting things needed for daily living? No 06/10/2025 Housing Stability Vital Sign Answer Diego e Recorded In the last 12 months, was t here a time when you were not able to pay the mortgage or rent on time? No 06/10/2025 In the past 12 months, how m any times have you moved where you were living? 0 06/10/2025 At any time in the [facility], were you homeless or living in a fdc (including now)? No 06/10/2025 [id number] Health Literacy Answer Date Recor ded How often do you need to hav e someone help you when you read instructions, pamphlets, or other written material from your doctor or pharmacy? Sometimes 06/09/2025 [facility] Utilities Answer Date Recorded In the past 12 months has th e electric, gas, oil, or water company threatened to shut off services in your home? No 06/09/2025 Sex and Gender Information Value Date Recorded Sex Assigned at Male 06/09/2025 12:58 AM CDT Legal Sex Male 5:16 PM CDT Gender Identity Male 06/09/2025 12:58 AM CDT Sexual Orientation Not on file Last Filed Vital Signs Vital Sign Reading Time Taken Comments Blood Pressure 139/110 06/10/2025 8:30 PM CDT Pulse 110 06/10/2025 8:30 PM CDT Temperature 36.5 C (97.7 F) 06/10/2025 8:30 PM CDT Respiratory Rate 20 06/10/2025 8:30 PM CDT Oxygen Saturation 97% 06/10/2025 8:30 PM CDT Inhaled Oxygen Concentration - - Weight 76.7 kg (169 lb 3.2 oz) 06/09/2025 11:30 PM CDT Height 175.3 cm (5' 9) 06/09/2025 11:30 PM CDT Body Mass Index 24.99 06/09/2025 11:30 PM CDT Plan of Treatment Health Maintenance Due Date Last Done Comments Colorectal Cancer Screening Colonoscopy (10 Years) 1971 Annual Physical 1974 Hepatitis C 1989 DTaP, Tdap and Td Vaccines ( 1 - Tdap) 1990 Hepatitis A Vaccines (1 of 2 - Risk 2-dose series) 1990 Hepatitis B Vaccines (1 of 3 - 19+ 3-dose series) 1990 Pneumococcal Vaccine: 50+ Ye ars (1 of 2 - PCV) 1990 Zoster Vaccines (1 of 2) 2021 COVID-19 Vaccine (2 - 2024-2 6 season) 2025 03/26/2021 Influenza Adult (#1) 2025 06/26/2024 PHQ[facility]2 ([facility]) Completed 06/09/2025 Meningococcal B Vaccine Aged Out No l onger eligible based on patient's age to complete this topic Meningococcal Vaccine Aged Out No henrique david eligible based on patient's age to complete this topic RSV Immunizations Under 20 Months Aged Out No longer eligible based on patient's age to complete this topic Procedures Procedure Name Priority Date/Time Associated Diagnosis Comments MAGNESIUM Routine 06/10/2025 5:25 AM CDT COMPREHENSIVE METABOLIC PANEL Routine 06/10/2025 5:25 AM CDT CBC W/DIFF AUTOMATED Routine 06/10/2025 5:25 AM CDT ETHANOL STAT 06/09/2025 3:00 PM CDT ETHANOL STAT 06/09/2025 12:03 PM CDT INFLUENZA A & B STAT 06/09/2025 2:44 AM CDT CORONAVIRUS (COVID 19) STAT 2:44 AM CDT URINALYSIS MICRO ONLY Routine 06/09/2025 1:06 AM CDT URINALYSIS AUTO DIP STAT 06/09/2025 1 :06 AM CDT DRUG SCREEN RAPID STAT 06/09/2025 1:0 6 AM CDT ECG 12-LEAD STAT 06/09/2025 12:29 AM CDT SALICYLATE STAT 06/09/2025 12:25 AM CDT THYROID STIM HORMONE TSH STAT 06/09/2025 12:25 AM CDT ACETAMINOPHEN STAT 06/09/2025 12:25 AM CDT ETHANOL STAT 06/09/2025 12:25 AM CDT COMPREHENSIVE METABOLIC PANEL STAT 06/09/2025 12:25 AM CDT CBC W/DIFF AUTOMATED STAT 06/09/2025 12:25 AM CDT from Last 3 Months Results * (ABNORMAL) COMPREHENSIVE METABOLIC PANEL (06/10/2025 5:25 AM CDT) Only the most recent of2 resultswithin the time period is included. [facility] Signature GLUCOSE 89 70 - 99 MG/DL 06/10/2025 6:17 AM CDT [facility] BUN 12 7 - 18 MG/DL 06/10/2025 6:17 AM CDT [facility] CREATININE S/P/B 0.85 0.50 - 1.20 MG/DL 06/10/2025 6:17 AM CDT [facility] SODIUM S/P/B 138 136 - 145 MMOL/L 06/10/2025 6:17 AM CDT [facility] POTASSIUM S/P/B 3.4(L) 3.5 - 5.1 MMOL/L 06/10/2025 6:17 AM CDT [facility] CHLORIDE S/P/B 98(L) 100 - 108 MMOL/L 06/10/2025 6:17 AM CDT [facility] CO2 26.7 21.0 - 32.0 MMOL/L 06/10/2025 6:17 AM CDT [facility] CALCIUM S/P/B 8.2(L) 8.5 - 10.1 MG/DL 06/10/2025 6:17 AM CDT [facility] BILIRUBIN TOTAL S/P/B 1.8(H) 0.2 - 1.2 MG/DL 06/10/2025 6:17 AM CDT [facility] Comment: THIS ASSAY IS NOT RECOMMENDED FOR PATIENTS UNDERGOING TREATMENT WITH ELTROMBOPAG DUE TO THE POTENTIAL FOR FALSELY ELEVATED RESULTS. TOTAL PROTEIN S/P/B 6.9 6.4 - 8.2 G/DL 06/10/2025 6:17 AM CDT [facility] ALBUMIN S/P/B 3.3(L) 3.4 - 5.0 G/DL 06/10/2025 6:17 AM CDT [facility] AST 88(H) 15 - 37 U/L 06/10/2025 6:17 AM CDT [facility] ALT 73(H) 16 - 60 U/L 06/10/2025 6:17 AM CDT [facility] ALKALINE PHOSPHATASE S/P/B 50 50 - 136 U/L 06/10/2025 6:17 AM CDT [facility] ANION GAP 13.3 5.0 - 15.0 MMOL/L 06/10/2025 6:17 AM CDT [facility] BUN CREATININE RATIO 14.1 6 - 26 06/10/2025 6:17 AM CDT [facility] A/G RATIO 0.9(L) 1.0 - 2.5 RATIO 06/10/2025 6:17 AM CDT [facility] GFR ESTIMATE >90 >90 ML/MIN/1.7 3 M2 06/10/2025 6:17 AM CDT [facility] Comment: NOTE: eGFR is not calculated for patients <18 years of age. This is an estimated GFR calculation using the new CKD EPI creatinine equation without race and so does not require a correction factor for race. This estimated GFR should not be used for calculating drug doses. 06/10/2025 5:25 AM CDT us Miguelina Tse MD LABORATORY Final Result [facility] [address] [place] [address], * (ABNORMAL) CBC W/DIFF AUTOMATED (06/10/2025 5:25 AM CDT) Only the most recent of2 resultswithin the time period is included. WBC 4.32(L) 4.50 - 11.00 x10'3/uL 06/10/2025 6:12 AM CDT [facility] RBC 3.91(L) 4.50 - 5.90 x10'6/uL 06/10/2025 6:12 AM CDT [facility] HGB 13.1(L) 14.0 - 18.0 G/DL 06/10/2025 6:12 AM CDT [facility] HCT 36.6(L) 43.0 - 54.0 % 06/10/2025 6:12 AM CDT [facility] MCV 93.6 80.0 - 100.0 FL 06/10/2025 6:12 AM CDT [facility] MCH 33.5 26.0 - 34.0 PG 06/10/2025 6:12 AM CDT [facility] MCHC 35.8 31.0 - 37.0 G/DL 06/10/2025 6:12 AM CDT [facility] RDW 11.8 11.6 - 14.8 % 06/10/2025 6:12 AM CDT [facility] PLT 102(L) 130 - 400 x10'3/uL 06/10/2025 6:12 AM CDT [facility] MPV 9.0 7.0 - 12.0 FL 06/10/2025 6:12 AM CDT [facility] CBC COMMENT AUTOMATED RBC MORPHOLOGY AND PLATELET EVALUATION NORMAL 06/10/2025 6:12 AM CDT [facility] 06/10/2025 5:25 AM CDT us Miguelina Tse MD LABORATORY Final Result Performing Organization Address City/[facility]/ZIP Co de Phone Number [facility] [address] [place] [place] [address], * (ABNORMAL) MAGNESIUM (06/10/2025 5:25 AM CDT) MAGNESIUM 1.6(L) 1.8 - 2.4 MG/DL 06/10/2025 6:17 AM CDT [facility] 06/10/2025 5:25 AM CDT us Miguelina Tse MD LABORATORY Final Result Performing Organization Address [facility]/ZIP Co de Phone Number [facility] [address] [place] [place] [address], * (ABNORMAL) ETHANOL (06/09/2025 3:00 PM CDT) Only the most recent of3 resultswithin the time period is included. ALCOHOL S/P/B 0.070(H) <0.003 G/DL 06/09/2025 3:23 PM CDT [facility] 06/09/2025 3:00 PM CDT David Beck MD LABORATORY Final Resul t Performing Organization Address [facility] Co de Phone Number [facility] [address] [place] [address], * CORONAVIRUS (COVID-19) MOLECULAR (06/09/2025 2:44 AM CDT) [facility] CORONAVIRUS SARS COV 2 RNA NEGATIVE NEGATIVE 06/09/2025 3:23 AM CDT [facility] Comment: NEGATIVE RESULTS DO NOT RULE OUT COVID 19 AND SHOULD NOT BE USED THE SOLE BASIS FOR TREATMENT OR PATIENT MANAGEMENT DECISIONS, INCLUDING INFECTION CONTROL DECISIONS. NEGATIVE RESULTS SHOULD BE CONSIDERED IN THE CONTEXT OF A PATIENT'S RECENT EXPOSURES, HISTORY AND THE PRESENCE OF CLINICAL SIGNS AND SYMPTOMS CONSISTENT WITH COVID 19. THE ID NOW COVID-19 2.0 TEST HAS BEEN AUTHORIZED BY THE FDA UNDER EAU FOR USE BY AUTHORIZED LABORATORIES. PERFORMED BY NUCLEIC ACID AMPLIFICATION FOR MOLECULAR QUALITATIVE DETECTION OF SARS-COV-2. SPECIMEN TYPE NASAL 06/09/2025 2:29 AM CDT [facility] NASOPHARYNGEAL SWAB / Unknown 06/09/2025 2:44 AM CDT Luisito Gallagher MD MICROBIOLOGY - GENERAL ORDERA BLES Final Result Performing Organization Address City/[facility]/ZIP Co de Phone Number [facility] [address] [place] [address], * INFLUENZA A & B (06/09/2025 2:44 AM CDT) [facility] SPECIMEN TYPE NASOPHARYNX 06/09/2025 2:30 AM CDT [facility] INFLUENZA A NEGATIVE NEGATIVE 06/09/2025 3:23 AM CDT [facility] INFLUENZA B NEGATIVE NEGATIVE 06/09/2025 3:23 AM CDT [facility] NASAL STRUCTURE / Unknown 06/09/2025 2:44 AM CDT us Luisito Gallagher MD MICROBIOLOGY - GENERAL CINTHIA BRAVO Final Result [facility] [address] [place] [address], [place] * DRUG SCREEN RAPID (06/09/2025 1:06 AM CDT) AMPHETAMINE SCREEN (U) NEGATIVE NEGATIVE 06/09/2025 1:27 AM CDT [facility] BARBITURATES SCREEN (U) NEGATIVE NEGATIVE 06/09/2025 1:27 AM CDT [facility] BENZODIAZEPINES SCREEN (U) NEGATIVE NEGATIVE 06/09/2025 1:27 AM CDT [facility] BUPRENORPHINE SCREEN (U) NEGATIVE NEGATIVE 06/09/2025 1:27 AM CDT [facility] COCAINE METABOLITES (U) NEGATIVE NEGATIVE 06/09/2025 1:27 AM CDT [facility] METHAMPHETAMINE (U) NEGATIVE NEGATIVE 06/09 1:27 AM CDT [facility] METHADONE (U) NEGATIVE NEGATIVE 06/09/2025 1:27 AM CDT [facility] OPIATE SCREEN (U) NEGATIVE NEGATIVE 025 1:27 AM CDT [facility] OXYCODONE SCREEN (U) NEGATIVE NEGATIVE 06/09/2025 1:27 AM CDT [facility] PHENCYCLIDINE PCP (U) NEGATIVE NEGATIVE 06/09/2025 1:27 AM CDT [facility] CANNABINOIDS SCREEN (U) NEGATIVE NEGATIVE 06/09/2025 1:27 AM CDT [facility] TRICYCLIC ANTIDEPRESSANT SCREEN (U) NEGATIVE NEGATIVE 06/09/2025 1:27 AM CDT [facility] Comment: NOTE: RESULTS OF THIS DRUG SCREEN SHOULD BE USED FOR MEDICAL PURPOSES ONLY AND NOT FOR LEGAL AND EMPLOYMENT PURPOSES. CALL THE LAB IF POSITIVE RESULTS NEED CONFIRMATORY TESTING. EPHEDRINE MAY CAUSE FALSE POSITIVE AMPHETAMINE Cut-off Concentration for a positive result AMPHETAMINE- 500 NG/ML BARBITURATE- 200 NG/ML BENZODIAZEPINE- 150 NG/ML BUPRENORPHINE- 10 NG/ML COCAINE- 150 NG/ML METHAMPHETAMINES- 500 NG/ML METHADONE- 200 NG/ML OPIATE- 100 NG/ML OXYCODONE- 100 NG/ML PCP- 25 NG/ML THC- 50 NG/ML TCA- 300 NG/ML U PH 8.0 06/09/2025 1:27 AM CDT [facility] SPECIFIC GRAVITY (U) 1.030 06/09/2025 1:27 AM CDT [facility] URINE SPECIMEN / Unknown 06/09/2025 1:06 AM CDT us Luisito Gallagher MD URINE ORDERABLES Final Result [address] [place] [address], * (ABNORMAL) URINALYSIS AUTO DIP (06/09/2025 1:06 AM CDT) COLOR (U) YELLOW YELLOW 06/09/2025 3:18 AM CDT [facility] TRANSPARENCY CLEAR CLEAR 06/09/2025 3:18 AM CDT [facility] SPECIFIC GRAVITY (U) 1.026 1.001 - 1.030 06/09/2025 3:18 AM CDT [facility] U PH 6.0 5.0 - 9.0 06/09/2025 3:18 AM CDT [facility] LEUKOCYTES (U) NEGATIVE NEGATIVE 06/09/2025 3:18 AM CDT [facility] NITRITES NEGATIVE NEGATIVE 06/09/2025 3:18 AM CDT [facility] PROTEIN RANDOM (U) 2+(A) NEGATIVE 06/09/2025 3:18 AM CDT [facility] GLUCOSE (U) NORMAL NORMAL 06/09/2025 3:18 AM CDT [facility] KETONES MG/DL (U) 2+(A) NEGATIVE 06/09/2025 3:18 AM CDT [facility] UROBILINOGEN NORMAL NORMAL EU/DL 06/09/2025 3:18 AM CDT [facility] BILIRUBIN (U) NEGATIVE NEGATIVE 06/09/2025 3:18 AM CDT [facility] BLOOD (U) 1+(A) NEGATIVE 06/09/2025 3:18 AM CDT [facility] URINE MICROSCOPIC URINE MICROSCOPIC TO FOLLOW. 06/09/2025 3:18 AM CDT [facility] URINE SPECIMEN FROM URETHRA / Unknown 06/09/2025 1:06 AM CDT Luisito Gallagher MD URINE ORDERABLES Final Result Performing Organization Address City/[facility]/ZIP Co de Phone Number [facility] [address] [place] [id number], [place] * URINALYSIS MICRO ONLY (06/09/2025 1:06 AM CDT) WBC/HPF 2 <6 /HPF 06/09/2025 10:37 AM CDT [facility] RBC/HPF 1 <6 /HPF 06/09/2025 10:37 AM CDT [facility] MUCUS FEW /LPF 06/09/2025 10:37 AM CDT [facility] SQUAMOUS EPITHELIALS RARE /HPF 06/09/2025 10:37 AM CDT [facility] 06/09/2025 1:06 AM CDT Luisito Gallagher MD URINE ORDERABLES Final Result Performing Organization Address City/[facility]/ZIP Co de Phone Number [facility] [address] [place] [address], [place] [phone] * ECG 12 lead (06/09/2025 12:29 AM CDT) ECG QT [address] [facility] ECG QTC [address] [facility] 06/09/2025 12:[address] 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: : 1970 Requested By: LUISITO GALLAGHER Order Number: [id number] Reading MD: Cesario Pop Measurements Intervals [place] Rate: 107 P: 37 MI: 132 QRS: 3 QRSD: 82 T: 53 QT: 336 QTc: 448 Interpretive Statements SINUS TACHYCARDIA LOW QRS VOLTAGE IN PRECORDIAL LEADS [QRS DEFLECTION < 1.0 mV IN CHEST LEADS] POSSIBLE INFERIOR MYOCARDIAL INFARCTION [30 ms Q WAVE IN II/aVF], PROBABLY OLD ANTEROSEPTAL MYOCARDIAL INFARCTION [40+ ms Q WAVE IN V1-V4], PROBABLY OLD Procedure Note Cesario Pop MD - 06/09/2025 [facility] Test Date: 2025-06-09 Pat Name: CHILO GUPTA Department: 100 Room: Gender: Male Zipper Lining Folder: : 1970 Requested By: LUISITO GALLAGHER Order Number: [id number] Reading MD: Cesario Pop Measurements Intervals [place] Rate: 107 P: 37 MI: 132 QRS: 3 QRSD: 82 T: 53 QT: 336 QTc: 448 Interpretive Statements SINUS TACHYCARDIA LOW QRS VOLTAGE IN PRECORDIAL LEADS [QRS DEFLECTION < 1.0 mV IN CHESTLEADS] POSSIBLE INFERIOR MYOCARDIAL INFARCTION [30 ms Q WAVE IN II/aVF],PROBABLY OLD ANTEROSEPTAL MYOCARDIAL INFARCTION [40+ ms Q WAVE IN V1-V4], PROBABLYOLD us Luisito Gallagher MD ECG ORDERABLES Final Result Performing Organization Address [facility] Co de Phone Number [facility] [address] [place] [address] * (ABNORMAL) THYROID STIM HORMONE, TSH (06/09/2025 12:25 AM CDT) TSH 4.260(H) 0.358 - 3.74 uIU/ML 06/09/2025 10:33 AM CDT [facility] Comment: HIGH DOSES OF BIOTIN MAY INTERFERE WITH THIS TEST RESULT. CORRELATION TO CLINICAL HISTORY AND PRESENTATION RECOMMENDED. 06/09/2025 12:2 5 AM CDT Luisito Gallagher MD LABORATORY Final Result Performing Organization Address [facility] Co de Phone Number [facility] [address] [place] [address], * SALICYLATE (06/09/2025 12:25 AM CDT) SALICYLATES 1.5 MG/DL 06/09/2025 12:43 AM CDT [facility] 06/09/2025 12:2 5 AM CDT Luisito Gallagher MD LABORATORY Final Result Performing Organization Address [facility] Co de Phone Number [facility] [address] [place] [address], * (ABNORMAL) ACETAMINOPHEN (06/09/2025 12:25 AM CDT) ACETAMINOPHEN S/P/B 0(L) 10 - 30 MCG/ML 06/09/2025 1:07 AM CDT [facility] 06/09/2025 12:2 5 AM CDT Luisito Gallagher MD LABORATORY Final Result Performing Organization Address City/[facility] Co de Phone Number [facility] [address] [place] [address], [place] from Last 3 Months Insurance [employer] [place] [id number] [place] [address] MEDICAID Advance Directives Documents on File Type Date Recorded Patient Food Service Expl anation Advance Directives and Living Will 06/29/2014 12:00 AM ADVANCED DIRECTIVES Advance Directives and Living Will 03/27/2014 12:00 AM ADVANCED DIRECTIVES Advance Directives and Living Will 08/12/2013 12:00 AM ADVANCED DIRECTIVES Advance Directives and Living Will 04/14/2013 12:00 AM ADVANCED DIRECTIVES Advance Directives and Living Will 01/14/2013 12:00 AM ADVANCED DIRECTIVES Advance Directives and Living Will 05/02/2012 12:00 AM ADVANCED DIRECTIVES Advance Directives and Living Will 04/26/2012 12:00 AM ADVANCED DIRECTIVES * Full Code (Latest Code Status on File) Date Activated Date Inactivated Comments 06/10/2025 2:37 AM 06/11/2025 12:12 AM Care Teams Fibreglass Laminator Relationship Specialty Start Date End Date Robyn Campa, FLANGING MACHINE OPERATOR- [address] [place] [phone] PCP - General Nurse Practitioner Family 06/10/25 Chai Almeida MD [facility]. [facility] [address] [place] [address] [employer] CARDIOVASCULAR DISEASE 04/20/17
--- OUTSIDE RECORDS SUMMARY | 2025-07-03 07:54 | XMS_ITS | Clinical Summary ---
Author Organization [facility] Address [address] [place] [address] Care Team Providers Care Security Representative Name Role Phone Unavailable Primary Care Provider Unavailabl e Source Comments [facility],non-owned Affiliates and Associated Physician Practices is amultiple site organization consisting of ambulatory clinics and hospital sitesin [place], [place], [place] and [place]. This disclosure is being madepursuant to the Care Everywhere program and may not contain all information available regarding this patient. Last updated 18.[facility] Allergies No known active allergies Medications * Be aware that medications may not be up to date on this document. Alwaysverify current medications with the patient. acetaminophen (Tylenol) 500 MG tablet Take 1 (one) tablet by mouth every 6 hours as needed Maximum allowable Acetaminophen amount = 4 Grams (4000 mg) / 24 hours. 60 tablet 5 Active traZODone (Desyrel) 100 MG tablet Take 1 (one) tablet by mouth once daily 30 tablet 1 5 Active haloperidol (Haldol) 1 MG tablet Take 3 (three) tablets by mouth at bedtime 90 tablet 5 Active amLODIPine (Norvasc) 5 MG tablet Take 1 (one) tablet by mouth once daily 90 tablet 5 Active allopurinol (Zyloprim) 100 MG tablet Take 1 (one) tablet by mouth once daily after breakfast 60 tablet 5 Active colchicine 0.6 MG tablet Take 1 (one) tablet by mouth once daily 60 tablet 5 Active folic acid (Folvite) 1 MG tablet Take 1 (one) tablet by mouth once daily 90 tablet 5 Active multiple vitamins with minerals tablet Take 1 (one) tablet by mouth once daily 60 Each 5 Active vitamin D, ergocalciferol , (Drisdol) 1.25 MG (40606 UT) capsule Take 1 (one) capsule by mouth every 7 days (once a week) 8 capsule 5 Active Active Problems Problem Noted Date Diagnosed Date Elevated LFTs 06/28/2025 Assessment & Plan (07/01/2025 8:33 PM APPELLATE LAW CLERK): - Abd US 06/29 showing hepatic steatosis Assessment & Plan (06/30/2025 7:37 PM APPELLATE LAW CLERK): - Abd US 06/29 showing hepatic steatosis Assessment & Plan (06/29/2025 4:13 PM APPELLATE LAW CLERK): - Abd US 06/29 showing hepatic steatosis Assessment & Plan (06/28/2025 12:30 PM APPELLATE LAW CLERK): - Abd US ordered Swelling of joint of right knee 06/23/2025 Assessment & Plan (07/01/2025 8:33 PM APPELLATE LAW CLERK): Right knee is joint swelling improved. No localized tenderness, induration, erythema, pain, and skin changes noted. Xray shows effusion of the right knee. Orthopedic surgery consulted and arthrocentesis obtained, results unremarkable thus far. Plan: continue to follow arthrocentesis results Orthopedic surgery recommendations: No acute orthopedic surgical intervention indicated Weight bearing Status: RUE WBAT Orthopedic surgery has signed off. Assessment & Plan (06/30/2025 7:37 PM APPELLATE LAW CLERK): Right knee is joint swelling improved. No localized tenderness, induration, erythema, pain, and skin changes noted. Xray shows effusion of the right knee. Orthopedic surgery consulted and arthrocentesis obtained, results unremarkable thus far. Plan: continue to follow arthrocentesis results Orthopedic surgery recommendations: No acute orthopedic surgical intervention indicated Weight bearing Status: RUE WBAT Orthopedic surgery has signed off. Assessment & Plan (06/29/2025 4:13 PM APPELLATE LAW CLERK): Right knee is joint swelling improved. No localized tenderness, induration, erythema, pain, and skin changes noted. Xray shows effusion of the right knee. Orthopedic surgery consulted and arthrocentesis obtained, results unremarkable thus far. Plan: continue to follow arthrocentesis results Orthopedic surgery recommendations: No acute orthopedic surgical intervention indicated Weight bearing Status: RUE WBAT Orthopedic surgery has signed off. Assessment & Plan (06/28/2025 12:30 PM APPELLATE LAW CLERK): Right knee is joint swelling improved. No localized tenderness, induration, erythema, pain, and skin changes noted. Xray shows effusion of the right knee. Orthopedic surgery consulted and arthrocentesis obtained, results unremarkable thus far. Plan: continue to follow arthrocentesis results Orthopedic surgery recommendations: No acute orthopedic surgical intervention indicated Weight bearing Status: RUE WBAT Orthopedic surgery has signed off. Assessment & Plan (06/27/2025 10:57 AM APPELLATE LAW CLERK): Right knee is joint swelling improved. No localized tenderness, induration, erythema, pain, and skin changes noted. Xray shows effusion of the right knee. Orthopedic surgery consulted and arthrocentesis obtained, results unremarkable thus far. Plan: continue to follow arthrocentesis results Orthopedic surgery recommendations: No acute orthopedic surgical intervention indicated Weight bearing Status: RUE WBAT Orthopedic surgery has signed off. Assessment & Plan (06/26/2025 4:46 PM APPELLATE LAW CLERK): Right knee is joint swelling improved. No [...] improved range of motion specifically terminal end points of flexion Patient was counseled to the nature of their diagnosis and demonstrated understanding. Questions solicited and answered. Orthopedic surgery has signed off. Assessment & Plan (06/25/2025 11:00 AM APPELLATE LAW CLERK): Right knee is joint swelling improved. No [...] improved range of motion specifically terminal end points of flexion Patient was counseled to the nature of their diagnosis and demonstrated understanding. Questions solicited and answered. Orthopedic surgery has signed off. Assessment & Plan (2025 2:03 PM APPELLATE LAW CLERK): Right knee is joint swollen. No localized [...] improved range of motion specifically terminal end points of flexion Patient was counseled to the nature of their diagnosis and demonstrated understanding. Questions solicited and answered. 2025: Arthrocentesis of the right knee joint was performed and 60 ml fluid collected was sent for laboratory examination. Per Orthopedic surgery, no acute interventions needed this time. Orthopedic surgery has signed off. Assessment & Plan (06/23/2025 2:03 PM APPELLATE LAW CLERK): Right knee is joint swollen. No localized tenderness, induration, erythema, pain, and skin changes noted. Xray shows effusion of the right knee. Plan: Orthopedic surgery consulted. CTM Gout 06/23/2025 Assessment & Plan (07/01/2025 8:33 PM APPELLATE LAW CLERK): Right knee is joint swelling improved. No localized tenderness, induration, erythema, pain, and skin changes noted. Xray shows effusion of the right knee. Orthopedic surgery consulted and arthrocentesis obtained, results unremarkable thus far. Plan: continue to follow arthrocentesis results Orthopedic surgery recommendations: No acute orthopedic surgical intervention indicated Weight bearing Status: RUE WBAT Orthopedic surgery has signed off. Assessment & Plan (06/30/2025 7:37 PM APPELLATE LAW CLERK): Right knee is joint swelling improved. No localized tenderness, induration, erythema, pain, and skin changes noted. Xray shows effusion of the right knee. Orthopedic surgery consulted and arthrocentesis obtained, results unremarkable thus far. Plan: continue to follow arthrocentesis results Orthopedic surgery recommendations: No acute orthopedic surgical intervention indicated Weight bearing Status: RUE WBAT Orthopedic surgery has signed off. Assessment & Plan (06/29/2025 4:13 PM APPELLATE LAW CLERK): Right knee is joint swelling improved. No localized tenderness, induration, erythema, pain, and skin changes noted. Xray shows effusion of the right knee. Orthopedic surgery consulted and arthrocentesis obtained, results unremarkable thus far. Plan: continue to follow arthrocentesis results Orthopedic surgery recommendations: No acute orthopedic surgical intervention indicated Weight bearing Status: E WBAT Orthopedic surgery has signed off. Assessment & Plan (06/28/2025 12:30 PM APPELLATE LAW CLERK): Right knee is joint swelling improved. No localized tenderness, induration, erythema, pain, and skin changes noted. Xray shows effusion of the right knee. Orthopedic surgery consulted and arthrocentesis obtained, results unremarkable thus far. Plan: continue to follow arthrocentesis results Orthopedic surgery recommendations: No acute orthopedic surgical intervention indicated Weight bearing Status: E WBAT Orthopedic surgery has signed off. Hypokalemia 06/22/2025 Assessment & Plan (07/01/2025 8:33 PM APPELLATE LAW CLERK): Today potassium 3.4 06/30/25 Plan: Replete electrolytes as needed Today repleted 40 mEq of KCl Assessment & Plan (06/30/2025 7:37 PM APPELLATE LAW CLERK): Today potassium 3.4 06/30/25 Plan: Replete electrolytes as needed Today repleted 40 mEq of KCl Assessment & Plan (06/29/2025 4:13 PM APPELLATE LAW CLERK): Plan: Replete electrolytes as needed Assessment & Plan (06/28/2025 12:30 PM APPELLATE LAW CLERK): Plan: Replete electrolytes as needed Assessment & Plan (06/27/2025 10:57 AM APPELLATE LAW CLERK): Plan: Replete electrolytes as needed Assessment & Plan (06/26/2025 4:46 PM APPELLATE LAW CLERK): Plan: Replete electrolytes as needed Assessment & Plan (06/25/2025 11:00 AM APPELLATE LAW CLERK): Plan: Replete electrolytes as needed Assessment & Plan (2025 7:57 AM APPELLATE LAW CLERK): Plan: Replete electrolytes as needed Assessment & Plan (06/23/2025 2:02 PM APPELLATE LAW CLERK): Plan: Replete electrolytes as needed Hypophosphatemia 06/22/2025 Assessment & Plan (07/01/2025 8:33 PM APPELLATE LAW CLERK): Today potassium 3.4 06/30/25 Plan: Replete electrolytes as needed Today repleted 40 mEq of KCl Assessment & Plan (06/30/2025 7:37 PM APPELLATE LAW CLERK): Today potassium 3.4 06/30/25 Plan: Replete electrolytes as needed Today repleted 40 mEq of KCl Assessment & Plan (06/29/2025 4:13 PM APPELLATE LAW CLERK): Plan: Replete electrolytes as needed Assessment & Plan (06/28/2025 12:30 PM APPELLATE LAW CLERK): Plan: Replete electrolytes as needed Assessment & Plan (06/27/2025 10:57 AM APPELLATE LAW CLERK): Plan: Replete electrolytes as needed Assessment & Plan (06/26/2025 4:46 PM APPELLATE LAW CLERK): Plan: Replete electrolytes as needed Assessment & Plan (06/25/2025 11:00 AM APPELLATE LAW CLERK): Plan: Replete electrolytes as needed Assessment & Plan (2025 7:57 AM APPELLATE LAW CLERK): Plan: Replete electrolytes as needed Assessment & Plan (06/23/2025 2:02 PM APPELLATE LAW CLERK): Plan: Replete electrolytes as needed Hypomagnesemia 06/22/2025 Assessment & Plan (07/01/2025 8:33 PM APPELLATE LAW CLERK): Today potassium 3.4 06/30/25 Plan: Replete electrolytes as needed Today repleted 40 mEq of KCl Assessment & Plan (06/30/2025 7:37 PM APPELLATE LAW CLERK): Today potassium 3.4 06/30/25 Plan: Replete electrolytes as needed Today repleted 40 mEq of KCl Assessment & Plan (06/29/2025 4:13 PM APPELLATE LAW CLERK): Plan: Replete electrolytes as needed Assessment & Plan (06/28/2025 12:30 PM APPELLATE LAW CLERK): Plan: Replete electrolytes as needed Assessment & Plan (06/27/2025 10:57 AM APPELLATE LAW CLERK): Plan: Replete electrolytes as needed Assessment & Plan (06/26/2025 4:46 PM APPELLATE LAW CLERK): Plan: Replete electrolytes as needed Assessment & Plan (06/25/2025 11:00 AM APPELLATE LAW CLERK): Plan: Replete electrolytes as needed Assessment & Plan (2025 7:57 AM APPELLATE LAW CLERK): Plan: Replete electrolytes as needed Assessment & Plan (06/23/2025 2:02 PM APPELLATE LAW CLERK): Plan: Replete electrolytes as needed Vitamin D deficiency 06/22/2025 Assessment & Plan (07/01/2025 8:33 PM APPELLATE LAW CLERK): Plan: Vitamin D (ergocalciferol) 1.25 MG capsule containing 50,000 units Assessment & Plan (06/30/2025 7:37 PM APPELLATE LAW CLERK): Plan: Vitamin D (ergocalciferol) 1.25 MG capsule containing 50,000 units Assessment & Plan (06/29/2025 4:13 PM APPELLATE LAW CLERK): Plan: Vitamin D (ergocalciferol) 1.25 MG capsule containing 50,000 units Assessment & Plan (06/28/2025 12:30 PM APPELLATE LAW CLERK): Plan: Vitamin D (ergocalciferol) 1.25 MG capsule containing 50,000 units Assessment & Plan (06/27/2025 10:57 AM APPELLATE LAW CLERK): Plan: Vitamin D (ergocalciferol) 1.25 MG capsule containing 50,000 units Assessment & Plan (06/26/2025 4:46 PM APPELLATE LAW CLERK): Plan: Vitamin D (ergocalciferol) 1.25 MG capsule containing 50,000 units Assessment & Plan (06/25/2025 11:00 AM APPELLATE LAW CLERK): Plan: Vitamin D (ergocalciferol) 1.25 MG capsule containing 50,000 units Assessment & Plan (2025 7:57 AM APPELLATE LAW CLERK): Plan: Vitamin D (ergocalciferol) 1.25 MG capsule containing 50,000 units Assessment & Plan (06/23/2025 2:02 PM APPELLATE LAW CLERK): Plan: Vitamin D (ergocalciferol) 1.25 MG capsule containing 50,000 units Primary hypertension 06/21/2025 Assessment & Plan (07/01/2025 8:33 PM APPELLATE LAW CLERK): - elevated on admission 170s SBP - on metoprolol 25 and losartan 50 which was held due to kobi Plan: - continue amlodipine 5 mg as he is very well controlled for the time being Assessment & Plan (06/30/2025 7:37 PM APPELLATE LAW CLERK): - elevated on admission 170s SBP - on metoprolol 25 and losartan 50 which was held due to kobi Plan: - continue amlodipine 5 mg as he is very well controlled for the time being Assessment & Plan (06/29/2025 4:13 PM APPELLATE LAW CLERK): - elevated on admission 170s SBP - on metoprolol 25 and losartan 50 which was held due to kobi Plan: - continue amlodipine 5 mg Assessment & Plan (06/28/2025 12:30 PM APPELLATE LAW CLERK): - elevated on admission 170s SBP - on metoprolol 25 and losartan 50 which was held due to kobi Plan: - continue amlodipine 5 mg Assessment & Plan (06/27/2025 10:57 AM APPELLATE LAW CLERK): - elevated on admission 170s SBP - on metoprolol 25 and losartan 50 which was held due to kobi Plan: - continue amlodipine 5 mg Assessment & Plan (06/26/2025 4:46 PM APPELLATE LAW CLERK): - elevated on admission 170s SBP - on metoprolol 25 and losartan 50 which was held due to kobi Plan: - continue amlodipine 5 mg Assessment & Plan (06/25/2025 11:00 AM APPELLATE LAW CLERK): - elevated on admission 170s SBP - on metoprolol 25 and losartan 50 which was held due to kobi Plan: - continue amlodipine 5 mg Assessment & Plan (2025 7:57 AM APPELLATE LAW CLERK): - elevated on admission 170s SBP - on metoprolol 25 and losartan 50 which was held due to kobi Plan: - started on amlodipine 5 mg Assessment & Plan (06/23/2025 2:02 PM APPELLATE LAW CLERK): - elevated on admission 170s SBP - on metoprolol 25 and losartan 50 which was held due to kobi Plan: - started on amlodipine 5 mg Assessment & Plan (06/22/2025 6:27 PM APPELLATE LAW CLERK): - elevated on admission 170s SBP - on metoprolol 25 and losartan 50 which was held due to kobi Plan: - started on amlodipine 5 mg Assessment & Plan (06/21/2025 11:50 AM APPELLATE LAW CLERK): - elevated on admission 170s SBP - on metoprolol 25 and losartan 50 which was held due to kobi Plan: - started on amlodipine 5 mg here Assessment & Plan (06/21/2025 5:27 AM APPELLATE LAW CLERK): - elevated on admission 170s SBP - on metoprolol 25 and losartan 50 which was held due to kobi - started on amlodipine 5 here Alcohol use disorder 06/21/2025 Assessment & Plan (07/01/2025 8:33 PM APPELLATE LAW CLERK): - 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 [...] on Labs - PT/OT rec acute rehab Assessment & Plan (06/30/2025 7:37 PM APPELLATE LAW CLERK): - 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 [...] on Labs - PT/OT rec acute rehab Assessment & Plan (06/29/2025 4:13 PM APPELLATE LAW CLERK): - 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 [...] on Labs - PT/OT rec acute rehab Assessment & Plan (06/28/2025 12:30 PM APPELLATE LAW CLERK): - 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 [...] on Labs - PT/OT rec acute rehab Assessment & Plan (06/27/2025 10:57 AM APPELLATE LAW CLERK): - 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 [...] on Labs - PT/OT rec acute rehab Assessment & Plan (06/26/2025 4:46 PM APPELLATE LAW CLERK): - 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 [...] mg PRN discontinued - F/u on Labs Assessment & Plan (06/25/2025 11:00 AM APPELLATE LAW CLERK): - 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 [...] mg PRN discontinued - F/u on Labs Assessment & Plan (2025 7:57 AM APPELLATE LAW CLERK): - 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 [...] [facility] protocol discontinued - F/u on Labs Assessment & Plan (06/23/2025 2:02 PM APPELLATE LAW CLERK): - 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 [...] [facility] protocol discontinued - F/u on Labs Assessment & Plan (06/22/2025 6:27 PM APPELLATE LAW CLERK): - 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 [...] [facility] protocol discontinued - F/u on Labs Assessment & Plan (06/21/2025 11:50 AM APPELLATE LAW CLERK): - 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 [...] 1 mg - Thiamine 100 mg - [facility] protocol - F/u on Labs Assessment & Plan (06/21/2025 1:03 AM APPELLATE LAW CLERK): - 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 [...] fu labs - neurology consult in AM Anxiety 06/21/2025 Assessment & Plan (07/01/2025 8:33 PM APPELLATE LAW CLERK): - admitted to [facility] behavioral health unit due to suicide attempt - does not endorse SI here - continuous sitter for agitation (not needed for SI anymore) - psych consulted, recs: - no psychiatric contraindication to discharge, Recommend discharge to the rehab facility like SNF, recommend giving trazodone 100 mg QHS at discharge and follow up outpatient, Increase Trazodone to 100 mg tablet PO, consider initiating Naltrexone at follow up psychiatric examinations, - haldol 3mg PO qhs - PRNs for agitation: Haldol 5mg PO or 2.5mg IM q6h PRN - Precautions: Elopement, Fall Assessment & Plan (06/30/2025 7:37 PM APPELLATE LAW CLERK): - admitted to [facility] behavioral health unit due to suicide attempt - does not endorse SI here - continuous sitter for agitation (not needed for SI anymore) - psych consulted, recs: - no psychiatric contraindication to discharge, Recommend discharge to the rehab facility like SNF, recommend giving trazodone 100 mg QHS at discharge and follow up outpatient, Increase Trazodone to 100 mg tablet PO, consider initiating Naltrexone at follow up psychiatric examinations, - haldol 3mg PO qhs - PRNs for agitation: Haldol 5mg PO or 2.5mg IM q6h PRN - Precautions: Elopement, Fall Assessment & Plan (06/29/2025 4:13 PM APPELLATE LAW CLERK): - admitted to [facility] behavioral health unit due to suicide attempt - does not endorse SI here - continuous sitter for agitation (not needed for SI anymore) - psych consulted, recs: - no psychiatric contraindication to discharge, Recommend discharge to the rehab facility like [facility], recommend giving trazodone 100 mg QHS at discharge and follow up outpatient, Increase Trazodone to 100 mg tablet PO, consider initiating Naltrexone at follow up psychiatric examinations, - Start haldol 3mg PO qhs - PRNs for agitation: Haldol 5mg PO or 2.5mg IM q6h PRN - Precautions: Elopement, Fall Assessment & Plan (06/28/2025 12:30 PM APPELLATE LAW CLERK): - admitted to [facility] behavioral health unit due to suicide attempt - does not endorse SI here - continuous sitter for agitation (not needed for SI anymore) - psych consulted, recs: - no psychiatric contraindication to discharge, Recommend discharge to the rehab facility like [facility], recommend giving trazodone 100 mg QHS at discharge and follow up outpatient, Increase Trazodone to 100 mg tablet PO, consider initiating Naltrexone at follow up psychiatric examinations, - Precautions: Elopement, Fall Assessment & Plan (06/27/2025 10:57 AM APPELLATE LAW CLERK): - admitted to [facility] behavioral health unit due to suicide attempt - does not endorse SI here - continuous sitter for agitation (not needed for SI anymore) - psych consulted, recs: - no psychiatric contraindication to discharge, Recommend discharge to the rehab facility like SNF, recommend giving trazodone 100 mg QHS at discharge and follow up outpatient, Increase Trazodone to 100 mg tablet PO, consider initiating Naltrexone at follow up psychiatric examinations, - Precautions: Elopement, Fall Assessment & Plan (06/26/2025 4:46 PM APPELLATE LAW CLERK): - admitted to [facility] behavioral health unit due to suicide attempt - does not endorse SI here - continuous sitter for agitation (not needed for SI anymore) - psych consulted, recs: - no psychiatric contraindication to discharge, Recommend discharge to the rehab facility like SNF, recommend giving trazodone 100 mg QHS at discharge and follow up outpatient, Increase Trazodone to 100 mg tablet PO, consider initiating Naltrexone at follow up psychiatric examinations,Precautions: 1:1 Sitter, Elopement, Fall Assessment & Plan (06/25/2025 11:00 AM APPELLATE LAW CLERK): - admitted to [facility] behavioral health unit due to suicide attempt - does not endorse SI here - continuous sitter for agitation (not needed for SI anymore) - psych consulted, recs: - no psychiatric contraindication to discharge, Recommend discharge to the rehab facility like SNF, recommend giving trazodone 100 mg QHS at discharge and follow up outpatient, Increase Trazodone to 100 mg tablet PO, consider initiating Naltrexone at follow up psychiatric examinations,Precautions: 1:1 Sitter, Elopement, Fall Assessment & Plan (2025 2:03 PM APPELLATE LAW CLERK): - admitted to [facility] behavioral health unit due to [...] None. Psych PRNs we recommend while at [facility]: None. Precautions: Delirium, Suicide, 1:1 Sitter, Elopement, Fall, Withdrawal Psychosocial needs: We greatly appreciate social work's support with discharge planning. - Delirium, Suicide, 1:1 Sitter, Elopement, Fall, Withdrawal 2025: Per psychiatry, schedule trazodone 50 mg QHS at discharge and follow up outpatient. Psychiatry team agrees with PT's recommendation of patient being discharged to SNF. Assessment & Plan (06/23/2025 2:02 PM APPELLATE LAW CLERK): - admitted to [facility] behavioral health unit due to [...] None. Psych PRNs we recommend while at [facility]: None. Precautions: Delirium, Suicide, 1:1 Sitter, Elopement, Fall, Withdrawal Psychosocial needs: We greatly appreciate social work's support with discharge planning. - Delirium, Suicide, 1:1 Sitter, Elopement, Fall, Withdrawal Assessment & Plan (06/22/2025 6:27 PM APPELLATE LAW CLERK): - admitted to [facility] behavioral health unit due to suicide attempt - does not endorse SI here - continuous sitter - psych consult Assessment & Plan (06/21/2025 11:50 AM APPELLATE LAW CLERK): - admitted to [facility] behavioral health unit due to suicide attempt - does not endorse SI here - continuous sitter - psych consult in AM Assessment & Plan (06/21/2025 1:56 AM CDT): - admitted to [facility] behavioral health unit due to suicide attempt - does not endorse SI here - continuous sitter - psych consult in AM Depression 06/21/2025 Assessment & Plan (07/01/2025 8:33 PM APPELLATE LAW CLERK): - admitted to [facility] behavioral health unit due to suicide attempt - does not endorse SI here - continuous sitter for agitation (not needed for SI anymore) - psych consulted, recs: - no psychiatric contraindication to discharge, Recommend discharge to the rehab facility like [facility], recommend giving trazodone 100 mg QHS at discharge and follow up outpatient, Increase Trazodone to 100 mg tablet PO, consider initiating Naltrexone at follow up psychiatric examinations, - haldol 3mg PO qhs - PRNs for agitation: Haldol 5mg PO or 2.5mg IM q6h PRN - Precautions: Elopement, Fall Assessment & Plan (06/30/2025 7:37 PM APPELLATE LAW CLERK): - admitted to [facility] behavioral health unit due to suicide attempt - does not endorse SI here - continuous sitter for agitation (not needed for SI anymore) - psych consulted, recs: - no psychiatric contraindication to discharge, Recommend discharge to the rehab facility like [facility], recommend giving trazodone 100 mg QHS at discharge and follow up outpatient, Increase Trazodone to 100 mg tablet PO, consider initiating Naltrexone at follow up psychiatric examinations, - haldol 3mg PO qhs - PRNs for agitation: Haldol 5mg PO or 2.5mg IM q6h PRN - Precautions: Elopement, Fall Assessment & Plan (06/29/2025 4:13 PM APPELLATE LAW CLERK): - admitted to [facility] behavioral health unit due to suicide attempt - does not endorse SI here - continuous sitter for agitation (not needed for SI anymore) - psych consulted, recs: - no psychiatric contraindication to discharge, Recommend discharge to the rehab facility like [facility], recommend giving trazodone 100 mg QHS at discharge and follow up outpatient, Increase Trazodone to 100 mg tablet PO, consider initiating Naltrexone at follow up psychiatric examinations, - Start haldol 3mg PO qhs - PRNs for agitation: Haldol 5mg PO or 2.5mg IM q6h PRN - Precautions: Elopement, Fall Assessment & Plan (06/28/2025 12:30 PM APPELLATE LAW CLERK): - admitted to [facility] behavioral health unit due to suicide attempt - does not endorse SI here - continuous sitter for agitation (not needed for SI anymore) - psych consulted, recs: - no psychiatric contraindication to discharge, Recommend discharge to the rehab facility like [facility], recommend giving trazodone 100 mg QHS at discharge and follow up outpatient, Increase Trazodone to 100 mg tablet PO, consider initiating Naltrexone at follow up psychiatric examinations, - Precautions: Elopement, Fall Assessment & Plan (06/27/2025 10:57 AM APPELLATE LAW CLERK): - admitted to [facility] behavioral health unit due to suicide attempt - does not endorse SI here - continuous sitter for agitation (not needed for SI anymore) - psych consulted, recs: - no psychiatric contraindication to discharge, Recommend discharge to the rehab facility like [facility], recommend giving trazodone 100 mg QHS at discharge and follow up outpatient, Increase Trazodone to 100 mg tablet PO, consider initiating Naltrexone at follow up psychiatric examinations, - Precautions: Elopement, Fall Assessment & Plan (06/26/2025 4:46 PM APPELLATE LAW CLERK): - admitted to [facility] behavioral health unit due to suicide attempt - does not endorse SI here - continuous sitter for agitation (not needed for SI anymore) - psych consulted, recs: - no psychiatric contraindication to discharge, Recommend discharge to the rehab facility like [facility], recommend giving trazodone 100 mg QHS at discharge and follow up outpatient, Increase Trazodone to 100 mg tablet PO, consider initiating Naltrexone at follow up psychiatric examinations,Precautions: 1:1 Sitter, Elopement, Fall Assessment & Plan (06/25/2025 11:00 AM APPELLATE LAW CLERK): - admitted to [facility] behavioral health unit due to suicide attempt - does not endorse SI here - continuous sitter for agitation (not needed for SI anymore) - psych consulted, recs: - no psychiatric contraindication to discharge, Recommend discharge to the rehab facility like [facility], recommend giving trazodone 100 mg QHS at discharge and follow up outpatient, Increase Trazodone to 100 mg tablet PO, consider initiating Naltrexone at follow up psychiatric examinations,Precautions: 1:1 Sitter, Elopement, Fall Assessment & Plan (2025 2:03 PM APPELLATE LAW CLERK): - admitted to [facility] behavioral health unit due to [...] None. Psych PRNs we recommend while at [facility]: None. Precautions: Delirium, Suicide, 1:1 Sitter, Elopement, Fall, Withdrawal Psychosocial needs: We greatly appreciate social work's support with discharge planning. - Delirium, Suicide, 1:1 Sitter, Elopement, Fall, Withdrawal 2025: Per psychiatry, schedule trazodone 50 mg QHS at discharge and follow up outpatient. Psychiatry team agrees with PT's recommendation of patient being discharged to SNF. Assessment & Plan (06/23/2025 2:02 PM APPELLATE LAW CLERK): - admitted to [facility] behavioral health unit due to [...] None. Psych PRNs we recommend while at [facility]: None. Precautions: Delirium, Suicide, 1:1 Sitter, Elopement, Fall, Withdrawal Psychosocial needs: We greatly appreciate social work's support with discharge planning. - Delirium, Suicide, 1:1 Sitter, Elopement, Fall, Withdrawal Assessment & Plan (06/22/2025 6:27 PM APPELLATE LAW CLERK): - admitted to [facility] behavioral health unit due to suicide attempt - does not endorse SI here - continuous sitter - psych consult Assessment & Plan (06/21/2025 11:50 AM APPELLATE LAW CLERK): - admitted to [facility] behavioral health unit due to suicide attempt - does not endorse SI here - continuous sitter - psych consult in AM Assessment & Plan (06/21/2025 1:56 AM CDT): - admitted to [facility] behavioral health unit due to suicide attempt - does not endorse SI here - continuous sitter - psych consult in AM Suicidal behavior with attempted self-injury 09/2024 Assessment & Plan (07/01/2025 8:33 PM APPELLATE LAW CLERK): - admitted to [facility] behavioral health unit due to suicide attempt - does not endorse SI here - continuous sitter for agitation (not needed for SI anymore) - psych consulted, recs: - no psychiatric contraindication to discharge, Recommend discharge to the rehab facility like [facility], recommend giving trazodone 100 mg QHS at discharge and follow up outpatient, Increase Trazodone to 100 mg tablet PO, consider initiating Naltrexone at follow up psychiatric examinations, - haldol 3mg PO qhs - PRNs for agitation: Haldol 5mg PO or 2.5mg IM q6h PRN - Precautions: Elopement, Fall Assessment & Plan (06/30/2025 7:37 PM APPELLATE LAW CLERK): - admitted to [facility] behavioral health unit due to suicide attempt - does not endorse SI here - continuous sitter for agitation (not needed for SI anymore) - psych consulted, recs: - no psychiatric contraindication to discharge, Recommend discharge to the rehab facility like [facility], recommend giving trazodone 100 mg QHS at discharge and follow up outpatient, Increase Trazodone to 100 mg tablet PO, consider initiating Naltrexone at follow up psychiatric examinations, - haldol 3mg PO qhs - PRNs for agitation: Haldol 5mg PO or 2.5mg IM q6h PRN - Precautions: Elopement, Fall Assessment & Plan (06/29/2025 4:13 PM APPELLATE LAW CLERK): - admitted to [facility] behavioral health unit due to suicide attempt - does not endorse SI here - continuous sitter for agitation (not needed for SI anymore) - psych consulted, recs: - no psychiatric contraindication to discharge, Recommend discharge to the rehab facility like [facility], recommend giving trazodone 100 mg QHS at discharge and follow up outpatient, Increase Trazodone to 100 mg tablet PO, consider initiating Naltrexone at follow up psychiatric examinations, - Start haldol 3mg PO qhs - PRNs for agitation: Haldol 5mg PO or 2.5mg IM q6h PRN - Precautions: Elopement, Fall Assessment & Plan (06/28/2025 12:30 PM APPELLATE LAW CLERK): - admitted to [facility] behavioral health unit due to suicide attempt - does not endorse SI here - continuous sitter for agitation (not needed for SI anymore) - psych consulted, recs: - no psychiatric contraindication to discharge, Recommend discharge to the rehab facility like [facility], recommend giving trazodone 100 mg QHS at discharge and follow up outpatient, Increase Trazodone to 100 mg tablet PO, consider initiating Naltrexone at follow up psychiatric examinations, - Precautions: Elopement, Fall Assessment & Plan (06/27/2025 10:57 AM APPELLATE LAW CLERK): - admitted to [facility] behavioral health unit due to suicide attempt - does not endorse SI here - continuous sitter for agitation (not needed for SI anymore) - psych consulted, recs: - no psychiatric contraindication to discharge, Recommend discharge to the rehab facility like [facility], recommend giving trazodone 100 mg QHS at discharge and follow up outpatient, Increase Trazodone to 100 mg tablet PO, consider initiating Naltrexone at follow up psychiatric examinations, - Precautions: Elopement, Fall Assessment & Plan (06/26/2025 4:46 PM APPELLATE LAW CLERK): - admitted to [facility] behavioral health unit due to suicide attempt - does not endorse SI here - continuous sitter for agitation (not needed for SI anymore) - psych consulted, recs: - no psychiatric contraindication to discharge, Recommend discharge to the rehab facility like [facility], recommend giving trazodone 100 mg QHS at discharge and follow up outpatient, Increase Trazodone to 100 mg tablet PO, consider initiating Naltrexone at follow up psychiatric examinations,Precautions: 1:1 Sitter, Elopement, Fall Assessment & Plan (06/25/2025 11:00 AM APPELLATE LAW CLERK): - admitted to [facility] behavioral health unit due to suicide attempt - does not endorse SI here - continuous sitter for agitation (not needed for SI anymore) - psych consulted, recs: - no psychiatric contraindication to discharge, Recommend discharge to the rehab facility like SNF, recommend giving trazodone 100 mg QHS at discharge and follow up outpatient, Increase Trazodone to 100 mg tablet PO, consider initiating Naltrexone at follow up psychiatric examinations,Precautions: 1:1 Sitter, Elopement, Fall Assessment & Plan (2025 2:03 PM APPELLATE LAW CLERK): - admitted to [facility] behavioral health unit due to [...] None. Psych PRNs we recommend while at [facility]: None. Precautions: Delirium, Suicide, 1:1 Sitter, Elopement, Fall, Withdrawal Psychosocial needs: We greatly appreciate social work's support with discharge planning. - Delirium, Suicide, 1:1 Sitter, Elopement, Fall, Withdrawal 2025: Per psychiatry, schedule trazodone 50 mg QHS at discharge and follow up outpatient. Psychiatry team agrees with PT's recommendation of patient being discharged to SNF. Assessment & Plan (06/23/2025 2:02 PM APPELLATE LAW CLERK): - admitted to [facility] behavioral health unit due to [...] None. Psych PRNs we recommend while at [facility]: None. Precautions: Delirium, Suicide, 1:1 Sitter, Elopement, Fall, Withdrawal Psychosocial needs: We greatly appreciate social work's support with discharge planning. - Delirium, Suicide, 1:1 Sitter, Elopement, Fall, Withdrawal Assessment & Plan (06/22/2025 6:27 PM APPELLATE LAW CLERK): - admitted to [facility] behavioral health unit due to suicide attempt - does not endorse SI here - continuous sitter - psych consult Assessment & Plan (06/21/2025 11:50 AM APPELLATE LAW CLERK): - admitted to [facility] behavioral health unit due to suicide attempt - does not endorse SI here - continuous sitter - psych consult in AM Assessment & Plan (06/21/2025 1:56 AM CDT): - admitted to [facility] behavioral health unit due to suicide attempt - does not endorse SI here - continuous sitter - psych consult in AM Weakness 06/19/2025 Assessment & Plan (07/01/2025 8:33 PM APPELLATE LAW CLERK): - 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 [...] on Labs - PT/OT rec acute rehab Assessment & Plan (06/30/2025 7:37 PM APPELLATE LAW CLERK): - 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 [...] on Labs - PT/OT rec acute rehab Assessment & Plan (06/29/2025 4:13 PM APPELLATE LAW CLERK): - 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 [...] on Labs - PT/OT rec acute rehab Assessment & Plan (06/28/2025 12:30 PM APPELLATE LAW CLERK): - 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 [...] on Labs - PT/OT rec acute rehab Assessment & Plan (06/27/2025 10:57 AM APPELLATE LAW CLERK): - 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 [...] on Labs - PT/OT rec acute rehab Assessment & Plan (06/26/2025 4:46 PM APPELLATE LAW CLERK): - 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 [...] mg PRN discontinued - F/u on Labs Assessment & Plan (06/25/2025 11:00 AM APPELLATE LAW CLERK): - 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 [...] mg PRN discontinued - F/u on Labs Assessment & Plan (2025 7:57 AM APPELLATE LAW CLERK): - 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 [...] CIWA protocol discontinued - F/u on Labs Assessment & Plan (06/23/2025 2:02 PM APPELLATE LAW CLERK): - 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 [...] CIWA protocol discontinued - F/u on Labs Assessment & Plan (06/22/2025 6:27 PM APPELLATE LAW CLERK): - 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 [...] CIWA protocol discontinued - F/u on Labs Assessment & Plan (06/21/2025 11:50 AM APPELLATE LAW CLERK): - 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 [...] - CIWA protocol - F/u on Labs Assessment & Plan (06/21/2025 1:03 AM APPELLATE LAW CLERK): - 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 [...] fu labs - neurology consult in AM Encounters Date Type Department Care Team Description 06/21/2025 Travel 06/20/2025 8:29 PM CDT - 07/01/2025 8:00 PM APPELLATE LAW CLERK Hospital Encounter [facility] [address] [place] [address] Kofi Ivey DO Vaidyan, Philip B, MD Jain, Priya, MD Internal Medicine Discharge Disposition: Nursing Facility:Medicaid 06/19/2025 Telephone [facility] INTER[facility] MED [address] [place] [id number] Kofi Ivey DO General (OSH transfer) from Last 3 Months Immunizations Immunization Administration Dates Next Due INFLUENZA VACCINE, TRIV. ([place] UZONE; FLULAVAL; FLUARIX; AFLURIA TRIVALENT; 6MO+), 0.5 ML (IIV3) 06/25/2025 Social History Tobacco Use Types Packs/Day Years [...] when you are drinking? 3 or 4 5 Q3: How often do you have si x or more drinks on one occasion? Less than monthly 06/26/2025 Overall Financial Resource Strain (CARDIA) Answe r Date Recorded How hard is it for you to pa y for the very basics like food, housing, medical care, and heating? Patient unable to answer 06/26/2025 [facility] - Occupational Stress [...] any time in the past 12 m [facility], were you homeless or living in a custodial (including now)? Patient unable to answer 06/26/2025 Sex and Gender Information Value Date Recorded Sex Assigned at Not on file Legal Sex Male 11:09 AM CDT Gender Identity Not on file Sexual Orientation Not on file Last Filed Vital Signs Vital Sign Reading Time Taken Comments Blood Pressure 129/93 07/01/2025 7:49 PM APPELLATE LAW CLERK Pulse 119 07/01/2025 7:49 PM APPELLATE LAW CLERK Temperature 36.8 C (98.2 F) 07/01/2025 7:49 PM APPELLATE LAW CLERK Respiratory Rate 16 07/01/2025 7:49 PM APPELLATE LAW CLERK Oxygen Saturation 100% 06/30/2025 8:09 PM APPELLATE LAW CLERK Inhaled Oxygen Concentration - - Weight 76.9 kg (169 lb 8 oz) 06/20/2025 9:03 PM CDT Height 180.3 cm (5' 11) 06/20/2025 9:03 PM CDT Body Mass Index 23.64 06/20/2025 9:03 PM CDT Plan of Treatment Health Maintenance Due Date Last Done Comments COLOGUARD (AGES 45-75) - COL ON CA SCREENING 1971 COLON MONITORING 1971 COLONOSCOPY - COLON CA SCREENING 1971 CT COLONOGRAPHY - COLON CA SCREENING 1971 Colorectal Cancer Screening 1971 FIT - COLON CA SCREENING 1971 FLEX SIG - COLON CA SCREENING 1971 LIPID TESTING 1971 HIV SCREENING 1986 HEPATITIS C SCREENING 06/19/1989 DTAP/TDAP/TD VACCINES (1 - Tdap) 1990 HEPATITIS B VACCINE (1 of 3 - 19+ 3-dose series) 1990 PNEUMOCOCCAL VACCINE 50+ (1 of 1 - PCV) 2021 ZOSTER VACCINE (1 of 2) 2021 DEPRESSION SCREENING 08/20/2024 COVID-19 VACCINE (1 - 2024-2 6 season) 2025 INFLUENZA VACCINE Completed 06/25/2025 HIB VACCINE Aged Out No longer eligi ble based on patient's age to complete this topic HPV VACCINE Aged Out No longer eligi ble based on patient's age to complete this topic MENINGOCOCCAL (Group B) VACC INE SHARED DECISION-MAKING Aged Out No longer eligibl e based on patient's age to complete this topic MENINGOCOCCAL GROUPS A/C/Y/W VACCINE Aged Out No longer eligible b ased on patient's age to complete this topic Procedures Procedure Name Priority Date/Time Associated Diagnosis Comments GLUCOSE - POINT OF CARE Routine 07/01/20 6:20 PM APPELLATE LAW CLERK MAGNESIUM BLOOD Routine 06/30/2025 7:31 PM APPELLATE LAW CLERK PHOSPHORUS BLOOD Routine 06/30/2025 7:31 PM APPELLATE LAW CLERK COMPREHENSIVE METABOLIC PANEL Routine 06/30/2025 7:31 PM APPELLATE LAW CLERK GLUCOSE - POINT OF CARE Routine 06/30/20 7:53 AM APPELLATE LAW CLERK MAGNESIUM BLOOD Routine 06/30/2025 12:45 AM APPELLATE LAW CLERK PHOSPHORUS BLOOD Routine 06/30/2025 12:4 5 AM APPELLATE LAW CLERK COMPREHENSIVE METABOLIC PANEL Routine 06/30/2025 12:45 AM APPELLATE LAW CLERK GLUCOSE - POINT OF CARE Routine 06/29/20 8:27 PM APPELLATE LAW CLERK US ABDOMEN LIMITED Routine 06/29/2025 8: 41 AM APPELLATE LAW CLERK Elevated LFTs GLUCOSE - POINT OF CARE Routine 06/29/20 1:09 AM APPELLATE LAW CLERK CBC W/O DIFFERENTIAL Routine 06/28/2025 7:43 PM APPELLATE LAW CLERK MAGNESIUM BLOOD Routine 06/28/2025 7:43 PM APPELLATE LAW CLERK PHOSPHORUS BLOOD Routine 06/28/2025 7:43 PM APPELLATE LAW CLERK COMPREHENSIVE METABOLIC PANEL Routine 06/28/2025 7:43 PM APPELLATE LAW CLERK GLUCOSE - POINT OF CARE Routine 06/28/20 4:43 PM APPELLATE LAW CLERK GLUCOSE - POINT OF CARE Routine 06/28/20 11:53 AM APPELLATE LAW CLERK GLUCOSE - POINT OF CARE Routine 06/28/20 7:00 AM APPELLATE LAW CLERK GLUCOSE - POINT OF CARE Routine 06/27/20 8:55 PM APPELLATE LAW CLERK MAGNESIUM BLOOD Routine 06/27/2025 8:03 PM APPELLATE LAW CLERK PHOSPHORUS BLOOD Routine 06/27/2025 8:03 PM APPELLATE LAW CLERK COMPREHENSIVE METABOLIC PANEL Routine 06/27/2025 8:03 PM APPELLATE LAW CLERK GLUCOSE - POINT OF CARE Routine 06/27/20 5:43 PM APPELLATE LAW CLERK GLUCOSE - POINT OF CARE Routine 06/27/20 10:37 AM APPELLATE LAW CLERK MAGNESIUM BLOOD Routine 06/27/2025 12:14 AM APPELLATE LAW CLERK PHOSPHORUS BLOOD Routine 06/27/2025 12:1 4 AM APPELLATE LAW CLERK COMPREHENSIVE METABOLIC PANEL Routine 06/27/2025 12:14 AM APPELLATE LAW CLERK GLUCOSE - POINT OF CARE Routine 06/26/20 6:03 PM APPELLATE LAW CLERK GLUCOSE - POINT OF CARE Routine 06/26/20 11:42 AM APPELLATE LAW CLERK GLUCOSE - POINT OF CARE Routine 06/26/20 7:37 AM APPELLATE LAW CLERK GLUCOSE - POINT OF CARE Routine 06/25/20 8:45 PM APPELLATE LAW CLERK URIC ACID BLOOD Routine 06/25/2025 3:08 AM APPELLATE LAW CLERK MAGNESIUM BLOOD Routine 06/25/2025 3:08 AM APPELLATE LAW CLERK PHOSPHORUS BLOOD Routine 06/25/2025 3:08 AM APPELLATE LAW CLERK COMPREHENSIVE METABOLIC PANEL Routine 06/25/2025 3:08 AM APPELLATE LAW CLERK GLUCOSE - POINT OF CARE Routine 06/24/20 9:26 PM APPELLATE LAW CLERK GLUCOSE - POINT OF CARE Routine 06/24/20 4:33 PM APPELLATE LAW CLERK PATHOLOGY SMEAR BODY FLUID Routine 2025 1:08 PM APPELLATE LAW CLERK Swelling of joint of right knee DIFFERENTIAL MANUAL FLUID Routine 2025 1:08 PM APPELLATE LAW CLERK CRYSTAL INDENTIFICATION SYNOVIAL FLUID Routine 2025 1:08 PM APPELLATE LAW CLERK Swelling of joint of right knee CELL COUNT W DIFFERENTIAL FLUID Routine 2025 1:08 PM APPELLATE LAW CLERK CULTURE FLUID+GRAM STAIN Routine 2025 1:08 PM APPELLATE LAW CLERK CYTOLOGY NON-COTTON WASHER PANEL (STL) Routine 2025 1:05 PM APPELLATE LAW CLERK Swelling of joint of right knee CULTURE FUNGUS OTHER+FUNGUS SMEAR Routine 2025 1:00 PM APPELLATE LAW CLERK CULTURE AFB+SMEAR Routine 2025 1:0 0 PM APPELLATE LAW CLERK GLUCOSE - POINT OF CARE Routine 06/24/20 11:14 AM APPELLATE LAW CLERK GLUCOSE - POINT OF CARE Routine 06/24/20 7:46 AM APPELLATE LAW CLERK CBC W/O DIFFERENTIAL STAT 2025 5:48 AM APPELLATE LAW CLERK MAGNESIUM BLOOD Routine 2025 5:48 AM APPELLATE LAW CLERK PHOSPHORUS BLOOD Routine 2025 5:48 AM APPELLATE LAW CLERK COMPREHENSIVE METABOLIC PANEL Routine 2025 5:48 AM APPELLATE LAW CLERK GLUCOSE - POINT OF CARE Routine 06/23/20 9:37 PM APPELLATE LAW CLERK C-REACTIVE PROTEIN ANNEMARIE 06/23/2025 5: 18 PM APPELLATE LAW CLERK ERYTHROCYTE SEDIMENTATION RATE STAT 06/23/2025 5:18 PM APPELLATE LAW CLERK GLUCOSE - POINT OF CARE Routine 06/23/20 4:33 PM APPELLATE LAW CLERK GLUCOSE - POINT OF CARE Routine 06/23/20 11:34 AM APPELLATE LAW CLERK GLUCOSE - POINT OF CARE Routine 06/23/20 7:36 AM APPELLATE LAW CLERK MAGNESIUM BLOOD Routine 06/23/2025 4:40 AM APPELLATE LAW CLERK PHOSPHORUS BLOOD Routine 06/23/2025 4:40 AM APPELLATE LAW CLERK COMPREHENSIVE METABOLIC PANEL Routine 06/23/2025 4:40 AM APPELLATE LAW CLERK GLUCOSE - POINT OF CARE Routine 06/22/20 9:34 PM APPELLATE LAW CLERK GLUCOSE - POINT OF CARE Routine 06/22/20 4:28 PM APPELLATE LAW CLERK XR KNEE RIGHT 3VW Routine 06/22/2025 2:1 5 PM APPELLATE LAW CLERK Anxiety Suicidal behavior with attempted self-injury (HCC) Alcohol use disorder GLUCOSE - POINT OF CARE Routine 06/22/20 12:00 PM APPELLATE LAW CLERK PHOSPHORUS BLOOD Routine 06/22/2025 6:00 AM APPELLATE LAW CLERK COMPREHENSIVE METABOLIC PANEL Routine 06/22/2025 6:00 AM APPELLATE LAW CLERK GLUCOSE - POINT OF CARE Routine 06/21/20 8:41 PM APPELLATE LAW CLERK GLUCOSE - POINT OF CARE Routine 06/21/20 4:56 PM APPELLATE LAW CLERK XR ELBOW RIGHT 2VW Routine 06/21/2025 4: 33 PM APPELLATE LAW CLERK Weakness GLUCOSE - POINT OF CARE Routine 06/21/20 11:40 AM APPELLATE LAW CLERK GLUCOSE - POINT OF CARE Routine 06/21/20 7:55 AM APPELLATE LAW CLERK VITAMIN B1 STAT 06/21/2025 4:03 AM APPELLATE LAW CLERK FOLATE ANNEMARIE 06/21/2025 4:03 AM APPELLATE LAW CLERK METHYLMALONIC ACID BLOOD STAT 06/21/2025 4:03 AM APPELLATE LAW CLERK VITAMIN B12 ANNEMARIE 06/21/2025 4:03 AM APPELLATE LAW CLERK CK BLOOD STAT 06/21/2025 4:03 AM APPELLATE LAW CLERK VITAMIN D 25-HYDROXY ANNEMARIE 06/21/2025 4:03 AM APPELLATE LAW CLERK TSH REFLEX FREE T4 STAT 06/21/2025 4: 03 AM APPELLATE LAW CLERK PHOSPHORUS BLOOD STAT 06/21/2025 4:03 AM APPELLATE LAW CLERK MAGNESIUM BLOOD STAT 06/21/2025 4:03 AM APPELLATE LAW CLERK COMPREHENSIVE METABOLIC PANEL STAT 06/21/2025 4:03 AM APPELLATE LAW CLERK CBC W AUTO DIFFERENTIAL STAT 06/21/20 4:03 AM APPELLATE LAW CLERK XR CHEST 1VW PORTABLE STAT 06/21/2025 1:46 AM CDT Aspiration into airway, subsequent encounter GLUCOSE - POINT OF CARE Routine 06/20/20 11:18 PM CDT URINALYSIS REFLEX TO MICROSCOPIC NO CULTURE STAT 06/20/2025 11:06 PM CDT from Last 3 Months Results * (ABNORMAL) GLUCOSE - POINT OF CARE (07/01/2025 6:20 PM APPELLATE LAW CLERK) Only the most recent of30 resultswithin the time period is included. Glucose WB/POC 104(H) 70 - 99 mg/dL 07/01/2025 6:21 PM APPELLATE LAW CLERK [facility] Specimen Type Arterial/C apillary 07/01/2025 6:21 PM APPELLATE LAW CLERK [facility] Blood BLOOD SPECIMEN / Unknown 07/01/2025 6:20 PM APPELLATE LAW CLERK 07/01/2025 6:21 PM APPELLATE LAW CLERK us Gricelda Blancas MD LAB - POINT OF CARE ORDERABLES F inal Result [facility] [address] [place] [address], [facility] [phone] * (ABNORMAL) COMPREHENSIVE METABOLIC PANEL (06/30/2025 7:31 PM APPELLATE LAW CLERK) Only the most recent of10 resultswithin the time period is included. BUN 15 7 - 26 mg/dL 06/30/2025 8:37 PM [facility] Creatinine 0.89 0.71 - 1.16 mg/dL 06/30/2025 8:37 PM [facility] Sodium 140 136 - 145 mmol/L 06/30/2025 8:37 PM [facility] Potassium 4.3 3.5 - 4.5 mmol/L 06/30/2025 8:37 PM [facility] Chloride 109(H) 98 - 107 mmol/L 06/30/2025 8:37 PM [facility] CO2 19(L) 22 - 29 mmol/L 06/30/2025 8:37 PM [facility] Glucose 83 70 - 99 mg/dL 06/30/2025 8:37 PM [facility] Calcium 8.9 8.4 - 10.2 mg/dL 06/30/2025 8:37 PM [facility] Protein Total 7.1 6.0 - 8.3 g/dL 06/30/2025 8:37 PM [facility] Albumin 3.4 3.4 - 5.0 g/dL 06/30/2025 8:37 PM [facility] Bilirubin Total 0.3 0.2 - 1.2 mg/dL 06/30/2025 8:37 PM [facility] Alkaline Phosphatase 64 40 - 150 U/L 06/30/2025 8:37 PM [facility] ALT 78(H) 5 - 55 U/L 06/30/2025 8:37 PM [facility] AST 64(H) 5 - 34 U/L 06/30/2025 8:37 PM [facility] Anion Gap 12 6 - 16 06/30/2025 8:37 PM [facility] BUN/Creatinine Ratio 17 7 - 23 06/30/2025 8:37 PM [facility] Osmolality Calculated 290 275 - 295 mOsm/kg 06/30/2025 8:37 PM [facility] Albumin/Globulin Ratio 0.9(L) 1.1 - 2.3 06/30/2025 8:37 PM [facility] eGFR by CKD-EPI >90 >=90 mL/min/1.7 3 m2 06/30/2025 8:37 PM [facility] Comment:Estimated Glomerular Filtration Rate (eGFR) calculated using the CKD-EPI Creatinine Equation (2020), per the National Kidney Foundation and [place] [employer] recommendations. Blood BLOOD SPECIMEN / Unknown Lab Venipuncture / Unknown 06/30/2025 7:31 PM APPELLATE LAW CLERK 06/30/2025 8:10 PM APPELLATE LAW CLERK us Fransico Rhodes MD LAB - CHEMISTRY ORDERABLES F inal Result [address] [address], [place] [phone] * PHOSPHORUS BLOOD (06/30/2025 7:31 PM APPELLATE LAW CLERK) Only the most recent of10 resultswithin the time period is included. Phosphorus 3.7 2.8 - 5.1 mg/dL 06/30/2025 8:37 PM [facility] Blood BLOOD SPECIMEN / Unknown Lab Venipuncture / Unknown 06/30/2025 7:31 PM APPELLATE LAW CLERK 06/30/2025 8:10 PM APPELLATE LAW CLERK us Fransico Rhodes MD LAB - CHEMISTRY ORDERABLES F inal Result [address] [address], [place] [phone] * MAGNESIUM BLOOD (06/30/2025 7:31 PM APPELLATE LAW CLERK) Only the most recent of9 resultswithin the time period is included. Magnesium 1.6 1.6 - 2.6 mg/dL 06/30/2025 8:37 PM APPELLATE LAW CLERK [facility] Blood BLOOD SPECIMEN / Unknown Lab Venipuncture / Unknown 06/30/2025 7:31 PM APPELLATE LAW CLERK 06/30/2025 8:10 PM APPELLATE LAW CLERK us Fransico Rhodes MD LAB - CHEMISTRY ORDERABLES F inal Result [facility] [address] [place] [address], [facility] [phone] * US Abdomen Limited (06/29/2025 8:41 AM APPELLATE LAW CLERK) Anatomical Region Laterality Modality Abdomen Ultrasound 06/29/2025 8:42 AM APPELLATE LAW CLERK Impressions 06/29/2025 9:31 AM APPELLATE LAW CLERK IMPRESSION: 1.Mild hepatic steatosis. No cirrhosis. No discrete hepatic lesion or intrahepatic biliary ductal dilatation. 2.No evidence of cholelithiasis or acute cholecystitis. The report is dictated by Shreyas Glynn MD, (vice president of advertising) 06/29/2025 8:51 AM. > Dictated by Consolidator I, Magdaleno Singh MD have personally reviewed and interpreted this examination/study. > Interpreting Provider: Magdaleno Singh MD on 06/29/2025 9:31 AM Narrative 06/29/2025 9:31 AM APPELLATE LAW CLERK PROCEDURE: US ABDOMEN LIMITED, DATE/TIME OF EXAM: 06/29/2025 8:41 AM, LOCATION [facility] INDICATION: R79.89: Elevated LFTs ADDITIONAL CLINICAL INFORMATION: [...] DATE/TIME OF EXAM: 06/29/2025 8:41 AM, LOCATION [facility] INDICATION: R79.89: Elevated LFTs ADDITIONAL CLINICAL INFORMATION: [...] dictated by Shreyas Glynn MD, (vice president of advertising)06/29/2025 8:51 AM. > Dictated by Consolidator I, Magdaleno Singh MD have personally reviewed and interpreted this examination/study. > Interpreting Provider: Magdaleno Singh MD on 06/29/2025 9:31 AM us Gricelda Blancas MD US ORDERABLES Final Result * (ABNORMAL) CBC W/O DIFFERENTIAL (06/28/2025 7:43 PM APPELLATE LAW CLERK) Only the most recent of2 resultswithin the time period is included. WBC 7.7 4.0 - 10.7 x10E9/L 06/28/2025 8:50 PM [facility] RBC Count 3.82(L) 4.30 - 5.80 x10E12/L 06/28/2025 8:50 PM [facility] Hemoglobin 12.4(L) 13.3 - 17.5 g/dL 06/28/2025 8:50 PM [facility] Hematocrit 37.9(L) 38.7 - 51.1 % 06/28/2025 8:50 PM [facility] MCV 99.2(H) 80.0 - 98.0 fL 06/28/2025 8:50 PM [facility] MCH 32.5 26.7 - 33.6 pg 06/28/2025 8:50 PM [facility] MCHC 32.7 31.7 - 36.3 g/dL 06/28/2025 8:50 PM [facility] RDW-CV 11.4 11.3 - 14.8 % 06/28/2025 8:50 PM [facility] Platelet Count 418 150 - 420 x10E9/L 06/28/2025 8:50 PM [facility] MPV 9.8 7.8 - 11.4 fL 06/28/2025 8:50 PM [facility] Blood BLOOD SPECIMEN / Unknown Lab Venipuncture / Unknown 06/28/2025 7:43 PM APPELLATE LAW CLERK 06/28/2025 8:32 PM APPELLATE LAW CLERK us Gricelda Blancas MD LAB - HEMATOLOGY ORDERABLES Bella l Result [facility] [address] [place] [address] [phone] * URIC ACID BLOOD (06/25/2025 3:08 AM APPELLATE LAW CLERK) Uric Acid 7.1 3.5 - 7.2 mg/dL 06/25/2025 6:26 AM [facility] Blood BLOOD SPECIMEN / Unknown Lab Venipuncture / Unknown 06/25/2025 3:08 AM APPELLATE LAW CLERK 06/25/2025 5:38 AM APPELLATE LAW CLERK us Fransico Rhodes MD LAB - CHEMISTRY ORDERABLES F inal Result [address] [address], [place] [phone] * CRYSTAL IDENTIFICATION SYNOVIAL FLUID (2025 1:08 PM APPELLATE LAW CLERK) Crystal Exam Fluid To be performed by Pathology. See Path Review. 2025 3:12 PM APPELLATE LAW CLERK [facility] Fluid SYNOVIAL FLUID / Unknown Collection / Unknown 2025 1:08 PM APPELLATE LAW CLERK 2025 3:04 PM APPELLATE LAW CLERK us Fransico Rhodes MD LAB - BODY FLUID ORDERABLES Final Result Performing Organization Address [facility] Co de Phone Number [address] [address], [place] [phone] * PATHOLOGY SMEAR BODY FLUID (2025 1:08 PM APPELLATE LAW CLERK) Path Review Fluid Confirmed 06/25/2025 2:47 PM APPELLATE LAW CLERK [facility] Fluid SYNOVIAL FLUID / Unknown Collection / Unknown 2025 1:08 PM APPELLATE LAW CLERK 2025 3:04 PM APPELLATE LAW CLERK Narrative [facility] - 06/25/2025 2:47 PM APPELLATE LAW CLERK Synovial fluid, smear: - Negative for malignant cells - Marked acute inflammation present - Few scattered crystals present, morphologically consistent with monosodium urate crystals us Fransico Rhodes MD LAB - PATHOLOGY/CYTOLOGY ORD ERABLES Final Result Performing Organization Address City/[facility]/ZIP Co de Phone Number [address] [address], [place] [phone] * DIFFERENTIAL MANUAL FLUID (2025 1:08 PM APPELLATE LAW CLERK) Fluid Source Synovial 2025 4:23 PM APPELLATE LAW CLERK [facility] Body Fluid Total Cell Count 100 x10E6/L 2025 4:23 PM [facility] Neutrophils Fluid Percent 89 % 2025 4:23 PM [facility] Lymphocytes Fluid Percent 3 % 2025 4:23 PM [facility] Macrophages Fluid Percent 8 % 2025 4:23 PM [facility] Fluid SYNOVIAL FLUID / Unknown Collection / Unknown 2025 1:08 PM APPELLATE LAW CLERK 2025 3:04 PM APPELLATE LAW CLERK [facility] - 2025 4:23 PM APPELLATE LAW CLERK No reference ranges established for body fluid differential cell counts. The test results must be integrated into the clinical context for interpretation. us Fransico Rhodes MD LAB - BODY FLUID ORDERABLES Final Result Performing Organization Address City/[facility]/ZIP Co de Phone Number [facility] [address] [place] [address], [place] [phone] * CULTURE FLUID+GRAM STAIN (2025 1:08 PM APPELLATE LAW CLERK) Culture No growth IRMA 06/30/2025 3:15 PM APPELLATE LAW CLERK [facility] MICROBIOLOG[facility] Gram Stain Light Polymorphonuclear cells 06/30/2025 3:15 PM APPELLATE LAW CLERK [facility] MICROBIOLOGY Gram Stain No organisms seen 025 3:15 PM [facility] MICROBIOLOGY Fluid SYNOVIAL FLUID / Unknown Collection / Unknown 2025 1:08 PM APPELLATE LAW CLERK 2025 2:58 PM APPELLATE LAW CLERK [facility] MICROBIOLOGY - 06/30/2025 3:15 PM APPELLATE LAW CLERK Body fluid received in blood culture bottles will be evaluated for aerobic and anaerobic growth. Separate anaerobic culture order has been cancelled as a duplicate order. us Fransico Rhodes MD LAB - MICROBIOLOGY ORDERABLE S Final Result [facility] MICROBIOLOGY [address] [place] [address], [place] [phone] * (ABNORMAL) CELL COUNT W DIFFERENTIAL FLUID (2025 1:08 PM APPELLATE LAW CLERK) Fluid Source Synovial 2025 4:23 PM [facility] Fluid Appearance CLOUDY 2025 4:23 PM [facility] Fluid Color YELLOW 2025 4:23 PM [facility] Total Nucleated Cells Fluid 8,956(H) <=200 x10E6/L 2025 4:23 PM [facility] RBC Count Fluid <2,000 Reference Range Not Established x10E6/L 2025 4:23 PM [facility] Fluid SYNOVIAL FLUID / Unknown Collection / Unknown 2025 1:08 PM APPELLATE LAW CLERK 2025 3:04 PM [facility] Narrative [facility] - 2025 4:23 PM APPELLATE LAW CLERK No reference ranges established for body fluid cell counts. Any reference ranges provided are derived from published literature. The test results must be integrated into the clinical context for interpretation. Fransico Rhodes MD LAB - BODY FLUID ORDERABLES Final Result [facility] [address] [place] [address], [facility] [phone] * CYTOLOGY NON-COTTON WASHER PANEL (STL) (2025 1:05 PM APPELLATE LAW CLERK) Case Report Medical Cytology Report Case: [id number] Authorizing Provider: Fransico Rhodes MD Collected: 2025 01:05 PM Ordering Location: [facility] 5N ACUTE Received: 2025 01:45 PM Pathologist: Dagmar Pina MD Specimen: Synovial Fluid 06/26/2025 2:52 PM [facility] PATH[facility] LAB Specimen Adequacy Adequate cellularity for evaluation. 06/26/2025 2:52 PM [facility] Final Diagnosis Synovial fluid, right knee, cytology: - Negative for malignant cells - Acute inflammation present 06/26/2025 2:52 PM [facility] LAB at 1452 APPELLATE LAW CLERK Clinical History Right knee swelling 06/26/2025 2:52 PM [facility] Gross Description 1 Pap stained Thin Prep slide from 3cc cloudy yellow fluid 06/26/2025 2:52 PM [facility] LAB Pathologist Location at [facility] 06/26/2025 2:52 PM [facility] Disclaimer The performance characteristics of all immunohistochemical and indirect immunofluorescence stains (if any) cited in this report were determined by the Histopathology Laboratory of [facility]. Some of these tests rely on the use of analyte-specific reagents and are subject to specific labeling requirements by the US Food and Drug Administration. Such tests were developed by the Histology Laboratory of [facility] and have not been cleared or approved [...] the attending (teaching) pathologist. 06/26/2025 2:52 PM [facility] Embedded Images 06/26/2025 2:52 PM [facility] LAB Pathology/Cytolo gy SYNOVIAL FLUID / Unknown Collection / Unknown 2025 1:05 PM APPELLATE LAW CLERK 2025 1:45 PM APPELLATE LAW CLERK us Fransico Rhodes MD LAB - PATHOLOGY/CYTOLOGY ORD ERABLES Final Result [facility] [address] [phone] * (ABNORMAL) C-REACTIVE PROTEIN (06/23/2025 5:18 PM APPELLATE LAW CLERK) C-Reactive Protein 7.8(H) <=0.5 mg/dL 06/23/2025 5:49 PM APPELLATE LAW CLERK [facility] Blood BLOOD SPECIMEN / Unknown Lab Venipuncture / Unknown 06/23/2025 5:18 PM APPELLATE LAW CLERK 06/23/2025 5:23 PM APPELLATE LAW CLERK us Fransico Rhodes MD LAB - CHEMISTRY ORDERABLES F inal Result [facility] [address] [place] [address], [facility] [phone] * (ABNORMAL) ERYTHROCYTE SEDIMENTATION RATE (06/23/2025 5:18 PM APPELLATE LAW CLERK) Erythrocyte Sedimentation Rate Lizette 84(H) 0 - 20 MM/HR 06/23/2025 5:37 PM APPELLATE LAW CLERK [facility] Blood BLOOD SPECIMEN / Unknown Lab Venipuncture / Unknown 06/23/2025 5:18 PM APPELLATE LAW CLERK 06/23/2025 5:23 PM APPELLATE LAW CLERK Fransico Rhodes MD LAB - HEMATOLOGY ORDERABLES Final Result [address] [address], [facility] [phone] * XR Knee Right 3Vw (06/22/2025 2:15 PM APPELLATE LAW CLERK) Anatomical Region Laterality Modality Lower Extremity Digital Radiogra phy 06/22/2025 2:59 PM APPELLATE LAW CLERK Impressions 06/22/2025 3:22 PM APPELLATE LAW CLERK IMPRESSION: 1.No acute fracture or dislocation. 2.Large knee joint effusion with soft tissue swelling around the knee. Report dictated by Sindy Ocasio MD > Dictated by Consolidator I, Lina Madrid MD have personally reviewed and interpreted this examination/study. > Interpreting Provider: Lina Madrid MD on 06/22/2025 3:22 PM Narrative 06/22/2025 3:22 PM APPELLATE LAW CLERK PROCEDURE: XR KNEE RIGHT 3VW, DATE/TIME OF EXAM: 06/22/2025 2:16 PM, LOCATION [facility] INDICATION: F41.9: Anxiety T14.91XA: Suicidal behavior with [...] DATE/TIME OF EXAM: 06/22/2025 2:16 PM, LOCATION [facility] INDICATION: F41.9: Anxiety T14.91XA: Suicidal behavior with [...] by Sindy Ocasio MD > Dictated by Consolidator I, Lina Madrid MD have personally reviewed and interpreted this examination/study. > Interpreting Provider: Lina Madrid MD on 06/22/2025 3:22 PM us Fransico Rhodes MD DIAGNOSTIC IMAGING ORDERABLE S Final Result * XR Elbow Right 2Vw (06/21/2025 4:33 PM APPELLATE LAW CLERK) Anatomical Region Laterality Modality Upper Extremity Digital Radiogra phy 06/21/2025 8:18 PM APPELLATE LAW CLERK Impressions 06/21/2025 8:19 PM APPELLATE LAW CLERK Impression: Alignment is normal. Joint spaces are normal. No acute fracture. No joint effusion. > Interpreting Provider: Gray Bo MD on 06/21/2025 8:19 PM Narrative 06/21/2025 8:19 PM APPELLATE LAW CLERK PROCEDURE: XR ELBOW RIGHT 2VW, DATE/TIME OF EXAM: 06/21/2025 4:33 PM, LOCATION [facility] INDICATION: R53.1: Weakness ADDITIONAL CLINICAL INFORMATION: Ordering Provider Reason For Exam: purulent fluid accumulation? dislocation of elbow joint? Localized cellulitis? Technologist Note: Additional: COMPARISON: None. Procedure Note Gray Bo MD - 06/21/2025 PROCEDURE: XR ELBOW RIGHT 2VW, DATE/TIME OF EXAM: 06/21/2025 4:33 PM, LOCATION [facility] INDICATION: R53.1: Weakness ADDITIONAL CLINICAL INFORMATION: Ordering Provider Reason For Exam: purulent fluid accumulation? dislocation of elbow joint? Localized cellulitis? Technologist Note: Additional: COMPARISON: None. Impression: Alignment is normal. Joint spaces are normal. No acute fracture. Nojoint effusion. > Interpreting Provider: Gray Bo MD on 06/21/2025 8:19 PM Result [facility] DO DIAGNOSTIC IMAGING O RDERABLES Final Result * TSH REFLEX FREE T4 (06/21/2025 4:03 AM APPELLATE LAW CLERK) TSH 3.057 0.350 - 4.940 uIU/mL 06/21/2025 5:54 AM APPELLATE LAW CLERK [facility] Blood BLOOD SPECIMEN / Unknown Lab Venipuncture / Unknown 06/21/2025 4:03 AM APPELLATE LAW CLERK 06/21/2025 5:21 AM APPELLATE LAW CLERK Result [facility] DO LAB - CHEMISTRY ORDE RABLES Final Result Performing Organization Address [facility] Co de Phone Number [address] [address], [facility] [phone] * METHYLMALONIC ACID BLOOD (06/21/2025 4:03 AM APPELLATE LAW CLERK) Methylmalonic Acid <0.20 0.00 - 0.40 umol/L 06/25/2025 8:40 PM APPELLATE LAW CLERK [facility] ([facility]) Comment: Less than optimal specimen volume received for MMA QNT-P or MMA METD. Specimen was diluted 1:2 for analysis. INTERPRETIVE INFORMATION: MMA Serum/Plasma, Vitamin B12 Status This test was developed and its performance characteristics determined by [facility]. It has not been cleared or approved by the US Food and Drug Administration. This test was performed in a CLIA certified laboratory and is intended for clinical purposes. Performed By: [facility] [address] [place] [id number] Senior Payroll Manager: Pool Mercedes MD, PhD CLIA Number: [id number] Blood BLOOD SPECIMEN / Unknown Lab Venipuncture / Unknown 06/21/2025 4:03 AM APPELLATE LAW CLERK 06/21/2025 5:18 AM APPELLATE LAW CLERK [facility] DO LAB - CHEMISTRY ORDE RABLES Final Result Performing Organization Address City/[facility]/ZIP Co de Phone Number [facility]) [address] [place] [address] * (ABNORMAL) VITAMIN B1 (06/21/2025 4:03 AM APPELLATE LAW CLERK) Vitamin B1 Whole Blood 427(H) 70 - 180 nmol/L 06/25/2025 4:56 AM APPELLATE LAW CLERK [facility] ([facility]) Comment: INTERPRETIVE INFORMATION: Vitamin B1, Whole Blood This assay measures the concentration of thiamine diphosphate (TDP), the primary active form of vitamin B1. Approximately 90 percent of vitamin B1 present in whole blood is TDP. Thiamine and thiamine monophosphate, which comprise the remaining 10 percent, are not measured. This test was developed and its performance characteristics determined by [facility]. It has not been cleared or approved by the US Food and Drug Administration. This test was performed in a CLIA certified laboratory and is intended for clinical purposes. Performed By: [facility] [employer] [address] [place] [address] Senior Payroll Manager: Pool Mercedes MD, PhD CLIA Number: [id number] Blood BLOOD SPECIMEN / Unknown Lab Venipuncture / Unknown 06/21/2025 4:03 AM APPELLATE LAW CLERK 06/21/2025 5:06 AM APPELLATE LAW CLERK [facility] DO LAB - CHEMISTRY ORDE RABLES Final Result Performing Organization Address City/[facility] de Phone Number [facility]) [address] * (ABNORMAL) VITAMIN D 25-HYDROXY (06/21/2025 4:03 AM APPELLATE LAW CLERK) Vitamin D, 25 Hydroxy 10.3(L) 30.0 - 80.0 ng/mL 06/21/2025 5:56 AM APPELLATE LAW CLERK [facility] Comment: The recommendations for 25-Hydroxy Vitamin [...] Lab Venipuncture / Unknown 06/21/2025 4:03 AM APPELLATE LAW CLERK 06/21/2025 5:17 AM APPELLATE LAW CLERK us Kofi Ivey DO LAB - CHEMISTRY ORDE RABLES Final Result [facility] [address] [place] [address], [facility] [phone] * (ABNORMAL) CBC W AUTO DIFFERENTIAL (06/21/2025 4:03 AM [facility]) WBC 7.5 4.0 - 10.7 x10E9/L 06/21/2025 5:14 AM [facility] RBC Count 3.55(L) 4.30 - 5.80 x10E12/L 06/21/2025 5:14 AM [facility] Hemoglobin 11.5(L) 13.3 - 17.5 g/dL 06/21/2025 5:14 AM [facility] Hematocrit 32.4(L) 38.7 - 51.1 % 06/21/2025 5:14 AM [facility] MCV 91.3 80.0 - 98.0 fL 06/21/2025 5:14 AM [facility] MCH 32.4 26.7 - 33.6 pg 06/21/2025 5:14 AM [facility] MCHC 35.5 31.7 - 36.3 g/dL 06/21/2025 5:14 AM [facility] RDW-CV 11.1(L) 11.3 - 14.8 % 06/21/2025 5:14 AM [facility] Platelet Count 353 150 - 420 x10E9/L 06/21/2025 5:14 AM [facility] MPV 9.7 7.8 - 11.4 fL 06/21/2025 5:14 AM [facility] Neutrophil % 74.5(H) 41.0 - 74.0 % 06/21/2025 5:14 AM [facility] Lymphocyte % 12.4(L) 17.0 - 47.0 % 06/21/2025 5:14 AM [facility] Monocyte % 9.6 3.0 - 11.0 % 06/21/2025 5:14 AM [facility] Eosinophil % 1.5 0.0 - 7.0 % 06/21/2025 5:14 AM [facility] Basophil % 0.9 0.0 - 1.6 % 06/21/2025 5:14 AM [facility] Immature Granulocytes % 1.1(H) 0.0 - 1.0 % 06/21/2025 5:14 AM [facility] Neutrophil Absolute 5.60 1.60 - 7.50 x10E9/L 06/21/2025 5:14 AM [facility] Lymphocyte Absolute 0.93(L) 1.00 - 4.40 x10E9/L 06/21/2025 5:14 AM [facility] Monocyte Absolute 0.72 0.15 - 1.00 x10E9/L 06/21/2025 5:14 AM [facility] Eosinophil Absolute 0.11 0.00 - 0.60 x10E9/L 06/21/2025 5:14 AM [facility] Basophil Absolute 0.07 0.00 - 0.13 x10E9/L 06/21/2025 5:14 AM [facility] Blood BLOOD SPECIMEN / Unknown Lab Venipuncture / Unknown 06/21/2025 4:03 AM APPELLATE LAW CLERK 06/21/2025 5:06 AM [facility] us Kofi Ivey DO LAB - HEMATOLOGY ORD ERABLES Final Result [facility] [address] [place] [address], [facility] [phone] * FOLATE (06/21/2025 4:03 AM [facility]) Pathologist [facility] 14.5 7.0 - 31.4 ng/mL 06/21/2025 11:49 AM APPELLATE LAW CLERK [facility] Blood BLOOD SPECIMEN / Unknown Lab Venipuncture / Unknown 06/21/2025 4:03 AM APPELLATE LAW CLERK 06/21/2025 5:21 AM APPELLATE LAW CLERK [facility] [email or web address] DO LAB - CHEMISTRY ORDE RABLES Final Result [address] [address], [facility] [phone] * CK BLOOD (06/21/2025 4:03 AM APPELLATE LAW CLERK) CK Total 103 30 - 200 U/L 06/21/2025 5:52 AM APPELLATE LAW CLERK [facility] Blood BLOOD SPECIMEN / Unknown Lab Venipuncture / Unknown 06/21/2025 4:03 AM APPELLATE LAW CLERK 06/21/2025 5:21 AM APPELLATE LAW CLERK [facility] - CHEMISTRY ORDE RABLES Final Result [address] [address], [place] [phone] * VITAMIN B12 (06/21/2025 4:03 AM APPELLATE LAW CLERK) Vitamin B12 447 213 - 816 pg/mL 06/21/2025 5:56 AM APPELLATE LAW CLERK [facility] Blood BLOOD SPECIMEN / Unknown Lab Venipuncture / Unknown 06/21/2025 4:03 AM APPELLATE LAW CLERK 06/21/2025 5:17 AM APPELLATE LAW CLERK [employer] DO LAB - CHEMISTRY ORDE RABLES Final Result [address] [address], [place] [phone] * XR Chest 1Vw Portable (06/21/2025 1:46 AM CDT) Anatomical Region Laterality Modality Chest Digital Radiogra phy 06/21/2025 12:4 7 PM APPELLATE LAW CLERK Impressions 06/21/2025 12:47 PM APPELLATE LAW CLERK Impression: There is subsegmental atelectasis in the lower lungs.There is no pleural effusion.There is no pneumothorax. The cardiomediastinal silhouette is normal. > Interpreting Provider: Gray Bo MD on 06/21/2025 12:47 PM Narrative 06/21/2025 12:47 PM APPELLATE LAW CLERK PROCEDURE: XR CHEST 1VW PORTABLE, DATE/TIME OF EXAM: 06/21/2025 1:46 AM, LOCATION [facility] INDICATION: T17.908D: Aspiration into airway, subsequent encounter ADDITIONAL CLINICAL INFORMATION: Ordering Provider Reason For Exam: aspiration Technologist Note: Additional: COMPARISON: None. Procedure Note Gray Bo MD - 06/21/2025 PROCEDURE: XR CHEST 1VW PORTABLE, DATE/TIME OF EXAM: 06/21/2025 1:46AM, LOCATION [facility] INDICATION: T17.908D: Aspiration into airway, subsequent encounter ADDITIONAL CLINICAL INFORMATION: Ordering Provider Reason For Exam: aspiration Technologist Note: Additional: COMPARISON: None. Impression: There is subsegmental atelectasis in the lower lungs.There is no pleural effusion.There is no pneumothorax. The cardiomediastinal silhouette is normal. > Interpreting Provider: Gray Bo MD on 06/21/2025 12:47 PM [facility] DIAGNOSTIC IMAGING O RDERABLES Final Result * (ABNORMAL) URINALYSIS REFLEX TO MICROSCOPIC NO CULTURE (06/20/2025 11:06 PM CDT) Color UA Yellow Yellow, Straw 06/20/2025 11:31 PM CDT [facility] Clarity UA Clear Clear 06/20/2025 11:31 PM CDT [facility] Glucose UA Normal Normal 06/20/2025 11:31 PM CDT [facility] Bilirubin UA Negative Negative 06/20/2025 11:31 PM CDT [facility] Ketone UA 1+(A) Negative 06/20/2025 11:31 PM [facility] Specific [place] UA 1.017 1.005 - 1.030 06/20/2025 11:31 PM [facility] Blood UA 2+(A) Negative 06/20/2025 11:31 PM [facility] pH UA 7.0 5.0 - 8.0 06/20/2025 11:31 PM [facility] Protein UA Negative Negative 06/20/2025 11:31 PM [facility] Urobilinogen UA Normal Normal mg/dL 025 11:31 PM [facility] Nitrite UA Negative Negative 06/20/2025 11:31 PM [facility] Leukocyte Esterase UA Negative Negative 06/20/2025 11:31 PM [facility] RBC UA 51-100(A) 0 - 5 # /hpf 06/20/2025 11:31 PM [facility] WBC UA 0-5 0 - 5 # /hpf 06/20/2025 11:31 PM [facility] Bacteria UA None Seen None Seen 06/20/2025 11:31 PM [facility] Squamous Epithelial Cells 0-2 0 - 5 /hpf 06/20/2025 11:31 PM [facility] Mucus UA 1+ /LPF 06/20/2025 11:31 PM [facility] Urine URINE SPECIMEN OBTAINED BY CLEAN CATCH PROCEDURE / Unknown Collection / Unknown 06/20/2025 11:06 PM CDT 06/20/2025 11:24 PM [facility] us Kofi Ivey DO LAB - URINALYSIS ORD ERABLES Final Result [facility] [address] [place] [address], [facility] [phone] from Last 3 Months Insurance Advance Directives * Full Code (Latest Code Status on File) Date Activated Date Inactivated Comments 06/20/2025 10:34 PM 07/01/2025 10:58 PM
[2025-07-03 08:17] LABS: Hematocrit 33.7 % (40.0-54.0); Hemoglobin 11.3 g/dL (14.0-18.0); Immature Granulocyte Percent A 1.3 % (0.0-0.0); Lymphocytes Absolute Auto 1.63 K/mm3 (1.10-4.50); Mean Corpuscular HGB Conc 33.5 g/dL (32-36); Mean Corpuscular Hemoglobin 32.5 pg (27.0-31.0); Mean Corpuscular Volume 96.8 fL (78.0-102.0); Nucleated Red Blood Cells Absolute Auto 0.00 K/mm3 (0.00-0.00); Nucleated Red Blood Cells Perc 0.0 % (0-0.0); Platelet Count Result 324 K/mm3 (150-420); Red Blood Count 3.48 M/mm3 (4.70-6.10); White Blood Count 6.1 K/mm3 (4.8-10.8)
[2025-07-03 08:46] LABS: Alanine Aminotransferase 74 U/L (6-50); Albumin Level 3.7 g/dL (3.5-5.1); Alkaline Phosphatase 55 U/L (38-126); Anion Gap 10 mmol/L (4-12); Aspartate Amino Transferase 58 U/L (17-59); Blood Urea Nitrogen 15 mg/dL (9-20); Calcium 9.0 mg/dL (8.4-10.2); Carbon Dioxide 25 mmol/L (22-30); Chloride 105 mmol/L (98-107); Cholesterol 132 mg/dL (0-200); Estimated Glomerular Filt Rate > 60; Glucose 80 mg/dL (65-110); HDL Direct 29 mg/dL; Magnesium 1.5 mg/dL (1.6-2.3); Osmolality Calculated 289 mOsm/kg (285-295); Potassium 4.0 mmol/L (3.4-5.0); Sodium 140 mmol/L (137-145); Total Protein 6.3 g/dL (6.3-8.2); Triglycerides 108 mg/dL (<150)
[2025-07-03 08:48] LABS: Hemoglobin A1C < 4.7 % (<5.7)
[2025-07-03 09:03] LABS: Free T4 Free Thyroxine 1.50 ng/dL (0.78-2.19)
[2025-07-03 09:16] LABS: Thyroid Stimulating Hormone 4.340 uIU/mL (0.465-4.680)
[2025-07-03 09:36] LABS: Vitamin B12 526.0 pg/mL (239-931)
[2025-07-07 16:17] LABS: Bilirubin,Total 0.5 mg/dL (0.2-1.3)
== END 2025-07-03 07:47 | disposition home or self-care (01) ==
LOC: CHSLAB 07:50
PROVIDERS: PCP Nurse Practitioner Family; Visit Provider Internal Medicine
DX: E51.2 Wernicke's encephalopathy (principal); F05 Delirium due to known physiological condition; M10.9 Gout, unspecified; F10.96 Alcohol use, unspecified with alcohol-induced persisting amnestic disorder
CPT/HCPCS: 36415; 80053; 80061; 82306; 82607; 83036; 83735; 84439; 84443; 85025